=== PATIENT | male | born 1955 | race Caucasian/White ===

== ENCOUNTER 2019-12-28 22:11 | Emergency (ER) | payer MEDICARE, MEDICAID, SELFPAY ==
[2019-12-28 22:25] VITALS: BP 153/76; PULSE 72; RESP 13; TEMP 36.7; O2SAT 95; BMI 35.7
--- NOTE | 2019-12-28 22:38 | ECG_ITS ---
Test Reason : CHEST PAIN Blood Pressure : / mmHG Vent. Rate : 068 BPM Atrial Rate : 068 BPM P-R Int : 180 ms QRS Dur : 080 ms QT Int : 424 ms P-R-T Axes : 067 032 071 degrees QTc Int : 450 ms Normal sinus rhythm Low voltage QRS Otherwise normal ECG No significant changes seen Referred By: Phillip Geiger Electronically Signed By:SHALOM GARCIA MD
--- NOTE | 2019-12-28 22:41 | ED.CHESTPAIN ---
HPI - Chest Pain General Chief Complaint: Chest Pain Stated Complaint: CP Time Seen by Provider: 12/28/19 22:29 Source: patient and EMS Mode of arrival: EMS History of Present Illness HPI narrative: Chest pain. Central for about 1 hour. Patient states was sleeping and woke up with central pain. Nonradiating. Mild shortness breath. Mild nausea however no vomiting. Denies diaphoresis however states he had the chills. No dizziness states pain improved upon arrival to emergency department MD complaint: chest discomfort Onset (ago): hour(s) Timing of current episode: constant Pain location: epigastric Pain radiation: none Severity: moderate Quality: sharp Associated symptoms: nausea Risk Factors Pulmonary embolism risk factors: malignancy Related Data Home Medications Medication Instructions Recorded Confirmed aspirin 81 mg PO DAILY 11/18/19 12/28/19 atorvastatin 80 mg PO BEDTIME 11/18/19 12/28/19 carvedilol 3.125 mg PO BID 11/18/19 12/28/19 doxycycline hyclate 100 mg PO DAILY 11/18/19 11/18/19 fluoxetine 20 mg PO DAILY 11/18/19 12/28/19 fluticasone propionate [Flovent 2 puff INHALATION BID 11/18/19 11/18/19 HFA] hydroxyzine HCl 25 mg PO TID PRN 11/18/19 11/18/19 magnesium oxide 400 mg PO BID 11/18/19 12/28/19 methylprednisolone 4 mg PO DAILY 11/18/19 11/18/19 metronidazole 1 applic TOPICAL DAILY 11/18/19 11/18/19 omeprazole 20 mg PO DAILY 11/18/19 12/28/19 ondansetron HCl 8 mg PO Q8H PRN 11/18/19 11/18/19 trazodone 50 mg PO DAILY 11/18/19 12/28/19 triamcinolone acetonide 1 applic TOPICAL BID 11/18/19 11/18/19 vitamin B comp and C no.3 [B 1 cap PO DAILY 11/18/19 12/28/19 Complex Plus Vitamin C] doxycycline hyclate 100 mg PO BID 12/01/19 12/01/19 triamcinolone acetonide 1 applic TOPICAL DAILY 12/01/19 12/01/19 Allergies Allergy/AdvReac Type Severity Reaction Status Date / Time nitroglycerin Allergy Severe AGITATION Verified 11/10/19 13:48 [From NITROSTAT] oxaliplatin [OXALIPLATIN] Allergy Severe anaphylaxis Verified 11/10/19 13:48 diphenhydramine Allergy Intermediate RASH Verified 11/10/19 13:48 [From MOTRIN PM] ibuprofen [From ADVIL] Allergy Unknown RASH Verified 11/10/19 13:48 morphine Allergy Unknown painful Verified 09/11/19 00:00 rash oxcarbazepine Allergy Unknown rash, Verified 11/10/19 13:48 [From TRILEPTAL] coughing penicillin V Allergy Unknown rash Verified 11/10/19 13:48 Penicillins [PENICILLINS] Allergy Unknown ITCHING, Verified 11/10/19 13:48 RASH Benadryl Allergy Unknown rash Uncoded 09/11/19 00:00 Review of Systems Review of Systems: Constitutional : No Weight loss, No Fever, No Chills, No Night Sweats, No Fatigue, No Malaise ENT/Mouth : No Hearing loss, No Ear Pain, No Nasal Congestion, No Sinus Pain, No Hoarseness, No sore throat, No Rhinorrhea, No Swallowing Difficulty Eyes: No Eye Pain, No Swelling, No Redness, No Foreign Body, No Discharge, No Vision Changes Cardiovascular : Positive Chest Pain, positive SOB, No Dyspnea on Exertion, No Orthopnea, No Edema, No Palpitations Respiratory : No Cough, No Sputum, No Wheezing, No Smoke Exposure, No Dyspnea Gastrointestinal : No Nausea, No Vomiting, No Diarrhea, No Constipation, No abdominal Pain, No Hematochezia, No Melena Genitourinary : no irregular bleeding, No Dysuria, No Urinary Frequency, No Hematuria, No Urinary Incontinence, No Urgency, No Flank Pain, No Urinary Flow Changes, No Hesitancy Musculoskeletal : No joint pain, No Myalgias, No Joint Swelling Skin : No Skin Lesions, No rash Neuro : No Weakness, No Numbness, No Paresthesias, No Loss of Consciousness, No Dizziness, No Headache Psych : No Anxiety/Panic, No Depression, No SI/HI/AH/VH, No Social Issues, Heme/Lymph: No Bruising, No Bleeding,No Lymphadenopathy Endocrine : No Polyuria, No Polydipsia, No Temperature Intolerance PMFSH Past Medical History Medical History Asthma Colon cancer Diabetes mellitus, type 2 Hypercholesteremia Hypertension Palpitations Family History Family History (Updated 12/28/19 @ 22:45 by Phillip Geiger DO) Other Family history non-contributory Social History Social History Alcohol intake: never Smoked in Last 30 Days: No Use of substances other than those prescribed or required for medical reasons: No Advance Directives: No Advance Directives Information Provided: No Physical Exam Vital Signs: Vital Signs: Last Vital Signs Temp 98.0 F 12/28/19 22:25 Pulse 77 12/29/19 01:24 Resp 16 12/29/19 01:24 BP 153/76 H 12/28/19 22:25 Pulse Ox 97 12/29/19 01:24 Body Mass Index 35.7 Vital signs reviewed Appearance: Alert. Oriented X3. No acute distress. No distress Eyes: Pupils equal, round and reactive to light. ENT: Pharynx normal. Neck: Normal inspection. Neck supple. No lymph nodes noted. No crepitus CVS: Normal heart rate and rhythm. Pulses normal. Normal S1 and S2 no pain with palpation Respiratory: No respiratory distress. Breath sounds normal. No Wheezing. No rales no respiratory distress Abdomen: Soft and nontender. No rigidity. No distention. good BS x4 Skin: Skin warm and dry. Normal skin color. Normal skin turgor. Extremities: No lower extremity edema. Neurovascular intact to all extremities. No Lacerations. No Rash Neuro: Oriented X 3. No motor deficit. No sensory deficit. Moving all extermities. No slurred speech. Course Course Course Narrative: Patient with history of colon cancer will pursue to CTA for rule out PE MDM - Chest Pain MDM Narrative Medical decision making narrative: 64-year-old male with central chest pain prior to arrival. Patient has history of cancer CTA negative for PE. No signs of infection. EKG normal and troponin x2 negative. Throughout stay patient felt much improved. At this point I doubt the patient has acute coronary syndrome Lab Data Result diagrams: 12/28/19 23:01 12/28/19 23:01 Labs: Lab Results 12/28/19 12/28/19 12/28/19 Range/Units 23:01 23:01 23:01 WBC 7.9 (4.8-10.8) X10*3/uL RBC 4.47 L (4.60-5.80) X10*6/uL Hgb 11.7 L (14.0-18.0) g/dl Hct 36.8 L (42-52) % MCV 82.3 (80-98) fL MCH 26.2 L (27.0-33.0) pg MCHC 31.8 (31.0-36.0) g/dl RDW 15.6 (11.0-16.0) % Plt Count 237 (160-400) X10*3/uL MPV 10.4 (9.4-12.4) fL Immature Gran % (Auto) 0.5 H (0.0-0.4) % Neut % (Auto) 53.0 (45-73) % Lymph % (Auto) 32.9 (20-40) % [place] % (Auto) 10.4 (2-11) % Eos % (Auto) 2.4 (0-4) % Baso % (Auto) 0.8 (0-2) % Lymph # (Auto) 2.6 (1.2-4.9) X10*3/uL [place] # (Auto) 0.8 (0.1-1.2) X10*3/uL Eos # (Auto) 0.2 (0.0-0.4) X10*3/uL Baso # (Auto) 0.1 (0.0-0.2) X10*3/uL Abs Immat Gran (auto) 0.04 H (0.00-0.03) X10*3/uL Absolute Neuts (auto) 4.2 (2.0-8.3) X10*3/uL Absolute Nucleated RBC 0.000 (0.0-0.012) X10*3/uL Nucleated RBC % (auto) 0.0 (0.0-0.2) /100WBC Hold Blue Top SEE NOTE Sodium 137 (135-145) mmol/L Potassium 3.7 (3.3-5.1) mmol/l Chloride 105 (96-108) mmol/L Carbon Dioxide 24 (22-29) mmol/L Anion Gap 12 (12-20) BUN 8 L (9-16) mg/dL Creatinine 0.68 (0.5-1.4) mg/dL Estim Creat Clear Calc 108.4 Estimated GFR > 60 Random Glucose 101 (60-115) mg/dL Calcium 8.4 (8.4-10.2) mg/dL Total Bilirubin (0.0-1.0) mg/dL Direct Bilirubin (0.0-0.5) mg/dL AST (5-37) U/L ALT (0-40) U/L Alkaline Phosphatase (39-117) U/L Troponin I High Sens (<3.5-35.0) ng/L Total Protein (6.5-8.0) g/dL Albumin (3.5-5.0) g/dL Lipase (8-78) U/L 12/28/19 12/28/19 12/29/19 Range/Units 23:01 23:01 01:34 WBC (4.8-10.8) X10*3/uL RBC (4.60-5.80) X10*6/uL Hgb (14.0-18.0) g/dl Hct (42-52) % MCV (80-98) fL MCH (27.0-33.0) pg MCHC (31.0-36.0) g/dl RDW (11.0-16.0) % Plt Count (160-400) X10*3/uL MPV (9.4-12.4) fL Immature Gran % (Auto) (0.0-0.4) % Neut % (Auto) (45-73) % Lymph % (Auto) (20-40) % [place] % (Auto) (2-11) % Eos % (Auto) (0-4) % Baso % (Auto) (0-2) % Lymph # (Auto) (1.2-4.9) X10*3/uL [place] # (Auto) (0.1-1.2) X10*3/uL Eos # (Auto) (0.0-0.4) X10*3/uL Baso # (Auto) (0.0-0.2) X10*3/uL Abs Immat Gran (auto) (0.00-0.03) X10*3/uL Absolute Neuts (auto) (2.0-8.3) X10*3/uL Absolute Nucleated RBC (0.0-0.012) X10*3/uL Nucleated RBC % (auto) (0.0-0.2) /100WBC Hold Blue Top Sodium (135-145) mmol/L Potassium (3.3-5.1) mmol/l Chloride (96-108) mmol/L Carbon Dioxide (22-29) mmol/L Anion Gap (12-20) BUN (9-16) mg/dL Creatinine (0.5-1.4) mg/dL Estim Creat Clear Calc Estimated GFR Random Glucose (60-115) mg/dL Calcium (8.4-10.2) mg/dL Total Bilirubin 0.2 (0.0-1.0) mg/dL Direct Bilirubin 0.2 (0.0-0.5) mg/dL AST 25 (5-37) U/L ALT 25 (0-40) U/L Alkaline Phosphatase 119 H (39-117) U/L Troponin I High Sens 48.9 H 44.3 H (<3.5-35.0) ng/L Total Protein 6.9 (6.5-8.0) g/dL Albumin 3.5 (3.5-5.0) g/dL Lipase 62 (8-78) U/L ECG Data ECG #1: Attestation: I personally reviewed and interpreted this ECG as follows: Pacemaker model: 68 beats per minute. Normal sinus rhythm. Normal axis. No ST-T changes. Discharge Plan Discharge Clinical Impression: Chest pain Patient Disposition: Home, Self-Care Instructions: Chest Pain (ED) Additional Instructions: Thank you for visiting the emergency department today. If your symptoms worsen or do not resolve completely please return to the emergency department immediately or call 911. if he have any questions please call your primary care physician Prescriptions: No Action doxycycline hyclate 100 mg Capsule 100 mg PO DAILY RF: 0 ondansetron HCl 8 mg Tablet 8 mg PO Q8H PRN (Reason: Nausea) RF: 0 methylprednisolone 4 mg Tablet 4 mg PO DAILY RF: 0 metronidazole 0.75 % Cream 1 applic TOPICAL DAILY RF: 0 hydroxyzine HCl 25 mg Tablet 25 mg PO TID PRN (Reason: Itching) RF: 0 atorvastatin 80 mg Tablet 80 mg PO BEDTIME RF: 0 triamcinolone acetonide 0.1 % Cream 1 applic TOPICAL BID RF: 0 carvedilol 3.125 mg Tablet 3.125 mg PO BID RF: 0 omeprazole 20 mg Capsule,Delayed Release(Dr/Ec) 20 mg PO DAILY RF: 0 aspirin 81 mg Tablet 81 mg PO DAILY RF: 0 fluoxetine 20 mg Capsule 20 mg PO DAILY RF: 0 Flovent HFA 110 mcg/actuation Hfa Aerosol Inhaler 2 puff INHALATION BID RF: 0 B Complex Plus Vitamin C 72-78-11-5-300 mg Capsule 1 cap PO DAILY RF: 0 magnesium oxide 400 mg magnesium Tablet 400 mg PO BID RF: 0 trazodone 50 mg Tablet 50 mg PO DAILY RF: 0 triamcinolone acetonide 0.1 % Ointment 1 applic TOPICAL DAILY RF: 0 doxycycline hyclate 100 mg Tablet 100 mg PO BID RF: 0 Referrals: [facility] [Provider Group] - 2 days Interventions: ED Discharge Assessment Last Done: 12/29/19 03:44 Discharge Date/Time: 12/29/19 03:47 Print Language: Turkmen
[2019-12-28] MEDS: 0.9 % Sodium Chloride 1,000 ML 999 ML IVCONT (23:02)
[2019-12-28] MEDS: Famotidine/PF 20 MG/2 ML VIAL IVPUSH (23:02)
[2019-12-28 23:10] LABS: MANUAL DIFF FLAG NO
[2019-12-28 23:12] LABS: Basophils Absolute Auto 0.1 X10*3/uL (0.0-0.2); Basophils Percent Auto 0.8 % (0-2); Eosinophils Absolute Auto 0.2 X10*3/uL (0.0-0.4); Eosinophils Percent Auto 2.4 % (0-4); Hematocrit 36.8 % (42-52); Hemoglobin 11.7 g/dl (14.0-18.0); Imm Gran Abs Auto 0.04 X10*3/uL (0.00-0.03); Imm Gran Pct Auto 0.5 % (0.0-0.4); Lymphocytes Absolute Auto 2.6 X10*3/uL (1.2-4.9); Lymphocytes Percent Auto 32.9 % (20-40); Mean Corpuscular HGB Conc 31.8 g/dl (31.0-36.0); Mean Corpuscular Hemoglobin 26.2 pg (27.0-33.0); Mean Corpuscular Volume 82.3 fL (80-98); Mean Platelet Volume 10.4 fL (9.4-12.4); Monocytes Absolute Auto 0.8 X10*3/uL (0.1-1.2); Monocytes Percent Auto 10.4 % (2-11); Neutrophils Absolute Auto 4.2 X10*3/uL (2.0-8.3); Platelet Count 237 X10*3/uL (160-400); Red Blood Count 4.47 X10*6/uL (4.60-5.80); Red Cell Distribution Width 15.6 % (11.0-16.0); White Blood Count 7.9 X10*3/uL (4.8-10.8)
[2019-12-28 23:44] LABS: Anion Gap 12 (12-20); Blood Urea Nitrogen 8 mg/dL (9-16); Calcium 8.4 mg/dL (8.4-10.2); Carbon Dioxide 24 mmol/L (22-29); Chloride 105 mmol/L (96-108); Creatinine Clr Calc Pharmacy 108.4; Estimated Glomerular Filt Rate > 60; Glucose Random 101 mg/dL (60-115); Potassium 3.7 mmol/l (3.3-5.1); Sodium 137 mmol/L (135-145)
[2019-12-28 23:46] LABS: Alanine Aminotransferase 25 U/L (0-40); Albumin Level 3.5 g/dL (3.5-5.0); Alkaline Phosphatase 119 U/L (39-117); Aspartate Amino Transferase 25 U/L (5-37); Bilirubin Direct 0.2 mg/dL (0.0-0.5); Bilirubin Total 0.2 mg/dL (0.0-1.0); Lipase 62 U/L (8-78); Total Protein 6.9 g/dL (6.5-8.0)
[2019-12-29] LABS: Troponin-I High Sensitivity 48.9 ng/L (<3.5-35.0)
--- NOTE | 2019-12-29 00:15 | CT_ITS ---
EXAMINATION: CT ANGIOGRAM OF THE CHEST WITH AND WITHOUT CONTRAST (CT PULMONARY ANGIOGRAM FOR PE) CLINICAL INFORMATION: Reason for Exam cp, sob, hx ca COMPARISON: 07/07/2019 TECHNIQUE: Prior to contrast administration, noncontrast localization images were obtained. Subsequently, multidetector volumetric imaging was performed from the thoracic inlet to below the diaphragms following the administration of 85 mL Omnipaque 350 intravenous contrast. No contrast reaction reported Sagittal, coronal, and MIP oblique sagittal reformatted images were obtained on the CT workstation, uploaded to PACS, and reviewed. This CT examination was performed using dose optimization techniques as appropriate, variously including the following: *Automated exposure control *Adjustment of mA and/or kV according to patient size (this includes techniques or standardized protocols for targeted exams where dose is matched to indication/reason for exam; i.e. extremities or head) *Use of iterative reconstruction technique Total exam dose-length product 408 mGy-cm FINDINGS: QUALITY OF STUDY/CONTRAST BOLUS: Satisfactory. PULMONARY ARTERIES: No central or segmental pulmonary emboli. THORACIC AORTA: No aneurysm or dissection. Mild scattered atherosclerotic disease. LUNG: No regions of consolidation bilaterally. Bilateral bronchial wall thickening is noted. Redemonstration of numerous scattered tiny nodules bilaterally, some of which are calcified and overall favoring granulomas. PLEURA: No pleural effusion or pneumothorax. MEDIASTINUM: The visualized thyroid gland is unremarkable. There are subcentimeter mediastinal lymph nodes within the range of normal variation. There is prominence of mediastinal fat suggesting mediastinal lipomatosis. Cardiac size is within normal limits; no pericardial effusion. Right IJ port catheter extends to the region of the mid SVC. CHEST WALL/AXILLA: No axillary or internal mammary lymphadenopathy. OSSEOUS STRUCTURES: There are changes of diffuse idiopathic skeletal hyperostosis in the spine. UPPER ABDOMEN: Partially visualized hypodensity in the upper left kidney is suggestive of a cyst. No reflux of contrast into the hepatic veins to suggest elevated right heart pressures. CT/CT angio chest PE protocol IMPRESSION: 1. No pulmonary embolus identified. 2. Bronchial wall thickening which may be secondary to acute or chronic bronchitis. No regions of consolidation. VTE: negative
[2019-12-29] MEDS: iohexoL 350 MG/ML 100 ML INFUS..BTL 85 ML IV (01:13)
[2019-12-29 01:24] VITALS: PULSE 77; RESP 16; O2SAT 97
[2019-12-29 02:22] LABS: Troponin-I High Sensitivity 44.3 ng/L (<3.5-35.0)
== END 2019-12-29 03:47 | disposition home or self-care (01) ==
PROVIDERS: Emergency Provider Emergency Medicine
DX: R07.9 Chest pain, unspecified (principal); E11.9 Type 2 diabetes mellitus without complications; I10 Essential (primary) hypertension; Z79.899 Other long term (current) drug therapy
CPT/HCPCS: 36415; 71275; 80048; 80076; 83690; 84484; 85025; 93005; 96361; 96374; 99284; Q9967

== ENCOUNTER 2020-01-05 02:38 | Emergency (ER) | payer MEDICARE, MEDICAID, SELFPAY ==
[2020-01-05 02:47] VITALS: BP 144/58; BP 176/90; PULSE 70; PULSE 83; RESP 14; TEMP 36.5; O2SAT 100; O2SAT 97; BMI 36.3
--- NOTE | 2020-01-05 02:52 | XR_ITS ---
EXAMINATION: XR CHEST CLINICAL INFORMATION: Chest pain COMPARISON: 07/20/2019 TECHNIQUE: Frontal view of the chest was obtained. FINDINGS: Right chest wall CT compatible port terminating over the mid SVC. Cardiac leads overlie the chest. Low lung volumes. Patchy opacity of the left upper lung. Bronchial wall thickening noted. No pleural effusion. No pneumothorax. The cardiomediastinal silhouette is within normal limits. XR/XR chest 1V IMPRESSION: Bronchial wall thickening noted which could be associated with a small airways process. Minimal patchy left upper lung opacity may represent superimposed atelectasis or developing pneumonia.
--- NOTE | 2020-01-05 02:52 | ECG_ITS ---
Test Reason : CHEST PAIN Blood Pressure : / mmHG Vent. Rate : 072 BPM Atrial Rate : 072 BPM P-R Int : 172 ms QRS Dur : 078 ms QT Int : 428 ms P-R-T Axes : 068 023 040 degrees QTc Int : 468 ms Sinus rhythm with Premature atrial complexes Low voltage QRS Abnormal ECG When compared with ECG of 28-DEC-2019 22:27, Premature atrial complexes are now Present Referred By: Sarahi Jin Electronically Signed By:SHALOM GARCIA MD
[2020-01-05 03:25] LABS: Basophils Percent Auto 0.6 % (0-2); Eosinophils Absolute Auto 0.1 X10*3/uL (0.0-0.4); Eosinophils Percent Auto 1.7 % (0-4); Hematocrit 36.8 % (42-52); Hemoglobin 11.5 g/dl (14.0-18.0); Imm Gran Abs Auto 0.03 X10*3/uL (0.00-0.03); Imm Gran Pct Auto 0.5 % (0.0-0.4); Lymphocytes Absolute Auto 2.8 X10*3/uL (1.2-4.9); Lymphocytes Percent Auto 41.8 % (20-40); Mean Corpuscular HGB Conc 31.3 g/dl (31.0-36.0); Mean Corpuscular Hemoglobin 25.9 pg (27.0-33.0); Mean Corpuscular Volume 82.9 fL (80-98); Mean Platelet Volume 10.9 fL (9.4-12.4); Monocytes Absolute Auto 0.6 X10*3/uL (0.1-1.2); Monocytes Percent Auto 8.7 % (2-11); Neutrophils Absolute Auto 3.1 X10*3/uL (2.0-8.3); Neutrophils Percent Auto 46.7 % (45-73); Platelet Count 224 X10*3/uL (160-400); Red Blood Count 4.44 X10*6/uL (4.60-5.80); Red Cell Distribution Width 15.6 % (11.0-16.0); White Blood Count 6.6 X10*3/uL (4.8-10.8)
--- NOTE | 2020-01-05 03:25 | ED.CHESTPAIN ---
HPI - Chest Pain General Chief Complaint: Chest Pain Stated Complaint: SOB/CP Time Seen by Provider: 01/05/20 02:51 Source: patient and charge preparation technician Mode of arrival: EMS Limitations: no limitations History of Present Illness HPI narrative: This is a 64-year-old male who is brought in by EMS after calling for being awoken from sleep with substernal chest discomfort that he states is similar as to last week whenever he presented and is not associated with any fevers, chills, nausea, diaphoresis, radiation to arm / jaw, dizziness, or headache. As per EMS they administered 324 mg of aspirin and patient states that his chest pain has mildly improved. He states he did drink some alcohol yesterday MD complaint: chest discomfort Related Data Home Medications Medication Instructions Recorded Confirmed aspirin 81 mg PO DAILY 11/18/19 12/28/19 atorvastatin 80 mg PO BEDTIME 11/18/19 12/28/19 carvedilol 3.125 mg PO BID 11/18/19 12/28/19 doxycycline hyclate 100 mg PO DAILY 11/18/19 11/18/19 fluoxetine 20 mg PO DAILY 11/18/19 12/28/19 fluticasone propionate [Flovent 2 puff INHALATION BID 11/18/19 11/18/19 HFA] hydroxyzine HCl 25 mg PO TID PRN 11/18/19 11/18/19 magnesium oxide 400 mg PO BID 11/18/19 12/28/19 methylprednisolone 4 mg PO DAILY 11/18/19 11/18/19 metronidazole 1 applic TOPICAL DAILY 11/18/19 11/18/19 omeprazole 20 mg PO DAILY 11/18/19 12/28/19 ondansetron HCl 8 mg PO Q8H PRN 11/18/19 11/18/19 trazodone 50 mg PO DAILY 11/18/19 12/28/19 triamcinolone acetonide 1 applic TOPICAL BID 11/18/19 11/18/19 vitamin B comp and C no.3 [B 1 cap PO DAILY 11/18/19 12/28/19 Complex Plus Vitamin C] doxycycline hyclate 100 mg PO BID 12/01/19 12/01/19 triamcinolone acetonide 1 applic TOPICAL DAILY 12/01/19 12/01/19 Allergies Allergy/AdvReac Type Severity Reaction Status Date / Time nitroglycerin Allergy Severe AGITATION Verified 01/05/20 02:47 [From NITROSTAT] oxaliplatin [OXALIPLATIN] Allergy Severe anaphylaxis Verified 01/05/20 02:47 diphenhydramine Allergy Intermediate RASH Verified 01/05/20 02:47 [From MOTRIN PM] ibuprofen [From ADVIL] Allergy Unknown RASH Verified 01/05/20 02:47 morphine Allergy Unknown painful Verified 01/05/20 02:47 rash oxcarbazepine Allergy Unknown rash, Verified 01/05/20 02:47 [From TRILEPTAL] coughing penicillin V Allergy Unknown rash Verified 01/05/20 02:47 Penicillins [PENICILLINS] Allergy Unknown ITCHING, Verified 01/05/20 02:47 RASH Benadryl Allergy Unknown rash Uncoded 09/11/19 00:00 Review of Systems Review of Systems: pertinent positives and negatives as stated in HPI 10 point review of systems is otherwise negative. [facility] Past Medical History Attestation statement: The following information was validated with the patient. Source: nursing notes reviewed Medical History Asthma Colon cancer Diabetes mellitus, type 2 Hypercholesteremia Hypertension Palpitations Family History Family History (Updated 12/28/19 @ 22:45 by Phillip Geiger DO) Other Family history non-contributory Social History Social History Alcohol intake: never Advance Directives: No Physical Exam Vital Signs: Vital Signs: Last Vital Signs Temp 97.7 F 01/05/20 02:47 Pulse 70 01/05/20 02:47 Resp 14 01/05/20 02:47 BP 144/58 H 01/05/20 02:47 Pulse Ox 97 01/05/20 02:47 Body Mass Index 36.3 VITAL SIGNS: Reviewed. GENERAL: Well developed, well nourished, in no acute distress. HEAD: Normocephalic/atraumatic, EYES: PERRLA, EOMI intact without pain, no nystagmus/pallor/icterus noted EARS: Ext canals without abnormality, TMs non-bulging and non-erythematous NOSE: Nares patent bilateral OROPHARYNX: no oral lesions noted, posterior pharynx clear and non-erythematous without noted tonsillar enlargement/erythema/exudates NECK: Supple, no adenopathy LUNGS: Normal breath sounds. No adventitious sounds or accessory muscle use. SpO2<97> CARDIOVASCULAR: Regular rate and rhythm without noted murmurs, no JVD or lower extremity edema. ABDOMEN: Soft, non-tender, non-distended with bowel sounds. No rigidity. No guarding. No palpable masses or hernias noted MUSCULOSKELETAL: No tenderness, deformities, or effusions noted on gross inspection. EXTREMITIES: No cyanosis, clubbing or edema. SKIN: Inspection of the skin reveals chemotherapy rash to anterior abdominal wall, ulcerations, jaundice, pallor, or petechiae. NEUROLOGIC: Alert and oriented x 4. Strength and sensation to light touch were grossly intact x 4. Course Course Course Narrative: This is a 64-year-old male with history and clinical presentation consistent with possible alcohol gastritis, cardiac ischemia, pneumonia. On review of all investigation there is no leukocytosis, patient has chronic stable anemia, and high sensitivity troponin is consistent with prior from 12/29/2019 and no evidence of acute ischemia on EKG. There is a noted hypomagnesemia without potassium derangements and patient will be supplemented with 2 g of magnesium here in the emergency department. on review of chest x-ray suggestion of possible developing pneumonia in the left upper lung and will also swab for COVID-19 at this time. Patient received supplemental magnesium, the COVID-19 testing is negative, and patient is feeling much better. He will be discharged to home in stable condition and instructed follow up with his primary care provider by calling the office in the morning. On further discussion patient stated he was provided with doxycycline for pneumonia at his last visit however he did not receive a call from the pharmacy and so he has not picked up any antibiotic. He was instructed that the antibiotic was available for him at [facility] and that he should proceed there today after his scheduled appointment and machine pecan picker the antibiotic and complete the entire course. MDM - Chest Pain Lab Data Result diagrams: 01/05/20 03:13 01/05/20 03:13 Labs: Lab Results 01/05/20 01/05/20 01/05/20 Range/Units 03:13 03:13 03:13 WBC 6.6 (4.8-10.8) X10*3/uL RBC 4.44 L (4.60-5.80) X10*6/uL Hgb 11.5 L (14.0-18.0) g/dl Hct 36.8 L (42-52) % MCV 82.9 (80-98) fL MCH 25.9 L (27.0-33.0) pg MCHC 31.3 (31.0-36.0) g/dl RDW 15.6 (11.0-16.0) % Plt Count 224 (160-400) X10*3/uL MPV 10.9 (9.4-12.4) fL Immature Gran % (Auto) 0.5 H (0.0-0.4) % Neut % (Auto) 46.7 (45-73) % Lymph % (Auto) 41.8 H (20-40) % [place] % (Auto) 8.7 (2-11) % Eos % (Auto) 1.7 (0-4) % Baso % (Auto) 0.6 (0-2) % Lymph # (Auto) 2.8 (1.2-4.9) X10*3/uL [place] # (Auto) 0.6 (0.1-1.2) X10*3/uL Eos # (Auto) 0.1 (0.0-0.4) X10*3/uL Baso # (Auto) 0.0 (0.0-0.2) X10*3/uL Abs Immat Gran (auto) 0.03 (0.00-0.03) X10*3/uL Absolute Neuts (auto) 3.1 (2.0-8.3) X10*3/uL Absolute Nucleated RBC 0.000 (0.0-0.012) X10*3/uL Nucleated RBC % (auto) 0.0 (0.0-0.2) /100WBC Sodium 138 (135-145) mmol/L Potassium 3.6 (3.3-5.1) mmol/l Chloride 105 (96-108) mmol/L Carbon Dioxide 23 (22-29) mmol/L Anion Gap 14 (12-20) BUN 9 (9-16) mg/dL Creatinine 0.69 (0.5-1.4) mg/dL Estim Creat Clear Calc 107.8 Estimated GFR > 60 Random Glucose 118 H (60-115) mg/dL Calcium 8.3 L (8.4-10.2) mg/dL Magnesium 1.4 L* (1.6-2.6) mg/dL Total Bilirubin 0.5 (0.0-1.0) mg/dL AST 34 D (5-37) U/L ALT 33 (0-40) U/L Alkaline Phosphatase 124 H (39-117) U/L Troponin I High Sens 38.2 H (<3.5-35.0) ng/L Total Protein 7.0 (6.5-8.0) g/dL Albumin 3.5 (3.5-5.0) g/dL Lipase 65 (8-78) U/L Ethyl Alcohol mg/dL Coronavirus (PCR) (Negative) Influenza Type A (PCR) (Negative) Influenza Type B (PCR) (Negative) RSV RNA Qual (PCR) (Negative) 01/05/20 01/05/20 Range/Units 03:13 04:09 WBC (4.8-10.8) X10*3/uL RBC (4.60-5.80) X10*6/uL Hgb (14.0-18.0) g/dl Hct (42-52) % MCV (80-98) fL MCH (27.0-33.0) pg MCHC (31.0-36.0) g/dl RDW (11.0-16.0) % Plt Count (160-400) X10*3/uL MPV (9.4-12.4) fL Immature Gran % (Auto) (0.0-0.4) % Neut % (Auto) (45-73) % Lymph % (Auto) (20-40) % [place] % (Auto) (2-11) % Eos % (Auto) (0-4) % Baso % (Auto) (0-2) % Lymph # (Auto) (1.2-4.9) X10*3/uL [place] # (Auto) (0.1-1.2) X10*3/uL Eos # (Auto) (0.0-0.4) X10*3/uL Baso # (Auto) (0.0-0.2) X10*3/uL Abs Immat Gran (auto) (0.00-0.03) X10*3/uL Absolute Neuts (auto) (2.0-8.3) X10*3/uL Absolute Nucleated RBC (0.0-0.012) X10*3/uL Nucleated RBC % (auto) (0.0-0.2) /100WBC Sodium (135-145) mmol/L Potassium (3.3-5.1) mmol/l Chloride (96-108) mmol/L Carbon Dioxide (22-29) mmol/L Anion Gap (12-20) BUN (9-16) mg/dL Creatinine (0.5-1.4) mg/dL Estim Creat Clear Calc Estimated GFR Random Glucose (60-115) mg/dL Calcium (8.4-10.2) mg/dL Magnesium (1.6-2.6) mg/dL Total Bilirubin (0.0-1.0) mg/dL AST (5-37) U/L ALT (0-40) U/L Alkaline Phosphatase (39-117) U/L Troponin I High Sens (<3.5-35.0) ng/L Total Protein (6.5-8.0) g/dL Albumin (3.5-5.0) g/dL Lipase (8-78) U/L Ethyl Alcohol 20 mg/dL Coronavirus (PCR) NEGATIVE (Negative) Influenza Type A (PCR) NEGATIVE (Negative) Influenza Type B (PCR) NEGATIVE (Negative) RSV RNA Qual (PCR) NEGATIVE (Negative) Discharge Plan Discharge Clinical Impression: Atypical chest pain, Hypomagnesemia Gastritis Qualifiers: Gastritis type: alcoholic Chronicity: unspecified Gastritis bleeding: without bleeding Qualified Code(s): K29.20 - Alcoholic gastritis without bleeding Patient Disposition: Home, Self-Care Instructions: Gastritis (ED), Diet for Stomach Ulcers and Gastritis (ED), Hypomagnesemia (ED) Additional Instructions: 1. Reanude todos los medicamentos caseros seg?n lo prescrito. 2. Recomiende que intente evitar m?s alcohol, ya que esto puede contribuir a algunos de los s?ntomas que est? experimentando. 3. Shikha un seguimiento con miller proveedor de atenci?n primaria llamando al consultorio por la ma?anupam y estableciendo aurora reji para aurora reevaluaci?n. El paciente y / o la balbir reconocen que comprenden los resultados (seg?n corresponda), el diagn?stico, el plan de tratamiento, la necesidad de seguimiento y los s?ntomas que deber?an impulsar el regreso a la yen de emergencias. Prescriptions: No Action doxycycline hyclate 100 mg Capsule 100 mg PO DAILY RF: 0 ondansetron HCl 8 mg Tablet 8 mg PO Q8H PRN (Reason: Nausea) RF: 0 methylprednisolone 4 mg Tablet 4 mg PO DAILY RF: 0 metronidazole 0.75 % Cream 1 applic TOPICAL DAILY RF: 0 hydroxyzine HCl 25 mg Tablet 25 mg PO TID PRN (Reason: Itching) RF: 0 atorvastatin 80 mg Tablet 80 mg PO BEDTIME RF: 0 triamcinolone acetonide 0.1 % Cream 1 applic TOPICAL BID RF: 0 carvedilol 3.125 mg Tablet 3.125 mg PO BID RF: 0 omeprazole 20 mg Capsule,Delayed Release(Dr/Ec) 20 mg PO DAILY RF: 0 aspirin 81 mg Tablet 81 mg PO DAILY RF: 0 fluoxetine 20 mg Capsule 20 mg PO DAILY RF: 0 Flovent HFA 110 mcg/actuation Hfa Aerosol Inhaler 2 puff INHALATION BID RF: 0 B Complex Plus Vitamin C 23-43-37-5-300 mg Capsule 1 cap PO DAILY RF: 0 magnesium oxide 400 mg magnesium Tablet 400 mg PO BID RF: 0 trazodone 50 mg Tablet 50 mg PO DAILY RF: 0 triamcinolone acetonide 0.1 % Ointment 1 applic TOPICAL DAILY RF: 0 doxycycline hyclate 100 mg Tablet 100 mg PO BID RF: 0 Referrals: Physician,Unknown [Primary Care Provider] - 2 days (Re-evaluation) Interventions: ED Discharge Assessment Last Done: 01/05/20 05:56 Print Language: Libyan
[2020-01-05 03:26] LABS: MANUAL DIFF FLAG NO
[2020-01-05] MEDS: Magnesium Hydrox/Alum Hydrox 30 ML ORAL.SUSP PO (03:35)
[2020-01-05] MEDS: Lidocaine HCl Viscous 2 % 15 ML SOLUTION 10 ML MUCOUS MEM (03:35)
[2020-01-05 03:44] LABS: Ethanol 20 mg/dL
[2020-01-05 03:49] LABS: Alanine Aminotransferase 33 U/L (0-40); Albumin Level 3.5 g/dL (3.5-5.0); Alkaline Phosphatase 124 U/L (39-117); Anion Gap 14 (12-20); Aspartate Amino Transferase 34 U/L (5-37); Bilirubin Total 0.5 mg/dL (0.0-1.0); Blood Urea Nitrogen 9 mg/dL (9-16); Calcium 8.3 mg/dL (8.4-10.2); Carbon Dioxide 23 mmol/L (22-29); Chloride 105 mmol/L (96-108); Creatinine Clr Calc Pharmacy 107.8; Estimated Glomerular Filt Rate > 60; Glucose Random 118 mg/dL (60-115); Lipase 65 U/L (8-78); Magnesium 1.4 mg/dL (1.6-2.6); Potassium 3.6 mmol/l (3.3-5.1); Sodium 138 mmol/L (135-145)
[2020-01-05 03:56] LABS: Troponin-I High Sensitivity 38.2 ng/L (<3.5-35.0)
[2020-01-05] MEDS: Magnesium Sulfate/H2O 2 GM/50 ML PIGGYBACK IV (04:05)
[2020-01-05 05:00] LABS: Influenza A PCR NEGATIVE (Negative); Influenza B PCR NEGATIVE (Negative); Resp Syncy Virus RNA Qual PCR NEGATIVE (Negative); SARS COV2 PCR INHOUSE NEGATIVE (Negative)
== END 2020-01-05 06:08 | disposition home or self-care (01) ==
PROVIDERS: Emergency Provider Student in an Organized Health Care Education/Training Program
DX: R07.89 Other chest pain (principal); E83.42 Hypomagnesemia; K29.20 Alcoholic gastritis without bleeding; Z79.899 Other long term (current) drug therapy; Z20.828 Contact with and (suspected) exposure to other viral communicable diseases
CPT/HCPCS: 0241U; 36415; 71045; 80053; 80320; 83690; 83735; 84484; 85025; 93005; 96365; 96366; 99283; 99284; J3475

== ENCOUNTER 2020-02-01 23:26 | Emergency (ER) | payer MEDICARE, MEDICAID, SELFPAY ==
--- NOTE | 2020-02-01 23:29 | ECG_ITS ---
Test Reason : CP Blood Pressure : / mmHG Vent. Rate : 072 BPM Atrial Rate : 072 BPM P-R Int : 176 ms QRS Dur : 078 ms QT Int : 394 ms P-R-T Axes : 064 028 030 degrees QTc Int : 431 ms Normal sinus rhythm with sinus arrhythmia Normal ECG When compared with ECG of 05-JAN-2020 02:42, Premature atrial complexes are no longer Present Referred By: Generic ED Physician Electronically Signed By:KAREN MICHELLE
[2020-02-01 23:35] VITALS: BP 149/57; PULSE 70; RESP 16; TEMP 36.3; O2SAT 97; BMI 37.8
--- NOTE | 2020-02-01 23:47 | XR_ITS ---
EXAMINATION: CHEST 1 VIEW CLINICAL INFORMATION: Chest pain. COMPARISON: 01/05/2020. TECHNIQUE: An AP view of the chest is provided. FINDINGS: The cardiac silhouette is not enlarged. A right-sided port is in unchanged position. The mediastinal and hilar contours are unremarkable. There are neither pleural effusions nor pneumothoraces. There are no consolidations. The osseous structures are unremarkable. XR/XR chest 1V IMPRESSION: No evidence for acute disease.
[2020-02-02] MEDS: Magnesium Hydrox/Alum Hydrox 30 ML ORAL.SUSP PO
[2020-02-02] MEDS: Lidocaine HCl Viscous 2 % 15 ML SOLUTION MUCOUS MEM
[2020-02-02 00:27] LABS: Basophils Absolute Auto 0.1 X10*3/uL (0.0-0.2); Basophils Percent Auto 0.6 % (0-2); Eosinophils Absolute Auto 0.2 X10*3/uL (0.0-0.4); Eosinophils Percent Auto 2.5 % (0-4); Hematocrit 37.6 % (42-52); Hemoglobin 11.7 g/dl (14.0-18.0); Imm Gran Abs Auto 0.05 X10*3/uL (0.00-0.03); Imm Gran Pct Auto 0.6 % (0.0-0.4); Lymphocytes Absolute Auto 2.5 X10*3/uL (1.2-4.9); Lymphocytes Percent Auto 31.3 % (20-40); MANUAL DIFF FLAG NO; Mean Corpuscular HGB Conc 31.1 g/dl (31.0-36.0); Mean Corpuscular Hemoglobin 25.5 pg (27.0-33.0); Mean Corpuscular Volume 81.9 fL (80-98); Mean Platelet Volume 11.4 fL (9.4-12.4); Monocytes Absolute Auto 0.7 X10*3/uL (0.1-1.2); Monocytes Percent Auto 8.6 % (2-11); Neutrophils Absolute Auto 4.4 X10*3/uL (2.0-8.3); Neutrophils Percent Auto 56.4 % (45-73); Platelet Count 249 X10*3/uL (160-400); Red Blood Count 4.59 X10*6/uL (4.60-5.80); Red Cell Distribution Width 16.1 % (11.0-16.0); White Blood Count 7.9 X10*3/uL (4.8-10.8)
--- NOTE | 2020-02-02 00:28 | ED_ITS ---
HPI - Chest Pain General Chief Complaint: Chest Pain <EUSEBIO Stokes Last Filed: 02/02/20 02:36> Stated Complaint: s0b chest pain <EUSEBIO Stokes Last Filed: 02/02/20 02:36> Time Seen by Provider: 02/01/20 23:39 <EUSEBIO Stokes Last Filed: 02/02/20 02:36> Source: patient <EUSEBIO Stokes Last Filed: 02/02/20 02:36> Mode of arrival: EMS <EUSEBIO Stokes Last Filed: 02/02/20 02:36> Limitations: no limitations <EUSEBIO Stokes Last Filed: 02/02/20 02:36> History of Present Illness HPI narrative: Patient presents to ED for midsternal chest pain that woke him up from sleep an hour ago. Patient has history of frequent midsternal chest pain. Patient last had chest pain 2 weeks ago. Patient came to ED to be evaluated due to history of RI in the past. Patient received aspirin in the EMS. Patient has severe allergy to nitroglycerin, NSAIDs, and morphine. Patient denies any swelling of lower extremities, calf pain, or coughing up blood. <EUSEBIO Stokes Last Filed: 02/02/20 02:36> MD complaint: chest pain <EUSEBIO Stokes Last Filed: 02/02/20 02:36> Related Data Home Medications: Home Medications Medication Instructions Recorded Confirmed aspirin 81 mg PO DAILY 11/18/19 02/01/20 atorvastatin 80 mg PO BEDTIME 11/18/19 02/01/20 carvedilol 3.125 mg PO BID 11/18/19 02/01/20 doxycycline hyclate 100 mg PO DAILY 11/18/19 02/01/20 fluoxetine 20 mg PO DAILY 11/18/19 02/01/20 fluticasone propionate [Flovent 2 puff INHALATION BID 11/18/19 02/01/20 HFA] hydroxyzine HCl 25 mg PO TID PRN 11/18/19 02/01/20 magnesium oxide 400 mg PO BID 11/18/19 02/01/20 methylprednisolone 4 mg PO DAILY 11/18/19 02/01/20 metronidazole 1 applic TOPICAL DAILY 11/18/19 02/01/20 omeprazole 20 mg PO DAILY 11/18/19 02/01/20 ondansetron HCl 8 mg PO Q8H PRN 11/18/19 02/01/20 trazodone 50 mg PO DAILY 11/18/19 02/01/20 triamcinolone acetonide 1 applic TOPICAL BID 11/18/19 02/01/20 vitamin B comp and C no.3 [B 1 cap PO DAILY 11/18/19 02/01/20 Complex Plus Vitamin C] doxycycline hyclate 100 mg PO BID 12/01/19 02/01/20 triamcinolone acetonide 1 applic TOPICAL DAILY 12/01/19 02/01/20 <EUSEBIO Stokes Last Filed: 02/02/20 02:36> Allergies/Adverse Reactions: Allergies Allergy/AdvReac Type Severity Reaction Status Date / Time nitroglycerin Allergy Severe AGITATION Verified 01/05/20 02:47 [From NITROSTAT] oxaliplatin [OXALIPLATIN] Allergy Severe anaphylaxis Verified 01/05/20 02:47 diphenhydramine Allergy Intermediate RASH Verified 01/05/20 02:47 [From MOTRIN PM] ibuprofen [From ADVIL] Allergy Unknown RASH Verified 01/05/20 02:47 morphine Allergy Unknown painful Verified 01/05/20 02:47 rash oxcarbazepine Allergy Unknown rash, Verified 01/05/20 02:47 [From TRILEPTAL] coughing penicillin V Allergy Unknown rash Verified 01/05/20 02:47 Penicillins [PENICILLINS] Allergy Unknown ITCHING, Verified 01/05/20 02:47 RASH Benadryl Allergy Unknown rash Uncoded 09/11/19 00:00 <EUSEBIO Stokes - Last Filed: 02/02/20 02:36> Review of Systems Review of Systems: Yes all other systems are reviewed and are negative <EUSEBIO Stokes Last Filed: 02/02/20 02:36> Constitutional: Constitutional: Reports as per HPI and Reports no additional constitutional complaints <EUSEBIO Stokes Last Filed: 02/02/20 02:36> Eyes: Eyes: Reports as per HPI and Reports no additional eye complaints <EUSEBIO Stokes Last Filed: 02/02/20 02:36> ENT: Reports system reviewed and no additional complaints, except as documented and Reports as per HPI <EUSEBIO Stokes Last Filed: 02/02/20 02:36> Cardiovascular: Cardiovascular: Reports as per HPI, Reports no additional cardiovascular complaints and Reports chest pain <EUSEBIO Stokes Last Filed: 02/02/20 02:36> Respiratory: Respiratory: Reports as per HPI and Reports no additional respiratory complaints <EUSEBIO Stokes Last Filed: 02/02/20 02:36> Gastrointestinal: Gastrointestinal: Reports as per HPI and Reports no additional gastrointestinal complaints <EUSEBIO Stokes Last Filed: 02/02/20 02:36> Genitourinary: Genitourinary: Reports no additional male genitourinary complaints and Reports as per HPI <EUSEBIO Stokes Filed: 02/02/20 02:36> Musculoskeletal: Musculoskeletal: Reports no additional musculoskeletal complaints and Reports as per HPI <EUSEBIO Stokes Last Filed: 02/02/20 02:36> Neurologic: Reports system reviewed and no additional complaints, except as documented and Reports as per HPI <EUSEBOI Stokes Last Filed: 02/02/20 02:36> Psychiatric: Psychiatric: Reports no additional psychiatric complaints and Reports as per HPI <EUSEBIO Stokes Last Filed: 02/02/20 02:36> PENDING SALE TO [facility] Past Medical History Medical History: Medical History Asthma Colon cancer Diabetes mellitus, type 2 Hypercholesteremia Hypertension Palpitations <EUSEBIO Stokes Last Filed: 02/02/20 02:36> Family History Family History: Family History (Updated 12/28/19 @ 22:45 by Phillip Geiger DO) Other Family history non-contributory <EUSEBIO Stokes Last Filed: 02/02/20 02:36> Social History Social History: Social History Alcohol intake: current Alcohol intake frequency: a few times a month Smoking Status: Light tobacco smoker Smoked in Last 30 Days: Yes Use of substances other than those prescribed or required for medical reasons: No Advance Directives: No <EUSEBIO Stokes Last Filed: 02/02/20 02:36> Physical Exam Vital Signs: Vital Signs: Last Vital Signs Temp 97.3 F 02/01/20 23:35 Pulse 64 02/02/20 06:00 Resp 18 02/02/20 06:00 BP 143/64 H 02/02/20 06:00 Pulse Ox 100 02/02/20 06:00 Body Mass Index 37.8 <EUSEBIO Stokes Last Filed: 02/02/20 02:36> Vital Signs: Last Vital Signs Temp 97.3 F 02/01/20 23:35 Pulse 64 02/02/20 06:00 Resp 18 02/02/20 06:00 BP 143/64 H 02/02/20 06:00 Pulse Ox 100 02/02/20 06:00 Body Mass Index 37.8 <Jah Huizar MD - Last Filed: 02/02/20 06:41> Const: General: cooperative, healthy appearing, comfortable, no acute distress, well developed and alert <EUSEBIO Stokes Last Filed: 02/02/20 02:36> Orientation/consciousness: patient oriented x3 <EUSEBIO Stokes Last Filed: 02/02/20 02:36> HENMT: Head: Yes normal to inspection and Yes No palpable skull fracture present <EUSEBIO Stokes Last Filed: 02/02/20 02:36> Eyes: General: appearance normal, both eyes and all related structures <EUSEBIO Stokes Last Filed: 02/02/20 02:36> Neck: Neck: Yes normal visual inspection, Yes full ROM, Yes no lymp hadenopathy, Yes no meningeal signs, Yes trachea midline, Yes supple and No tender <EUSEBIO Stokes Last Filed: 02/02/20 02:36> Chest: Chest palpation & inspection: normal inspection of the chest and normal palpation of entire chest wall <EUSEBIO Stokes Last Filed: 02/02/20 02:36> Resp: Effort & Inspection: normal respiratory effort and able to speak in complete sentences <EUSEBIO Stokes Last Filed: 02/02/20 02:36> Auscultation: clear to auscultation bilaterally <EUSEBIO Stokes Last Filed: 02/02/20 02:36> Cardio: Jugular venous distension: no JVD <Lio Sae, PA Jose Eduardo Last Filed: 02/02/20 02:36> Heart sounds: S1 normal heart sound present and S2 normal heart sound present <EUSEBIO Stokes Jose Eduardo Last Filed: 02/02/20 02:36> GI: Inspection: Yes normal to inspection <EUSEBIO Stokes Last Filed: 02/02/20 02:36> : General: No CVA tenderness <EUSEBIO Stokes Last Filed: 02/02/20 02:36> Back/Spine/Pelvis: Back: no CVA tenderness, No CVA tenderness and No back tenderness <EUSEBIO Stokes Last Filed: 02/02/20 02:36> Skin: General skin exam: no rashes or lesions noted and elasticity normal <EUSEBIO Stokes Last Filed: 02/02/20 02:36> Neuro: General: patient oriented x3, gait normal, no meningeal signs and CN's II-XI intact bilaterally <EUSEBIO Stokes Last Filed: 02/02/20 02:36> Cranial nerves: Yes CN's II-XII intact bilaterally <Lio Sae, PA Last Filed: 02/02/20 02:36> Extrem: Other: Negative for any swelling, redness, calf pain, or ecchymosis. <Lio Sae, PA Last Filed: 02/02/20 02:36> General: Yes normal to inspection and Yes full ROM <EUSEBIO Stokes Last Filed: 02/02/20 02:36> Psych: Appearance: grossly normal, well kempt and not disheveled <EUSEBIO Stokes Last Filed: 02/02/20 02:36> Course Course Course Narrative: Due to patient's history he will have a cardiac evaluation which included EKG, troponin. Patient also be given GI cocktail. Morphine order cancelled due to patient states severe allergy to morphine. <EUSEBIO Stokes Jose Eduardo Last Filed: 02/02/20 02:36> Reevaluation(s) Reevaluation #1: First troponin came back 16. Presently patient is asymptomatic sitting co mfortably in bed. Chest x-ray negative for any pneumonia. COVID swab pending. Patient is sent for chest CT due to slight elevation in D-dimer and history of colon cancer. Plans the 2nd troponin. Case signed out to Dr. Jin for second Troponin and follow up PE <EUSEBIO Stokes - Last Filed: 02/02/20 02:36> Time: 22:32 <EUSEBIO Stokes - Last Filed: 02/02/20 02:36> MDM - Chest Pain MDM Narrative Medical decision making narrative: Chest pain <EUSEBIO Stokes - Last Filed: 02/02/20 02:36> Lab Data Result diagrams: : 02/02/20 00:18 02/02/20 00:21 <EUSEBIO Stokes - Last Filed: 02/02/20 02:36> Labs: Lab Results 02/02/20 02/02/20 02/02/20 Range/Units 00:18 00:18 00:18 WBC 7.9 (4.8-10.8) X10*3/uL RBC 4.59 L (4.60-5.80) X10*6/uL Hgb 11.7 L (14.0-18.0) g/dl Hct 37.6 L (42-52) % MCV 81.9 (80-98) fL MCH 25.5 L (27.0-33.0) pg MCHC 31.1 (31.0-36.0) g/dl RDW 16.1 H (11.0-16.0) % Plt Count 249 (160-400) X10*3/uL MPV 11.4 (9.4-12.4) fL Immature Gran % (Auto) 0.6 H (0.0-0.4) % Neut % (Auto) 56.4 (45-73) % Lymph % (Auto) 31.3 (20-40) % [place] % (Auto) 8.6 (2-11) % Eos % (Auto) 2.5 (0-4) % Baso % (Auto) 0.6 (0-2) % Lymph # (Auto) 2.5 (1.2-4.9) X10*3/uL [place] # (Auto) 0.7 (0.1-1.2) X10*3/uL Eos # (Auto) 0.2 (0.0-0.4) X10*3/uL Baso # (Auto) 0.1 (0.0-0.2) X10*3/uL Abs Immat Gran (auto) 0.05 H (0.00-0.03) X10*3/uL Absolute Neuts (auto) 4.4 (2.0-8.3) X10*3/uL Absolute Nucleated RBC 0.000 (0.0-0.012) X10*3/uL Nucleated RBC % (auto) 0.0 (0.0-0.2) /100WBC PT 13.3 H (10.8-13.0) SEC INR 1.1 (0.9-1.1) APTT 43.6 H (24.1-38.0) SEC D-Dimer 237 NG/ML Sodium (135-145) mmol/L Potassium (3.3-5.1) mmol/l Chloride (96-108) mmol/L Carbon Dioxide (22-29) mmol/L Anion Gap (12-20) BUN (9-16) mg/dL Creatinine (0.5-1.4) mg/dL Estim Creat Clear Calc Estimated GFR Random Glucose (60-115) mg/dL Calcium (8.4-10.2) mg/dL Total Bilirubin (0.0-1.0) mg/dL Direct Bilirubin (0.0-0.5) mg/dL AST (5-37) U/L ALT (0-40) U/L Alkaline Phosphatase (39-117) U/L Troponin I High Sens 16.4 D (<3.5-35.0) ng/L B-Natriuretic Peptide 23 (<100) pg/mL Total Protein (6.5-8.0) g/dL Albumin (3.5-5.0) g/dL Coronavirus (PCR) (Negative) Influenza Type A (PCR) (Negative) Influenza Type B (PCR) (Negative) RSV RNA Qual (PCR) (Negative) 02/02/20 02/02/20 02/02/20 Range/Units 00:21 01:06 03:11 WBC (4.8-10.8) X10*3/uL RBC (4.60-5.80) X10*6/uL Hgb (14.0-18.0) g/dl Hct (42-52) % MCV (80-98) fL MCH (27.0-33.0) pg MCHC (31.0-36.0) g/dl RDW (11.0-16.0) % Plt Count (160-400) X10*3/uL MPV (9.4-12.4) fL Immature Gran % (Auto) (0.0-0.4) % Neut % (Auto) (45-73) % Lymph % (Auto) (20-40) % [place] % (Auto) (2-11) % Eos % (Auto) (0-4) % Baso % (Auto) (0-2) % Lymph # (Auto) (1.2-4.9) X10*3/uL [place] # (Auto) (0.1-1.2) X10*3/uL Eos # (Auto) (0.0-0.4) X10*3/uL Baso # (Auto) (0.0-0.2) X10*3/uL Abs Immat Gran (auto) (0.00-0.03) X10*3/uL Absolute Neuts (auto) (2.0-8.3) X10*3/uL Absolute Nucleated RBC (0.0-0.012) X10*3/uL Nucleated RBC % (auto) (0.0-0.2) /100WBC PT (10.8-13.0) SEC INR (0.9-1.1) APTT (24.1-38.0) SEC D-Dimer NG/ML Sodium 139 (135-145) mmol/L Potassium 3.8 (3.3-5.1) mmol/l Chloride 107 (96-108) mmol/L Carbon Dioxide 23 (22-29) mmol/L Anion Gap 13 (12-20) BUN 14 (9-16) mg/dL Creatinine 0.72 (0.5-1.4) mg/dL Estim Creat Clear Calc 101.7 Estimated GFR > 60 Random Glucose 112 (60-115) mg/dL Calcium 8.6 (8.4-10.2) mg/dL Total Bilirubin 0.4 (0.0-1.0) mg/dL Direct Bilirubin 0.2 (0.0-0.5) mg/dL AST 27 (5-37) U/L ALT 31 (0-40) U/L Alkaline Phosphatase 125 H (39-117) U/L Troponin I High Sens 29.4 D (<3.5-35.0) ng/L B-Natriuretic Peptide (<100) pg/mL Total Protein 6.9 (6.5-8.0) g/dL Albumin 3.6 (3.5-5.0) g/dL Coronavirus (PCR) NEGATIVE (Negative) Influenza Type A (PCR) NEGATIVE (Negative) Influenza Type B (PCR) NEGATIVE (Negative) RSV RNA Qual (PCR) NEGATIVE (Negative) 02/02/20 Range/Units 06:05 WBC (4.8-10.8) X10*3/uL RBC (4.60-5.80) X10*6/uL Hgb (14.0-18.0) g/dl Hct (42-52) % MCV (80-98) fL MCH (27.0-33.0) pg MCHC (31.0-36.0) g/dl RDW (11.0-16.0) % Plt Count (160-400) X10*3/uL MPV (9.4-12.4) fL Immature Gran % (Auto) (0.0-0.4) % Neut % (Auto) (45-73) % Lymph % (Auto) (20-40) % [place] % (Auto) (2-11) % Eos % (Auto) (0-4) % Baso % (Auto) (0-2) % Lymph # (Auto) (1.2-4.9) X10*3/uL [place] # (Auto) (0.1-1.2) X10*3/uL Eos # (Auto) (0.0-0.4) X10*3/uL Baso # (Auto) (0.0-0.2) X10*3/uL Abs Immat Gran (auto) (0.00-0.03) X10*3/uL Absolute Neuts (auto) (2.0-8.3) X10*3/uL Absolute Nucleated RBC (0.0-0.012) X10*3/uL Nucleated RBC % (auto) (0.0-0.2) /100WBC PT (10.8-13.0) SEC INR (0.9-1.1) APTT (24.1-38.0) SEC D-Dimer NG/ML Sodium (135-145) mmol/L Potassium (3.3-5.1) mmol/l Chloride (96-108) mmol/L Carbon Dioxide (22-29) mmol/L Anion Gap (12-20) BUN (9-16) mg/dL Creatinine (0.5-1.4) mg/dL Estim Creat Clear Calc Estimated GFR Random Glucose (60-115) mg/dL Calcium (8.4-10.2) mg/dL Total Bilirubin (0.0-1.0) mg/dL Direct Bilirubin (0.0-0.5) mg/dL AST (5-37) U/L ALT (0-40) U/L Alkaline Phosphatase (39-117) U/L Troponin I High Sens 31.9 (<3.5-35.0) ng/L B-Natriuretic Peptide (<100) pg/mL Total Protein (6.5-8.0) g/dL Albumin (3.5-5.0) g/dL Coronavirus (PCR) (Negative) Influenza Type A (PCR) (Negative) Influenza Type B (PCR) (Negative) RSV RNA Qual (PCR) (Negative) <EUSEBIO Stokes - Last Filed: 02/02/20 02:36> Lab Results 02/02/20 02/02/20 02/02/20 Range/Units 00:18 00:18 00:18 WBC 7.9 (4.8-10.8) X10*3/uL RBC 4.59 L (4.60-5.80) X10*6/uL Hgb 11.7 L (14.0-18.0) g/dl Hct 37.6 L (42-52) % MCV 81.9 (80-98) fL MCH 25.5 L (27.0-33.0) pg MCHC 31.1 (31.0-36.0) g/dl RDW 16.1 H (11.0-16.0) % Plt Count 249 (160-400) X10*3/uL MPV 11.4 (9.4-12.4) fL Immature Gran % (Auto) 0.6 H (0.0-0.4) % Neut % (Auto) 56.4 (45-73) % Lymph % (Auto) 31.3 (20-40) % [place] % (Auto) 8.6 (2-11) % Eos % (Auto) 2.5 (0-4) % Baso % (Auto) 0.6 (0-2) % Lymph # (Auto) 2.5 (1.2-4.9) X10*3/uL [place] # (Auto) 0.7 (0.1-1.2) X10*3/uL Eos # (Auto) 0.2 (0.0-0.4) X10*3/uL Baso # (Auto) 0.1 (0.0-0.2) X10*3/uL Abs Immat Gran (auto) 0.05 H (0.00-0.03) X10*3/uL Absolute Neuts (auto) 4.4 (2.0-8.3) X10*3/uL Absolute Nucleated RBC 0.000 (0.0-0.012) X10*3/uL Nucleated RBC % (auto) 0.0 (0.0-0.2) /100WBC PT 13.3 H (10.8-13.0) SEC INR 1.1 (0.9-1.1) APTT 43.6 H (24.1-38.0) SEC D-Dimer 237 NG/ML Sodium (135-145) mmol/L Potassium (3.3-5.1) mmol/l Chloride (96-108) mmol/L Carbon Dioxide (22-29) mmol/L Anion Gap (12-20) BUN (9-16) mg/dL Creatinine (0.5-1.4) mg/dL Estim Creat Clear Calc Estimated GFR Random Glucose (60-115) mg/dL Calcium (8.4-10.2) mg/dL Total Bilirubin (0.0-1.0) mg/dL Direct Bilirubin (0.0-0.5) mg/dL AST (5-37) U/L ALT (0-40) U/L Alkaline Phosphatase (39-117) U/L Troponin I High Sens 16.4 D (<3.5-35.0) ng/L B-Natriuretic Peptide 23 (<100) pg/mL Total Protein (6.5-8.0) g/dL Albumin (3.5-5.0) g/dL Coronavirus (PCR) (Negative) Influenza Type A (PCR) (Negative) Influenza Type B (PCR) (Negative) RSV RNA Qual (PCR) (Negative) 02/02/20 02/02/20 02/02/20 Range/Units 00:21 01:06 03:11 WBC (4.8-10.8) X10*3/uL RBC (4.60-5.80) X10*6/uL Hgb (14.0-18.0) g/dl Hct (42-52) % MCV (80-98) fL MCH (27.0-33.0) pg MCHC (31.0-36.0) g/dl RDW (11.0-16.0) % Plt Count (160-400) X10*3/uL MPV (9.4-12.4) fL Immature Gran % (Auto) (0.0-0.4) % Neut % (Auto) (45-73) % Lymph % (Auto) (20-40) % [place] % (Auto) (2-11) % Eos % (Auto) (0-4) % Baso % (Auto) (0-2) % Lymph # (Auto) (1.2-4.9) X10*3/uL [place] # (Auto) (0.1-1.2) X10*3/uL Eos # (Auto) (0.0-0.4) X10*3/uL Baso # (Auto) (0.0-0.2) X10*3/uL Abs Immat Gran (auto) (0.00-0.03) X10*3/uL Absolute Neuts (auto) (2.0-8.3) X10*3/uL Absolute Nucleated RBC (0.0-0.012) X10*3/uL Nucleated RBC % (auto) (0.0-0.2) /100WBC PT (10.8-13.0) SEC INR (0.9-1.1) APTT (24.1-38.0) SEC D-Dimer NG/ML Sodium 139 (135-145) mmol/L Potassium 3.8 (3.3-5.1) mmol/l Chloride 107 (96-108) mmol/L Carbon Dioxide 23 (22-29) mmol/L Anion Gap 13 (12-20) BUN 14 (9-16) mg/dL Creatinine 0.72 (0.5-1.4) mg/dL Estim Creat Clear Calc 101.7 Estimated GFR > 60 Random Glucose 112 (60-115) mg/dL Calcium 8.6 (8.4-10.2) mg/dL Total Bilirubin 0.4 (0.0-1.0) mg/dL Direct Bilirubin 0.2 (0.0-0.5) mg/dL AST 27 (5-37) U/L ALT 31 (0-40) U/L Alkaline Phosphatase 125 H (39-117) U/L Troponin I High Sens 29.4 D (<3.5-35.0) ng/L B-Natriuretic Peptide (<100) pg/mL Total Protein 6.9 (6.5-8.0) g/dL Albumin 3.6 (3.5-5.0) g/dL Coronavirus (PCR) NEGATIVE (Negative) Influenza Type A (PCR) NEGATIVE (Negative) Influenza Type B (PCR) NEGATIVE (Negative) RSV RNA Qual (PCR) NEGATIVE (Negative) 02/02/20 Range/Units 06:05 WBC (4.8-10.8) X10*3/uL RBC (4.60-5.80) X10*6/uL Hgb (14.0-18.0) g/dl Hct (42-52) % MCV (80-98) fL MCH (27.0-33.0) pg MCHC (31.0-36.0) g/dl RDW (11.0-16.0) % Plt Count (160-400) X10*3/uL MPV (9.4-12.4) fL Immature Gran % (Auto) (0.0-0.4) % Neut % (Auto) (45-73) % Lymph % (Auto) (20-40) % [place] % (Auto) (2-11) % Eos % (Auto) (0-4) % Baso % (Auto) (0-2) % Lymph # (Auto) (1.2-4.9) X10*3/uL [place] # (Auto) (0.1-1.2) X10*3/uL Eos # (Auto) (0.0-0.4) X10*3/uL Baso # (Auto) (0.0-0.2) X10*3/uL Abs Immat Gran (auto) (0.00-0.03) X10*3/uL Absolute Neuts (auto) (2.0-8.3) X10*3/uL Absolute Nucleated RBC (0.0-0.012) X10*3/uL Nucleated RBC % (auto) (0.0-0.2) /100WBC PT (10.8-13.0) SEC INR (0.9-1.1) APTT (24.1-38.0) SEC D-Dimer NG/ML Sodium (135-145) mmol/L Potassium (3.3-5.1) mmol/l Chloride (96-108) mmol/L Carbon Dioxide (22-29) mmol/L Anion Gap (12-20) BUN (9-16) mg/dL Creatinine (0.5-1.4) mg/dL Estim Creat Clear Calc Estimated GFR Random Glucose (60-115) mg/dL Calcium (8.4-10.2) mg/dL Total Bilirubin (0.0-1.0) mg/dL Direct Bilirubin (0.0-0.5) mg/dL AST (5-37) U/L ALT (0-40) U/L Alkaline Phosphatase (39-117) U/L Troponin I High Sens 31.9 (<3.5-35.0) ng/L B-Natriuretic Peptide (<100) pg/mL Total Protein (6.5-8.0) g/dL Albumin (3.5-5.0) g/dL Coronavirus (PCR) (Negative) Influenza Type A (PCR) (Negative) Influenza Type B (PCR) (Negative) RSV RNA Qual (PCR) (Negative) <Jah Huizar MD - Last Filed: 02/02/20 06:41> ECG Data ECG #1: Interpretation: Normal sinus rhythm. Ventricular rate 72. SD interval 176. QRS 78. QTC 431. Normal EKG. Negative STEMI <EUSEBIO Stokes Last Filed: 02/02/20 02:36> Discharge Plan Discharge Clinical Impression: Atypical chest pain <EUSEBIO Stokes Last Filed: 02/02/20 02:36> Patient Disposition: Home, Self-Care <EUSEBIO Stokes Last Filed: 02/02/20 02:36> Instructions: Chest Pain (ED) <EUSEBIO Stokes Last Filed: 02/02/20 02:36> Additional Instructions: Return to the ED for any shortness of breath, swelling of lower extremities, coughing up blood, fever, chills, chest pain on inspiration, calf pain, dizziness, passing out, headache, or any other concerning symptoms. <EUSEBIO Stokes Last Filed: 02/02/20 02:36> Prescriptions: No Action doxycycline hyclate 100 mg Capsule 100 mg PO DAILY RF: 0 ondansetron HCl 8 mg Tablet 8 mg PO Q8H PRN (Reason: Nausea) RF: 0 methylprednisolone 4 mg Tablet 4 mg PO DAILY RF: 0 metronidazole 0.75 % Cream 1 applic TOPICAL DAILY RF: 0 hydroxyzine HCl 25 mg Tablet 25 mg PO TID PRN (Reason: Itching) RF: 0 atorvastatin 80 mg Tablet 80 mg PO BEDTIME RF: 0 triamcinolone acetonide 0.1 % Cream 1 applic TOPICAL BID RF: 0 carvedilol 3.125 mg Tablet 3.125 mg PO BID RF: 0 omeprazole 20 mg Capsule,Delayed Release(Dr/Ec) 20 mg PO DAILY RF: 0 aspirin 81 mg Tablet 81 mg PO DAILY RF: 0 fluoxetine 20 mg Capsule 20 mg PO DAILY RF: 0 Flovent HFA 110 mcg/actuation Hfa Aerosol Inhaler 2 puff INHALATION BID RF: 0 B Complex Plus Vitamin C 28-94-84-5-300 mg Capsule 1 cap PO DAILY RF: 0 magnesium oxide 400 mg magnesium Tablet 400 mg PO BID RF: 0 trazodone 50 mg Tablet 50 mg PO DAILY RF: 0 triamcinolone acetonide 0.1 % Ointment 1 applic TOPICAL DAILY RF: 0 doxycycline hyclate 100 mg Tablet 100 mg PO BID RF: 0 <EUSEBIO Stokes Last Filed: 02/02/20 02:36> Referrals: Mansoor Millan MD [Primary Care Provider] - 2 days (Chest pain) <EUSEBIO Stokes - Last Filed: 02/02/20 02:36> Print Language: Faroese <EUSEBIO Stokes - Last Filed: 02/02/20 02:36>
[2020-02-02 00:32] LABS: INTERNATIONAL NORM RATIO 1.1 (0.9-1.1); Prothrombin Time 13.3 SEC (10.8-13.0)
[2020-02-02 00:35] LABS: D Dimer 237 NG/ML; Partial Thromboplastin Time 43.6 SEC (24.1-38.0)
[2020-02-02 00:59] LABS: Alanine Aminotransferase 31 U/L (0-40); Albumin Level 3.6 g/dL (3.5-5.0); Alkaline Phosphatase 125 U/L (39-117); Anion Gap 13 (12-20); Aspartate Amino Transferase 27 U/L (5-37); Bilirubin Direct 0.2 mg/dL (0.0-0.5); Bilirubin Total 0.4 mg/dL (0.0-1.0); Blood Urea Nitrogen 14 mg/dL (9-16); Calcium 8.6 mg/dL (8.4-10.2); Carbon Dioxide 23 mmol/L (22-29); Chloride 107 mmol/L (96-108); Creatinine Clr Calc Pharmacy 101.7; Estimated Glomerular Filt Rate > 60; Glucose Random 112 mg/dL (60-115); Potassium 3.8 mmol/l (3.3-5.1); Sodium 139 mmol/L (135-145); Total Protein 6.9 g/dL (6.5-8.0)
[2020-02-02 01:07] LABS: B Type Natriuretic Peptide 23 pg/mL (<100); Troponin-I High Sensitivity 16.4 ng/L (<3.5-35.0)
[2020-02-02 01:50] LABS: Influenza A PCR NEGATIVE (Negative); Influenza B PCR NEGATIVE (Negative); Resp Syncy Virus RNA Qual PCR NEGATIVE (Negative); SARS COV2 PCR INHOUSE NEGATIVE (Negative)
--- NOTE | 2020-02-02 01:57 | CT_ITS ---
EXAMINATION: CT PULMONARY EMBOLISM STUDY CLINICAL INFORMATION: Chest pain. COMPARISON: December 29, 2019. TECHNIQUE: Contiguous helical images of the chest were obtained following the administration of IV contrast. Multiplanar reconstructions were performed. MIPS were obtained and reviewed. DLP: 394 mGy-cm. CONTRAST: 71 mL of Omnipaque 350 were administered without incident. FINDINGS: The heart is of normal size. A right central venous line is in place. The tip terminates within the mid SVC. There is no pericardial effusion. The great vessels are unremarkable. Specifically, there is no pulmonary arterial filling defect. There is no CT evidence for pulmonary embolism. There are no chest wall masses. Review of lung windows demonstrates that there are neither pleural effusions nor pneumothoraces. There are no consolidations. There are mild manifestations of emphysema within the lung apices. There are benign subcentimeter calcified 3 mm bilaterally. Within the left lower lobe adjacent to the major fissure, there is a stable 7 mm nodule. Within the right middle lobe adjacent to the pleura on image [id number], there is a stable 3 mm nodule. Limited evaluation of the upper abdomen demonstrates that the liver is of normal size and attenuation without focal lesions. Normal adrenal glands are identified. CT/CT angio chest PE protocol IMPRESSION: No CT evidence for pulmonary embolism. Emphysema. Stable bilateral subcentimeter pulmonary nodules. Automated exposure control (Care Dose) Adjustment of the mA and/or kv according to patient size (this includes techniques or standardized protocols for targeted exams where dose is matched to indication / reason for exam; i.e. extremities or head).
[2020-02-02] MEDS: iohexoL 350 MG/ML 100 ML INFUS..BTL 71 ML IV (02:30)
[2020-02-02 03:42] LABS: Troponin-I High Sensitivity 29.4 ng/L (<3.5-35.0)
[2020-02-02 04:00] VITALS: PULSE 74; RESP 14; O2SAT 100
[2020-02-02 06:00] VITALS: BP 143/64; PULSE 64; RESP 18; O2SAT 100
[2020-02-02 06:35] LABS: Troponin-I High Sensitivity 31.9 ng/L (<3.5-35.0)
== END 2020-02-02 06:50 | disposition home or self-care (01) ==
PROVIDERS: Physician Assistant; Student in an Organized Health Care Education/Training Program; Emergency Provider Emergency Medicine Emergency Medical Services; PCP Internal Medicine
DX: R07.9 Chest pain, unspecified (principal); R06.02 Shortness of breath; E11.9 Type 2 diabetes mellitus without complications; Z20.828 Contact with and (suspected) exposure to other viral communicable diseases; Z79.899 Other long term (current) drug therapy
CPT/HCPCS: 0241U; 36415; 71045; 71275; 80053; 80076; 82248; 83880; 84484; 85025; 85379; 85610; 85730; 93005; 99284; Q9967

== ENCOUNTER 2020-03-31 07:44 | Outpatient (REF) | payer MEDICARE, MEDICAID, SELFPAY ==
--- NOTE | ~2020-03-31 | CT_ITS ---
EXAMINATION: CT ABDOMEN AND PELVIS WITH CONTRAST CLINICAL INFORMATION: Metastatic colon cancer COMPARISON: CTA chest 02/02/2020. CT abdomen pelvis 09/09/2019 TECHNIQUE: Multidetector volumetric images were obtained from the superior aspect of the liver through the pubic symphysis following administration 85 mL of Omnipaque 350 intravenous contrast. Sagittal and coronal reformatted images were obtained on the technologist's workstation. Oral contrast: No This CT examination was performed using dose optimization techniques as appropriate, variously including the following: *Automated exposure control *Adjustment of mA and/or kV according to patient size (this includes techniques or standardized protocols for targeted exams where dose is matched to indication/reason for exam; i.e. extremities or head) *Use of iterative reconstruction technique DLP: 550 mGy-cm FINDINGS: LUNG BASES: Calcified granuloma at the left lung base. No new pulmonary nodules or masses. Normal heart size. LIVER, GALLBLADDER, AND BILIARY TREE: The liver is normal in size, shape, and attenuation. No focal hepatic lesion or biliary ductal dilatation is present. Calcified dependent gallstone. No gallbladder wall thickening or pericholecystic fluid. PANCREAS: Unremarkable. SPLEEN: Normal size. Small splenule inferiorly. ADRENAL GLANDS: Unremarkable. KIDNEYS AND URETERS: No hydronephrosis or solid mass. Bilobed left upper pole renal cyst. BLADDER: Unremarkable. GASTROINTESTINAL TRACT: Postsurgical changes of the left colon consistent with prior partial left hemicolectomy. The anastomosis appears patent with contrast and stool traversing the anastomosis as well as seen proximally and distally. No evidence of colitis or diverticulitis. Small bowel nondilated. Stomach collapsed with wall thickening likely due to underdistention. ABDOMINAL WALL: Broad diastases of the rectus abdominis with a small fat-containing umbilical hernia. LYMPH NODES: No pathologically enlarged lymphadenopathy. Normal-sized subcentimeter retroperitoneal lymph nodes are present, similar to prior. There are small external iliac and inguinal lymph nodes as well. VASCULAR: Normal caliber abdominal aorta. Moderate calcified atherosclerotic changes. PELVIC VISCERA: The prostate and seminal vesicles are unremarkable. OSSEOUS STRUCTURES: Multilevel degenerative changes of the thoracolumbar spine. Vacuum disc phenomenon at L4-L5 and L5-S1. Multilevel bridging anterior osteophytosis. CT/CT abdomen pelvis w con IMPRESSION: No new findings to suggest recurrent or metastatic disease. Status post left partial colectomy.
[2020-03-31] MEDS: iohexoL 350 MG/ML 100 ML INFUS..BTL 85 ML IV (11:27)
[2020-03-31] MEDS: Barium Sulfate Oral (Berry) 450 ML ORAL.SUSP 900 ML PO (11:28)
== END 2020-03-31 07:45 | disposition home or self-care (01) ==
LOC: HO.CT 07:44
PROVIDERS: PCP Internal Medicine; Visit Provider Internal Medicine Medical Oncology
DX: C18.7 Malignant neoplasm of sigmoid colon (principal); C18.9 Malignant neoplasm of colon, unspecified
CPT/HCPCS: 74177; Q9967

== ENCOUNTER 2020-04-12 04:32 | Emergency (ER) | payer MEDICARE, MEDICAID, SELFPAY ==
--- NOTE | ~2020-04-12 | XR_ITS ---
EXAMINATION: XR CHEST CLINICAL INFORMATION: Chest pain COMPARISON: 03/31/2020 TECHNIQUE: Frontal view of the chest was obtained. FINDINGS: Right IJ port catheter tip lies in the region of the upper SVC. Lung volumes are symmetric. No focal consolidation is seen. No evidence of pneumothorax, pleural effusion, or pulmonary edema. The cardiomediastinal contour is unremarkable. No acute osseous findings are seen. XR/XR chest 1V IMPRESSION: No acute cardiopulmonary findings.
[2020-04-12 04:38] VITALS: BP 147/52; PULSE 73; RESP 18; BMI 35.4
--- NOTE | 2020-04-12 04:40 | ED_ITS ---
HPI - Chest Pain General Chief Complaint: Anxiety Stated Complaint: CHEST PAIN Time Seen by Provider: 04/12/20 04:33 History of Present Illness HPI narrative: drank last night started to have chest pain has occurred in the past typical episodes MD complaint: chest pain Pertinent past history: asthma and other (repeat bouts of chest pain) Onset (ago): hour(s) (4.5 hours ago) Timing of current episode: constant Prior episodes: Yes Onset: during rest Pain location: substernal Pain radiation: none Severity: moderate Quality: tightness Relieving factors: nothing Exacerbating factors: nothing Context: other (hx of similar episodes in the past) Associated symptoms: dyspnea Treatment prior to arrival: none Related Data Home Medications Medication Instructions Recorded Confirmed aspirin 81 mg PO DAILY 11/18/19 04/12/20 atorvastatin 80 mg PO BEDTIME 11/18/19 04/12/20 carvedilol 3.125 mg PO BID 11/18/19 04/12/20 fluoxetine 20 mg PO DAILY 11/18/19 04/12/20 fluticasone propionate [Flovent 2 puff INHALATION BID 11/18/19 04/12/20 HFA] magnesium oxide 400 mg PO BID 11/18/19 04/12/20 metronidazole 1 applic TOPICAL DAILY 11/18/19 04/12/20 omeprazole 20 mg PO DAILY 11/18/19 04/12/20 trazodone 50 mg PO DAILY 11/18/19 04/12/20 triamcinolone acetonide 1 applic TOPICAL BID 11/18/19 04/12/20 vitamin B comp and C no.3 [B 1 cap PO DAILY 11/18/19 04/12/20 Complex Plus Vitamin C] triamcinolone acetonide 1 applic TOPICAL DAILY 12/01/19 04/12/20 Allergies Allergy/AdvReac Type Severity Reaction Status Date / Time nitroglycerin Allergy Severe AGITATION Verified 04/12/20 04:48 [From NITROSTAT] oxaliplatin [OXALIPLATIN] Allergy Severe anaphylaxis Verified 04/12/20 04:48 diphenhydramine Allergy Intermediate RASH Verified 04/12/20 04:48 [From MOTRIN PM] ibuprofen [From ADVIL] Allergy Unknown RASH Verified 04/12/20 04:48 morphine Allergy Unknown painful Verified 04/12/20 04:48 rash oxcarbazepine Allergy Unknown rash, Verified 04/12/20 04:48 [From TRILEPTAL] coughing penicillin V Allergy Unknown rash Verified 04/12/20 04:48 Penicillins [PENICILLINS] Allergy Unknown ITCHING, Verified 04/12/20 04:48 RASH Benadryl Allergy Unknown rash Uncoded 04/12/20 04:48 Review of Systems Review of Systems: Constitutional : No Weight loss, No Fever, No Chills ENT/Mouth : No sore throat, No Rhinorrhea Eyes: No Eye Pain, No Swelling Cardiovascular : pos Chest Pain, pos SOB, no Dyspnea on Exertion, No Orthopnea, No Edema, No Palpitations Respiratory : No Cough, No Sputum Gastrointestinal : no Nausea, No Vomiting, No Diarrhea, No abdominal Pain, No Hematochezia, No Melena Genitourinary : No Dysuria, No Urinary Frequency Musculoskeletal : No joint pain, No Myalgias, No Joint Swelling Skin : No Skin Lesions, No rash Neuro : No Weakness, No Numbness, No Dizziness, No Headache Psych : pos Anxiety/Panic, No Depression Heme/Lymph: No Bruising, No Lymphadenopathy Endocrine : No Polyuria, No Polydipsia All other systems reviewed and are negative [facility]LY [facility] Past Medical History Attestation statement: The following information was validated with the patient. Medical History Asthma Colon cancer Diabetes mellitus, type 2 Hypercholesteremia Hypertension Palpitations Family History Family History (Updated 12/28/19 @ 22:45 by Phillip Geiger DO) Other Family history non-contributory Social History Social History Alcohol intake: current Alcohol intake frequency: 3 or more drinks per day Alcohol type: beer Smoking Status: Former smoker Use of substances other than those prescribed or required for medical reasons: No Advance Directives: No Physical Exam Vital Signs: Vital Signs: Last Vital Signs Pulse 75 04/12/20 05:49 Resp 16 04/12/20 05:49 BP 132/55 L 04/12/20 05:49 Pulse Ox 97 04/12/20 05:49 Body Mass Index 35.4 Appearance: Alert. Oriented X3. No acute distress. Anxious Eyes: Pupils equal, round and reactive to light. ENT: Pharynx normal. Neck: Normal inspection. Neck supple. CVS: Normal heart rate and rhythm. Pulses normal. Respiratory: No respiratory distress. Breath sounds normal. Abdomen: Soft and non-tender. Skin: Skin warm and dry. Normal skin color. Normal skin turgor. Extremities: No lower extremity edema. No calf ttp Neuro: Oriented X 3. No motor deficit. No sensory deficit. Course Course Course Narrative: will repeat troponin at 730AM and if flat anticipate DC home patient feels much better MDM - Chest Pain MDM Narrative Medical decision making narrative: 65 yo male with colon cancer underoing chemo, recurrent bouts of chest pain after consuming ETOH - drank last night, asthma, HTN, HPL c/o his typical chest pain that started at midnight has had cardiac and PE workup in past that are negative, no tachycardia no hypoxia no signs of DVT aware of cancer but has had negative PE workup in the past doubt PE, pain atypical for ACS - will obtain troponin x 2, PO ativan for anxiety Lab Data Result diagrams: 04/12/20 04:49 04/12/20 04:49 Labs: Lab Results 04/12/20 04/12/20 04/12/20 Range/Units 04:49 04:49 04:49 WBC 7.1 (4.8-10.8) X10*3/uL RBC 4.88 (4.60-5.80) X10*6/uL Hgb 11.4 L (14.0-18.0) g/dl Hct 37.9 L (42-52) % MCV 77.7 L (80-98) fL MCH 23.4 L (27.0-33.0) pg MCHC 30.1 L (31.0-36.0) g/dl RDW 17.1 H (11.0-16.0) % Plt Count 282 (160-400) X10*3/uL MPV 10.9 (9.4-12.4) fL Immature Gran % (Auto) 0.6 H (0.0-0.4) % Neut % (Auto) 51.5 (45-73) % Lymph % (Auto) 36.0 (20-40) % Schleicher % (Auto) 9.3 (2-11) % Eos % (Auto) 2.0 (0-4) % Baso % (Auto) 0.6 (0-2) % Lymph # (Auto) 2.6 (1.2-4.9) X10*3/uL Schleicher # (Auto) 0.7 (0.1-1.2) X10*3/uL Eos # (Auto) 0.1 (0.0-0.4) X10*3/uL Baso # (Auto) 0.0 (0.0-0.2) X10*3/uL Abs Immat Gran (auto) 0.04 H (0.00-0.03) X10*3/uL Absolute Neuts (auto) 3.7 (2.0-8.3) X10*3/uL Absolute Nucleated RBC 0.000 (0.0-0.012) X10*3/uL Nucleated RBC % (auto) 0.0 (0.0-0.2) /100WBC Hold Blue Top SEE NOTE Sodium 138 (135-145) mmol/L Potassium 4.1 (3.3-5.1) mmol/L Chloride 107 (96-108) mmol/L Carbon Dioxide 22 (22-29) mmol/L Anion Gap 13 (12-20) BUN 11 (9-16) mg/dL Creatinine 0.74 (0.5-1.4) mg/dL Estim Creat Clear Calc 97.8 Estimated GFR > 60 Random Glucose 134 H (60-115) mg/dL Calcium 8.5 (8.4-10.2) mg/dL Magnesium 1.3 L* (1.6-2.6) mg/dL Total Bilirubin 0.3 (0.0-1.0) mg/dL Direct Bilirubin 0.2 (0.0-0.5) mg/dL AST 29 (5-37) U/L ALT 33 (0-40) U/L Alkaline Phosphatase 141 H (39-117) U/L Troponin I High Sens (<3.5-35.0) ng/L Total Protein 7.0 (6.5-8.0) g/dL Albumin 3.8 (3.5-5.0) g/dL Lipase 100 H (8-78) U/L 04/12/20 Range/Units 04:49 WBC (4.8-10.8) X10*3/uL RBC (4.60-5.80) X10*6/uL Hgb (14.0-18.0) g/dl Hct (42-52) % MCV (80-98) fL MCH (27.0-33.0) pg MCHC (31.0-36.0) g/dl RDW (11.0-16.0) % Plt Count (160-400) X10*3/uL MPV (9.4-12.4) fL Immature Gran % (Auto) (0.0-0.4) % Neut % (Auto) (45-73) % Lymph % (Auto) (20-40) % Schleicher % (Auto) (2-11) % Eos % (Auto) (0-4) % Baso % (Auto) (0-2) % Lymph # (Auto) (1.2-4.9) X10*3/uL Schleicher # (Auto) (0.1-1.2) X10*3/uL Eos # (Auto) (0.0-0.4) X10*3/uL Baso # (Auto) (0.0-0.2) X10*3/uL Abs Immat Gran (auto) (0.00-0.03) X10*3/uL Absolute Neuts (auto) (2.0-8.3) X10*3/uL Absolute Nucleated RBC (0.0-0.012) X10*3/uL Nucleated RBC % (auto) (0.0-0.2) /100WBC Hold Blue Top Sodium (135-145) mmol/L Potassium (3.3-5.1) mmol/L Chloride (96-108) mmol/L Carbon Dioxide (22-29) mmol/L Anion Gap (12-20) BUN (9-16) mg/dL Creatinine (0.5-1.4) mg/dL Estim Creat Clear Calc Estimated GFR Random Glucose (60-115) mg/dL Calcium (8.4-10.2) mg/dL Magnesium (1.6-2.6) mg/dL Total Bilirubin (0.0-1.0) mg/dL Direct Bilirubin (0.0-0.5) mg/dL AST (5-37) U/L ALT (0-40) U/L Alkaline Phosphatase (39-117) U/L Troponin I High Sens 21.6 (<3.5-35.0) ng/L Total Protein (6.5-8.0) g/dL Albumin (3.5-5.0) g/dL Lipase (8-78) U/L ECG Data ECG #1: Attestation: I personally reviewed and interpreted this ECG as follows: ECG interpretation date: 04/12/20 ECG interpretation time: 04:41 Interpretation: Rate: 76 Rhythm: NSR Tyrone: normal Normal P waves. Normal TREY. Normal QRS complex. ST T wave : normal no HELGA qTC: normal prior studies: no acute ischemia The study has been interpreted contemporaneously by me. . Discharge Plan Discharge Clinical Impression: Acute anxiety, Atypical chest pain, Hypomagnesemia Patient Disposition: Home, Self-Care Instructions: Chest Pain (ED), Anxiety (ED) Additional Instructions: return to ED for any worsening symptoms or concerns Prescriptions: No Action metronidazole 0.75 % Cream 1 applic TOPICAL DAILY RF: 0 atorvastatin 80 mg Tablet 80 mg PO BEDTIME RF: 0 triamcinolone acetonide 0.1 % Cream 1 applic TOPICAL BID RF: 0 carvedilol 3.125 mg Tablet 3.125 mg PO BID RF: 0 omeprazole 20 mg Capsule,Delayed Release(Dr/Ec) 20 mg PO DAILY RF: 0 aspirin 81 mg Tablet 81 mg PO DAILY RF: 0 fluoxetine 20 mg Capsule 20 mg PO DAILY RF: 0 Flovent HFA 110 mcg/actuation Hfa Aerosol Inhaler 2 puff INHALATION BID RF: 0 B Complex Plus Vitamin C 25-94-16-5-300 mg Capsule 1 cap PO DAILY RF: 0 magnesium oxide 400 mg magnesium Tablet 400 mg PO BID RF: 0 trazodone 50 mg Tablet 50 mg PO DAILY RF: 0 triamcinolone acetonide 0.1 % Ointment 1 applic TOPICAL DAILY RF: 0 Referrals: Mansoor Millan MD [Primary Care Provider] - 2 days
[2020-04-12] MEDS: LORazepam 1 MG TABLET PO (04:54)
[2020-04-12 04:55] LABS: Basophils Percent Auto 0.6 % (0-2); Eosinophils Absolute Auto 0.1 X10*3/uL (0.0-0.4); Hematocrit 37.9 % (42-52); Hemoglobin 11.4 g/dl (14.0-18.0); Imm Gran Abs Auto 0.04 X10*3/uL (0.00-0.03); Imm Gran Pct Auto 0.6 % (0.0-0.4); Lymphocytes Absolute Auto 2.6 X10*3/uL (1.2-4.9); MANUAL DIFF FLAG NO; Mean Corpuscular HGB Conc 30.1 g/dl (31.0-36.0); Mean Corpuscular Hemoglobin 23.4 pg (27.0-33.0); Mean Corpuscular Volume 77.7 fL (80-98); Mean Platelet Volume 10.9 fL (9.4-12.4); Monocytes Absolute Auto 0.7 X10*3/uL (0.1-1.2); Monocytes Percent Auto 9.3 % (2-11); Neutrophils Absolute Auto 3.7 X10*3/uL (2.0-8.3); Neutrophils Percent Auto 51.5 % (45-73); Platelet Count 282 X10*3/uL (160-400); Red Blood Count 4.88 X10*6/uL (4.60-5.80); Red Cell Distribution Width 17.1 % (11.0-16.0); White Blood Count 7.1 X10*3/uL (4.8-10.8)
--- NOTE | 2020-04-12 04:55 | PC.NURSE ---
MD at bedside for primary eval. EKG and labs obtained at bedside. Pt medicated per MAR, aware of plan for XRay. VSS. Call recinos within reach, continue to monitor.
--- NOTE | 2020-04-12 04:58 | PC.NURSE ---
CXR at bedside.
[2020-04-12 05:17] LABS: Anion Gap 13 (12-20); Carbon Dioxide 22 mmol/L (22-29); Chloride 107 mmol/L (96-108); Potassium 4.1 mmol/L (3.3-5.1); Sodium 138 mmol/L (135-145)
[2020-04-12 05:21] LABS: Troponin-I High Sensitivity 21.6 ng/L (<3.5-35.0)
[2020-04-12 05:24] LABS: Magnesium 1.3 mg/dL (1.6-2.6)
[2020-04-12 05:26] LABS: Alanine Aminotransferase 33 U/L (0-40); Albumin Level 3.8 g/dL (3.5-5.0); Alkaline Phosphatase 141 U/L (39-117); Aspartate Amino Transferase 29 U/L (5-37); Bilirubin Direct 0.2 mg/dL (0.0-0.5); Bilirubin Total 0.3 mg/dL (0.0-1.0); Blood Urea Nitrogen 11 mg/dL (9-16); Creatinine Clr Calc Pharmacy 97.8; Estimated Glomerular Filt Rate > 60; Glucose Random 134 mg/dL (60-115)
[2020-04-12 05:38] LABS: Calcium 8.5 mg/dL (8.4-10.2)
[2020-04-12 05:43] LABS: Lipase 100 U/L (8-78)
[2020-04-12] MEDS: Magnesium Sulfate/H2O 2 GM/50 ML PIGGYBACK IV (05:46)
[2020-04-12 05:49] VITALS: BP 132/55; PULSE 75; RESP 16; O2SAT 97
--- NOTE | 2020-04-12 05:50 | PC.NURSE ---
Port accessed by tthis RN using sterile technique. Mag infusing per MAR. VSS. Continue to monitor.
[2020-04-12 06:59] VITALS: BP 138/59; PULSE 62; RESP 16; O2SAT 97
--- NOTE | 2020-04-12 07:01 | PC.NURSE ---
Pt sleeping at this time. Respirations even/unlabored bilaterally. No sign of distress noted. VSS. Plan to redraw troponin at 0730. Will continue to monitor.
--- NOTE | 2020-04-12 07:36 | ECG_ITS ---
Test Reason : CHEST PAIN Blood Pressure : / mmHG Vent. Rate : 076 BPM Atrial Rate : 076 BPM P-R Int : 164 ms QRS Dur : 074 ms QT Int : 404 ms P-R-T Axes : 075 071 054 degrees QTc Int : 454 ms Normal sinus rhythm Normal ECG When compared with ECG of 01-FEB-2020 23:31, No significant change was found Referred By: Batool Johnson Electronically Signed By:Art Alvarado
== END 2020-04-12 09:38 | disposition home or self-care (01) ==
PROVIDERS: Emergency Provider Emergency Medicine; PCP Internal Medicine
DX: F41.9 Anxiety disorder, unspecified (principal); R07.89 Other chest pain; E83.42 Hypomagnesemia; E11.9 Type 2 diabetes mellitus without complications; I10 Essential (primary) hypertension; J45.909 Unspecified asthma, uncomplicated; Z85.038 Personal history of other malignant neoplasm of large intestine
CPT/HCPCS: 36415; 71045; 80048; 80076; 83690; 83735; 84484; 85025; 93005; 99284; J3475

== ENCOUNTER 2020-04-15 07:31 | Outpatient (REF) | payer MEDICARE, MEDICAID, SELFPAY ==
--- NOTE | ~2020-04-15 | XR_ITS ---
EXAMINATION: XR SHOULDER, LEFT CLINICAL INFORMATION: Pain COMPARISON: None TECHNIQUE: Three views of the left shoulder. FINDINGS: The bones and soft tissues are normal. No fracture. Glenohumeral and acromioclavicular alignment is anatomic with normal joint space. No abnormal soft tissue calcifications. XR/XR shoulder LT min 2V IMPRESSION: No significant abnormality of the left shoulder appreciated.
== END 2020-04-15 07:32 | disposition home or self-care (01) ==
LOC: HO.HOSX 07:31
PROVIDERS: Visit Provider Orthopaedic Surgery
DX: M75.52 Bursitis of left shoulder (principal); E11.9 Type 2 diabetes mellitus without complications; Z87.891 Personal history of nicotine dependence
CPT/HCPCS: 20610; 73030; 99202

== ENCOUNTER 2020-05-11 08:00 | Outpatient (RCR) | payer MEDICARE, MEDICAID, SELFPAY ==
[2019-11-10 07:52] VITALS: BMI 34.7
[2019-11-10 07:54] VITALS: BP 133/60; PULSE 83; RESP 20; TEMP 36.3; O2SAT 97
[2019-11-10 09:29] LABS: MANUAL DIFF FLAG NO
[2019-11-10 09:32] LABS: Basophils Absolute Auto 0.1 X10*3/uL (0.0-0.2); Basophils Percent Auto 0.6 % (0-2); Eosinophils Absolute Auto 0.2 X10*3/uL (0.0-0.4); Eosinophils Percent Auto 1.4 % (0-4); Hemoglobin 12.9 g/dl (14.0-18.0); Imm Gran Abs Auto 0.08 X10*3/uL (0.00-0.03); Imm Gran Pct Auto 0.8 % (0.0-0.4); Lymphocytes Percent Auto 18.8 % (20-40); Mean Corpuscular HGB Conc 32.3 g/dl (31.0-36.0); Mean Corpuscular Volume 83.9 fL (80-98); Monocytes Absolute Auto 0.8 X10*3/uL (0.1-1.2); Monocytes Percent Auto 7.7 % (2-11); Neutrophils Absolute Auto 7.5 X10*3/uL (2.0-8.3); Neutrophils Percent Auto 70.7 % (45-73); Platelet Count 209 X10*3/uL (160-400); Red Blood Count 4.77 X10*6/uL (4.60-5.80); Red Cell Distribution Width 18.4 % (11.0-16.0); White Blood Count 10.6 X10*3/uL (4.8-10.8)
[2019-11-10] MEDS: 0.9 % Sodium Chloride 1,000 ML 500 ML IVCONT (10:03)
[2019-11-10 10:16] LABS: Alanine Aminotransferase 32 U/L (0-40); Albumin Level 3.4 g/dL (3.5-5.0); Alkaline Phosphatase 106 U/L (39-117); Anion Gap 11 (12-20); Aspartate Amino Transferase 24 U/L (5-37); Blood Urea Nitrogen 12 mg/dL (9-16); Calcium 8.4 mg/dL (8.4-10.2); Carbon Dioxide 26 mmol/L (22-29); Chloride 103 mmol/L (96-108); Creatinine Clr Calc Pharmacy 100.8; Estimated Glomerular Filt Rate > 60; Glucose Random 110 mg/dL (60-115); Potassium 3.8 mmol/l (3.3-5.1); Sodium 136 mmol/L (135-145)
[2019-11-10 11:49] LABS: Magnesium 1.2 mg/dL (1.6-2.6)
[2019-11-10] MEDS: Magnesium Sulfate/H2O 2 GM/50 ML PIGGYBACK IV (11:56)
--- NOTE | 2019-11-11 09:11 | MHC.HEMONCSW ---
EXPERIENCING SKIN RASHES PROBALY RELATED TO CHEMOTHERAPY. ONCOLOGY NURSES REFERRED PT TO DR. LEWIS AT [address] [place] [address] DR KUO FOR 11/12/19 10;15AM YELLOW [employer] V[employer]CHER PROVIDED. REPORTS COPING WELL OTHERWISE. EDUCATION CONTINUES TO BE PROVIDED.
[2019-11-18 08:02] VITALS: BP 123/66; PULSE 68; RESP 20; TEMP 36.7; O2SAT 96; BMI 34.4
[2019-11-18 08:39] LABS: MANUAL DIFF FLAG NO
[2019-11-18 08:49] LABS: Basophils Absolute Auto 0.1 X10*3/uL (0.0-0.2); Basophils Percent Auto 0.5 % (0-2); Eosinophils Percent Auto 0.3 % (0-4); Hematocrit 40.6 % (42-52); Hemoglobin 12.2 g/dl (14.0-18.0); Lymphocytes Absolute Auto 2.1 X10*3/uL (1.2-4.9); Lymphocytes Percent Auto 20.2 % (20-40); Mean Corpuscular Volume 86.4 fL (80-98); Monocytes Absolute Auto 0.6 X10*3/uL (0.1-1.2); Monocytes Percent Auto 6.2 % (2-11); Neutrophils Absolute Auto 7.4 X10*3/uL (2.0-8.3); Neutrophils Percent Auto 71.8 % (45-73); Platelet Count 227 X10*3/uL (160-400); Red Cell Distribution Width 17.9 % (11.0-16.0); White Blood Count 10.2 X10*3/uL (4.8-10.8)
[2019-11-18 09:24] LABS: Alanine Aminotransferase 31 U/L (0-40); Albumin Level 3.5 g/dL (3.5-5.0); Alkaline Phosphatase 96 U/L (39-117); Anion Gap 11 (12-20); Aspartate Amino Transferase 21 U/L (5-37); Bilirubin Total 0.7 mg/dL (0.0-1.0); Blood Urea Nitrogen 15 mg/dL (9-16); Calcium 8.7 mg/dL (8.4-10.2); Carbon Dioxide 24 mmol/L (22-29); Chloride 106 mmol/L (96-108); Creatinine Clr Calc Pharmacy 97.6; Estimated Glomerular Filt Rate > 60; Glucose Random 133 mg/dL (60-115); Sodium 137 mmol/L (135-145); Total Protein 7.2 g/dL (6.5-8.0)
[2019-11-18] MEDS: Acetaminophen 325 MG TABLET 650 MG PO (09:49)
[2019-11-18] MEDS: dexAMETHasone 4 MG TABLET 8 MG PO (09:49)
[2019-11-18] MEDS: Famotidine/PF 20 MG/2 ML VIAL IVPUSH (09:49)
[2019-11-18] MEDS: Heparin Sodium,Porcine Flush 500 UNIT/5 ML SYRINGE IVFLUSH (09:50)
[2019-11-18] MEDS: 0.9 % Sodium Chloride 1,000 ML 500 ML IVCONT (09:50)
[2019-11-18 12:17] LABS: Magnesium 1.6 mg/dL (1.6-2.6)
[2019-11-18] MEDS: Magnesium Sulfate/H2O 2 GM/50 ML PIGGYBACK IV (12:35)
[2019-11-24 08:12] VITALS: BP 136/78; PULSE 72; RESP 18; TEMP 37.1; O2SAT 98
[2019-11-24 08:39] VITALS: BMI 34.7
[2019-11-24] MEDS: 0.9 % Sodium Chloride 1,000 ML 500 ML IVCONT (08:59)
[2019-11-24 09:03] LABS: MANUAL DIFF FLAG NO
[2019-11-24 09:04] LABS: Basophils Absolute Auto 0.1 X10*3/uL (0.0-0.2); Basophils Percent Auto 0.6 % (0-2); Eosinophils Absolute Auto 0.1 X10*3/uL (0.0-0.4); Eosinophils Percent Auto 1.2 % (0-4); Hematocrit 41.2 % (42-52); Hemoglobin 12.8 g/dl (14.0-18.0); Lymphocytes Absolute Auto 1.9 X10*3/uL (1.2-4.9); Lymphocytes Percent Auto 19.5 % (20-40); Mean Corpuscular HGB Conc 31.1 g/dl (31.0-36.0); Mean Corpuscular Hemoglobin 26.4 pg (27.0-33.0); Mean Corpuscular Volume 84.9 fL (80-98); Mean Platelet Volume 10.8 fL (9.4-12.4); Monocytes Absolute Auto 0.6 X10*3/uL (0.1-1.2); Monocytes Percent Auto 6.2 % (2-11); Neutrophils Absolute Auto 7.1 X10*3/uL (2.0-8.3); Neutrophils Percent Auto 71.5 % (45-73); Platelet Count 198 X10*3/uL (160-400); Red Blood Count 4.85 X10*6/uL (4.60-5.80); Red Cell Distribution Width 17.1 % (11.0-16.0); White Blood Count 9.9 X10*3/uL (4.8-10.8)
[2019-11-24 09:41] LABS: Alanine Aminotransferase 42 U/L (0-40); Albumin Level 3.4 g/dL (3.5-5.0); Alkaline Phosphatase 115 U/L (39-117); Anion Gap 10 (12-20); Aspartate Amino Transferase 31 U/L (5-37); Bilirubin Total 0.4 mg/dL (0.0-1.0); Blood Urea Nitrogen 15 mg/dL (9-16); Calcium 8.4 mg/dL (8.4-10.2); Carbon Dioxide 27 mmol/L (22-29); Chloride 104 mmol/L (96-108); Creatinine Clr Calc Pharmacy 99.5; Estimated Glomerular Filt Rate > 60; Glucose Random 114 mg/dL (60-115); Magnesium 1.5 mg/dL (1.6-2.6); Potassium 3.8 mmol/l (3.3-5.1); Sodium 137 mmol/L (135-145); Total Protein 6.9 g/dL (6.5-8.0)
[2019-11-24] MEDS: Magnesium Sulfate/H2O 2 GM/50 ML PIGGYBACK IV (10:49)
[2019-12-01 08:04] VITALS: BP 137/64; PULSE 86; RESP 20; TEMP 36.5; O2SAT 98
[2019-12-01 08:08] VITALS: BMI 35.2
[2019-12-01 09:28] LABS: MANUAL DIFF FLAG NO
[2019-12-01 09:31] LABS: Basophils Absolute Auto 0.1 X10*3/uL (0.0-0.2); Basophils Percent Auto 0.8 % (0-2); Eosinophils Absolute Auto 0.2 X10*3/uL (0.0-0.4); Eosinophils Percent Auto 2.2 % (0-4); Hematocrit 38.8 % (42-52); Hemoglobin 12.1 g/dl (14.0-18.0); Imm Gran Abs Auto 0.06 X10*3/uL (0.00-0.03); Imm Gran Pct Auto 0.7 % (0.0-0.4); Lymphocytes Absolute Auto 1.8 X10*3/uL (1.2-4.9); Lymphocytes Percent Auto 19.9 % (20-40); Mean Corpuscular HGB Conc 31.2 g/dl (31.0-36.0); Mean Corpuscular Hemoglobin 26.7 pg (27.0-33.0); Mean Corpuscular Volume 85.5 fL (80-98); Mean Platelet Volume 11.6 fL (9.4-12.4); Monocytes Absolute Auto 0.7 X10*3/uL (0.1-1.2); Monocytes Percent Auto 7.7 % (2-11); Neutrophils Percent Auto 68.7 % (45-73); Platelet Count 219 X10*3/uL (160-400); Red Blood Count 4.54 X10*6/uL (4.60-5.80); Red Cell Distribution Width 16.8 % (11.0-16.0); White Blood Count 8.8 X10*3/uL (4.8-10.8)
[2019-12-01 10:08] LABS: Alanine Aminotransferase 40 U/L (0-40); Albumin Level 3.4 g/dL (3.5-5.0); Alkaline Phosphatase 120 U/L (39-117); Anion Gap 13 (12-20); Aspartate Amino Transferase 29 U/L (5-37); Bilirubin Total 0.5 mg/dL (0.0-1.0); Blood Urea Nitrogen 11 mg/dL (9-16); Calcium 8.3 mg/dL (8.4-10.2); Carbon Dioxide 25 mmol/L (22-29); Chloride 105 mmol/L (96-108); Creatinine Clr Calc Pharmacy 98.8; Estimated Glomerular Filt Rate > 60; Glucose Random 110 mg/dL (60-115); Potassium 3.8 mmol/l (3.3-5.1); Sodium 139 mmol/L (135-145); Total Protein 6.9 g/dL (6.5-8.0)
[2019-12-01 10:44] LABS: Magnesium 1.4 mg/dL (1.6-2.6)
[2019-12-01] MEDS: dexAMETHasone 4 MG TABLET 8 MG PO (10:57)
[2019-12-01] MEDS: Acetaminophen 325 MG TABLET 650 MG PO (10:57)
[2019-12-01] MEDS: Famotidine/PF 20 MG/2 ML VIAL IVPUSH (10:58)
[2019-12-01] MEDS: Magnesium Sulfate/H2O 2 GM/50 ML PIGGYBACK IV (10:58)
[2019-12-01] MEDS: 0.9 % Sodium Chloride 1,000 ML 500 ML IVCONT (10:59)
[2019-12-01] MEDS: Heparin Sodium,Porcine Flush 500 UNIT/5 ML SYRINGE IVFLUSH (14:46)
[2019-12-08 08:25] VITALS: BMI 34.9
[2019-12-08 08:26] VITALS: BP 142/70; PULSE 80; RESP 18; TEMP 36.2; O2SAT 96
[2019-12-08 08:59] LABS: MANUAL DIFF FLAG NO
[2019-12-08 09:04] LABS: Basophils Percent Auto 0.5 % (0-2); Eosinophils Absolute Auto 0.2 X10*3/uL (0.0-0.4); Hemoglobin 12.5 g/dl (14.0-18.0); Imm Gran Abs Auto 0.05 X10*3/uL (0.00-0.03); Imm Gran Pct Auto 0.6 % (0.0-0.4); Lymphocytes Absolute Auto 2.5 X10*3/uL (1.2-4.9); Lymphocytes Percent Auto 29.6 % (20-40); Mean Corpuscular HGB Conc 31.3 g/dl (31.0-36.0); Mean Corpuscular Hemoglobin 26.2 pg (27.0-33.0); Mean Corpuscular Volume 83.7 fL (80-98); Mean Platelet Volume 10.4 fL (9.4-12.4); Monocytes Absolute Auto 0.6 X10*3/uL (0.1-1.2); Monocytes Percent Auto 7.7 % (2-11); Neutrophils Percent Auto 59.6 % (45-73); Platelet Count 247 X10*3/uL (160-400); Red Blood Count 4.78 X10*6/uL (4.60-5.80); Red Cell Distribution Width 15.9 % (11.0-16.0); White Blood Count 8.4 X10*3/uL (4.8-10.8)
[2019-12-08 09:30] LABS: Alanine Aminotransferase 31 U/L (0-40); Albumin Level 3.7 g/dL (3.5-5.0); Alkaline Phosphatase 118 U/L (39-117); Anion Gap 12 (12-20); Aspartate Amino Transferase 27 U/L (5-37); Bilirubin Total 0.4 mg/dL (0.0-1.0); Blood Urea Nitrogen 11 mg/dL (9-16); Calcium 8.2 mg/dL (8.4-10.2); Carbon Dioxide 27 mmol/L (22-29); Chloride 104 mmol/L (96-108); Creatinine Clr Calc Pharmacy 94.5; Estimated Glomerular Filt Rate > 60; Glucose Random 107 mg/dL (60-115); Magnesium 1.5 mg/dL (1.6-2.6); Potassium 4.1 mmol/l (3.3-5.1); Sodium 139 mmol/L (135-145); Total Protein 7.3 g/dL (6.5-8.0)
[2019-12-08] MEDS: 0.9 % Sodium Chloride 1,000 ML 500 ML IV (10:02)
[2019-12-08] MEDS: Magnesium Sulfate/H2O 2 GM/50 ML PIGGYBACK IV (11:44)
[2019-12-15 08:06] VITALS: BP 170/80; PULSE 76; RESP 20; TEMP 36.7; O2SAT 97; BMI 34.8
[2019-12-15] MEDS: 0.9 % Sodium Chloride 1,000 ML 500 ML IVCONT (08:30)
[2019-12-15 09:03] LABS: MANUAL DIFF FLAG NO
[2019-12-15 09:07] LABS: Basophils Absolute Auto 0.1 X10*3/uL (0.0-0.2); Basophils Percent Auto 0.7 % (0-2); Eosinophils Absolute Auto 0.1 X10*3/uL (0.0-0.4); Eosinophils Percent Auto 0.6 % (0-4); Hematocrit 41.1 % (42-52); Hemoglobin 12.6 g/dl (14.0-18.0); Imm Gran Abs Auto 0.07 X10*3/uL (0.00-0.03); Imm Gran Pct Auto 0.7 % (0.0-0.4); Lymphocytes Absolute Auto 2.1 X10*3/uL (1.2-4.9); Mean Corpuscular HGB Conc 30.7 g/dl (31.0-36.0); Mean Corpuscular Hemoglobin 25.8 pg (27.0-33.0); Mean Corpuscular Volume 84.2 fL (80-98); Mean Platelet Volume 10.9 fL (9.4-12.4); Monocytes Absolute Auto 0.8 X10*3/uL (0.1-1.2); Monocytes Percent Auto 7.8 % (2-11); Neutrophils Absolute Auto 6.8 X10*3/uL (2.0-8.3); Neutrophils Percent Auto 69.2 % (45-73); Platelet Count 296 X10*3/uL (160-400); Red Blood Count 4.88 X10*6/uL (4.60-5.80); Red Cell Distribution Width 15.9 % (11.0-16.0); White Blood Count 9.8 X10*3/uL (4.8-10.8)
[2019-12-15 09:13] VITALS: BP 136/68
--- NOTE | 2019-12-15 09:26 | PM.HEMONCPN ---
Medical Summary - Medical Summary Chief complaint: FOLLOW-UP FOR: ADVANCED COLON CANCER. 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 Now with concern for recurrence. CURRENT THERAPY: Started Xeloda, since first week of Jun, 2016. Completed, end of December 2016. On modified FOLFOX 6 regimen for recurrent disease. Received cycle 7 April. Concern is for disease recurrence. Started on FOLFIRI plus Erbitux, July 29. Completed 3rd treatment October 09. Completed on December 04. Started 8th cycle, on February 10. Completed 10 cycles, cycle 11, day 1 on 05/11. On maintenance Cetuximab since June 01. Here for a dose today. Interval History Interval history: This is a pleasant 64-year-old gentleman, here for a follow-up visit and for his treatment today. He is doing very well. He tells me that the rash especially over his scalp has actually resolved. He has been using the allergy pills and Caladryl during the day. He uses the Metrogel at night. Even the rash on his chest and abdomen has faded. Denies fever nor chills. Denies fatigability. No chest pain or trouble breathing. Denies abdominal pain nausea vomiting heartburn indigestion. Bowels are working without any gross blood in it. He enjoys a good appetite. He has gained weight. He is in good spirits. Rest of the review of systems is unremarkable. Review of Systems - Constitutional Denies anorexia, Denies body ache(s), Denies daytime sleepiness, Denies lack of energy - Eyes Reports blurry vision - ENT Reports system reviewed and no additional complaints, except as documented - Cardiovascular Reports chest pain at rest, Denies generalized swelling - Respiratory Denies cough - Gastrointestinal Denies abdominal pain, Denies change in bowel habits - Musculoskeletal Reports muscle weakness - Neurologic Reports system reviewed and no additional complaints, except as documented - Psychiatric Denies anxiety - Endocrine Denies excessive sweating - Hematologic/Lymphatic Denies easy bruising - Allergic/Immunologic Denies GI upset with certain foods PMFSH Medical History: Medical History (Last Updated 11/18/19 @ 10:08 by Farideh Perales RN) Asthma Colon cancer Diabetes mellitus, type 2 Hypercholesteremia Hypertension Palpitations Patient : No Home Medications and Allergies Home Medications Medication Instructions Recorded Confirmed Type aspirin 81 mg PO DAILY 11/18/19 11/18/19 History atorvastatin 80 mg PO BEDTIME 11/18/19 11/18/19 History carvedilol 3.125 mg PO BID 11/18/19 11/18/19 History doxycycline hyclate 100 mg PO DAILY 11/18/19 11/18/19 History fluoxetine 20 mg PO DAILY 11/18/19 11/18/19 History fluticasone propionate [Flovent 2 puff INHALATION BID 11/18/19 11/18/19 History HFA] hydroxyzine HCl 25 mg PO TID PRN 11/18/19 11/18/19 History magnesium oxide 400 mg PO BID 11/18/19 11/18/19 History methylprednisolone 4 mg PO DAILY 11/18/19 11/18/19 History metronidazole 1 applic TOPICAL DAILY 11/18/19 11/18/19 History omeprazole 20 mg PO DAILY 11/18/19 11/18/19 History ondansetron HCl 8 mg PO Q8H PRN 11/18/19 11/18/19 History trazodone 50 mg PO DAILY 11/18/19 11/18/19 History triamcinolone acetonide 1 applic TOPICAL BID 11/18/19 11/18/19 History vitamin B comp and C no.3 [B 1 cap PO DAILY 11/18/19 11/18/19 History Complex Plus Vitamin C] doxycycline hyclate 100 mg PO BID 12/01/19 12/01/19 History triamcinolone acetonide 1 applic TOPICAL DAILY 12/01/19 12/01/19 History Allergies Allergy/AdvReac Type Severity Reaction Status Date / Time nitroglycerin Allergy Severe AGITATION Verified 11/10/19 13:48 [From NITROSTAT] oxaliplatin [OXALIPLATIN] Allergy Severe anaphylaxis Verified 11/10/19 13:48 diphenhydramine Allergy Intermediate RASH Verified 11/10/19 13:48 [From MOTRIN PM] ibuprofen [From ADVIL] Allergy Unknown RASH Verified 11/10/19 13:48 morphine Allergy Unknown painful Verified 09/11/19 00:00 rash oxcarbazepine Allergy Unknown rash, Verified 11/10/19 13:48 [From TRILEPTAL] coughing penicillin V Allergy Unknown rash Verified 11/10/19 13:48 Penicillins [PENICILLINS] Allergy Unknown ITCHING, Verified 11/10/19 13:48 RASH Benadryl Allergy Unknown rash Uncoded 09/11/19 00:00 Exam Vital signs: Vital Signs Temp 98.1 F 12/15/19 08:06 Pulse 76 12/15/19 08:06 Resp 20 12/15/19 08:06 BP 136/68 12/15/19 09:13 Pulse Ox 97 12/15/19 08:06 Intake & Output 12/14/19 12/15/19 12/15/19 18:59 06:59 18:59 Other: Weight 89.2 kg Weight 89.2 kg Body Mass Index 34.8 - Constitutional Present: no acute distress - Routine HEENT Exam Head: Present: normal inspection ENT: Present: mucous membranes moist - Routine Neck Exam Present: full ROM - Routine Respiratory Exam Present: CTAB - Routine Cardiovascular Exam Cardiovascular: Present: RRR, S1, S2 - Routine Abdominal Exam Present: soft, nontender. Absent: Rasheed's sign - Routine Extremities Exam Present: nontender - Routine Skin Exam Present: intact - Routine Neurological Exam Present: alert, oriented X3 - Detailed Neurological Exam: Coma Scale Eye Opening: Spontaneous (4) Verbal Response: Oriented (5) Motor Response: Obeys commands (6) Glascow Coma Scale Total: 15 Data - Labs CBC & Chem 7: 12/15/19 08:45 12/15/19 08:45 Labs: Laboratory Results - last 24 hr 12/15/19 08:45 WBC 9.8 RBC 4.88 Hgb 12.6 L Hct 41.1 L MCV 84.2 MCH 25.8 L MCHC 30.7 L RDW 15.9 Plt Count 296 MPV 10.9 Immature Gran % (Auto) 0.7 H Neut % (Auto) 69.2 Lymph % (Auto) 21.0 [place] % (Auto) 7.8 Eos % (Auto) 0.6 Baso % (Auto) 0.7 Lymph # (Auto) 2.1 [place] # (Auto) 0.8 Eos # (Auto) 0.1 Baso # (Auto) 0.1 Abs Immat Gran (auto) 0.07 H Absolute Neuts (auto) 6.8 Absolute Nucleated RBC 0.000 Nucleated RBC % (auto) 0.0 Progress Note: A/P (1) Carcinoma of sigmoid colon Status: Acute Assessment and plan: 64 year-old gentleman, who initially presented with stage IIA Colon Carcinoma. Moderately Differentiated Adenocarcinoma, without any poor prognostic features. Zero out of 22 lymph nodes. He received Xeloda beginning of June 2016 to December 2016. Patient is on modified FOLFOX regimen for recurrent disease. He completed [address] chest/abdomen pelvis performed in February 2018 shows stable disease. He developed a reaction to his last dose of Oxaliplatin. 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 Vitamin B12 level was checked and was normal. He was started on vitamin B complex vitamin. CT scan of the abdomen on April 04, revealed disease progression. Recently performed K-jarred mutation was negative. I offered him systemic chemotherapy with FOLFIRI plus Erbitux, for palliation. He was willing to try it. So far he has had 9 cycles. He initially developed redness and maculopapular eruption, on his scalp face and chest. It was pruritic and painful. He had required Medrol Dosepak, it worked well for him. He had a CT scan of the abdomen after completion of 6 cycles, This was done on January 28 and revealed: Old granulomatous disease. Smaller left lower lobe nodule adjacent to the major fissure as Described. Stable or improved in size left lower lobe nodule and left perinephric soft tissue density. No evidence of progression of disease. He has completed 10-1/2 cycles of FOLFIRI and Erbitux. He tolerated it very well. CT scan of the abdomen pelvis from September 08 revealed: Status post partial left hemicolectomy. No evidence of locoregional recurrence or metastatic disease. He had previous imaging CT scan on May 18 which revealed: Stable postsurgical changes to the colon following partial left hemicolectomy. Stool throughout the colon suggestive of constipation. Stable focal thickening and calcification of the left posterior pararenal fascia. Stable partially calcified nodule inferior to the spleen, probably representing a splenule. Left renal cyst. Numerous bilateral calcified granulomata. Bilateral nonmineralized nodules stable from 12/06/2017. No new nodularity, adenopathy, or effusion. His CEA level is down to 2.1. Starting June 01, I have switched him over to maintenance Erbitux. He has been tolerating the treatment quite well. His skin rash has improved. He has been using Caladryl Atarax and Metrogel, twice a day. His CT scan results are encouraging. He complains of pain in his right upper extremity. Since he has a Port-A-Cath there my concern would be for a DVT. However, Ultrasound of the right upper extremity from 10/26 revealed: No evidence of deep venous thrombosis involving the right upper extremity. PLAN: The plan is to continue him on the maintenance Erbitux for now. will repeat CT scan of the abdomen in a couple of weeks time, to confirm his continued response. He has an appointment with dermatology coming up in a couple of weeks, for further evaluation of the rash. He is enjoying a break from the chemotherapy. He will return in a couple of weeks for next treatment and a followup. He will keep me posted about his progress. Thank you, CC: Dr. Hannah. Dr. Kristy Madrid. - Time Spent With Patient Total time spent is greater than 50% in coordination of care (as documented) at patient's floor/unit and/or counseling patient: 25 - 35 minutes
[2019-12-15 09:31] LABS: Alanine Aminotransferase 34 U/L (0-40); Albumin Level 3.7 g/dL (3.5-5.0); Alkaline Phosphatase 126 U/L (39-117); Anion Gap 13 (12-20); Aspartate Amino Transferase 37 U/L (5-37); Bilirubin Total 0.7 mg/dL (0.0-1.0); Carbon Dioxide 26 mmol/L (22-29); Chloride 105 mmol/L (96-108); Creatinine Clr Calc Pharmacy 93.2; Estimated Glomerular Filt Rate > 60; Glucose Random 116 mg/dL (60-115); Potassium 4.1 mmol/l (3.3-5.1); Sodium 140 mmol/L (135-145)
[2019-12-15 09:32] LABS: Blood Urea Nitrogen 9 mg/dL (9-16); Total Protein 7.6 g/dL (6.5-8.0)
[2019-12-15 09:48] LABS: Magnesium 1.3 mg/dL (1.6-2.6)
[2019-12-15] MEDS: Magnesium Sulfate/H2O 2 GM/50 ML PIGGYBACK IV (10:00)
[2019-12-15] MEDS: Acetaminophen 325 MG TABLET 650 MG PO (11:33)
[2019-12-15] MEDS: ondansetron HCL/NS 16 MG/50 ML PIGGYBACK 200 MG IV (12:00)
[2019-12-15] MEDS: dexAMETHasone sod phosphate/NS 12 MG/50 ML PIGGYBACK 200 MG IV (12:26)
[2019-12-15] MEDS: Heparin Sodium,Porcine Flush 500 UNIT/5 ML SYRINGE IVFLUSH (14:52)
--- NOTE | 2019-12-15 16:38 | MHC.HEMONC ---
Pt here for chemo infusion. Port accessed, good blood return. Labs reviewed, magnesium level 1.3. Received magnesium 2gm IV. Seen by Dr Burleson. Tolerated chemo well. Plan to return in 2 weeks for chemo infusion.
[2019-12-22 07:58] VITALS: BMI 35.4
[2019-12-22 07:59] VITALS: BP 126/73; PULSE 64; RESP 20; TEMP 36.6; O2SAT 98
[2019-12-22 08:39] LABS: MANUAL DIFF FLAG NO
[2019-12-22 08:42] LABS: Basophils Percent Auto 0.6 % (0-2); Eosinophils Absolute Auto 0.1 X10*3/uL (0.0-0.4); Eosinophils Percent Auto 1.8 % (0-4); Hematocrit 37.4 % (42-52); Hemoglobin 11.6 g/dl (14.0-18.0); Imm Gran Abs Auto 0.04 X10*3/uL (0.00-0.03); Imm Gran Pct Auto 0.6 % (0.0-0.4); Lymphocytes Percent Auto 30.2 % (20-40); Mean Corpuscular Hemoglobin 26.2 pg (27.0-33.0); Mean Corpuscular Volume 84.6 fL (80-98); Mean Platelet Volume 10.5 fL (9.4-12.4); Monocytes Absolute Auto 0.7 X10*3/uL (0.1-1.2); Neutrophils Absolute Auto 3.8 X10*3/uL (2.0-8.3); Neutrophils Percent Auto 56.8 % (45-73); Platelet Count 213 X10*3/uL (160-400); Red Blood Count 4.42 X10*6/uL (4.60-5.80); Red Cell Distribution Width 15.8 % (11.0-16.0); White Blood Count 6.6 X10*3/uL (4.8-10.8)
[2019-12-22 09:15] LABS: Alanine Aminotransferase 30 U/L (0-40); Albumin Level 3.5 g/dL (3.5-5.0); Alkaline Phosphatase 112 U/L (39-117); Anion Gap 13 (12-20); Aspartate Amino Transferase 26 U/L (5-37); Bilirubin Total 0.8 mg/dL (0.0-1.0); Blood Urea Nitrogen 10 mg/dL (9-16); Calcium 8.1 mg/dL (8.4-10.2); Carbon Dioxide 24 mmol/L (22-29); Chloride 104 mmol/L (96-108); Creatinine Clr Calc Pharmacy 97.9; Estimated Glomerular Filt Rate > 60; Glucose Random 113 mg/dL (60-115); Magnesium 1.3 mg/dL (1.6-2.6); Potassium 3.5 mmol/l (3.3-5.1); Sodium 137 mmol/L (135-145); Total Protein 6.8 g/dL (6.5-8.0)
[2019-12-22] MEDS: 0.9 % Sodium Chloride 1,000 ML 500 ML IVCONT (09:52)
[2019-12-22] MEDS: Magnesium Sulfate/H2O 2 GM/50 ML PIGGYBACK IV (09:54)
--- NOTE | 2019-12-22 13:54 | MHC.HEMONCSW ---
PT REMAINS INDEPENDENT, REPORTS COPING WELL. DENIES ANY C/O OR STRESS AT THIS TIME. PT IS AWARE OF MY AVAILABILITY.
--- NOTE | 2019-12-22 13:57 | MHC.HEMONCSW ---
PT WAS A NO SHOW FOR APPOINTMENT.
--- NOTE | 2019-12-22 16:27 | MHC.HEMONC ---
Pt here for IV hydration. Port accessed, good blood return. Labs drawn and reviewed. Pt received IV fluid and Magnesium IV. To return next week for Chemo
[2019-12-29 08:02] VITALS: BP 145/67; PULSE 68; RESP 18; TEMP 36.6; O2SAT 97; BMI 35.8
[2019-12-29 08:34] LABS: MANUAL DIFF FLAG NO
[2019-12-29 08:36] LABS: Basophils Absolute Auto 0.1 X10*3/uL (0.0-0.2); Basophils Percent Auto 0.9 % (0-2); Eosinophils Absolute Auto 0.1 X10*3/uL (0.0-0.4); Eosinophils Percent Auto 1.6 % (0-4); Hematocrit 38.8 % (42-52); Hemoglobin 11.9 g/dl (14.0-18.0); Imm Gran Abs Auto 0.05 X10*3/uL (0.00-0.03); Imm Gran Pct Auto 0.6 % (0.0-0.4); Lymphocytes Absolute Auto 2.1 X10*3/uL (1.2-4.9); Lymphocytes Percent Auto 25.8 % (20-40); Mean Corpuscular HGB Conc 30.7 g/dl (31.0-36.0); Mean Corpuscular Hemoglobin 25.6 pg (27.0-33.0); Mean Corpuscular Volume 83.6 fL (80-98); Monocytes Absolute Auto 0.7 X10*3/uL (0.1-1.2); Neutrophils Absolute Auto 5.1 X10*3/uL (2.0-8.3); Neutrophils Percent Auto 62.1 % (45-73); Platelet Count 244 X10*3/uL (160-400); Red Blood Count 4.64 X10*6/uL (4.60-5.80); Red Cell Distribution Width 15.8 % (11.0-16.0); White Blood Count 8.1 X10*3/uL (4.8-10.8)
[2019-12-29 09:06] LABS: Alanine Aminotransferase 24 U/L (0-40); Albumin Level 3.6 g/dL (3.5-5.0); Alkaline Phosphatase 124 U/L (39-117); Anion Gap 13 (12-20); Aspartate Amino Transferase 24 U/L (5-37); Bilirubin Total 0.7 mg/dL (0.0-1.0); Blood Urea Nitrogen 7 mg/dL (9-16); Calcium 8.3 mg/dL (8.4-10.2); Carbon Dioxide 24 mmol/L (22-29); Chloride 104 mmol/L (96-108); Creatinine Clr Calc Pharmacy 108.4; Estimated Glomerular Filt Rate > 60; Glucose Random 109 mg/dL (60-115); Magnesium 1.3 mg/dL (1.6-2.6); Potassium 3.8 mmol/l (3.3-5.1); Sodium 137 mmol/L (135-145)
[2019-12-29] MEDS: Magnesium Sulfate/H2O 2 GM/50 ML PIGGYBACK IV (09:40)
[2019-12-29] MEDS: dexAMETHasone sod phosphate/NS 12 MG/50 ML PIGGYBACK 100 MG IV (11:40)
[2019-12-29] MEDS: Acetaminophen 325 MG TABLET 650 MG PO (11:41)
[2019-12-29] MEDS: Heparin Sodium,Porcine Flush 500 UNIT/5 ML SYRINGE IVFLUSH (14:21)
--- NOTE | 2019-12-29 16:39 | MHC.HEMONC ---
Pt here for chemo infusion. Labs drawn and reviewed. Demian states he was in ED last night for chest pain and pressure. Chest pain better upon arrival to ED, with no chest pain or pressure at this time. Dr Burleson aware. Tolerated chemo well, scheduled for IV hydration next week, 01/04
[2020-01-05 08:02] VITALS: BMI 35.6
[2020-01-05 08:03] VITALS: BP 168/77; PULSE 76; RESP 18; TEMP 36.8; O2SAT 96
[2020-01-05] MEDS: 0.9 % Sodium Chloride 1,000 ML 500 ML IVCONT (10:15)
--- NOTE | 2020-01-05 11:38 | MHC.HEMONCSW ---
PT SEEN, REPORTS COPING WELL. CONTINUES WITH TREATMENT. NOURISHMENT, EDUCATION AND SUPPORT PROVIDED. DENIES ANY C/O AT THIS TIME. HE IS AWARE OF MY AVAILABILITY.
[2020-01-06 14:52] LABS: Kappa Light Chain, Free Serum 27.5 mg/L (3.3-19.4); Kappa/Lambda Lt Ch Free Ratio 1.17 (0.26-1.65); Lambda Light Chain, Free Serum 23.5 mg/L (5.7-26.3)
[2020-01-09 05:27] LABS: IgA 215 mg/dL (70-320); IgG 1750 mg/dL (600-1540); IgM 135 mg/dL (50-300)
[2020-01-12 08:06] VITALS: BMI 35.4
[2020-01-12 08:07] VITALS: BP 146/70; PULSE 70; RESP 18; TEMP 36.8; O2SAT 96
[2020-01-12 08:45] LABS: MANUAL DIFF FLAG NO
[2020-01-12 08:54] LABS: Basophils Absolute Auto 0.1 X10*3/uL (0.0-0.2); Basophils Percent Auto 1.3 % (0-2); Eosinophils Absolute Auto 0.2 X10*3/uL (0.0-0.4); Eosinophils Percent Auto 3.4 % (0-4); Hematocrit 37.3 % (42-52); Hemoglobin 11.6 g/dl (14.0-18.0); Imm Gran Abs Auto 0.03 X10*3/uL (0.00-0.03); Imm Gran Pct Auto 0.6 % (0.0-0.4); Lymphocytes Absolute Auto 1.5 X10*3/uL (1.2-4.9); Lymphocytes Percent Auto 29.1 % (20-40); Mean Corpuscular HGB Conc 31.1 g/dl (31.0-36.0); Mean Corpuscular Hemoglobin 25.8 pg (27.0-33.0); Mean Corpuscular Volume 82.9 fL (80-98); Monocytes Absolute Auto 0.6 X10*3/uL (0.1-1.2); Monocytes Percent Auto 10.8 % (2-11); Neutrophils Absolute Auto 2.9 X10*3/uL (2.0-8.3); Neutrophils Percent Auto 54.8 % (45-73); Platelet Count 259 X10*3/uL (160-400); Red Cell Distribution Width 16.1 % (11.0-16.0); White Blood Count 5.3 X10*3/uL (4.8-10.8)
[2020-01-12 09:31] LABS: Alanine Aminotransferase 28 U/L (0-40); Albumin Level 3.6 g/dL (3.5-5.0); Alkaline Phosphatase 120 U/L (39-117); Anion Gap 12 (12-20); Aspartate Amino Transferase 30 U/L (5-37); Bilirubin Total 0.4 mg/dL (0.0-1.0); Blood Urea Nitrogen 8 mg/dL (9-16); Calcium 8.2 mg/dL (8.4-10.2); Carbon Dioxide 24 mmol/L (22-29); Chloride 108 mmol/L (96-108); Creatinine Clr Calc Pharmacy 103.3; Estimated Glomerular Filt Rate > 60; Glucose Random 102 mg/dL (60-115); Potassium 3.8 mmol/l (3.3-5.1); Sodium 140 mmol/L (135-145)
[2020-01-12 09:38] LABS: Magnesium 1.1 mg/dL (1.6-2.6)
[2020-01-12] MEDS: Magnesium Sulfate/H2O 2 GM/50 ML PIGGYBACK IV (09:45)
[2020-01-12] MEDS: dexAMETHasone sod phosphate/NS 12 MG/50 ML PIGGYBACK 200 MG IV (11:46)
[2020-01-12] MEDS: Heparin Sodium,Porcine Flush 500 UNIT/5 ML SYRINGE IVFLUSH (14:34)
--- NOTE | 2020-01-12 15:29 | MHC.HEMONC ---
Pt here for chemo infusion. Pt states feels good today. Port accessed, labs obtained. Labs reviewed. Magnesium level 1.1, reported to Dr Burleson. Magnesium infusion ordered and pt received. Pt tolerated chemo infusion well, scheduled for IV hydration in 1 week.
[2020-01-19 08:09] VITALS: BP 128/63; PULSE 74; RESP 18; TEMP 36.7; O2SAT 96; BMI 35.4
[2020-01-19 08:59] LABS: MANUAL DIFF FLAG NO
[2020-01-19 09:01] LABS: Basophils Percent Auto 0.6 % (0-2); Eosinophils Absolute Auto 0.1 X10*3/uL (0.0-0.4); Eosinophils Percent Auto 1.8 % (0-4); Hematocrit 37.4 % (42-52); Hemoglobin 11.8 g/dl (14.0-18.0); Imm Gran Abs Auto 0.02 X10*3/uL (0.00-0.03); Imm Gran Pct Auto 0.3 % (0.0-0.4); Lymphocytes Absolute Auto 2.1 X10*3/uL (1.2-4.9); Lymphocytes Percent Auto 31.6 % (20-40); Mean Corpuscular HGB Conc 31.6 g/dl (31.0-36.0); Mean Corpuscular Hemoglobin 25.9 pg (27.0-33.0); Mean Platelet Volume 11.8 fL (9.4-12.4); Monocytes Absolute Auto 0.6 X10*3/uL (0.1-1.2); Monocytes Percent Auto 9.3 % (2-11); Neutrophils Absolute Auto 3.8 X10*3/uL (2.0-8.3); Neutrophils Percent Auto 56.4 % (45-73); Platelet Count 246 X10*3/uL (160-400); Red Blood Count 4.56 X10*6/uL (4.60-5.80); Red Cell Distribution Width 15.9 % (11.0-16.0); White Blood Count 6.7 X10*3/uL (4.8-10.8)
[2020-01-19] MEDS: 0.9 % Sodium Chloride 1,000 ML 999 ML IVCONT (09:12)
[2020-01-19 09:35] LABS: Alanine Aminotransferase 29 U/L (0-40); Albumin Level 3.6 g/dL (3.5-5.0); Alkaline Phosphatase 119 U/L (39-117); Anion Gap 14 (12-20); Aspartate Amino Transferase 30 U/L (5-37); Blood Urea Nitrogen 11 mg/dL (9-16); Calcium 8.1 mg/dL (8.4-10.2); Carbon Dioxide 24 mmol/L (22-29); Chloride 102 mmol/L (96-108); Creatinine Clr Calc Pharmacy 99.1; Estimated Glomerular Filt Rate > 60; Glucose Random 100 mg/dL (60-115); Magnesium 1.3 mg/dL (1.6-2.6); Potassium 3.8 mmol/l (3.3-5.1); Sodium 136 mmol/L (135-145)
[2020-01-19] MEDS: Magnesium Sulfate/H2O 2 GM/50 ML PIGGYBACK IV (10:35)
--- NOTE | 2020-01-19 13:22 | MHC.HEMONC ---
Pt here for IV fluids. Port accessed, labs drawn. Mag level 1.3, reported to Dr Burleson. Magnesium 2 gm given as ordered. To return in 1 week for chemo.
[2020-01-26 08:06] VITALS: BMI 35.7
[2020-01-26 08:07] VITALS: BP 133/64; PULSE 68; RESP 18; TEMP 36.6; O2SAT 97
[2020-01-26 08:31] LABS: MANUAL DIFF FLAG NO
[2020-01-26 08:36] LABS: Basophils Absolute Auto 0.1 X10*3/uL (0.0-0.2); Eosinophils Absolute Auto 0.1 X10*3/uL (0.0-0.4); Eosinophils Percent Auto 1.5 % (0-4); Hematocrit 37.9 % (42-52); Hemoglobin 11.7 g/dl (14.0-18.0); Imm Gran Abs Auto 0.05 X10*3/uL (0.00-0.03); Imm Gran Pct Auto 0.7 % (0.0-0.4); Lymphocytes Absolute Auto 2.1 X10*3/uL (1.2-4.9); Lymphocytes Percent Auto 28.7 % (20-40); Mean Corpuscular HGB Conc 30.9 g/dl (31.0-36.0); Mean Corpuscular Hemoglobin 25.5 pg (27.0-33.0); Mean Corpuscular Volume 82.6 fL (80-98); Mean Platelet Volume 11.7 fL (9.4-12.4); Monocytes Absolute Auto 0.6 X10*3/uL (0.1-1.2); Monocytes Percent Auto 8.9 % (2-11); Neutrophils Absolute Auto 4.3 X10*3/uL (2.0-8.3); Neutrophils Percent Auto 59.2 % (45-73); Platelet Count 243 X10*3/uL (160-400); Red Blood Count 4.59 X10*6/uL (4.60-5.80); Red Cell Distribution Width 16.2 % (11.0-16.0); White Blood Count 7.2 X10*3/uL (4.8-10.8)
[2020-01-26 09:07] LABS: Alanine Aminotransferase 26 U/L (0-40); Albumin Level 3.7 g/dL (3.5-5.0); Alkaline Phosphatase 125 U/L (39-117); Anion Gap 12 (12-20); Aspartate Amino Transferase 27 U/L (5-37); Bilirubin Total 0.5 mg/dL (0.0-1.0); Blood Urea Nitrogen 12 mg/dL (9-16); Calcium 8.5 mg/dL (8.4-10.2); Carbon Dioxide 25 mmol/L (22-29); Chloride 105 mmol/L (96-108); Creatinine Clr Calc Pharmacy 90.9; Estimated Glomerular Filt Rate > 60; Glucose Random 116 mg/dL (60-115); Potassium 3.9 mmol/l (3.3-5.1); Sodium 138 mmol/L (135-145); Total Protein 7.1 g/dL (6.5-8.0)
[2020-01-26 09:28] LABS: Magnesium 1.2 mg/dL (1.6-2.6)
[2020-01-26] MEDS: Magnesium Sulfate/H2O 2 GM/50 ML PIGGYBACK IV (09:50)
[2020-01-26] MEDS: Acetaminophen 325 MG TABLET 650 MG PO (12:07)
[2020-01-26] MEDS: dexAMETHasone sod phosphate/NS 12 MG/50 ML PIGGYBACK 200 MG IV (12:07)
[2020-01-26] MEDS: Heparin Sodium,Porcine Flush 500 UNIT/5 ML SYRINGE IVFLUSH (15:05)
--- NOTE | 2020-01-26 16:00 | MHC.HEMONC ---
Pt here for chemo infusion. Port accessed, labs drawn and reviewed. Mag level 1.2, reported to Dr Lemons. Received magnesium 2gm IV. Dr Lemons in to see pt for follow up. Chemo infusion and tolerated well. Will return in 1 week for IV hydration.
[2020-02-02 07:40] VITALS: BP 159/71; PULSE 78; RESP 20; TEMP 36.5; O2SAT 97; BMI 36.1
[2020-02-02] MEDS: 0.9 % Sodium Chloride 1,000 ML 500 ML IVCONT (09:23)
[2020-02-02 10:58] LABS: Magnesium 1.1 mg/dL (1.6-2.6)
[2020-02-02] MEDS: Magnesium Sulfate/H2O 2 GM/50 ML PIGGYBACK IV (11:23)
--- NOTE | 2020-02-02 14:44 | MHC.HEMONC ---
Pt here for IV fluid hydration. Was in ED overnight, labs done there. Magnesium added to labs, 1.1, reported to Dr Burleson. Order received for Magnesium IV. Mag infused over 2 hours as ordered. IV fluid given as ordered. Scheduled to return in 1 week for chemo infusion.
[2020-02-09 07:57] VITALS: BP 148/65; PULSE 62; RESP 18; TEMP 36.4; O2SAT 98; BMI 36.1
[2020-02-09 08:38] LABS: Basophils Absolute Auto 0.1 X10*3/uL (0.0-0.2); Basophils Percent Auto 0.8 % (0-2); Eosinophils Absolute Auto 0.1 X10*3/uL (0.0-0.4); Eosinophils Percent Auto 1.3 % (0-4); Hematocrit 37.4 % (42-52); Hemoglobin 11.3 g/dl (14.0-18.0); Imm Gran Abs Auto 0.03 X10*3/uL (0.00-0.03); Imm Gran Pct Auto 0.5 % (0.0-0.4); Lymphocytes Percent Auto 31.8 % (20-40); Mean Corpuscular HGB Conc 30.2 g/dl (31.0-36.0); Mean Corpuscular Hemoglobin 25.1 pg (27.0-33.0); Mean Corpuscular Volume 83.1 fL (80-98); Mean Platelet Volume 11.2 fL (9.4-12.4); Monocytes Absolute Auto 0.6 X10*3/uL (0.1-1.2); Monocytes Percent Auto 9.6 % (2-11); Neutrophils Absolute Auto 3.6 X10*3/uL (2.0-8.3); Platelet Count 251 X10*3/uL (160-400); Red Cell Distribution Width 16.5 % (11.0-16.0); White Blood Count 6.4 X10*3/uL (4.8-10.8)
[2020-02-09 08:41] LABS: MANUAL DIFF FLAG NO
[2020-02-09 09:11] LABS: Alanine Aminotransferase 27 U/L (0-40); Albumin Level 3.6 g/dL (3.5-5.0); Alkaline Phosphatase 118 U/L (39-117); Anion Gap 10 (12-20); Aspartate Amino Transferase 27 U/L (5-37); Bilirubin Total 0.6 mg/dL (0.0-1.0); Blood Urea Nitrogen 8 mg/dL (9-16); Calcium 8.2 mg/dL (8.4-10.2); Carbon Dioxide 28 mmol/L (22-29); Chloride 106 mmol/L (96-108); Creatinine Clr Calc Pharmacy 102.8; Estimated Glomerular Filt Rate > 60; Glucose Random 113 mg/dL (60-115); Potassium 3.8 mmol/l (3.3-5.1); Sodium 140 mmol/L (135-145); Total Protein 6.7 g/dL (6.5-8.0)
[2020-02-09] MEDS: Magnesium Sulfate/H2O 2 GM/50 ML PIGGYBACK IV (09:43)
[2020-02-09] MEDS: ondansetron HCL/NS 16 MG/50 ML PIGGYBACK 200 MG IV (12:00)
[2020-02-09] MEDS: Acetaminophen 325 MG TABLET 650 MG PO (12:00)
[2020-02-09] MEDS: dexAMETHasone sod phosphate/NS 12 MG/50 ML PIGGYBACK 200 MG IV (12:35)
[2020-02-09 13:52] LABS: Magnesium 1.2 mg/dL (1.6-2.6)
--- NOTE | 2020-02-09 13:55 | P.PNHO_ITS ---
Medical Summary - Medical Summary Date of Service: 02/09/20 Chief complaint: Follow-up for: Colon carcinoma. 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 Now with concern for recurrence. CURRENT THERAPY: Started Xeloda, since first week of Jun, 2016. Completed, end of December 2016. On modified FOLFOX 6 regimen for recurrent disease. Received cycle 7 April. Concern is for disease recurrence. Started on FOLFIRI plus Erbitux, July 29. Completed 3rd treatment October 09. Completed on December 04. Started 8th cycle, on February 10. Completed 10 cycles, cycle 11, day 1 on 05/11. On maintenance Cetuximab since June 01. Here for a dose today. Interval History Interval history: This is a pleasant 64-year-old gentleman, here for a follow-up visit and for his treatment today. He is doing very well. He has noticed some cuts on his fingertips recently. Does not know where that came from. Otherwise, he tells me that the rash over his body and especially over his scalp, has actually resolved. He has been using the allergy pills and Caladryl during the day. He uses the Metrogel at night. Even the rash on his chest and abdomen has faded. Denies fever nor chills. Denies fatigability. No chest pain or trouble breathing. Denies abdominal pain nausea vomiting heartburn indigestion. Bowels are working without any gross blood in it. He enjoys a good appetite. He has gained weight. He is in good spirits. Rest of the review of systems is unremarkable. Review of Systems - Constitutional Reports system reviewed and no additional complaints, except as documented, Reports lack of energy - Eyes Reports system reviewed and no additional complaints, except as documented, Denies blurry vision - ENT Reports system reviewed and no additional complaints, except as documented - Cardiovascular Reports system reviewed and no additional complaints, except as documented, Denies chest pain - Respiratory Reports no additional respiratory complaints, Denies chest congestion - Gastrointestinal Reports system reviewed and no additional complaints, except as documented, Denies abdominal pain, Denies bloating - Genitourinary Genitourinary: Reports no additional male genitourinary complaints, Denies blood in urine - Musculoskeletal Reports system reviewed and no additional complaints, except as documented, Denies back pain - Integumentary/Breasts Skin/Breast: Reports no additional skin complaints - Neurologic Reports system reviewed and no additional complaints, except as documented - Psychiatric Reports system reviewed and no additional complaints, except as documented - Endocrine Reports no additional endocrine complaints - Hematologic/Lymphatic Reports system reviewed and no additional complaints, except as documented - Allergic/Immunologic Reports system reviewed and no additional complaints, except as documented [facility] Medical History: Medical History (Last Reviewed 01/05/20 @ 02:50 by Sagrario Cisse) Asthma Colon cancer Diabetes mellitus, type 2 Hypercholesteremia Hypertension Palpitations Functional capacity: independent ambulation Patient : No Family History: Family History (Last Updated 12/28/19 @ 22:45 by Phillip Geiger DO) Other Family history non-contributory Home Medications and Allergies Current Medications: Current Medications Generic Name Dose Route Start Last Admin Trade Name Freq PRN Reason Stop Dose Admin Acetaminophen 650 mg 02/09/20 00:00 02/09/20 12:00 Acetaminophen 325 Mg Tablet PO 02/09/20 23:59 650 mg ONCE PAMELA Administration Heparin Sodium (Porcine) 500 unit 02/09/20 00:00 Heparin Sodium,Porcine Flush 500 Unit/5 Ml Syringe IVFLUSH 02/09/20 23:59 ONCE PAMELA Ondansetron HCl 16 mg in 50 mls @ 200 mls/hr 02/09/20 00:00 02/09/20 12:15 Zofran IV 02/09/20 23:59 Infused ONCE PAMELA Infusion Dexamethasone Sodium Phosphate 12 mg in 50 mls @ 100 mls/hr 02/09/20 00:00 02/09/20 12:50 Decadron IV 02/09/20 23:59 Infused ONCE PAMELA Infusion Cetuximab 1,000 mg/ IV 500 mls @ 250 mls/hr 02/09/20 00:00 02/09/20 13:01 Miscellaneous Supplies IV 02/09/20 23:59 250 mls/hr ONCE PAMELA Administration Home Medications Medication Instructions Recorded Confirmed Type aspirin 81 mg PO DAILY 11/18/19 02/01/20 History atorvastatin 80 mg PO BEDTIME 11/18/19 02/01/20 History carvedilol 3.125 mg PO BID 11/18/19 02/01/20 History doxycycline hyclate 100 mg PO DAILY 11/18/19 02/01/20 History fluoxetine 20 mg PO DAILY 11/18/19 02/01/20 History fluticasone propionate [Flovent 2 puff INHALATION BID 11/18/19 02/01/20 History HFA] hydroxyzine HCl 25 mg PO TID PRN 11/18/19 02/01/20 History magnesium oxide 400 mg PO BID 11/18/19 02/01/20 History methylprednisolone 4 mg PO DAILY 11/18/19 02/01/20 History metronidazole 1 applic TOPICAL DAILY 11/18/19 02/01/20 History omeprazole 20 mg PO DAILY 11/18/19 02/01/20 History ondansetron HCl 8 mg PO Q8H PRN 11/18/19 02/01/20 History trazodone 50 mg PO DAILY 11/18/19 02/01/20 History triamcinolone acetonide 1 applic TOPICAL BID 11/18/19 02/01/20 History vitamin B comp and C no.3 [B 1 cap PO DAILY 11/18/19 02/01/20 History Complex Plus Vitamin C] doxycycline hyclate 100 mg PO BID 12/01/19 02/01/20 History triamcinolone acetonide 1 applic TOPICAL DAILY 12/01/19 02/01/20 History Allergies Allergy/AdvReac Type Severity Reaction Status Date / Time nitroglycerin Allergy Severe AGITATION Verified 01/05/20 02:47 [From NITROSTAT] oxaliplatin [OXALIPLATIN] Allergy Severe anaphylaxis Verified 01/05/20 02:47 diphenhydramine Allergy Intermediate RASH Verified 01/05/20 02:47 [From MOTRIN PM] ibuprofen [From ADVIL] Allergy Unknown RASH Verified 01/05/20 02:47 morphine Allergy Unknown painful Verified 01/05/20 02:47 rash oxcarbazepine Allergy Unknown rash, Verified 01/05/20 02:47 [From TRILEPTAL] coughing penicillin V Allergy Unknown rash Verified 01/05/20 02:47 Penicillins [PENICILLINS] Allergy Unknown ITCHING, Verified 01/05/20 02:47 RASH Benadryl Allergy Unknown rash Uncoded 09/11/19 00:00 Exam Vital signs: Vital Signs Temp 97.5 F 02/09/20 07:57 Pulse 62 02/09/20 07:57 Resp 18 02/09/20 07:57 BP 148/65 H 02/09/20 07:57 Pulse Ox 98 02/09/20 07:57 Intake & Output 02/08/20 02/09/20 02/09/20 18:59 06:59 18:59 Intake Total 150 / 150 Balance 150 / 150 Intake: Intake, IV Amount 150 / 150 Magnesium Sulfate/H2O 2 gm In 50 / 50 50 ml @ 25 mls/hr IV ONCE ONE Rx#:[id number] dexAMETHasone sod phosphate/NS 50 / 50 12 mg In 50 ml @ 100 mls/hr IV ONCE PAMELA Rx#:[id number] ondansetron HCL/NS 16 mg In 50 50 / 50 ml @ 200 mls/hr IV ONCE PAMELA Rx# :[id number] Other: Weight 92.4 kg Weight 92.4 kg Body Mass Index 36.1 - Constitutional Present: no acute distress - Routine HEENT Exam Head: Present: normal inspection Eye: Present: normal appearance ENT: Present: mucous membranes moist - Routine Neck Exam Present: full ROM - Routine Respiratory Exam Present: CTAB - Routine Cardiovascular Exam Cardiovascular: Present: RRR, S1, S2 - Routine Abdominal Exam Present: soft, nontender. Absent: [place]'s sign - Routine Extremities Exam Present: nontender - Routine Back/Spine/Pelvis Exam Back/Spine: Present: full ROM - Routine Skin Exam Present: intact - Routine Neurological Exam Present: alert, oriented X3 - Detailed Neurological Exam: Coma Scale Eye Opening: Spontaneous (4) - Routine Psychiatric Exam Present: normal affect Data - Labs CBC & Chem 7: 02/09/20 08:20 02/09/20 08:20 Labs: 11/10/19 08:28 Magnesium Sulfate/H2O 2 gm in 50 ml IV ONCE 11/10/19 08:30 0.9 % Sodium Chloride [Ns] 1,000 ml IVCONT 500 mls/hr 11/10/19 09:27 CEA [Carcinoembryonic Antigen] Routine Complete Blood Count Auto Diff Routine Comprehensive Met. Panel Routine Magnesium Routine 11/10/19 11:16 Add Laboratory Test Stat 11/10/19 13:37 Heparin Sodium,Porcine Flush 500 unit 0.9 % Sodium Chloride Flush [NS Flush] 5 ml IVFLUSH ONCE 11/10/19 13:42 Heparin Sodium,Porcine Flush 500 unit IVFLUSH .STK-MED ONE 11/18/19 00:00 0.9 % Sodium Chloride [Ns] 1,000 ml IVCONT 500 mls/hr Acetaminophen [Tylenol] 650 mg PO ONCE Cetuximab [Erbitux] 1,000 mg Container,Empty 0 ml IV ONCE Famotidine/PF [Pepcid/PF] 20 mg IVPUSH ONCE Heparin Sodium,Porcine Flush 500 unit IVFLUSH ONCE dexAMETHasone [Decadron] 8 mg PO ONCE ondansetron ODT [Zofran ODT] 8 mg TRANSLINGU ONCE 11/18/19 08:35 CMP [Comprehensive Met. Panel] Routine Complete Blood Count Auto Diff Routine Magnesium Routine 11/18/19 10:30 Magnesium Sulfate/H2O 2 gm in 50 ml IV ONCE 11/18/19 12:03 Add Laboratory Test Routine 11/24/19 08:00 CEA [Carcinoembryonic Antigen] Routine Complete Blood Count Auto Diff Routine Comprehensive Met. Panel Routine Magnesium Routine 11/24/19 08:45 0.9 % Sodium Chloride [Ns] 1,000 ml IVCONT 500 mls/hr 11/24/19 10:34 Magnesium Sulfate/H2O 2 gm in 50 ml IV ONCE 11/24/19 13:00 Heparin Sodium,Porcine Flush 500 unit 0.9 % Sodium Chloride Flush [NS Flush] 5 ml IVFLUSH ONCE 11/24/19 13:12 Heparin Sodium,Porcine Flush 500 unit IVFLUSH .STK-MED ONE 12/01/19 00:00 0.9 % Sodium Chloride [Ns] 1,000 ml IVCONT 500 mls/hr Acetaminophen [Tylenol] 650 mg PO ONCE Cetuximab [Erbitux] 1,000 mg Container,Empty 0 ml IV ONCE Famotidine/PF [Pepcid/PF] 20 mg IVPUSH ONCE Heparin Sodium,Porcine Flush 500 unit IVFLUSH ONCE dexAMETHasone [Decadron] 8 mg PO ONCE ondansetron ODT [Zofran ODT] 8 mg TRANSLINGU ONCE 12/01/19 08:34 Acetaminophen [Tylenol] 650 mg PO ONCE ONE Famotidine/PF [Pepcid/PF] 20 mg IVPUSH ONCE ONE 12/01/19 08:35 Magnesium Sulfate/H2O 2 gm in 50 ml IV ONCE 12/01/19 08:55 CMP [Comprehensive Met. Panel] Routine Complete Blood Count Auto Diff Routine 12/01/19 09:55 Magnesium Routine 12/01/19 10:00 0.9 % Sodium Chloride [Ns] 1,000 ml IVCONT 500 mls/hr 12/08/19 08:50 Complete Blood Count Auto Diff Routine Comprehensive Met. Panel Routine Magnesium Routine 12/08/19 09:15 0.9 % Sodium Chloride [Ns] 1,000 ml IV 500 mls/hr 12/08/19 10:00 0.9 % Sodium Chloride [Ns] 1,000 ml IV 500 mls/hr 12/08/19 11:24 Magnesium Sulfate/H2O 2 gm in 50 ml IV ONCE 12/08/19 13:28 Heparin Sodium,Porcine Flush 500 unit 0.9 % Sodium Chloride Flush [NS Flush] 5 ml IVFLUSH ONCE 12/08/19 13:32 Heparin Sodium,Porcine Flush 500 unit IVFLUSH .STK-MED ONE 12/15/19 00:00 Acetaminophen [Tylenol] 650 mg PO ONCE Cetuximab [Erbitux] 1,000 mg Container,Empty 0 ml IV ONCE Heparin Sodium,Porcine Flush 500 unit IVFLUSH ONCE dexAMETHasone sod phosphate/NS [Decadron] 12 mg in 50 ml IV ONCE ondansetron HCL/NS [Zofran] 16 mg in 50 ml IV ONCE 12/15/19 08:45 CMP [Comprehensive Met. Panel] Routine Complete Blood Count Auto Diff Routine Magnesium Routine 12/15/19 09:49 Magnesium Sulfate/H2O 2 gm in 50 ml IV ONCE 12/15/19 14:30 0.9 % Sodium Chloride [Ns] 1,000 ml IVCONT 500 mls/hr 12/22/19 08:25 CMP [Comprehensive Met. Panel] Routine Complete Blood Count Auto Diff Routine Magnesium Routine 12/22/19 09:16 Magnesium Sulfate/H2O 2 gm in 50 ml IV ONCE 12/22/19 09:30 0.9 % Sodium Chloride [Ns] 1,000 ml IVCONT 500 mls/hr 12/22/19 12:13 Heparin Sodium,Porcine Flush 500 unit 0.9 % Sodium Chloride Flush [NS Flush] 5 ml IVFLUSH ONCE 12/22/19 12:39 Heparin Sodium,Porcine Flush 500 unit IVFLUSH .STK-MED ONE 12/29/19 00:00 Acetaminophen [Tylenol] 650 mg PO ONCE Cetuximab [Erbitux] 1,000 mg Container,Empty 0 ml IV ONCE Heparin Sodium,Porcine Flush 500 unit IVFLUSH ONCE dexAMETHasone sod phosphate/NS [Decadron] 12 mg in 50 ml IV ONCE ondansetron ODT [Zofran ODT] 8 mg TRANSLINGU ONCE 12/29/19 08:30 Carcinoembryonic Antigen Routine Complete Blood Count Auto Diff Routine Comprehensive Met. Panel Routine Magnesium Routine 12/29/19 09:15 Magnesium Sulfate/H2O 2 gm in 50 ml IV ONCE 01/05/20 03:13 Immunofixation Pnl, Serum Routine [place]/Lambda Lt Ch,Free w rat Routine 01/05/20 08:55 Magnesium Sulfate/H2O 2 gm in 50 ml IV ONCE 01/05/20 09:45 0.9 % Sodium Chloride [Ns] 500 ml IV 500 mls/hr 01/05/20 10:15 0.9 % Sodium Chloride [Ns] 1,000 ml IVCONT 500 mls/hr 01/05/20 11:07 Heparin Sodium,Porcine Flush 500 unit 0.9 % Sodium Chloride Flush [NS Flush] 5 ml IVFLUSH ONCE 01/12/20 00:00 Cetuximab [Erbitux] 1,000 mg Container,Empty 0 ml IV ONCE Heparin Sodium,Porcine Flush 500 unit IVFLUSH ONCE dexAMETHasone sod phosphate/NS [Decadron] 12 mg in 50 ml IV ONCE ondansetron ODT [Zofran ODT] 8 mg TRANSLINGU ONCE 01/12/20 08:30 CMP [Comprehensive Met. Panel] Routine Complete Blood Count Auto Diff Routine Magnesium Routine 01/12/20 08:42 Magnesium Sulfate/H2O 2 gm in 50 ml IV ONCE 01/12/20 08:58 Add Laboratory Test Routine 01/19/20 08:15 0.9 % Sodium Chloride [Ns] 1,000 ml IVCONT 999 mls/hr 01/19/20 08:30 Complete Blood Count Auto Diff Routine Comprehensive Met. Panel Routine Magnesium Routine 01/19/20 09:37 Magnesium Sulfate/H2O 2 gm in 50 ml IV ONCE 01/19/20 12:30 Heparin Sodium,Porcine Flush 500 unit 0.9 % Sodium Chloride Flush [NS Flush] 5 ml IVFLUSH ONCE 01/19/20 12:33 Heparin Sodium,Porcine Flush 500 unit IVFLUSH .STK-MED ONE 01/26/20 00:00 Acetaminophen [Tylenol] 650 mg PO ONCE Cetuximab [Erbitux] 1,000 mg Container,Empty 0 ml IV ONCE Heparin Sodium,Porcine Flush 500 unit IVFLUSH ONCE dexAMETHasone sod phosphate/NS [Decadron] 12 mg in 50 ml IV ONCE ondansetron ODT [Zofran ODT] 8 mg TRANSLINGU ONCE 01/26/20 08:15 Complete Blood Count Auto Diff Routine Comprehensive Met. Panel Routine Magnesium Routine 01/26/20 09:26 Magnesium Sulfate/H2O 2 gm in 50 ml IV ONCE 02/02/20 00:21 Magnesium Stat 02/02/20 09:15 0.9 % Sodium Chloride [Ns] 1,000 ml IVCONT 500 mls/hr 02/02/20 10:16 Add Laboratory Test Urgent 02/02/20 10:59 Magnesium Sulfate/H2O 2 gm in 50 ml IV ONCE 02/02/20 13:14 Heparin Sodium,Porcine Flush 500 unit 0.9 % Sodium Chloride Flush [NS Flush] 5 ml IVFLUSH ONCE 02/02/20 13:20 Heparin Sodium,Porcine Flush 500 unit IVFLUSH .STK-MED ONE 02/09/20 08:20 CEA [Carcinoembryonic Antigen] Routine Complete Blood Count Auto Diff Routine Comprehensive Met. Panel Routine Magnesium Routine 02/09/20 09:12 Magnesium Sulfate/H2O 2 gm in 50 ml IV ONCE Laboratory Last Values WBC 6.4 X10*3/uL (4.8-10.8) 02/09/20 08:20 RBC 4.50 X10*6/uL (4.60-5.80) L 02/09/20 08:20 Hgb 11.3 g/dl (14.0-18.0) L 02/09/20 08:20 Hct 37.4 % (42-52) L 02/09/20 08:20 MCV 83.1 fL (80-98) 02/09/20 08:20 MCH 25.1 pg (27.0-33.0) L 02/09/20 08:20 MCHC 30.2 g/dl (31.0-36.0) L 02/09/20 08:20 RDW 16.5 % (11.0-16.0) H 02/09/20 08:20 Plt Count 251 X10*3/uL (160-400) 02/09/20 08:20 MPV 11.2 fL (9.4-12.4) 02/09/20 08:20 Immature Gran % (Auto) 0.5 % (0.0-0.4) H 02/09/20 08:20 Neut % (Auto) 56.0 % (45-73) 02/09/20 08:20 Lymph % (Auto) 31.8 % (20-40) 02/09/20 08:20 [place] % (Auto) 9.6 % (2-11) 02/09/20 08:20 Eos % (Auto) 1.3 % (0-4) 02/09/20 08:20 Baso % (Auto) 0.8 % (0-2) 02/09/20 08:20 Neut # (Auto) 7.5 X10*3/uL (2.0-8.3) 11/10/19 09:27 Lymph # (Auto) 2.0 X10*3/uL (1.2-4.9) 02/09/20 08:20 [place] # (Auto) 0.6 X10*3/uL (0.1-1.2) 02/09/20 08:20 Eos # (Auto) 0.1 X10*3/uL (0.0-0.4) 02/09/20 08:20 Baso # (Auto) 0.1 X10*3/uL (0.0-0.2) 02/09/20 08:20 Abs Immat Gran (auto) 0.03 X10*3/uL (0.00-0.03) 02/09/20 08:20 Absolute Neuts (auto) 3.6 X10*3/uL (2.0-8.3) 02/09/20 08:20 Absolute Nucleated RBC 0.000 X10*3/uL (0.0-0.012) 02/09/20 08:20 Nucleated RBC % (auto) 0.0 /100WBC (0.0-0.2) 02/09/20 08:20 Sodium 140 mmol/L (135-145) 02/09/20 08:20 Potassium 3.8 mmol/l (3.3-5.1) 02/09/20 08:20 Chloride 106 mmol/L (96-108) 02/09/20 08:20 Carbon Dioxide 28 mmol/L (22-29) 02/09/20 08:20 Anion Gap 10 (12-20) L 02/09/20 08:20 BUN 8 mg/dL (9-16) L 02/09/20 08:20 Creatinine 0.72 mg/dL (0.5-1.4) 02/09/20 08:20 Estim Creat Clear Calc 102.8 02/09/20 08:20 Estimated GFR > 60 02/09/20 08:20 Random Glucose 113 mg/dL (60-115) 02/09/20 08:20 Calcium 8.2 mg/dL (8.4-10.2) L 02/09/20 08:20 Magnesium 1.2 mg/dL (1.6-2.6) L* 02/09/20 08:20 Total Bilirubin 0.6 mg/dL (0.0-1.0) 02/09/20 08:20 AST 27 U/L (5-37) 02/09/20 08:20 ALT 27 U/L (0-40) 02/09/20 08:20 Alkaline Phosphatase 118 U/L (39-117) H 02/09/20 08:20 Total Protein 6.7 g/dL (6.5-8.0) 02/09/20 08:20 Albumin 3.6 g/dL (3.5-5.0) 02/09/20 08:20 Carcinoembryonic Ag 2.20 mg/mL 02/09/20 08:20 IgG Total 1750 mg/dL (600-1540) H 01/05/20 03:13 IgA Total 215 mg/dL (70-320) 01/05/20 03:13 IgM 135 mg/dL (50-300) 01/05/20 03:13 JAYSHREE Interpretation SEE NOTE 01/05/20 03:13 Free [place] LC, Quant 27.5 mg/L (3.3-19.4) H 01/05/20 03:13 Free [place] LC, Quant 23.5 mg/L (5.7-26.3) 01/05/20 03:13 Free [place]/Lambda Ratio 1.17 (0.26-1.65) 01/05/20 03:13 Progress Note: A/P (1) Carcinoma of sigmoid colon Status: Acute Assessment and plan: 64 year-old gentleman, who initially presented with stage IIA Colon Carcinoma. Moderately Differentiated Adenocarcinoma, without any poor prognostic features. Zero out of 22 lymph nodes. He received Xeloda beginning of June 2016 to December 2016. Patient is on modified FOLFOX regimen for recurrent disease. He completed [address] chest/abdomen pelvis performed in February 2018 shows stable disease. He developed a reaction to his last dose of Oxaliplatin. 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 Vitamin B12 level was checked and was normal. He was started on vitamin B complex vitamin. CT scan of the abdomen on April 04, revealed disease progression. Recently performed K-jarred mutation was negative. I offered him systemic chemotherapy with FOLFIRI plus Erbitux, for palliation. He was willing to try it. So far he has had 9 cycles. He initially developed redness and maculopapular eruption, on his scalp face and chest. It was pruritic and painful. He had required Medrol Dosepak, it worked well for him. He had a CT scan of the abdomen after completion of 6 cycles, This was done on January 28 and revealed: Old granulomatous disease. Smaller left lower lobe nodule adjacent to the major fissure as Described. Stable or improved in size left lower lobe nodule and left perinephric soft tissue density. No evidence of progression of disease. He has completed 10-1/2 cycles of FOLFIRI and Erbitux. He tolerated it very well. CT scan of the abdomen pelvis from September 08 revealed: Status post partial left hemicolectomy. No evidence of locoregional recurrence or metastatic disease. He had previous imaging CT scan on May 18 which revealed: Stable postsurgical changes to the colon following partial left hemicolectomy. Stool throughout the colon suggestive of constipation. Stable focal thickening and calcification of the left posterior pararenal fascia. Stable partially calcified nodule inferior to the spleen, probably representing a splenule. Left renal cyst. Numerous bilateral calcified granulomata. Bilateral nonmineralized nodules stable from 12/06/2017. No new nodularity, adenopathy, or effusion. His CEA level is down to 2.1. Starting June 01, I have switched him over to maintenance Erbitux. He has been tolerating the treatment quite well. His skin rash has improved. He has been using Caladryl Atarax and Metrogel, twice a day. His CT scan results are encouraging. He complains of pain in his right upper extremity. Since he has a Port-A-Cath there my concern would be for a DVT. However, Ultrasound of the right upper extremity from 10/26 revealed: No evidence of deep venous thrombosis involving the right upper extremity. PLAN: The plan is to proceed with restaging CT scan of the abdomen. He had CT chest done recently on February 01 in the ER. That revealed no PE. Stable pulmonary nodules. He will continue on the maintenance Erbitux. He is tolerating it very well. He will return in 1 week for hydration and labs in a couple weeks for his next treatment. Thank you, CC: - Time Spent With Patient Total time spent is greater than 50% in coordination of care (as documented) at patient's floor/unit and/or counseling patient: 25 - 35 minutes
[2020-02-09] MEDS: Heparin Sodium,Porcine Flush 500 UNIT/5 ML SYRINGE IVFLUSH (15:11)
--- NOTE | 2020-02-09 16:35 | MHC.HEMONC ---
Addendum entered by Bozena Kim RN 02/09/20 16:39: Dr Burleson in to see pt for follow up Original Note: Pt here for chemo infusion. Port accessed and labs drawn. States he feels well since last treatment. Labs reviewed, magnesium level 1.2. Reported to Dr Burleson, magnesium ordered. Chemo infusion done and pt tolerated well. Scheduled to return in one week for iv hydration.
[2020-02-17] MEDS: 0.9 % Sodium Chloride 1,000 ML 500 ML IVCONT (08:37)
[2020-02-17 08:47] LABS: MANUAL DIFF FLAG NO
[2020-02-17 08:52] LABS: Basophils Percent Auto 0.6 % (0-2); Eosinophils Absolute Auto 0.1 X10*3/uL (0.0-0.4); Eosinophils Percent Auto 1.8 % (0-4); Hematocrit 38.6 % (42-52); Hemoglobin 11.7 g/dl (14.0-18.0); Imm Gran Abs Auto 0.04 X10*3/uL (0.00-0.03); Imm Gran Pct Auto 0.6 % (0.0-0.4); Lymphocytes Percent Auto 27.9 % (20-40); Mean Corpuscular HGB Conc 30.3 g/dl (31.0-36.0); Mean Corpuscular Volume 82.5 fL (80-98); Mean Platelet Volume 11.3 fL (9.4-12.4); Monocytes Absolute Auto 0.6 X10*3/uL (0.1-1.2); Monocytes Percent Auto 8.7 % (2-11); Neutrophils Absolute Auto 4.3 X10*3/uL (2.0-8.3); Neutrophils Percent Auto 60.4 % (45-73); Platelet Count 272 X10*3/uL (160-400); Red Blood Count 4.68 X10*6/uL (4.60-5.80); Red Cell Distribution Width 16.9 % (11.0-16.0); White Blood Count 7.1 X10*3/uL (4.8-10.8)
[2020-02-17 09:28] LABS: Alanine Aminotransferase 30 U/L (0-40); Albumin Level 3.7 g/dL (3.5-5.0); Alkaline Phosphatase 126 U/L (39-117); Anion Gap 10 (12-20); Aspartate Amino Transferase 24 U/L (5-37); Bilirubin Total 0.7 mg/dL (0.0-1.0); Blood Urea Nitrogen 11 mg/dL (9-16); Calcium 8.4 mg/dL (8.4-10.2); Carbon Dioxide 27 mmol/L (22-29); Chloride 105 mmol/L (96-108); Creatinine Clr Calc Pharmacy 101.4; Estimated Glomerular Filt Rate > 60; Glucose Random 128 mg/dL (60-115); Magnesium 1.2 mg/dL (1.6-2.6); Potassium 3.9 mmol/l (3.3-5.1); Sodium 138 mmol/L (135-145); Total Protein 6.8 g/dL (6.5-8.0)
[2020-02-17] MEDS: Magnesium Sulfate/H2O 2 GM/50 ML PIGGYBACK IV (09:34)
--- NOTE | 2020-02-17 12:17 | MHC.HEMONC ---
Patient here for labs and hydration via IV. IV hydration and Mag given per ordered / lab results. Patient will return next week for chemotherapy. No complaints at departure.
[2020-02-24 07:52] VITALS: BP 139/68; PULSE 70; RESP 18; TEMP 36.2; O2SAT 96; BMI 36.3
[2020-02-24 08:43] LABS: MANUAL DIFF FLAG NO
[2020-02-24 08:46] LABS: Basophils Absolute Auto 0.1 X10*3/uL (0.0-0.2); Basophils Percent Auto 0.7 % (0-2); Eosinophils Absolute Auto 0.1 X10*3/uL (0.0-0.4); Eosinophils Percent Auto 1.6 % (0-4); Hematocrit 38.6 % (42-52); Hemoglobin 11.7 g/dl (14.0-18.0); Imm Gran Abs Auto 0.03 X10*3/uL (0.00-0.03); Imm Gran Pct Auto 0.4 % (0.0-0.4); Lymphocytes Absolute Auto 1.9 X10*3/uL (1.2-4.9); Lymphocytes Percent Auto 27.8 % (20-40); Mean Corpuscular HGB Conc 30.3 g/dl (31.0-36.0); Mean Corpuscular Hemoglobin 24.9 pg (27.0-33.0); Mean Corpuscular Volume 82.3 fL (80-98); Monocytes Absolute Auto 0.5 X10*3/uL (0.1-1.2); Monocytes Percent Auto 6.7 % (2-11); Neutrophils Absolute Auto 4.3 X10*3/uL (2.0-8.3); Neutrophils Percent Auto 62.8 % (45-73); Platelet Count 269 X10*3/uL (160-400); Red Blood Count 4.69 X10*6/uL (4.60-5.80); Red Cell Distribution Width 17.1 % (11.0-16.0); White Blood Count 6.9 X10*3/uL (4.8-10.8)
[2020-02-24 09:07] LABS: Alanine Aminotransferase 24 U/L (0-40); Albumin Level 3.7 g/dL (3.5-5.0); Alkaline Phosphatase 129 U/L (39-117); Anion Gap 12 (12-20); Aspartate Amino Transferase 21 U/L (5-37); Bilirubin Total 0.5 mg/dL (0.0-1.0); Blood Urea Nitrogen 11 mg/dL (9-16); Calcium 8.3 mg/dL (8.4-10.2); Carbon Dioxide 25 mmol/L (22-29); Chloride 105 mmol/L (96-108); Creatinine Clr Calc Pharmacy 92.8; Estimated Glomerular Filt Rate > 60; Glucose Random 161 mg/dL (60-115); Potassium 3.6 mmol/l (3.3-5.1); Sodium 138 mmol/L (135-145); Total Protein 6.9 g/dL (6.5-8.0)
[2020-02-24 09:31] LABS: Magnesium 1.3 mg/dL (1.6-2.6)
[2020-02-24] MEDS: Magnesium Sulfate/H2O 2 GM/50 ML PIGGYBACK IV (09:53)
[2020-02-24] MEDS: dexAMETHasone sod phosphate/NS 12 MG/50 ML PIGGYBACK 200 MG IV (11:48)
[2020-02-24] MEDS: Acetaminophen 325 MG TABLET 650 MG PO (11:48)
[2020-02-24] MEDS: Heparin Sodium,Porcine Flush 500 UNIT/5 ML SYRINGE IVFLUSH (14:15)
--- NOTE | 2020-02-24 14:23 | MHC.HEMONC ---
Pt here for his chemo infusion. States feels well after last treatment. Port accessed, labs drawn and reviewed. Mag level 1.3, reported to Dr Burleson. Magnesium 2gm IV ordered and infused. Chemo infusion done and pt tolerated well. Scheduled to return in 1 week for IV hydration.
[2020-03-02 08:13] VITALS: BP 134/61; PULSE 78; RESP 18; TEMP 36.8; O2SAT 96; BMI 36.4
[2020-03-02] MEDS: 0.9 % Sodium Chloride 1,000 ML 500 ML IVCONT (08:32)
[2020-03-02 08:46] LABS: MANUAL DIFF FLAG NO
[2020-03-02 08:50] LABS: Basophils Percent Auto 0.6 % (0-2); Eosinophils Absolute Auto 0.1 X10*3/uL (0.0-0.4); Eosinophils Percent Auto 1.8 % (0-4); Hemoglobin 11.6 g/dl (14.0-18.0); Imm Gran Abs Auto 0.04 X10*3/uL (0.00-0.03); Imm Gran Pct Auto 0.6 % (0.0-0.4); Lymphocytes Absolute Auto 1.9 X10*3/uL (1.2-4.9); Lymphocytes Percent Auto 28.5 % (20-40); Mean Corpuscular HGB Conc 29.7 g/dl (31.0-36.0); Mean Corpuscular Hemoglobin 24.4 pg (27.0-33.0); Mean Corpuscular Volume 82.1 fL (80-98); Mean Platelet Volume 11.3 fL (9.4-12.4); Monocytes Absolute Auto 0.6 X10*3/uL (0.1-1.2); Monocytes Percent Auto 9.2 % (2-11); Neutrophils Absolute Auto 3.9 X10*3/uL (2.0-8.3); Neutrophils Percent Auto 59.3 % (45-73); Platelet Count 250 X10*3/uL (160-400); Red Blood Count 4.75 X10*6/uL (4.60-5.80); Red Cell Distribution Width 16.9 % (11.0-16.0); White Blood Count 6.6 X10*3/uL (4.8-10.8)
[2020-03-02 09:15] LABS: Alanine Aminotransferase 29 U/L (0-40); Albumin Level 3.7 g/dL (3.5-5.0); Alkaline Phosphatase 129 U/L (39-117); Anion Gap 11 (12-20); Aspartate Amino Transferase 25 U/L (5-37); Bilirubin Total 0.8 mg/dL (0.0-1.0); Blood Urea Nitrogen 12 mg/dL (9-16); Calcium 8.7 mg/dL (8.4-10.2); Carbon Dioxide 26 mmol/L (22-29); Chloride 107 mmol/L (96-108); Creatinine Clr Calc Pharmacy 95.3; Estimated Glomerular Filt Rate > 60; Glucose Random 123 mg/dL (60-115); Magnesium 1.5 mg/dL (1.6-2.6); Potassium 3.8 mmol/l (3.3-5.1); Sodium 140 mmol/L (135-145); Total Protein 6.8 g/dL (6.5-8.0)
[2020-03-02] MEDS: Magnesium Sulfate/H2O 2 GM/50 ML PIGGYBACK IV (10:15)
[2020-03-09 08:07] VITALS: BP 123/64; PULSE 74; RESP 18; TEMP 36.2; O2SAT 97; BMI 36.8
[2020-03-09 08:35] LABS: MANUAL DIFF FLAG NO
[2020-03-09 08:42] LABS: Basophils Absolute Auto 0.1 X10*3/uL (0.0-0.2); Basophils Percent Auto 0.6 % (0-2); Eosinophils Absolute Auto 0.1 X10*3/uL (0.0-0.4); Eosinophils Percent Auto 1.3 % (0-4); Hematocrit 39.1 % (42-52); Hemoglobin 11.7 g/dl (14.0-18.0); Imm Gran Abs Auto 0.04 X10*3/uL (0.00-0.03); Imm Gran Pct Auto 0.5 % (0.0-0.4); Lymphocytes Percent Auto 25.2 % (20-40); Mean Corpuscular HGB Conc 29.9 g/dl (31.0-36.0); Mean Corpuscular Hemoglobin 24.3 pg (27.0-33.0); Mean Corpuscular Volume 81.1 fL (80-98); Monocytes Absolute Auto 0.5 X10*3/uL (0.1-1.2); Monocytes Percent Auto 6.6 % (2-11); Neutrophils Absolute Auto 5.2 X10*3/uL (2.0-8.3); Neutrophils Percent Auto 65.8 % (45-73); Platelet Count 264 X10*3/uL (160-400); Red Blood Count 4.82 X10*6/uL (4.60-5.80); Red Cell Distribution Width 17.2 % (11.0-16.0); White Blood Count 7.9 X10*3/uL (4.8-10.8)
[2020-03-09 09:13] LABS: Alanine Aminotransferase 25 U/L (0-40); Albumin Level 3.7 g/dL (3.5-5.0); Alkaline Phosphatase 127 U/L (39-117); Anion Gap 13 (12-20); Aspartate Amino Transferase 27 U/L (5-37); Bilirubin Total 0.6 mg/dL (0.0-1.0); Blood Urea Nitrogen 13 mg/dL (9-16); Calcium 8.5 mg/dL (8.4-10.2); Carbon Dioxide 23 mmol/L (22-29); Chloride 106 mmol/L (96-108); Creatinine Clr Calc Pharmacy 84.8; Estimated Glomerular Filt Rate > 60; Glucose Random 153 mg/dL (60-115); Magnesium 1.4 mg/dL (1.6-2.6); Potassium 3.9 mmol/L (3.3-5.1); Sodium 138 mmol/L (135-145); Total Protein 7.1 g/dL (6.5-8.0)
[2020-03-09] MEDS: ondansetron HCL/NS 16 MG/50 ML PIGGYBACK 200 MG IV (09:32)
[2020-03-09] MEDS: Heparin Sodium,Porcine Flush 500 UNIT/5 ML SYRINGE IVFLUSH (09:32)
[2020-03-09] MEDS: dexAMETHasone sod phosphate/NS 12 MG/50 ML PIGGYBACK 200 MG IV (09:32)
--- NOTE | 2020-03-09 09:34 | MHC.HEMONCSW ---
XT ABD/PELVIS WITH C IS PLACED IN O.F. FOR ONE WEEK. MEDICARE INSURANCE.
[2020-03-09] MEDS: Magnesium Sulfate/H2O 2 GM/50 ML PIGGYBACK IV (10:07)
--- NOTE | 2020-03-09 13:58 | MHC.HEMONC ---
pt attend for chemo. mag 1.4, 2mg iv given. [facility] pharm called to confirm po mag suppulement is bid. pt c/o pain when swallowing CT ordered pascual tamayo.
[2020-03-16 08:03] VITALS: BP 128/69; PULSE 76; RESP 18; TEMP 36.2; O2SAT 97; BMI 36.1
[2020-03-16 08:17] LABS: MANUAL DIFF FLAG NO
[2020-03-16 08:29] LABS: Basophils Absolute Auto 0.1 X10*3/uL (0.0-0.2); Eosinophils Absolute Auto 0.1 X10*3/uL (0.0-0.4); Eosinophils Percent Auto 1.7 % (0-4); Hematocrit 40.4 % (42-52); Hemoglobin 12.1 g/dl (14.0-18.0); Imm Gran Abs Auto 0.03 X10*3/uL (0.00-0.03); Imm Gran Pct Auto 0.4 % (0.0-0.4); Lymphocytes Percent Auto 28.8 % (20-40); Mean Corpuscular Hemoglobin 24.2 pg (27.0-33.0); Mean Corpuscular Volume 80.6 fL (80-98); Mean Platelet Volume 11.9 fL (9.4-12.4); Monocytes Absolute Auto 0.6 X10*3/uL (0.1-1.2); Monocytes Percent Auto 7.9 % (2-11); Neutrophils Absolute Auto 4.2 X10*3/uL (2.0-8.3); Neutrophils Percent Auto 60.2 % (45-73); Platelet Count 282 X10*3/uL (160-400); Red Blood Count 5.01 X10*6/uL (4.60-5.80); Red Cell Distribution Width 17.1 % (11.0-16.0); White Blood Count 7.1 X10*3/uL (4.8-10.8)
[2020-03-16] MEDS: 0.9 % Sodium Chloride 1,000 ML 500 ML IVCONT (08:46)
[2020-03-16 09:13] LABS: Alanine Aminotransferase 29 U/L (0-40); Albumin Level 3.8 g/dL (3.5-5.0); Alkaline Phosphatase 139 U/L (39-117); Anion Gap 13 (12-20); Aspartate Amino Transferase 26 U/L (5-37); Bilirubin Total 0.9 mg/dL (0.0-1.0); Blood Urea Nitrogen 12 mg/dL (9-16); Calcium 8.6 mg/dL (8.4-10.2); Carbon Dioxide 26 mmol/L (22-29); Chloride 103 mmol/L (96-108); Creatinine Clr Calc Pharmacy 84.1; Estimated Glomerular Filt Rate > 60; Glucose Random 173 mg/dL (60-115); Potassium 3.8 mmol/L (3.3-5.1); Sodium 138 mmol/L (135-145); Total Protein 7.2 g/dL (6.5-8.0)
[2020-03-16 09:50] LABS: Magnesium 1.6 mg/dL (1.6-2.6)
[2020-03-16] MEDS: Magnesium Sulfate/H2O 2 GM/50 ML PIGGYBACK IV (10:15)
--- NOTE | 2020-03-16 12:03 | MHC.HEMONC ---
Pt here for IV hydration and magnesium level. Port accessed, labs drawn. Magnesium level 1.[address] Burleson. Plan to infuse 2gms of magnesium IV. 1L normal saline IV infused followed by 2gms of magnesium sulfate IV. Heparin flush performed. Port de-accessed. Discharged home.
[2020-03-25 08:12] VITALS: BP 130/60; PULSE 69; RESP 18; TEMP 36.6; O2SAT 97; BMI 37.0
[2020-03-25 08:47] LABS: MANUAL DIFF FLAG NO
[2020-03-25 08:50] LABS: Basophils Absolute Auto 0.1 X10*3/uL (0.0-0.2); Basophils Percent Auto 0.8 % (0-2); Eosinophils Absolute Auto 0.2 X10*3/uL (0.0-0.4); Eosinophils Percent Auto 2.6 % (0-4); Hematocrit 36.5 % (42-52); Imm Gran Abs Auto 0.04 X10*3/uL (0.00-0.03); Imm Gran Pct Auto 0.6 % (0.0-0.4); Lymphocytes Absolute Auto 1.8 X10*3/uL (1.2-4.9); Mean Corpuscular HGB Conc 30.1 g/dl (31.0-36.0); Mean Corpuscular Volume 79.7 fL (80-98); Mean Platelet Volume 10.9 fL (9.4-12.4); Monocytes Absolute Auto 0.6 X10*3/uL (0.1-1.2); Monocytes Percent Auto 7.7 % (2-11); Neutrophils Absolute Auto 4.6 X10*3/uL (2.0-8.3); Neutrophils Percent Auto 63.3 % (45-73); Platelet Count 242 X10*3/uL (160-400); Red Blood Count 4.58 X10*6/uL (4.60-5.80); Red Cell Distribution Width 17.3 % (11.0-16.0); White Blood Count 7.2 X10*3/uL (4.8-10.8)
[2020-03-25 09:44] LABS: Alanine Aminotransferase 26 U/L (0-40); Albumin Level 3.6 g/dL (3.5-5.0); Alkaline Phosphatase 121 U/L (39-117); Anion Gap 11 (12-20); Aspartate Amino Transferase 26 U/L (5-37); Bilirubin Total 0.5 mg/dL (0.0-1.0); Blood Urea Nitrogen 9 mg/dL (9-16); Calcium 8.2 mg/dL (8.4-10.2); Carbon Dioxide 27 mmol/L (22-29); Chloride 106 mmol/L (96-108); Creatinine Clr Calc Pharmacy 98.6; Estimated Glomerular Filt Rate > 60; Glucose Random 109 mg/dL (60-115); Magnesium 1.2 mg/dL (1.6-2.6); Potassium 3.7 mmol/L (3.3-5.1); Sodium 140 mmol/L (135-145); Total Protein 6.5 g/dL (6.5-8.0)
--- NOTE | 2020-03-25 09:45 | MHC.HEMONC ---
Critical lab value received. Reported to Provider-Dr Burleson. Primary nurse notified about results and order for IV Mag.
[2020-03-25] MEDS: Magnesium Sulfate/H2O 2 GM/50 ML PIGGYBACK IV (10:05)
[2020-03-25] MEDS: Acetaminophen 325 MG TABLET 650 MG PO (10:24)
[2020-03-25] MEDS: dexAMETHasone sod phosphate/NS 12 MG/50 ML PIGGYBACK 200 MG IV (11:35)
[2020-03-25] MEDS: Heparin Sodium,Porcine Flush 500 UNIT/5 ML SYRINGE IVFLUSH (14:11)
--- NOTE | 2020-03-25 14:21 | MHC.HEMONC ---
Pt here for chemotherapy. Labs drawn from port and sent to lab. Mag level 1.2, 2 gms magnesium sulfate IV given. Attempted to review medications with pt. Pt unaware of current medications-instructed to bring list of medications with him next visit. Pre medicated with zofran,decadron and tylenol. Cycle 22 of cetuximab IV given-tolerated well. Port flushed with heparin and de-accessed. Follow up appointment made.
[2020-03-30 08:06] VITALS: BP 133/71; PULSE 76; RESP 18; TEMP 36.4; O2SAT 97; BMI 37.0
--- NOTE | 2020-03-30 08:23 | PM.HEMONCPN ---
Medical Summary - Medical Summary Date of Service: 03/30/20 Service Date: 03/30/20 Chief complaint: Follow Up for colon cancer. 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 Now with concern for recurrence. CURRENT THERAPY: Started Xeloda, since first week of Jun, 2016. Completed, end of December 2016. On modified FOLFOX 6 regimen for recurrent disease. Received cycle 7 April. Concern is for disease recurrence. Started on FOLFIRI plus Erbitux, July 29. Completed 3rd treatment October 09. Completed on December 04. Started 8th cycle, on February 10. Completed 10 cycles, cycle 11, day 1 on 05/11. On maintenance Cetuximab since June 01. Has had 22 treatment. Here for hydration. Interval History Interval history: This is a pleasant 65 year-old gentleman, here for a follow-up visit and for hydration today. He is doing very well. He has good energy level. He tells me over the past month or so he has noted that sometimes the food appears to be getting stuck towards the lower end of the esophagus. It is random and happens with both solids and liquids. He denies any nausea vomiting heartburn or indigestion. Bowels are working without any gross blood in it. He enjoys a good appetite. He has gained weight. Otherwise, he tells me that the rash over his body and especially over his scalp, has actually resolved. He has been using the allergy pills and Caladryl during the day. He uses the Metrogel at night. Even the rash on his chest and abdomen has subsided. Denies fever nor chills. No headache no dizziness. No chest pain or trouble breathing. He is in good spirits. Rest of the review of systems is unremarkable. Review of Systems - Constitutional Reports system reviewed and no additional complaints, except as documented - Eyes Reports system reviewed and no additional complaints, except as documented - ENT Reports system reviewed and no additional complaints, except as documented - Cardiovascular Reports system reviewed and no additional complaints, except as documented - Respiratory Reports no additional respiratory complaints - Gastrointestinal Reports system reviewed and no additional complaints, except as documented - Genitourinary Genitourinary: Reports no additional male genitourinary complaints - Musculoskeletal Reports system reviewed and no additional complaints, except as documented - Integumentary/Breasts Skin/Breast: Reports no additional skin complaints - Neurologic Reports system reviewed and no additional complaints, except as documented - Psychiatric Reports system reviewed and no additional complaints, except as documented - Endocrine Reports no additional endocrine complaints - Hematologic/Lymphatic Reports system reviewed and no additional complaints, except as documented - Allergic/Immunologic Reports system reviewed and no additional complaints, except as documented [facility] Medical History: Medical History (Last Reviewed 01/05/20 @ 02:50 by Sagrario Cisse) Asthma Colon cancer Diabetes mellitus, type 2 Hypercholesteremia Hypertension Palpitations Functional capacity: independent ambulation Patient : No Family History: Family History (Last Updated 12/28/19 @ 22:45 by Phillip Geiger DO) Other Family history non-contributory Social History: Social History (Last Reviewed 12/28/19 @ 22:44 by Phillip Geiger DO) Alcohol History: Alcohol intake: current Alcohol History Details: Alcohol intake frequency: a few times a month Oncology Screenings - ECOG Performance Status ECOG Performance Status: 0 Home Medications and Allergies Current Medications: Current Medications Generic Name Dose Route Start Last Admin Trade Name Freq PRN Reason Stop Dose Admin Magnesium Sulfate 2 gm in 50 mls @ 25 mls/hr 03/30/20 08:20 IV 03/30/20 10:19 ONCE ONE Home Medications Medication Instructions Recorded Confirmed Type aspirin 81 mg PO DAILY 11/18/19 03/30/20 History atorvastatin 80 mg PO BEDTIME 11/18/19 03/30/20 History carvedilol 3.125 mg PO BID 11/18/19 03/30/20 History doxycycline hyclate 100 mg PO DAILY 11/18/19 03/30/20 History fluoxetine 20 mg PO DAILY 11/18/19 03/30/20 History fluticasone propionate [Flovent 2 puff INHALATION BID 11/18/19 03/30/20 History HFA] hydroxyzine HCl 25 mg PO TID PRN 11/18/19 03/30/20 History magnesium oxide 400 mg PO BID 11/18/19 03/30/20 History methylprednisolone 4 mg PO DAILY 11/18/19 03/30/20 History metronidazole 1 applic TOPICAL DAILY 11/18/19 03/30/20 History omeprazole 20 mg PO DAILY 11/18/19 03/30/20 History ondansetron HCl 8 mg PO Q8H PRN 11/18/19 03/30/20 History trazodone 50 mg PO DAILY 11/18/19 03/30/20 History triamcinolone acetonide 1 applic TOPICAL BID 11/18/19 03/30/20 History vitamin B comp and C no.3 [B 1 cap PO DAILY 11/18/19 03/30/20 History Complex Plus Vitamin C] doxycycline hyclate 100 mg PO BID 12/01/19 03/30/20 History triamcinolone acetonide 1 applic TOPICAL DAILY 12/01/19 03/30/20 History Allergies Allergy/AdvReac Type Severity Reaction Status Date / Time nitroglycerin Allergy Severe AGITATION Verified 03/25/20 08:54 [From NITROSTAT] oxaliplatin [OXALIPLATIN] Allergy Severe anaphylaxis Verified 03/25/20 08:54 diphenhydramine Allergy Intermediate RASH Verified 03/25/20 08:54 [From MOTRIN PM] ibuprofen [From ADVIL] Allergy Unknown RASH Verified 03/25/20 08:54 morphine Allergy Unknown painful Verified 03/25/20 08:54 rash oxcarbazepine Allergy Unknown rash, Verified 03/25/20 08:54 [From TRILEPTAL] coughing penicillin V Allergy Unknown rash Verified 03/25/20 08:54 Penicillins [PENICILLINS] Allergy Unknown ITCHING, Verified 03/25/20 08:54 RASH Benadryl Allergy Unknown rash Uncoded 03/25/20 08:54 Exam Vital signs: Vital Signs Temp 97.6 F 03/30/20 08:06 Pulse 76 03/30/20 08:06 Resp 18 03/30/20 08:06 BP 133/71 03/30/20 08:06 Pulse Ox 97 03/30/20 08:06 Intake & Output 03/29/20 03/30/20 03/30/20 18:59 06:59 18:59 Other: Weight 94.7 kg [place] Weight in Grams [id number] Weight 94.7 kg Body Mass Index 37.0 - Constitutional Present: no acute distress - Routine HEENT Exam Head: Present: normal inspection Eye: Present: normal appearance ENT: Present: mucous membranes moist - Routine Neck Exam Present: full ROM - Routine Respiratory Exam Present: CTAB - Routine Cardiovascular Exam Cardiovascular: Present: RRR, S1, S2 - Routine Abdominal Exam Present: soft, nontender. Absent: Leadwood's sign - Routine Extremities Exam Present: nontender - Routine Back/Spine/Pelvis Exam Back/Spine: Present: full ROM - Routine Skin Exam Present: intact - Routine Neurological Exam Present: alert, oriented X3 - Detailed Neurological Exam: Coma Scale Eye Opening: Spontaneous (4) - Routine Psychiatric Exam Present: normal affect Data - Labs CBC & Chem 7: 03/30/20 08:10 03/30/20 08:10 Labs: 11/10/19 08:28 Magnesium Sulfate/H2O 2 gm in 50 ml IV ONCE 11/10/19 08:30 0.9 % Sodium Chloride [Ns] 1,000 ml IVCONT 500 mls/hr 11/10/19 09:27 CEA [Carcinoembryonic Antigen] Routine Complete Blood Count Auto Diff Routine Comprehensive Met. Panel Routine Magnesium Routine 11/10/19 11:16 Add Laboratory Test Stat 11/10/19 13:37 Heparin Sodium,Porcine Flush 500 unit 0.9 % Sodium Chloride Flush [NS Flush] 5 ml IVFLUSH ONCE 11/10/19 13:42 Heparin Sodium,Porcine Flush 500 unit IVFLUSH .STK-MED ONE 11/18/19 00:00 0.9 % Sodium Chloride [Ns] 1,000 ml IVCONT 500 mls/hr Acetaminophen [Tylenol] 650 mg PO ONCE Cetuximab [Erbitux] 1,000 mg Container,Empty 0 ml IV ONCE Famotidine/PF [Pepcid/PF] 20 mg IVPUSH ONCE Heparin Sodium,Porcine Flush 500 unit IVFLUSH ONCE dexAMETHasone [Decadron] 8 mg PO ONCE ondansetron ODT [Zofran ODT] 8 mg TRANSLINGU ONCE 11/18/19 08:35 CMP [Comprehensive Met. Panel] Routine Complete Blood Count Auto Diff Routine Magnesium Routine 11/18/19 10:30 Magnesium Sulfate/H2O 2 gm in 50 ml IV ONCE 11/18/19 12:03 Add Laboratory Test Routine 11/24/19 08:00 CEA [Carcinoembryonic Antigen] Routine Complete Blood Count Auto Diff Routine Comprehensive Met. Panel Routine Magnesium Routine 11/24/19 08:45 0.9 % Sodium Chloride [Ns] 1,000 ml IVCONT 500 mls/hr 11/24/19 10:34 Magnesium Sulfate/H2O 2 gm in 50 ml IV ONCE 11/24/19 13:00 Heparin Sodium,Porcine Flush 500 unit 0.9 % Sodium Chloride Flush [NS Flush] 5 ml IVFLUSH ONCE 11/24/19 13:12 Heparin Sodium,Porcine Flush 500 unit IVFLUSH .STK-MED ONE 12/01/19 00:00 0.9 % Sodium Chloride [Ns] 1,000 ml IVCONT 500 mls/hr Acetaminophen [Tylenol] 650 mg PO ONCE Cetuximab [Erbitux] 1,000 mg Container,Empty 0 ml IV ONCE Famotidine/PF [Pepcid/PF] 20 mg IVPUSH ONCE Heparin Sodium,Porcine Flush 500 unit IVFLUSH ONCE dexAMETHasone [Decadron] 8 mg PO ONCE ondansetron ODT [Zofran ODT] 8 mg TRANSLINGU ONCE 12/01/19 08:34 Acetaminophen [Tylenol] 650 mg PO ONCE ONE Famotidine/PF [Pepcid/PF] 20 mg IVPUSH ONCE ONE 12/01/19 08:35 Magnesium Sulfate/H2O 2 gm in 50 ml IV ONCE 12/01/19 08:55 CMP [Comprehensive Met. Panel] Routine Complete Blood Count Auto Diff Routine 12/01/19 09:55 Magnesium Routine 12/01/19 10:00 0.9 % Sodium Chloride [Ns] 1,000 ml IVCONT 500 mls/hr 12/08/19 08:50 Complete Blood Count Auto Diff Routine Comprehensive Met. Panel Routine Magnesium Routine 12/08/19 09:15 0.9 % Sodium Chloride [Ns] 1,000 ml IV 500 mls/hr 12/08/19 10:00 0.9 % Sodium Chloride [Ns] 1,000 ml IV 500 mls/hr 12/08/19 11:24 Magnesium Sulfate/H2O 2 gm in 50 ml IV ONCE 12/08/19 13:28 Heparin Sodium,Porcine Flush 500 unit 0.9 % Sodium Chloride Flush [NS Flush] 5 ml IVFLUSH ONCE 12/08/19 13:32 Heparin Sodium,Porcine Flush 500 unit IVFLUSH .[facility]-MED ONE 12/15/19 00:00 Acetaminophen [Tylenol] 650 mg PO ONCE Cetuximab [Erbitux] 1,000 mg Container,Empty 0 ml IV ONCE Heparin Sodium,Porcine Flush 500 unit IVFLUSH ONCE dexAMETHasone sod phosphate/NS [Decadron] 12 mg in 50 ml IV ONCE ondansetron HCL/NS [Zofran] 16 mg in 50 ml IV ONCE 12/15/19 08:45 CMP [Comprehensive Met. Panel] Routine Complete Blood Count Auto Diff Routine Magnesium Routine 12/15/19 09:49 Magnesium Sulfate/H2O 2 gm in 50 ml IV ONCE 12/15/19 14:30 0.9 % Sodium Chloride [Ns] 1,000 ml IVCONT 500 mls/hr 12/22/19 08:25 CMP [Comprehensive Met. Panel] Routine Complete Blood Count Auto Diff Routine Magnesium Routine 12/22/19 09:16 Magnesium Sulfate/H2O 2 gm in 50 ml IV ONCE 12/22/19 09:30 0.9 % Sodium Chloride [Ns] 1,000 ml IVCONT 500 mls/hr 12/22/19 12:13 Heparin Sodium,Porcine Flush 500 unit 0.9 % Sodium Chloride Flush [NS Flush] 5 ml IVFLUSH ONCE 12/22/19 12:39 Heparin Sodium,Porcine Flush 500 unit IVFLUSH .STK-MED ONE 12/29/19 00:00 Acetaminophen [Tylenol] 650 mg PO ONCE Cetuximab [Erbitux] 1,000 mg Container,Empty 0 ml IV ONCE Heparin Sodium,Porcine Flush 500 unit IVFLUSH ONCE dexAMETHasone sod phosphate/NS [Decadron] 12 mg in 50 ml IV ONCE ondansetron ODT [Zofran ODT] 8 mg TRANSLINGU ONCE 12/29/19 08:30 Carcinoembryonic Antigen Routine Complete Blood Count Auto Diff Routine Comprehensive Met. Panel Routine Magnesium Routine 12/29/19 09:15 Magnesium Sulfate/H2O 2 gm in 50 ml IV ONCE 01/05/20 03:13 Immunofixation Pnl, Serum Routine Mariano Colon/Lambda Lt Ch,Free w rat Routine 01/05/20 08:55 Magnesium Sulfate/H2O 2 gm in 50 ml IV ONCE 01/05/20 09:45 0.9 % Sodium Chloride [Ns] 500 ml IV 500 mls/hr 01/05/20 10:15 0.9 % Sodium Chloride [Ns] 1,000 ml IVCONT 500 mls/hr 01/05/20 11:07 Heparin Sodium,Porcine Flush 500 unit 0.9 % Sodium Chloride Flush [NS Flush] 5 ml IVFLUSH ONCE 01/12/20 00:00 Cetuximab [Erbitux] 1,000 mg Container,Empty 0 ml IV ONCE Heparin Sodium,Porcine Flush 500 unit IVFLUSH ONCE dexAMETHasone sod phosphate/NS [Decadron] 12 mg in 50 ml IV ONCE ondansetron ODT [Zofran ODT] 8 mg TRANSLINGU ONCE 01/12/20 08:30 CMP [Comprehensive Met. Panel] Routine Complete Blood Count Auto Diff Routine Magnesium Routine 01/12/20 08:42 Magnesium Sulfate/H2O 2 gm in 50 ml IV ONCE 01/12/20 08:58 Add Laboratory Test Routine 01/19/20 08:15 0.9 % Sodium Chloride [Ns] 1,000 ml IVCONT 999 mls/hr 01/19/20 08:30 Complete Blood Count Auto Diff Routine Comprehensive Met. Panel Routine Magnesium Routine 01/19/20 09:37 Magnesium Sulfate/H2O 2 gm in 50 ml IV ONCE 01/19/20 12:30 Heparin Sodium,Porcine Flush 500 unit 0.9 % Sodium Chloride Flush [NS Flush] 5 ml IVFLUSH ONCE 01/19/20 12:33 Heparin Sodium,Porcine Flush 500 unit IVFLUSH .STK-MED ONE 01/26/20 00:00 Acetaminophen [Tylenol] 650 mg PO ONCE Cetuximab [Erbitux] 1,000 mg Container,Empty 0 ml IV ONCE Heparin Sodium,Porcine Flush 500 unit IVFLUSH ONCE dexAMETHasone sod phosphate/NS [Decadron] 12 mg in 50 ml IV ONCE ondansetron ODT [Zofran ODT] 8 mg TRANSLINGU ONCE 01/26/20 08:15 Complete Blood Count Auto Diff Routine Comprehensive Met. Panel Routine Magnesium Routine 01/26/20 09:26 Magnesium Sulfate/H2O 2 gm in 50 ml IV ONCE 02/02/20 00:21 Magnesium Stat 02/02/20 09:15 0.9 % Sodium Chloride [Ns] 1,000 ml IVCONT 500 mls/hr 02/02/20 10:16 Add Laboratory Test Urgent 02/02/20 10:59 Magnesium Sulfate/H2O 2 gm in 50 ml IV ONCE 02/02/20 13:14 Heparin Sodium,Porcine Flush 500 unit 0.9 % Sodium Chloride Flush [NS Flush] 5 ml IVFLUSH ONCE 02/02/20 13:20 Heparin Sodium,Porcine Flush 500 unit IVFLUSH .STK-MED ONE 02/09/20 00:00 Acetaminophen [Tylenol] 650 mg PO ONCE Cetuximab [Erbitux] 1,000 mg Container,Empty 0 ml IV ONCE Heparin Sodium,Porcine Flush 500 unit IVFLUSH ONCE dexAMETHasone sod phosphate/NS [Decadron] 12 mg in 50 ml IV ONCE ondansetron HCL/NS [Zofran] 16 mg in 50 ml IV ONCE 02/09/20 08:20 CEA [Carcinoembryonic Antigen] Routine Complete Blood Count Auto Diff Routine Comprehensive Met. Panel Routine Magnesium Routine 02/09/20 09:12 Magnesium Sulfate/H2O 2 gm in 50 ml IV ONCE 02/17/20 08:01 Magnesium Sulfate/H2O 2 gm in 50 ml IV ONCE 02/17/20 08:15 0.9 % Sodium Chloride [Ns] 1,000 ml IVCONT 500 mls/hr 02/17/20 08:35 Complete Blood Count Auto Diff Routine Comprehensive Met. Panel Routine Magnesium Routine 02/17/20 11:22 Heparin Sodium,Porcine Flush 500 unit 0.9 % Sodium Chloride Flush [NS Flush] 5 ml IVFLUSH ONCE 02/17/20 11:33 Heparin Sodium,Porcine Flush 500 unit IVFLUSH .STK-MED ONE 02/24/20 00:00 Acetaminophen [Tylenol] 650 mg PO ONCE Cetuximab [Erbitux] 1,000 mg Container,Empty 0 ml IV ONCE Heparin Sodium,Porcine Flush 500 unit IVFLUSH ONCE dexAMETHasone sod phosphate/NS [Decadron] 12 mg in 50 ml IV ONCE ondansetron HCL/NS [Zofran] 16 mg in 50 ml IV ONCE 02/24/20 08:03 ondansetron ODT [Zofran ODT] 8 mg TRANSLINGU ONCE ONE 02/24/20 08:25 Complete Blood Count Auto Diff Routine Comprehensive Met. Panel Routine Magnesium Routine 02/24/20 09:31 Magnesium Sulfate/H2O 2 gm in 50 ml IV ONCE 03/02/20 08:11 Magnesium Sulfate/H2O 2 gm in 50 ml IV ONCE 03/02/20 08:15 0.9 % Sodium Chloride [Ns] 1,000 ml IVCONT 500 mls/hr 03/02/20 08:39 Carcinoembryonic Antigen Routine Complete Blood Count Auto Diff Routine Comprehensive Met. Panel Routine Magnesium Routine 03/02/20 11:59 Heparin Sodium,Porcine Flush 500 unit 0.9 % Sodium Chloride Flush [NS Flush] 5 ml IVFLUSH ONCE 03/02/20 12:04 Heparin Sodium,Porcine Flush 500 unit IVFLUSH .STK-MED ONE 03/09/20 00:00 Cetuximab [Erbitux] 1,000 mg Container,Empty 0 ml IV ONCE Heparin Sodium,Porcine Flush 500 unit IVFLUSH ONCE dexAMETHasone sod phosphate/NS [Decadron] 12 mg in 50 ml IV ONCE ondansetron HCL/NS [Zofran] 16 mg in 50 ml IV ONCE 03/09/20 08:20 Complete Blood Count Auto Diff Routine Comprehensive Met. Panel Routine Magnesium Routine 03/09/20 09:26 Magnesium Sulfate/H2O 2 gm in 50 ml IV ONCE 03/09/20 10:34 Magnesium Sulfate/H2O 2 gm in 50 ml IV ONCE 03/16/20 08:10 Carcinoembryonic Antigen Routine Complete Blood Count Auto Diff Routine Comprehensive Met. Panel Routine Magnesium Routine 03/16/20 08:31 Magnesium Sulfate/H2O 2 gm in 50 ml IV ONCE 03/16/20 08:45 0.9 % Sodium Chloride [Ns] 1,000 ml IVCONT 500 mls/hr 03/16/20 12:02 Heparin Sodium,Porcine Flush 500 unit 0.9 % Sodium Chloride Flush [NS Flush] 5 ml IVFLUSH ONCE 03/16/20 12:08 Heparin Sodium,Porcine Flush 500 unit IVFLUSH .[facility]-MED ONE 03/23/20 00:00 Acetaminophen [Tylenol] 650 mg PO ONCE Heparin Sodium,Porcine Flush 500 unit IVFLUSH ONCE dexAMETHasone sod phosphate/NS [Decadron] 12 mg in 50 ml IV ONCE ondansetron ODT [Zofran ODT] 8 mg TRANSLINGU ONCE 03/25/20 00:00 Acetaminophen [Tylenol] 650 mg PO ONCE Cetuximab [Erbitux] 1,000 mg Container,Empty 0 ml IV ONCE Heparin Sodium,Porcine Flush 500 unit IVFLUSH ONCE dexAMETHasone sod phosphate/NS [Decadron] 12 mg in 50 ml IV ONCE ondansetron ODT [Zofran ODT] 8 mg TRANSLINGU ONCE 03/25/20 08:40 Carcinoembryonic Antigen Routine Complete Blood Count Auto Diff Routine Comprehensive Met. Panel Routine Magnesium Routine 03/25/20 09:44 Magnesium Sulfate/H2O 2 gm in 50 ml IV ONCE Laboratory Last Values WBC 7.2 X10*3/uL (4.8-10.8) 03/25/20 08:40 RBC 4.58 X10*6/uL (4.60-5.80) L 03/25/20 08:40 Hgb 11.0 g/dl (14.0-18.0) L 03/25/20 08:40 Hct 36.5 % (42-52) L 03/25/20 08:40 MCV 79.7 fL (80-98) L 03/25/20 08:40 MCH 24.0 pg (27.0-33.0) L 03/25/20 08:40 MCHC 30.1 g/dl (31.0-36.0) L 03/25/20 08:40 RDW 17.3 % (11.0-16.0) H 03/25/20 08:40 Plt Count 242 X10*3/uL (160-400) 03/25/20 08:40 MPV 10.9 fL (9.4-12.4) 03/25/20 08:40 Immature Gran % (Auto) 0.6 % (0.0-0.4) H 03/25/20 08:40 Neut % (Auto) 63.3 % (45-73) 03/25/20 08:40 Lymph % (Auto) 25.0 % (20-40) 03/25/20 08:40 Boyle % (Auto) 7.7 % (2-11) 03/25/20 08:40 Eos % (Auto) 2.6 % (0-4) 03/25/20 08:40 Baso % (Auto) 0.8 % (0-2) 03/25/20 08:40 Neut # (Auto) 7.5 X10*3/uL (2.0-8.3) 11/10/19 09:27 Lymph # (Auto) 1.8 X10*3/uL (1.2-4.9) 03/25/20 08:40 Boyle # (Auto) 0.6 X10*3/uL (0.1-1.2) 03/25/20 08:40 Eos # (Auto) 0.2 X10*3/uL (0.0-0.4) 03/25/20 08:40 Baso # (Auto) 0.1 X10*3/uL (0.0-0.2) 03/25/20 08:40 Abs Immat Gran (auto) 0.04 X10*3/uL (0.00-0.03) H 03/25/20 08:40 Absolute Neuts (auto) 4.6 X10*3/uL (2.0-8.3) 03/25/20 08:40 Absolute Nucleated RBC 0.000 X10*3/uL (0.0-0.012) 03/25/20 08:40 Nucleated RBC % (auto) 0.0 /100WBC (0.0-0.2) 03/25/20 08:40 Sodium 140 mmol/L (135-145) 03/25/20 08:40 Potassium 3.7 mmol/L (3.3-5.1) 03/25/20 08:40 Chloride 106 mmol/L (96-108) 03/25/20 08:40 Carbon Dioxide 27 mmol/L (22-29) 03/25/20 08:40 Anion Gap 11 (12-20) L 03/25/20 08:40 BUN 9 mg/dL (9-16) 03/25/20 08:40 Creatinine 0.75 mg/dL (0.5-1.4) 03/25/20 08:40 Estim Creat Clear Calc 98.6 03/25/20 08:40 Estimated GFR > 60 03/25/20 08:40 Random Glucose 109 mg/dL (60-115) D 03/25/20 08:40 Calcium 8.2 mg/dL (8.4-10.2) L 03/25/20 08:40 Magnesium 1.2 mg/dL (1.6-2.6) L* 03/25/20 08:40 Total Bilirubin 0.5 mg/dL (0.0-1.0) 03/25/20 08:40 AST 26 U/L (5-37) 03/25/20 08:40 ALT 26 U/L (0-40) 03/25/20 08:40 Alkaline Phosphatase 121 U/L (39-117) H 03/25/20 08:40 Total Protein 6.5 g/dL (6.5-8.0) 03/25/20 08:40 Albumin 3.6 g/dL (3.5-5.0) 03/25/20 08:40 Carcinoembryonic Ag 2.70 mg/mL 03/25/20 08:40 IgG Total 1750 mg/dL (600-1540) H 01/05/20 03:13 IgA Total 215 mg/dL (70-320) 01/05/20 03:13 IgM 135 mg/dL (50-300) 01/05/20 03:13 JAYSHREE Interpretation SEE NOTE 01/05/20 03:13 Free Mariano Colon LC, Quant 27.5 mg/L (3.3-19.4) H 01/05/20 03:13 Free Lambda LC, Quant 23.5 mg/L (5.7-26.3) 01/05/20 03:13 Free Mariano Colon/Lambda Ratio 1.17 (0.26-1.65) 01/05/20 03:13 Progress Note: A/P (1) Carcinoma of sigmoid colon Status: Acute Assessment and plan: 64 year-old gentleman, who initially presented with stage IIA Colon Carcinoma. Moderately Differentiated Adenocarcinoma, without any poor prognostic features. Zero out of 22 lymph nodes. He received Xeloda beginning of June 2016 to December 2016. Patient is on modified FOLFOX regimen for recurrent disease. He completed [address] chest/abdomen pelvis performed in February 2018 shows stable disease. He developed a reaction to his last dose of Oxaliplatin. 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 Vitamin B12 level was checked and was normal. He was started on vitamin B complex vitamin. CT scan of the abdomen on April 04, revealed disease progression. Recently performed K-jarred mutation was negative. I offered him systemic chemotherapy with FOLFIRI plus Erbitux, for palliation. He was willing to try it. So far he has had 9 cycles. He initially developed redness and maculopapular eruption, on his scalp face and chest. It was pruritic and painful. He had required Medrol Dosepak, it worked well for him. He had a CT scan of the abdomen after completion of 6 cycles, This was done on January 28 and revealed: Old granulomatous disease. Smaller left lower lobe nodule adjacent to the major fissure as Described. Stable or improved in size left lower lobe nodule and left perinephric soft tissue density. No evidence of progression of disease. He completed 10-1/2 cycles of FOLFIRI and Erbitux. He tolerated it very well. CT scan of the abdomen pelvis from September 08 revealed: Status post partial left hemicolectomy. No evidence of locoregional recurrence or metastatic disease. He had previous imaging CT scan on May 18 which revealed: Stable postsurgical changes to the colon following partial left hemicolectomy. Stool throughout the colon suggestive of constipation. Stable focal thickening and calcification of the left posterior pararenal fascia. Stable partially calcified nodule inferior to the spleen, probably representing a splenule. Left renal cyst. Numerous bilateral calcified granulomata. Bilateral nonmineralized nodules stable from 12/06/2017. No new nodularity, adenopathy, or effusion. His CEA level is down to 2.1. Starting June 01, I have switched him over to maintenance Erbitux. He has been tolerating the treatment quite well. His skin rash has improved. He had been using Caladryl Atarax and Metrogel, twice a day. His last CT scan results are encouraging. He has had some symptoms of dysphagia recently. PLAN: I will check an barium swallow for further evaluation. If it shows something concerning, will refer him for upper endoscopy. The plan is to proceed with restaging CT scan of the abdomen. This has been scheduled for tomorrow03/31: No new finding to suggest recurrent or metastatic disease. He had CT chest done recently on February 01 in the ER. That revealed no PE. Stable pulmonary nodules. He will continue on the maintenance Erbitux. He is tolerating it very well. He will return in 1 week for his next treatment. His magnesium will be replaced today. Thank you, CC: - Time Spent With Patient Total time spent is greater than 50% in coordination of care (as documented) at patient's floor/unit and/or counseling patient: 25 - 35 minutes
[2020-03-30 08:25] LABS: MANUAL DIFF FLAG NO
[2020-03-30] MEDS: 0.9 % Sodium Chloride 1,000 ML 500 ML IVCONT (08:30)
[2020-03-30 08:35] LABS: Basophils Absolute Auto 0.1 X10*3/uL (0.0-0.2); Basophils Percent Auto 0.7 % (0-2); Eosinophils Absolute Auto 0.1 X10*3/uL (0.0-0.4); Eosinophils Percent Auto 1.4 % (0-4); Hematocrit 38.3 % (42-52); Hemoglobin 11.6 g/dl (14.0-18.0); Imm Gran Abs Auto 0.04 X10*3/uL (0.00-0.03); Imm Gran Pct Auto 0.5 % (0.0-0.4); Lymphocytes Absolute Auto 2.2 X10*3/uL (1.2-4.9); Lymphocytes Percent Auto 28.6 % (20-40); Mean Corpuscular HGB Conc 30.3 g/dl (31.0-36.0); Mean Corpuscular Hemoglobin 23.8 pg (27.0-33.0); Mean Corpuscular Volume 78.6 fL (80-98); Mean Platelet Volume 11.4 fL (9.4-12.4); Monocytes Absolute Auto 0.7 X10*3/uL (0.1-1.2); Monocytes Percent Auto 8.5 % (2-11); Neutrophils Absolute Auto 4.6 X10*3/uL (2.0-8.3); Neutrophils Percent Auto 60.3 % (45-73); Platelet Count 289 X10*3/uL (160-400); Red Blood Count 4.87 X10*6/uL (4.60-5.80); Red Cell Distribution Width 17.2 % (11.0-16.0); White Blood Count 7.7 X10*3/uL (4.8-10.8)
[2020-03-30 09:02] LABS: Alanine Aminotransferase 27 U/L (0-40); Albumin Level 3.7 g/dL (3.5-5.0); Alkaline Phosphatase 121 U/L (39-117); Anion Gap 12 (12-20); Aspartate Amino Transferase 25 U/L (5-37); Bilirubin Total 0.6 mg/dL (0.0-1.0); Blood Urea Nitrogen 12 mg/dL (9-16); Calcium 8.8 mg/dL (8.4-10.2); Carbon Dioxide 26 mmol/L (22-29); Chloride 106 mmol/L (96-108); Creatinine Clr Calc Pharmacy 98.6; Estimated Glomerular Filt Rate > 60; Glucose Random 77 mg/dL (60-115); Potassium 3.7 mmol/L (3.3-5.1); Sodium 140 mmol/L (135-145)
[2020-03-30 09:03] LABS: Magnesium 1.4 mg/dL (1.6-2.6)
[2020-03-30] MEDS: Magnesium Sulfate/H2O 2 GM/50 ML PIGGYBACK IV (09:14)
--- NOTE | 2020-03-30 11:37 | MHC.HEMONC ---
Pt here for IV hydration and ONC follow up with Dr Burleson. Port accessed and labs drawn. Dr Burleson into see pt. Lab results reviewed, magnesium level 1.[address] Burleson. 2gms magnesium sulfate IV given and 1000ml .9% normal saline given as ordered. [facility] called to schedule appointment with Dr Linda. [facility] office staff state they will call pt to make appointment-pt informed. Heparin flush to port. Port de accessed. Follow up appointment made. Pt has CT appointment scheduled for tomorrow 03/31/20
[2020-04-06 07:57] VITALS: BP 135/61; PULSE 68; RESP 18; TEMP 37; O2SAT 98; BMI 37.0
[2020-04-06 08:37] LABS: MANUAL DIFF FLAG NO
[2020-04-06 08:39] LABS: Basophils Absolute Auto 0.1 X10*3/uL (0.0-0.2); Basophils Percent Auto 0.8 % (0-2); Eosinophils Absolute Auto 0.1 X10*3/uL (0.0-0.4); Hematocrit 37.1 % (42-52); Hemoglobin 11.3 g/dl (14.0-18.0); Imm Gran Abs Auto 0.04 X10*3/uL (0.00-0.03); Imm Gran Pct Auto 0.6 % (0.0-0.4); Lymphocytes Absolute Auto 1.9 X10*3/uL (1.2-4.9); Lymphocytes Percent Auto 29.4 % (20-40); Mean Corpuscular HGB Conc 30.5 g/dl (31.0-36.0); Mean Corpuscular Volume 78.8 fL (80-98); Mean Platelet Volume 11.2 fL (9.4-12.4); Monocytes Absolute Auto 0.6 X10*3/uL (0.1-1.2); Monocytes Percent Auto 9.7 % (2-11); Neutrophils Absolute Auto 3.7 X10*3/uL (2.0-8.3); Neutrophils Percent Auto 57.5 % (45-73); Platelet Count 271 X10*3/uL (160-400); Red Blood Count 4.71 X10*6/uL (4.60-5.80); Red Cell Distribution Width 17.3 % (11.0-16.0); White Blood Count 6.4 X10*3/uL (4.8-10.8)
[2020-04-06 09:21] LABS: Alanine Aminotransferase 24 U/L (0-40); Albumin Level 3.8 g/dL (3.5-5.0); Alkaline Phosphatase 125 U/L (39-117); Anion Gap 10 (12-20); Aspartate Amino Transferase 24 U/L (5-37); Bilirubin Total 0.8 mg/dL (0.0-1.0); Blood Urea Nitrogen 10 mg/dL (9-16); Calcium 8.7 mg/dL (8.4-10.2); Carbon Dioxide 27 mmol/L (22-29); Chloride 106 mmol/L (96-108); Creatinine Clr Calc Pharmacy 94.8; Estimated Glomerular Filt Rate > 60; Glucose Random 106 mg/dL (60-115); Magnesium 1.3 mg/dL (1.6-2.6); Potassium 3.7 mmol/L (3.3-5.1); Sodium 139 mmol/L (135-145)
[2020-04-06] MEDS: Magnesium Sulfate/H2O 2 GM/50 ML PIGGYBACK IV (09:28)
[2020-04-06] MEDS: dexAMETHasone sod phosphate/NS 12 MG/50 ML PIGGYBACK 200 MG IV (11:30)
[2020-04-06] MEDS: Acetaminophen 325 MG TABLET 650 MG PO (11:31)
[2020-04-06] MEDS: Heparin Sodium,Porcine Flush 500 UNIT/5 ML SYRINGE IVFLUSH (14:05)
--- NOTE | 2020-04-06 14:26 | MHC.HEMONC ---
Pt here for C23 D1 treatment. States feels good today, no c/o since last treatment. Port accessed, labs drawn. Magnesium level 1.3, reported to Dr Burleson. Magnesium 2gm IV infused as ordered. Treatment done and pt tolerated well. Scheduled to return in 1 week for IV hydration.
[2020-04-13 08:19] VITALS: BP 142/69; PULSE 80; RESP 18; TEMP 36.6; O2SAT 95; BMI 37.0
[2020-04-13] MEDS: 0.9 % Sodium Chloride 1,000 ML 500 ML IV (08:39)
[2020-04-13 08:42] LABS: Basophils Percent Auto 0.6 % (0-2); Eosinophils Absolute Auto 0.1 X10*3/uL (0.0-0.4); Eosinophils Percent Auto 1.7 % (0-4); Hematocrit 38.6 % (42-52); Hemoglobin 11.5 g/dl (14.0-18.0); Imm Gran Abs Auto 0.04 X10*3/uL (0.00-0.03); Imm Gran Pct Auto 0.6 % (0.0-0.4); Lymphocytes Absolute Auto 1.8 X10*3/uL (1.2-4.9); Lymphocytes Percent Auto 25.1 % (20-40); MANUAL DIFF FLAG NO; Mean Corpuscular HGB Conc 29.8 g/dl (31.0-36.0); Mean Corpuscular Hemoglobin 23.3 pg (27.0-33.0); Mean Corpuscular Volume 78.3 fL (80-98); Monocytes Absolute Auto 0.6 X10*3/uL (0.1-1.2); Neutrophils Absolute Auto 4.6 X10*3/uL (2.0-8.3); Platelet Count 285 X10*3/uL (160-400); Red Blood Count 4.93 X10*6/uL (4.60-5.80); Red Cell Distribution Width 17.3 % (11.0-16.0); White Blood Count 7.2 X10*3/uL (4.8-10.8)
[2020-04-13 09:23] LABS: Alanine Aminotransferase 32 U/L (0-40); Albumin Level 3.8 g/dL (3.5-5.0); Alkaline Phosphatase 149 U/L (39-117); Anion Gap 12 (12-20); Aspartate Amino Transferase 28 U/L (5-37); Bilirubin Total 0.6 mg/dL (0.0-1.0); Blood Urea Nitrogen 9 mg/dL (9-16); Calcium 8.8 mg/dL (8.4-10.2); Carbon Dioxide 25 mmol/L (22-29); Chloride 105 mmol/L (96-108); Creatinine Clr Calc Pharmacy 92.5; Estimated Glomerular Filt Rate > 60; Glucose Random 151 mg/dL (60-115); Potassium 4.3 mmol/L (3.3-5.1); Sodium 138 mmol/L (135-145); Total Protein 7.1 g/dL (6.5-8.0)
[2020-04-13] MEDS: Magnesium Sulfate/H2O 2 GM/50 ML PIGGYBACK IV (09:45)
[2020-04-13 10:10] LABS: Magnesium 1.5 mg/dL (1.6-2.6)
--- NOTE | 2020-04-13 11:50 | MHC.HEMONC ---
Pt here for hydration and IV mag. Labs drawn via port. Medications given as ordered/documented. Port deaccessed, follow-up given .
[2020-04-20 08:01] VITALS: BP 152/67; PULSE 78; RESP 18; TEMP 36.3; O2SAT 97; BMI 37.5
[2020-04-20 08:30] LABS: MANUAL DIFF FLAG NO
[2020-04-20 08:37] LABS: Basophils Absolute Auto 0.1 X10*3/uL (0.0-0.2); Basophils Percent Auto 0.7 % (0-2); Eosinophils Absolute Auto 0.1 X10*3/uL (0.0-0.4); Eosinophils Percent Auto 1.8 % (0-4); Hemoglobin 10.8 g/dl (14.0-18.0); Imm Gran Abs Auto 0.05 X10*3/uL (0.00-0.03); Imm Gran Pct Auto 0.7 % (0.0-0.4); Lymphocytes Absolute Auto 1.6 X10*3/uL (1.2-4.9); Lymphocytes Percent Auto 23.8 % (20-40); Mean Corpuscular Hemoglobin 23.6 pg (27.0-33.0); Mean Corpuscular Volume 78.6 fL (80-98); Mean Platelet Volume 10.6 fL (9.4-12.4); Monocytes Absolute Auto 0.5 X10*3/uL (0.1-1.2); Monocytes Percent Auto 7.7 % (2-11); Neutrophils Absolute Auto 4.5 X10*3/uL (2.0-8.3); Neutrophils Percent Auto 65.3 % (45-73); Platelet Count 228 X10*3/uL (160-400); Red Blood Count 4.58 X10*6/uL (4.60-5.80); Red Cell Distribution Width 17.8 % (11.0-16.0); White Blood Count 6.9 X10*3/uL (4.8-10.8)
[2020-04-20 09:10] LABS: Alanine Aminotransferase 24 U/L (0-40); Albumin Level 3.5 g/dL (3.5-5.0); Alkaline Phosphatase 118 U/L (39-117); Anion Gap 11 (12-20); Aspartate Amino Transferase 24 U/L (5-37); Bilirubin Total 0.8 mg/dL (0.0-1.0); Blood Urea Nitrogen 12 mg/dL (9-16); Calcium 8.2 mg/dL (8.4-10.2); Carbon Dioxide 24 mmol/L (22-29); Chloride 105 mmol/L (96-108); Creatinine Clr Calc Pharmacy 94.5; Estimated Glomerular Filt Rate > 60; Glucose Random 192 mg/dL (60-115); Magnesium 1.2 mg/dL (1.6-2.6); Potassium 3.4 mmol/L (3.3-5.1); Sodium 137 mmol/L (135-145); Total Protein 6.5 g/dL (6.5-8.0)
[2020-04-20] MEDS: Magnesium Sulfate/H2O 2 GM/50 ML PIGGYBACK IV (09:34)
[2020-04-20] MEDS: dexAMETHasone sod phosphate/NS 12 MG/50 ML PIGGYBACK 200 MG IV (11:43)
[2020-04-20] MEDS: Acetaminophen 325 MG TABLET 650 MG PO (11:43)
[2020-04-20] MEDS: Heparin Sodium,Porcine Flush 500 UNIT/5 ML SYRINGE IVFLUSH (14:12)
--- NOTE | 2020-04-20 15:45 | MHC.HEMONC ---
Pt here for C24 D1 of treatment. States feeling good since last treatment. Port accessed, good blood return. Labs obtained and reviewed. Magnesium 1.2, reported to Dr Burleson. IV magnesium infused. Treatment done and pt tolerated well. Scheduled to return in 1 week for IV hydration, and 2 weeks for chemo.
[2020-04-27 08:26] VITALS: BMI 38.1
[2020-04-27 08:29] VITALS: BP 145/65; RESP 18; TEMP 36.5; O2SAT 98; BMI 37.4
[2020-04-27 08:48] LABS: MANUAL DIFF FLAG NO
[2020-04-27 08:49] LABS: Basophils Absolute Auto 0.1 X10*3/uL (0.0-0.2); Basophils Percent Auto 0.6 % (0-2); Eosinophils Absolute Auto 0.1 X10*3/uL (0.0-0.4); Eosinophils Percent Auto 1.6 % (0-4); Hematocrit 36.2 % (42-52); Hemoglobin 10.8 g/dl (14.0-18.0); Imm Gran Abs Auto 0.06 X10*3/uL (0.00-0.03); Imm Gran Pct Auto 0.7 % (0.0-0.4); Lymphocytes Absolute Auto 1.6 X10*3/uL (1.2-4.9); Lymphocytes Percent Auto 18.2 % (20-40); Mean Corpuscular HGB Conc 29.8 g/dl (31.0-36.0); Mean Corpuscular Hemoglobin 23.2 pg (27.0-33.0); Mean Corpuscular Volume 77.8 fL (80-98); Mean Platelet Volume 11.1 fL (9.4-12.4); Monocytes Absolute Auto 0.8 X10*3/uL (0.1-1.2); Monocytes Percent Auto 9.1 % (2-11); Neutrophils Absolute Auto 5.9 X10*3/uL (2.0-8.3); Neutrophils Percent Auto 69.8 % (45-73); Platelet Count 241 X10*3/uL (160-400); Red Blood Count 4.65 X10*6/uL (4.60-5.80); Red Cell Distribution Width 17.9 % (11.0-16.0); White Blood Count 8.5 X10*3/uL (4.8-10.8)
[2020-04-27] MEDS: 0.9 % Sodium Chloride 1,000 ML 500 ML IVCONT (08:50)
[2020-04-27 09:16] LABS: Alanine Aminotransferase 28 U/L (0-40); Albumin Level 3.7 g/dL (3.5-5.0); Alkaline Phosphatase 120 U/L (39-117); Anion Gap 12 (12-20); Aspartate Amino Transferase 27 U/L (5-37); Bilirubin Total 1.1 mg/dL (0.0-1.0); Blood Urea Nitrogen 12 mg/dL (9-16); Calcium 8.2 mg/dL (8.4-10.2); Carbon Dioxide 25 mmol/L (22-29); Chloride 108 mmol/L (96-108); Creatinine Clr Calc Pharmacy 100.6; Estimated Glomerular Filt Rate > 60; Glucose Random 114 mg/dL (60-115); Magnesium 1.4 mg/dL (1.6-2.6); Potassium 3.7 mmol/L (3.3-5.1); Sodium 141 mmol/L (135-145); Total Protein 6.9 g/dL (6.5-8.0)
[2020-04-27] MEDS: Magnesium Sulfate/H2O 2 GM/50 ML PIGGYBACK IV (09:50)
--- NOTE | 2020-04-27 15:09 | MHC.HEMONC ---
Pt here for IV hydration. Port accessed, good blood return. Labs drawn and reviewed. Magnesium 1.4, reported to Dr Burleson. IV magnesium ordered. Pt states he is feeling well. IV fluid and magnesium infused. Scheduled to return in 1 week for chemo treatment.
[2020-05-04 08:24] VITALS: BMI 38.2
[2020-05-04 08:25] VITALS: BP 137/63; PULSE 97; RESP 18; TEMP 36.1; O2SAT 97
[2020-05-04 08:27] VITALS: BMI 38.2
[2020-05-04 09:08] LABS: MANUAL DIFF FLAG NO
[2020-05-04 09:12] LABS: Basophils Absolute Auto 0.1 X10*3/uL (0.0-0.2); Basophils Percent Auto 0.8 % (0-2); Eosinophils Absolute Auto 0.2 X10*3/uL (0.0-0.4); Eosinophils Percent Auto 1.9 % (0-4); Hematocrit 35.1 % (42-52); Hemoglobin 10.2 g/dl (14.0-18.0); Imm Gran Abs Auto 0.05 X10*3/uL (0.00-0.03); Imm Gran Pct Auto 0.6 % (0.0-0.4); Lymphocytes Absolute Auto 1.6 X10*3/uL (1.2-4.9); Lymphocytes Percent Auto 20.5 % (20-40); Mean Corpuscular HGB Conc 29.1 g/dl (31.0-36.0); Mean Corpuscular Hemoglobin 22.7 pg (27.0-33.0); Mean Platelet Volume 10.7 fL (9.4-12.4); Monocytes Absolute Auto 0.7 X10*3/uL (0.1-1.2); Monocytes Percent Auto 8.4 % (2-11); Neutrophils Absolute Auto 5.2 X10*3/uL (2.0-8.3); Neutrophils Percent Auto 67.8 % (45-73); Platelet Count 256 X10*3/uL (160-400); Red Cell Distribution Width 18.1 % (11.0-16.0); White Blood Count 7.7 X10*3/uL (4.8-10.8)
[2020-05-04 09:45] LABS: Alanine Aminotransferase 23 U/L (0-40); Albumin Level 3.7 g/dL (3.5-5.0); Alkaline Phosphatase 107 U/L (39-117); Anion Gap 13 (12-20); Aspartate Amino Transferase 24 U/L (5-37); Bilirubin Total 0.8 mg/dL (0.0-1.0); Blood Urea Nitrogen 13 mg/dL (9-16); Calcium 8.3 mg/dL (8.4-10.2); Carbon Dioxide 23 mmol/L (22-29); Chloride 107 mmol/L (96-108); Creatinine Clr Calc Pharmacy 109.2; Estimated Glomerular Filt Rate > 60; Glucose Random 111 mg/dL (60-115); Magnesium 1.2 mg/dL (1.6-2.6); Potassium 3.7 mmol/L (3.3-5.1); Sodium 139 mmol/L (135-145); Total Protein 6.7 g/dL (6.5-8.0)
[2020-05-04] MEDS: Acetaminophen 325 MG TABLET 650 MG PO (09:56)
[2020-05-04] MEDS: Heparin Sodium,Porcine Flush 500 UNIT/5 ML SYRINGE IVFLUSH (09:56)
[2020-05-04] MEDS: dexAMETHasone sod phosphate/NS 12 MG/50 ML PIGGYBACK 200 MG IV (09:56)
[2020-05-04] MEDS: Magnesium Sulfate/H2O 2 GM/50 ML PIGGYBACK IV (10:17)
[2020-05-11 07:57] VITALS: BP 150/72; PULSE 85; RESP 20; TEMP 36.9; O2SAT 97; BMI 38.1
[2020-05-11 08:14] LABS: MANUAL DIFF FLAG NO
[2020-05-11 08:21] LABS: Basophils Absolute Auto 0.1 X10*3/uL (0.0-0.2); Basophils Percent Auto 0.6 % (0-2); Eosinophils Absolute Auto 0.1 X10*3/uL (0.0-0.4); Eosinophils Percent Auto 1.4 % (0-4); Hematocrit 36.4 % (42-52); Hemoglobin 10.9 g/dl (14.0-18.0); Imm Gran Abs Auto 0.05 X10*3/uL (0.00-0.03); Imm Gran Pct Auto 0.6 % (0.0-0.4); Lymphocytes Absolute Auto 1.7 X10*3/uL (1.2-4.9); Lymphocytes Percent Auto 19.3 % (20-40); Mean Corpuscular HGB Conc 29.9 g/dl (31.0-36.0); Mean Corpuscular Hemoglobin 23.1 pg (27.0-33.0); Mean Corpuscular Volume 77.1 fL (80-98); Mean Platelet Volume 10.7 fL (9.4-12.4); Monocytes Absolute Auto 0.7 X10*3/uL (0.1-1.2); Monocytes Percent Auto 8.3 % (2-11); Neutrophils Absolute Auto 6.1 X10*3/uL (2.0-8.3); Neutrophils Percent Auto 69.8 % (45-73); Platelet Count 311 X10*3/uL (160-400); Red Blood Count 4.72 X10*6/uL (4.60-5.80); Red Cell Distribution Width 17.9 % (11.0-16.0); White Blood Count 8.7 X10*3/uL (4.8-10.8)
[2020-05-11 08:58] LABS: Alanine Aminotransferase 31 U/L (0-40); Albumin Level 3.8 g/dL (3.5-5.0); Alkaline Phosphatase 128 U/L (39-117); Anion Gap 13 (12-20); Aspartate Amino Transferase 32 U/L (5-37); Bilirubin Total 0.7 mg/dL (0.0-1.0); Blood Urea Nitrogen 13 mg/dL (9-16); Calcium 8.6 mg/dL (8.4-10.2); Carbon Dioxide 23 mmol/L (22-29); Chloride 108 mmol/L (96-108); Creatinine Clr Calc Pharmacy 97.7; Estimated Glomerular Filt Rate > 60; Glucose Random 124 mg/dL (60-115); Magnesium 1.3 mg/dL (1.6-2.6); Potassium 4.2 mmol/L (3.3-5.1); Sodium 140 mmol/L (135-145); Total Protein 7.3 g/dL (6.5-8.0)
[2020-05-11] MEDS: 0.9 % Sodium Chloride 1,000 ML 500 ML IVCONT (09:27)
[2020-05-11] MEDS: Magnesium Sulfate/H2O 2 GM/50 ML PIGGYBACK IV (09:28)
--- NOTE | 2020-05-11 09:57 | MHC.HEMONC ---
pt atteneded for 2h IVF also recieved 2g iv mag for mag of 1.3.
== END 2020-06-02 | disposition home or self-care (01) ==
LOC: HO.ONC 08:00
PROVIDERS: Internal Medicine; PCP Internal Medicine; Visit Provider Internal Medicine Medical Oncology
DX: C18.7 Malignant neoplasm of sigmoid colon (principal); G62.0 Drug-induced polyneuropathy; T45.1X5D Adverse effect of antineoplastic and immunosuppressive drugs, subsequent encounter; R91.8 Other nonspecific abnormal finding of lung field; Z79.899 Other long term (current) drug therapy
CPT/HCPCS: 36415; 36591; 80053; 82378; 82784; 83520; 83735; 85025; 86334; 96360; 96361; 96365; 96366; 96367; 96368; 96374; 96375; 96413; 96415; 99214; J1100; J1642; J2405; J3475; J8540; J9055

== ENCOUNTER 2020-05-15 18:13 | Emergency (ER) | payer MEDICARE, MEDICAID, SELFPAY ==
--- NOTE | ~2020-05-15 | XR_ITS ---
EXAMINATION: XR CHEST CLINICAL INFORMATION: Shortness of breath COMPARISON: 04/13/2019 TECHNIQUE: Frontal view of the chest was obtained. FINDINGS: Since the prior study of 04/12/2020, the lungs are better expanded. Heart size normal. No evidence of CHF. No infiltrates, effusions or lung masses are seen. A right chest port is once again seen with its tip in the SVC. XR/XR chest 1V IMPRESSION: No acute intrathoracic
[2020-05-15 18:50] VITALS: BP 115/62; BP 139/61; PULSE 104; PULSE 98; RESP 19; TEMP 37.4; O2SAT 94; O2SAT 95; BMI 39.1
--- NOTE | 2020-05-15 19:18 | ED_ITS ---
HPI - General Adult General Chief complaint: General Medical Stated complaint: NOT FEELING WELL, BODUACHES,?FEVER Time Seen by Provider: 05/15/20 19:18 Source: patient Mode of arrival: ambulatory Limitations: language barrier History of Present Illness HPI narrative: Patient diabetic with COPD complaining of body aches dry cough low-grade fever headache since morning today has not taken COVID vaccine yet no other family member is sick with slight short of breath on ambulation saturating 94% at room air Onset (ago): day(s) (1) Related Data Home Medications Medication Instructions Recorded Confirmed aspirin 81 mg PO DAILY 11/18/19 04/12/20 atorvastatin 80 mg PO BEDTIME 11/18/19 04/12/20 carvedilol 3.125 mg PO BID 11/18/19 04/12/20 fluoxetine 20 mg PO DAILY 11/18/19 04/12/20 fluticasone propionate [Flovent 2 puff INHALATION BID 11/18/19 04/12/20 HFA] magnesium oxide 400 mg PO BID 11/18/19 04/12/20 metronidazole 1 applic TOPICAL DAILY 11/18/19 04/12/20 omeprazole 20 mg PO DAILY 11/18/19 04/12/20 trazodone 50 mg PO DAILY 11/18/19 04/12/20 triamcinolone acetonide 1 applic TOPICAL BID 11/18/19 04/12/20 triamcinolone acetonide 1 applic TOPICAL DAILY 12/01/19 04/12/20 doxycycline hyclate 100 mg PO BID 05/04/20 05/04/20 Previous Rx's Medication Instructions Recorded vitamin B comp and C no.3 [B 1 cap PO DAILY #90 cap 05/06/20 Complex Plus Vitamin C] codeine-guaifenesin 10 ml PO Q6H PRN #237 ml 05/15/20 dexamethasone [Decadron] 6 mg PO DAILY #7 tab 05/15/20 doxycycline hyclate 100 mg PO BID #20 cap 05/15/20 Allergies Allergy/AdvReac Type Severity Reaction Status Date / Time nitroglycerin Allergy Severe AGITATION Verified 04/15/20 08:17 [From NITROSTAT] oxaliplatin [OXALIPLATIN] Allergy Severe anaphylaxis Verified 04/15/20 08:17 diphenhydramine Allergy Intermediate RASH Verified 04/15/20 08:17 [From MOTRIN PM] ibuprofen [From ADVIL] Allergy Unknown RASH Verified 04/15/20 08:17 morphine Allergy Unknown painful Verified 04/15/20 08:17 rash oxcarbazepine Allergy Unknown rash, Verified 04/15/20 08:17 [From TRILEPTAL] coughing penicillin V Allergy Unknown rash Verified 04/15/20 08:17 Penicillins [PENICILLINS] Allergy Unknown ITCHING, Verified 04/15/20 08:17 RASH Benadryl Allergy Unknown rash Uncoded 04/12/20 04:48 Review of Systems Review of Systems: Constitutional : No Weight loss, No Fever, No Chills ENT/Mouth : No sore throat, No Rhinorrhea Eyes: No Eye Pain, No Swelling Cardiovascular : No Chest Pain, no palpitations Respiratory : +Cough, No Sputum, + shortness of breath Gastrointestinal : no Nausea, No Vomiting, No Diarrhea, No abdominal Pain, no black stools Genitourinary : No Dysuria, No Urinary Frequency Musculoskeletal : No joint pain, No Myalgias, No Joint Swelling Skin : No Skin Lesions, No rash Neuro : No Weakness, No Numbness, No Dizziness, No Headache Psych : No Anxiety/Panic, No Depression Heme/Lymph: No Bruising, No Lymphadenopathy Endocrine : No Polyuria, No Polydipsia All other systems reviewed and are negative [facility] Past Medical History Medical History Asthma Colon cancer Diabetes mellitus, type 2 Hypercholesteremia Hypertension Palpitations Family History Family History Other Family history non-contributory Social History Social History Alcohol intake: current Alcohol intake frequency: 3 or more drinks per day Alcohol type: beer Smoking Status: Never smoker Use of substances other than those prescribed or required for medical reasons: No Advance Directives: Yes Advance Directives on File: Yes Advance Directives Date on File: 04/12/20 Physical Exam Vital Signs: Vital Signs: Last Vital Signs Temp 99.4 F 05/15/20 18:50 Pulse 104 H 05/15/20 18:50 Resp 19 05/15/20 18:50 BP 139/61 05/15/20 18:50 Pulse Ox 94 05/15/20 18:50 Body Mass Index 39.1 Appearance: Alert. Oriented X3. No acute distress. Eyes: Pupils equal, round and reactive to light. ENT: Pharynx normal. Neck: Normal inspection. Neck supple. CVS: Normal heart rate and rhythm. Pulses normal. Respiratory: No respiratory distress. Breath sounds normal. Abdomen: Soft and nontender. Bowel sounds are present, no mass palpable, no CVA tenderness Skin: Skin warm and dry. Normal skin color. Normal skin turgor. Extremities: No lower extremity edema. No calf tenderness Neuro: Oriented X 3. No motor deficit. No sensory deficit. Medical Decision Making MDM Narrative Medical decision making narrative: Patient COVID positive chest x-ray negative for infiltrate saturating 94% because of high risk will give him course of doxycycline and Decadron. Advised him to come back to the ER if increased shortness of breath or not feeling better Lab Data Lab results reviewed: Yes I reviewed the patient's lab results. Labs: Lab Results 05/15/20 Range/Units 19:33 COVID-19 (HARRY) Positive A (Negative) COVID-19 Clin Com See Note Imaging Data Chest x-ray: Attestation: I personally reviewed and interpreted this imaging study as follows: Radiologist's impression: Patient: Demian Doran DMR#: [id number]: 5Acct:[id number]/Sex: 65 / MADM Date: 05/15/20Loc: [email or web address] Dr: Ordering Physician: Nick Singh MD Date of Service: 05/15/20 Procedure(s): XR chest 1V Accession Number(s): [id number] cc: Nick Singh MD~ EXAMINATION: XR CHEST CLINICAL INFORMATION: Shortness of breath COMPARISON: 04/13/2019 TECHNIQUE: Frontal view of the chest was obtained. FINDINGS: Since the prior study of 04/12/2020, the lungs are better expanded. Heart size normal. No evidence of CHF. No infiltrates, effusions or lung masses are seen. A right chest port is once again seen with its tip in the SVC. XR/XR chest 1V IMPRESSION: No acute intrathoracic Dictated By:MIRANDA CASON MDSigned By:<Electronically signed by MIRANDA CASON MD in OV> Discharge Plan Discharge Clinical Impression: COVID-19 Patient Disposition: Home, Self-Care Instructions: COVID-19 (Coronavirus Disease 2019) (ED) Additional Instructions: Drink plenty of fluid Take medication as prescribed Report to the ER if increased shortness of breath Check blood sugar daily as it may go high with medications Meera mucho l?quido [place] la medicaci?n seg?n lo prescrito Informe a la yen de emergencias si aumenta la dificultad para respirar Controle el nivel de az?car en giana a diario, ya que puede aumentar con los medicamentos. Prescriptions: New dexamethasone [Decadron] 6 mg tablet 6 mg PO DAILY Qty: 7 RF: 0 doxycycline hyclate 100 mg capsule 100 mg PO BID Qty: 20 RF: 0 codeine-guaifenesin 10-100 mg/5 mL liquid 10 ml PO Q6H PRN (Reason: cough) Qty: 237 RF: 0 No Action metronidazole 0.75 % Cream 1 applic TOPICAL DAILY RF: 0 atorvastatin 80 mg Tablet 80 mg PO BEDTIME RF: 0 triamcinolone acetonide 0.1 % Cream 1 applic TOPICAL BID RF: 0 carvedilol 3.125 mg Tablet 3.125 mg PO BID RF: 0 omeprazole 20 mg Capsule,Delayed Release(Dr/Ec) 20 mg PO DAILY RF: 0 aspirin 81 mg Tablet 81 mg PO DAILY RF: 0 fluoxetine 20 mg Capsule 20 mg PO DAILY RF: 0 Flovent HFA 110 mcg/actuation Hfa Aerosol Inhaler 2 puff INHALATION BID RF: 0 magnesium oxide 400 mg magnesium Tablet 400 mg PO BID RF: 0 trazodone 50 mg Tablet 50 mg PO DAILY RF: 0 triamcinolone acetonide 0.1 % Ointment 1 applic TOPICAL DAILY RF: 0 doxycycline hyclate 100 mg Capsule 100 mg PO BID RF: 0 B Complex Plus Vitamin C 58-86-09-5-300 mg Capsule 1 cap PO DAILY Qty: 90 RF: 4 Print Language: Indian
[2020-05-15 19:44] LABS: COVID-19 Test Positive (Negative)
[2020-05-15] MEDS: dexAMETHasone 6 MG TABLET PO (20:15)
[2020-05-15] MEDS: Magnesium Oxide 400 MG TABLET 800 MG PO (20:15)
[2020-05-15] MEDS: guaiFEN/Codeine SF 200/20/10ML 10 ML LIQUID PO (20:15)
== END 2020-05-15 21:06 | disposition home or self-care (01) ==
PROVIDERS: Emergency Provider Internal Medicine
DX: U07.1 COVID-19 (principal); R50.9 Fever, unspecified; I10 Essential (primary) hypertension; E11.9 Type 2 diabetes mellitus without complications; Z85.038 Personal history of other malignant neoplasm of large intestine
CPT/HCPCS: 36415; 71045; 87635; 99283; J8540

== ENCOUNTER 2020-05-21 12:28 | Inpatient (IN) | payer MEDICARE, MEDICAID, SELFPAY ==
[2020-05-21] VITALS (8 sets, daily range): BP systolic 121–146; BP diastolic 56–71; PULSE 66–96; RESP 17–24; TEMP 36–37.9; O2SAT 90–95; BMI 35.4; BMI 38.2
--- NOTE | ~2020-05-21 | CT_ITS ---
EXAMINATION: CT ANGIOGRAM OF THE CHEST WITH AND WITHOUT CONTRAST (CT PULMONARY ANGIOGRAM FOR PE) CLINICAL INFORMATION: Reason for Exam shortness of breath positive COVID/history of cancer COMPARISON: CT pulmonary angiogram 02/02/2020 TECHNIQUE: Prior to contrast administration, noncontrast localization images were obtained. Subsequently, multidetector volumetric imaging was performed from the thoracic inlet to below the diaphragms following the administration of 71 mL Omnipaque 350 intravenous contrast. No contrast reaction reported Sagittal, coronal, and MIP oblique sagittal reformatted images were obtained on the CT workstation, uploaded to PACS, and reviewed. This CT examination was performed using dose optimization techniques as appropriate, variously including the following: *Automated exposure control *Adjustment of mA and/or kV according to patient size (this includes techniques or standardized protocols for targeted exams where dose is matched to indication/reason for exam; i.e. extremities or head) *Use of iterative reconstruction technique Total exam dose-length product 330 mGy-cm FINDINGS: QUALITY OF STUDY/CONTRAST BOLUS: Satisfactory. PULMONARY ARTERIES: No central or segmental pulmonary emboli. THORACIC AORTA: No aneurysm or dissection. LUNG: New diffuse groundglass scattered patchy peripheral infiltrates are present throughout the lungs. PLEURA: No significant pleural effusion or pneumothorax. MEDIASTINUM: Normal heart size. No pericardial effusion. No hilar or mediastinal lymphadenopathy. No evidence of septal bowing or right heart strain. CHEST WALL/AXILLA: No axillary or internal mammary lymphadenopathy. OSSEOUS STRUCTURES: No acute or suspicious osseous abnormality. UPPER ABDOMEN: Unremarkable. No reflux of contrast into the hepatic veins to suggest elevated right heart pressures. CT/CT angio chest PE protocol IMPRESSION: 1. No pulmonary emboli 2. Commonly reported imaging features of Covid 19 or viral pneumonia are present with diffuse patchy peripheral groundglass infiltrates. Other processes such as influenza pneumonia or organizing pneumonia, as can be seen with drug toxicity and connective tissue disease, can cause a similar imaging pattern. VTE: negative
--- NOTE | ~2020-05-21 | US_ITS ---
EXAMINATION: US VENOUS ULTRASOUND WITH DOPPLER LOWER EXTREMITY, BILATERAL CLINICAL INFORMATION: Covid. High d-dimer. COMPARISON: None TECHNIQUE: Ultrasound of the deep veins is performed from the hip to the calf with compression sonography and color and pulse Doppler assessment. Spectral analysis with color-flow imaging is performed. FINDINGS: RIGHT: There is normal venous compression and respiratory variation and augmented flow. The visualized common femoral vein, superficial femoral vein, profunda femoral vein, popliteal vein, and the trifurcation region shows no evidence of deep venous thrombosis. There is no significant popliteal fossa cyst. LEFT: A portion of the mid femoral vein is not visualized due to bandage. There is normal venous compression and respiratory variation and augmented flow. The visualized common femoral vein, superficial femoral vein, profunda femoral vein, popliteal vein, and the trifurcation region shows no evidence of deep venous thrombosis. There is no significant popliteal fossa cyst. If the patient's symptoms persist, followup ultrasound in 5 days 7 days might be of value to exclude proximal propagation from a non-visualized calf vein. US/US venous duplex LE BI IMPRESSION: No DVT demonstrated in the bilateral lower extremity.
--- NOTE | ~2020-05-21 | XR_ITS ---
EXAMINATION: XR CHEST CLINICAL INFORMATION: Worsening hypoxia. COMPARISON: 05/15/[address] dated 05/21/2020 TECHNIQUE: Frontal view of the chest was obtained. FINDINGS: Right IJ Port-A-Cath tip terminates in the region of the SVC. Cardiac leads overlie the chest. Since the prior radiographs, there has been development of increased patchy, ill-defined hazy opacities throughout both lungs. These correlate with a groundglass opacities seen on the recent CT. No new dense airspace consolidation. No pneumothorax or pleural effusion. Cardiac and mediastinal contours are normal. Pulmonary vasculature is unremarkable. Degenerative spondylosis is present in the thoracic spine. No acute osseous findings. XR/XR chest 1V IMPRESSION: Patchy ill-defined airspace opacity throughout both lungs as can be seen with viral pneumonia, new as compared to 05/15/2020 and likely similar to the CT from 05/21/2020.
--- NOTE | ~2020-05-21 | XR_ITS ---
EXAMINATION: XR CHEST CLINICAL INFORMATION: Severe hypoxia. Covid infection. COMPARISON: Previous chest x-ray most recent 05/31/2020 TECHNIQUE: Frontal view of the chest was obtained. FINDINGS: The cardiac and mediastinal contours are stable. There is an endotracheal tube with tip 5 cm above the lul. There is a nasogastric tube that projects over the stomach. The tip is not seen. There is a left central line with tip projecting over the SVC. There is a right jugular port with tip projecting over the SVC. There is diffuse airspace disease increased from previous exam. There is no pleural effusion or pneumothorax. There are are degenerative changes of the spine. XR/XR chest 1V IMPRESSION: Nasogastric tube projects over stomach, tip not seen. Otherwise satisfactory position of support lines and tubes. Increasing bilateral airspace disease compared to most recent chest x-ray 05/31/2020.
--- NOTE | ~2020-05-21 | XR_ITS ---
EXAMINATION: XR CHEST CLINICAL INFORMATION: Endotracheal tube COMPARISON: 05/28/2020 TECHNIQUE: Frontal view of the chest was obtained. FINDINGS: The endotracheal tube terminates 2.5 cm above the lul. Enteric tube extends into the stomach. CT compatible right chest wall port terminates over the mid SVC. Cardiac leads overlie the chest. The lungs are well expanded. Bronchial wall thickening with hazy opacities throughout the lungs. No pleural effusion or pneumothorax. The cardiomediastinal silhouette is within normal limits. XR/XR chest 1V IMPRESSION: Endotracheal tube terminating 2.5 cm above the lul. Similar appearance of the lungs with diffuse bilateral opacities.
--- NOTE | ~2020-05-21 | XR_ITS ---
EXAMINATION: XR CHEST CLINICAL INFORMATION: Line placement. COMPARISON: 05/30/2020 chest x-ray. TECHNIQUE: Rotated positioning. view of the chest was obtained. FINDINGS: Rotated positioning limiting evaluation. Endotracheal tube tip is difficult to visualize, terminating approximately 6.7 cm from the lul. Left sided central line, which appears to be placed via a subclavian approach, tip projected over the junction of the left brachiocephalic and SVC. Right-sided port, tip projected over the mid SVC. Enteric tube extends below the diaphragm beyond the [id number]. Cardiomediastinal silhouette is stable allowing for difference in technique. Bilateral diffuse airspace disease, similar to previous. No definite pneumothorax is seen. No pleural effusion. XR/XR chest 1V IMPRESSION: Left-sided central line, perhaps subclavian approach, tip projected over the junction of the left brachiocephalic and SVC. Endotracheal tube tip is difficult to visualize due to the rotated positioning and overlapping densities, estimated approximately 6.7 cm from the lul. Recommend clinical correlation, repeat radiographs evaluation. Bilateral diffuse airspace disease, similar to previous. No definite pneumothorax.
--- NOTE | ~2020-05-21 | XR_ITS ---
EXAMINATION: XR CHEST CLINICAL INFORMATION: Hypoxemia COMPARISON: Chest x-ray 05/29/2020 TECHNIQUE: Frontal view of the chest was obtained. FINDINGS: Stable cardiac silhouette. Endotracheal tube terminates approximately 6 cm above the level of the lul. Enteric tube terminates below the level of the diaphragm. Right chest port again noted with tip terminating within the mid SVC. Lungs are adequately aerated. Diffuse bilateral airspace disease is stable. No gross lobar consolidation. No pleural effusion or pneumothorax. XR/XR chest 1V IMPRESSION: -Support apparatus in expected orientation. -Stable patchy bilateral airspace disease.
--- NOTE | 2020-05-21 12:52 | ECG_ITS ---
Test Reason : SOB Blood Pressure : / mmHG Vent. Rate : 083 BPM Atrial Rate : 083 BPM P-R Int : 158 ms QRS Dur : 074 ms QT Int : 374 ms P-R-T Axes : 060 005 048 degrees QTc Int : 439 ms Sinus rhythm with Premature atrial complexes Nonspecific T wave abnormality Abnormal ECG When compared with ECG of 12-APR-2020 04:37, Premature atrial complexes are now Present Questionable change in QRS axis Referred By: Perla Hunt Electronically Signed By:Art Alvarado
[2020-05-21] MEDS: 0.9 % Sodium Chloride 1,000 ML 999 ML IVCONT (13:39)
[2020-05-21] MEDS: Acetaminophen 325 MG TABLET 975 MG PO (13:53)
[2020-05-21] MEDS: levoFLOXacin/D5W 750 MG/150 ML PIGGYBACK 100 MG IV (14:42)
[2020-05-21 14:46] LABS: Basophils Percent Auto 0.2 % (0-2); Hematocrit 37.2 % (42-52); Hemoglobin 11.3 g/dl (14.0-18.0); Imm Gran Abs Auto 0.13 X10*3/uL (0.00-0.03); Lymphocytes Absolute Auto 0.6 X10*3/uL (1.2-4.9); Lymphocytes Percent Auto 4.7 % (20-40); MANUAL DIFF FLAG SCAN; Mean Corpuscular HGB Conc 30.4 g/dl (31.0-36.0); Mean Corpuscular Hemoglobin 22.7 pg (27.0-33.0); Mean Corpuscular Volume 74.7 fL (80-98); Mean Platelet Volume 11.7 fL (9.4-12.4); Monocytes Absolute Auto 0.6 X10*3/uL (0.1-1.2); Monocytes Percent Auto 4.8 % (2-11); NRBC Pct Auto 0.2 /100WBC (0.0-0.2); Neutrophils Absolute Auto 11.7 X10*3/uL (2.0-8.3); Neutrophils Percent Auto 89.3 % (45-73); Platelet Count 229 X10*3/uL (160-400); Red Blood Count 4.98 X10*6/uL (4.60-5.80); Red Cell Distribution Width 17.7 % (11.0-16.0); SCAN SMEAR FLAG 1; White Blood Count 13.1 X10*3/uL (4.8-10.8)
[2020-05-21 14:51] LABS: INTERNATIONAL NORM RATIO 1.3 (0.9-1.1); Prothrombin Time 15.2 SEC (10.8-13.0)
[2020-05-21 14:54] LABS: D Dimer 552 NG/ML; Partial Thromboplastin Time 27.7 SEC (24.1-38.0)
[2020-05-21 15:08] LABS: Lactic Acid 1.7 mmol/L (0.5-2.0)
[2020-05-21 15:12] LABS: Ethanol < 10 mg/dL
[2020-05-21 15:15] LABS: B Type Natriuretic Peptide 93 pg/mL (<100)
[2020-05-21 15:28] LABS: SLIDE REVIEW VERIFIED
[2020-05-21 15:29] LABS: Alanine Aminotransferase 27 U/L (0-40); Albumin Level 3.5 g/dL (3.5-5.0); Alkaline Phosphatase 104 U/L (39-117); Anion Gap 14 (12-20); Aspartate Amino Transferase 26 U/L (5-37); Bilirubin Total 0.7 mg/dL (0.0-1.0); Blood Urea Nitrogen 16 mg/dL (9-16); C Reactive Protein 5.29 mg/dL (< or = 0.50); Calcium 8.4 mg/dL (8.4-10.2); Carbon Dioxide 22 mmol/L (22-29); Chloride 102 mmol/L (96-108); Creatinine Clr Calc Pharmacy 97.8; Estimated Glomerular Filt Rate > 60; Glucose Random 185 mg/dL (60-115); Lactate Dehydrogenase 303 U/L (118-273); Potassium 4.1 mmol/L (3.3-5.1); Sodium 134 mmol/L (135-145); Total Protein 6.7 g/dL (6.5-8.0)
[2020-05-21 15:30] LABS: Procalcitonin 0.04 ng/mL
--- NOTE | 2020-05-21 15:33 | ED_ITS ---
HPI - SOB/Dyspnea General Chief Complaint: Dyspnea Stated Complaint: covid +, diff breathing Time Seen by Provider: 05/21/20 12:51 Source: patient Mode of arrival: ambulatory Limitations: no limitations History of Present Illness HPI Narrative: 65-year-old male With a past medical history of diabetes type 2, hypertension, hypercholesterolemia, asthma, palpitations, carcinoma of sigmoid colon and who recently tested positive for COVID a 2nd time on 05/15/2020 was recently positive last year on 03/31/2019 presenting to the ED with complaints of worsening shortness of breath, dyspnea on exertion, orthopnea and chest discomfort since Sunday worse today. Reports associated fevers although he has not taken his temperature at home. Patient was seen on 05/15/2020 and this is when he was diagnosed he was sent home with DecadronAnd Robitussin with codeine he reports he finished the doxycycline as prescribed and no symptomatic relief. Denies any dizziness, headaches, neck pain/stiffness, nausea/vomiting, sore throat, back pain, abdominal pain, dysuria, hematuria, black or bloody stools, diarrhea, lower extremity edema or any other symptoms complaints or concerns at this time. MD elicited complaint: shortness of breath, cough and pain with inspiration Pertinent past history: asthma, diabetes and other (COVID) Onset (ago): day(s) (Six days worse today) Context: recent illness Timing: constant and progressively worsening Severity: moderate Exacerbating factors: lying flat, exertion, movement, coughing, inspiration, talking and deep breaths Relieving factors: rest and upright position Known history of: asthma, diabetes and other (COVID) Associated symptoms: chest pain, pain with inspiration, fever, cough, sputum production and orthopnea Treatment prior to arrival: other (Patient reports he has been taking his prescribed Decadron and no symptomatic relief) Related Data Home Medications Medication Instructions Recorded Confirmed aspirin 81 mg PO DAILY 11/18/19 05/21/20 atorvastatin 80 mg PO BEDTIME 11/18/19 05/21/20 carvedilol 3.125 mg PO BID 11/18/19 05/21/20 fluoxetine 20 mg PO DAILY@1200 11/18/19 05/21/20 fluticasone propionate [Flovent 2 puff INHALATION BID 11/18/19 05/21/20 HFA] magnesium oxide 400 mg PO BID 11/18/19 05/21/20 metronidazole 1 applic TOPICAL DAILY 11/18/19 05/21/20 omeprazole 20 mg PO DAILY 11/18/19 05/21/20 trazodone 50 mg PO BEDTIME 11/18/19 05/21/20 doxycycline hyclate 100 mg PO BID 05/04/20 05/21/20 dexamethasone 6 mg PO DAILY 05/21/20 05/21/20 insulin glargine [Lantus Solostar 10 unit SUBCUT DAILY 05/21/20 05/21/20 U-100 Insulin] Allergies Allergy/AdvReac Type Severity Reaction Status Date / Time nitroglycerin Allergy Severe AGITATION Verified 04/15/20 08:17 [From NITROSTAT] oxaliplatin [OXALIPLATIN] Allergy Severe anaphylaxis Verified 04/15/20 08:17 diphenhydramine Allergy Intermediate RASH Verified 04/15/20 08:17 [From MOTRIN PM] ibuprofen [From ADVIL] Allergy Unknown RASH Verified 04/15/20 08:17 morphine Allergy Unknown painful Verified 04/15/20 08:17 rash oxcarbazepine Allergy Unknown rash, Verified 04/15/20 08:17 [From TRILEPTAL] coughing penicillin V Allergy Unknown rash Verified 04/15/20 08:17 Penicillins [PENICILLINS] Allergy Unknown ITCHING, Verified 04/15/20 08:17 RASH Benadryl Allergy Unknown rash Uncoded 04/12/20 04:48 Review of Systems Review of Systems: Constitutional : + Fevers, + Chills, + Malaise, + Fatigue, No Weight loss, No Night Sweats ENT/Mouth : No Hearing loss, No Ear Pain, No Nasal Congestion, No Sinus Pain, No Hoarseness, No sore throat, No Rhinorrhea, No Swallowing Difficulty Eyes: No Eye Pain, No Swelling, No Redness, No Foreign Body, No Discharge, No Vision Changes Cardiovascular : + Chest pain, + SOB, + Dyspnea on Exertion, + Orthopnea, No Edema, No extremity swelling, No Palpitations Respiratory : + Cough, + Sputum, + Dyspnea, No Wheezing Gastrointestinal : No Nausea, No Vomiting, No Diarrhea, No abdominal Pain, No Hematochezia, No Melena Genitourinary : No irregular bleeding, No Dysuria, No Urinary Frequency, No Hematuria, No Urinary Incontinence, No Urgency, No Flank Pain, No Urinary Flow Changes, No Hesitancy Musculoskeletal : No joint pain, No Myalgias, No Joint Swelling Skin : No Skin Lesions, No rash Neuro : No Weakness, No Numbness, No Paresthesias, No Loss of Consciousness, No Dizziness, No Headache Psych : No Anxiety/Panic, No Depression, No SI/HI/AH/VH Heme/Lymph: No Bruising, No Bleeding,No Lymphadenopathy Endocrine : No Polyuria, No Polydipsia, No Temperature Intolerance Yes all other systems are reviewed and are negative [facility] Past Medical History Attestation statement: The following information was validated with the patient. Medical History Asthma Colon cancer Diabetes mellitus, type 2 Hypercholesteremia Hypertension Palpitations Family History Family History Other Family history non-contributory Social History Social History Alcohol intake: current Alcohol intake frequency: does not drink Alcohol type: beer Smoking Status: Never smoker Smoked in Last 30 Days: No Use of substances other than those prescribed or required for medical reasons: No Advance Directives: Yes Advance Directives on File: Yes Advance Directives Date on File: 04/12/20 Physical Exam Vital Signs: Vital Signs: Last Vital Signs Temp 98.8 F 05/21/20 16:05 Pulse 83 05/21/20 16:43 Resp 22 H 05/21/20 16:43 BP 131/56 L 05/21/20 16:43 Pulse Ox 95 05/21/20 16:43 Body Mass Index 35.4 Vital signs have been reviewed as normal and appeared to be correct. Blood pressure hypertensive 142/58. Heart rate tachycardic at 96. Respiration rate tachypneic at 24. Temperature normal. Oxygen saturation normal. Appearance: Alert. Oriented X3. No acute distress. Head: Normal external exam. Normocephalic. Atraumatic. Able to rotate head bilaterally. Eyes: PERRLA. EOMI. No nystagmus noted. Conjunctiva and sclera normal. Eyelids normal. Corneal reflex normal. ENT: EAC normal. TM's Normal. Hearing normal. Pharynx normal. Uvula midline. tongue midline. Moist mucous membranes. No trismus noted. No drooling noted. No muffled voice noted. No nystagmus noted. Neck: Normal inspection. Neck supple. FROM. No adenopathy. Trachea midline. Thyroid Normal. No meningeal signs. No neck mass noted. CVS: Normal heart rate and rhythm. Heart sound normal. No murmurs noted. Pulses normal throughout. Respiratory: No respiratory distress. Painless inspiration. Breath sounds normal. No wheezes/rales/rhonchi noted. Chest nontender. No accessory muscle usage noted or decreased air movement noted. Abdomen: Soft and nontender. Bowel sounds normal in all 4 quadrants. No distention noted. No organomegaly noted. No visible injury noted. Back: No CVA tenderness. Full range of motion noted. Skin: Skin warm and dry. Normal skin color. Normal skin turgor. No rashes/lesions/lacerations noted. Extremities: No lower extremity edema. Extremities exhibit normal range of motion. Extremities nontender. Able to shrug shoulders bilaterally and keep up against resistance. Neuro: Oriented X 3. No motor deficit. No sensory deficit. Reflexes normal. Moving all extremities. No focal motor deficits. Cranial nerves II-XI intact bilaterally. Facial strength normal. Normal cognition. Speech normal. Gait normal. Strength 5/5 throughout. No pronator drift. No tremor noted. No fasciculations noted. No rigidity noted. Muscle tone normal throughout. No asterixis noted. Course Course Course Narrative: 17pm [place] [address] - mild baseline anemia. - D-dimer 552 - sodium 134 - magnesium 1.4 - troponin 33.0 - other COVID labs elevated - otherwise all other labs are normal - CTA of chest for PE negative for PE although revealed COVID appearing lungs. - the patient's magnesium with IV 2 g of magnesium although patient refused therefore given p.o. 100 mg of magnesium. - EKG was normal sinus rhythm with nonspecific ST wave abnormalities no acute ischemic changes and similar when compared to prior EKG on 04/12/2020 - sign out to VITO Baer pending repeat troponin and walking pulse oximetry test for possible discharge versus admit patient understands agrees with this plan. MDM - SOB/Dyspnea MDM Narrative Medical decision making narrative: 12:51pm - 65-year-old male who was recently seen here on 05/15/2020 and diagnosed with COVID sent home with Decadron, doxycycline and Robitussin with codeine presenting to the ED with complaints of worsening fevers, shortness of breath, dyspnea on exertion, orthopnea, productive cough and chest discomfort over the past 6 days worse today. - on exam patient is alert and oriented x3. Not in any acute distress. Mildly hypertensive, tachycardic, tachypneic although oxygen saturations 93% on room air. - Concern for PE vs CHF vs ACS vs PNA - Plan: Labs, EKG, CT scan of chest for PE, blood cultures, lactic acid. Start the patient on 750 mg of Levaquin and give the patient a L of IV fluids and re- evaluate. Medical Records Attestation: I reviewed the patient's medical records. Lab Data Attestation: I reviewed the patient's lab results. Result diagrams: 05/21/20 14:33 05/21/20 14:33 Labs: Lab Results 05/21/20 05/21/20 05/21/20 Range/Units 14:33 14:33 14:33 WBC 13.1 H (4.8-10.8) X10*3/uL RBC 4.98 (4.60-5.80) X10*6/uL Hgb 11.3 L (14.0-18.0) g/dl Hct 37.2 L (42-52) % MCV 74.7 L (80-98) fL MCH 22.7 L (27.0-33.0) pg MCHC 30.4 L (31.0-36.0) g/dl RDW 17.7 H (11.0-16.0) % Plt Count 229 D (160-400) X10*3/uL MPV 11.7 (9.4-12.4) fL Immature Gran % (Auto) 1.0 H (0.0-0.4) % Neut % (Auto) 89.3 H (45-73) % Lymph % (Auto) 4.7 L (20-40) % [place] % (Auto) 4.8 (2-11) % Eos % (Auto) 0.0 (0-4) % Baso % (Auto) 0.2 (0-2) % Lymph # (Auto) 0.6 L (1.2-4.9) X10*3/uL [place] # (Auto) 0.6 (0.1-1.2) X10*3/uL Eos # (Auto) 0.0 (0.0-0.4) X10*3/uL Baso # (Auto) 0.0 (0.0-0.2) X10*3/uL Abs Immat Gran (auto) 0.13 H (0.00-0.03) X10*3/uL Absolute Neuts (auto) 11.7 H (2.0-8.3) X10*3/uL Absolute Nucleated RBC 0.020 H (0.0-0.012) X10*3/uL Nucleated RBC % (auto) 0.2 (0.0-0.2) /100WBC Smear Tech's Comments VERIFIED PT 15.2 H (10.8-13.0) SEC INR 1.3 H (0.9-1.1) APTT 27.7 (24.1-38.0) SEC D-Dimer 552 NG/ML Sodium 134 L (135-145) mmol/L Potassium 4.1 (3.3-5.1) mmol/L Chloride 102 (96-108) mmol/L Carbon Dioxide 22 (22-29) mmol/L Anion Gap 14 (12-20) BUN 16 (9-16) mg/dL Creatinine 0.74 (0.5-1.4) mg/dL Estim Creat Clear Calc 97.8 Estimated GFR > 60 Random Glucose 185 H D (60-115) mg/dL Lactic Acid (0.5-2.0) mmol/L Calcium 8.4 (8.4-10.2) mg/dL Magnesium 1.4 L* (1.6-2.6) mg/dL Ferritin 41 (20-250) ng/mL Total Bilirubin 0.7 (0.0-1.0) mg/dL AST 26 (5-37) U/L ALT 27 (0-40) U/L Alkaline Phosphatase 104 (39-117) U/L Lactate Dehydrogenase 303 H (118-273) U/L Troponin I High Sens (<3.5-35.0) ng/L C-Reactive Protein 5.29 H (< or = 0.50) mg/dL B-Natriuretic Peptide (<100) pg/mL Total Protein 6.7 (6.5-8.0) g/dL Albumin 3.5 (3.5-5.0) g/dL Procalcitonin ng/mL Ethyl Alcohol mg/dL 05/21/20 05/21/20 05/21/20 Range/Units 14:33 14:34 14:34 WBC (4.8-10.8) X10*3/uL RBC (4.60-5.80) X10*6/uL Hgb (14.0-18.0) g/dl Hct (42-52) % MCV (80-98) fL MCH (27.0-33.0) pg MCHC (31.0-36.0) g/dl RDW (11.0-16.0) % Plt Count (160-400) X10*3/uL MPV (9.4-12.4) fL Immature Gran % (Auto) (0.0-0.4) % Neut % (Auto) (45-73) % Lymph % (Auto) (20-40) % [place] % (Auto) (2-11) % Eos % (Auto) (0-4) % Baso % (Auto) (0-2) % Lymph # (Auto) (1.2-4.9) X10*3/uL [place] # (Auto) (0.1-1.2) X10*3/uL Eos # (Auto) (0.0-0.4) X10*3/uL Baso # (Auto) (0.0-0.2) X10*3/uL Abs Immat Gran (auto) (0.00-0.03) X10*3/uL Absolute Neuts (auto) (2.0-8.3) X10*3/uL Absolute Nucleated RBC (0.0-0.012) X10*3/uL Nucleated RBC % (auto) (0.0-0.2) /100WBC Smear Tech's Comments PT (10.8-13.0) SEC INR (0.9-1.1) APTT (24.1-38.0) SEC D-Dimer NG/ML Sodium (135-145) mmol/L Potassium (3.3-5.1) mmol/L Chloride (96-108) mmol/L Carbon Dioxide (22-29) mmol/L Anion Gap (12-20) BUN (9-16) mg/dL Creatinine (0.5-1.4) mg/dL Estim Creat Clear Calc Estimated GFR Random Glucose (60-115) mg/dL Lactic Acid (0.5-2.0) mmol/L Calcium (8.4-10.2) mg/dL Magnesium (1.6-2.6) mg/dL Ferritin (20-250) ng/mL Total Bilirubin (0.0-1.0) mg/dL AST (5-37) U/L ALT (0-40) U/L Alkaline Phosphatase (39-117) U/L Lactate Dehydrogenase (118-273) U/L Troponin I High Sens 33.0 (<3.5-35.0) ng/L C-Reactive Protein (< or = 0.50) mg/dL B-Natriuretic Peptide 93 (<100) pg/mL Total Protein (6.5-8.0) g/dL Albumin (3.5-5.0) g/dL Procalcitonin 0.04 ng/mL Ethyl Alcohol < 10 mg/dL 05/21/20 Range/Units 14:37 WBC (4.8-10.8) X10*3/uL RBC (4.60-5.80) X10*6/uL Hgb (14.0-18.0) g/dl Hct (42-52) % MCV (80-98) fL MCH (27.0-33.0) pg MCHC (31.0-36.0) g/dl RDW (11.0-16.0) % Plt Count (160-400) X10*3/uL MPV (9.4-12.4) fL Immature Gran % (Auto) (0.0-0.4) % Neut % (Auto) (45-73) % Lymph % (Auto) (20-40) % [place] % (Auto) (2-11) % Eos % (Auto) (0-4) % Baso % (Auto) (0-2) % Lymph # (Auto) (1.2-4.9) X10*3/uL [place] # (Auto) (0.1-1.2) X10*3/uL Eos # (Auto) (0.0-0.4) X10*3/uL Baso # (Auto) (0.0-0.2) X10*3/uL Abs Immat Gran (auto) (0.00-0.03) X10*3/uL Absolute Neuts (auto) (2.0-8.3) X10*3/uL Absolute Nucleated RBC (0.0-0.012) X10*3/uL Nucleated RBC % (auto) (0.0-0.2) /100WBC Smear Tech's Comments PT (10.8-13.0) SEC INR (0.9-1.1) APTT (24.1-38.0) SEC D-Dimer NG/ML Sodium (135-145) mmol/L Potassium (3.3-5.1) mmol/L Chloride (96-108) mmol/L Carbon Dioxide (22-29) mmol/L Anion Gap (12-20) BUN (9-16) mg/dL Creatinine (0.5-1.4) mg/dL Estim Creat Clear Calc Estimated GFR Random Glucose (60-115) mg/dL Lactic Acid 1.7 (0.5-2.0) mmol/L Calcium (8.4-10.2) mg/dL Magnesium (1.6-2.6) mg/dL Ferritin (20-250) ng/mL Total Bilirubin (0.0-1.0) mg/dL AST (5-37) U/L ALT (0-40) U/L Alkaline Phosphatase (39-117) U/L Lactate Dehydrogenase (118-273) U/L Troponin I High Sens (<3.5-35.0) ng/L C-Reactive Protein (< or = 0.50) mg/dL B-Natriuretic Peptide (<100) pg/mL Total Protein (6.5-8.0) g/dL Albumin (3.5-5.0) g/dL Procalcitonin ng/mL Ethyl Alcohol mg/dL Imaging Data CTA of chest for PE: Attestation: I personally reviewed and interpreted this imaging study as follows: Radiologist's impression: FINDINGS: QUALITY OF STUDY/CONTRAST BOLUS: Satisfactory. PULMONARY ARTERIES: No central or segmental pulmonary emboli. THORACIC AORTA: No aneurysm or dissection. LUNG: New diffuse groundglass scattered patchy peripheral infiltrates are present throughout the lungs. PLEURA: No significant pleural effusion or pneumothorax. MEDIASTINUM: Normal heart size. No pericardial effusion. No hilar or mediastinal lymphadenopathy. No evidence of septal bowing or right heart strain. CHEST WALL/AXILLA: No axillary or internal mammary lymphadenopathy. OSSEOUS STRUCTURES: No acute or suspicious osseous abnormality. UPPER ABDOMEN: Unremarkable. No reflux of contrast into the hepatic veins to suggest elevated right heart pressures. CT/CT angio chest PE protocol IMPRESSION: 1. No pulmonary emboli 2. Commonly reported imaging features of Covid 19 or viral pneumonia are present with diffuse patchy peripheral groundglass infiltrates. Other processes such as influenza pneumonia or organizing pneumonia, as can be seen with drug toxicity and connective tissue disease, can cause a similar imaging pattern. VTE: negative ECG Data Attestation: I personally reviewed and interpreted this ECG as follows: ECG interpretation date: 05/21/20 ECG interpretation time: 14:55 Interpretation: Normal sinus rhythm with a ventricular rate of 83 with premature atrial complexes with nonspecific T-wave abnormalities no acute ischemic changes noted. Similar when compared to prior EKG 04/12/2020. Critical Care Time Critical Care Time Critical Care Time: Yes Total Critical Care Time: 60 Attestation: I personally attest to this time spent taking care of the patient Discharge Plan Discharge Clinical Impression: COVID-19, Viral sepsis Prescriptions: No Action Lantus Solostar U-100 Insulin 100 unit/mL (3 mL) insulin pen 10 unit subcut DAILY RF: 0 dexamethasone 6 mg Tablet 6 mg PO DAILY RF: 0 metronidazole 0.75 % Cream 1 applic TOPICAL DAILY RF: 0 atorvastatin 80 mg Tablet 80 mg PO BEDTIME RF: 0 carvedilol 3.125 mg Tablet 3.125 mg PO BID RF: 0 omeprazole 20 mg Capsule,Delayed Release(Dr/Ec) 20 mg PO DAILY RF: 0 aspirin 81 mg Tablet 81 mg PO DAILY RF: 0 fluoxetine 20 mg Capsule 20 mg PO DAILY@1200 RF: 0 Flovent HFA 110 mcg/actuation Hfa Aerosol Inhaler 2 puff INHALATION BID RF: 0 magnesium oxide 400 mg magnesium Tablet 400 mg PO BID RF: 0 trazodone 50 mg Tablet 50 mg PO BEDTIME RF: 0 doxycycline hyclate 100 mg Capsule 100 mg PO BID RF: 0
[2020-05-21 15:35] LABS: Ferritin 41 ng/mL (20-250)
[2020-05-21 15:38] LABS: Magnesium 1.4 mg/dL (1.6-2.6)
[2020-05-21] MEDS: iohexoL 300 MG/ML 100 ML INFUS..BTL IV (16:41)
[2020-05-21] MEDS: Magnesium Oxide 400 MG TABLET 800 MG PO (17:07)
[2020-05-21 17:50] LABS: Troponin-I High Sensitivity 36.9 ng/L (<3.5-35.0)
[2020-05-21] MEDS: Albuterol Sulfate (0.083%) 2.5 MG/3 ML VIAL.NEB 5 MG INHALE (17:57)
--- NOTE | 2020-05-21 18:53 | PM.IMHP ---
History of Present Illness Date of Service: 05/21/20 Chief Complaint: sob 65-year-old male presented with shortness of breath. Patient was diagnosed with COVID pneumonia on 05/15/2020. At that time he was not hypoxic and was discharged home with oral dexamethasone and doxycycline. Patient is unclear of the timeline and does not know the source of his infection. Has been approximately 2 weeks of illness. Patient is complaining of fevers, chills, shortness of breath. He is not improved since his last ED visit and has actually been feeling worse on day of admission therefore he came to the ED. in ED was noted to be hypoxic to 88% on room air. CTA did not show PE but did show worsening opacities. He was given IV dexamethasone and admission requested. Review of Systems Review of Systems: Constitutional:fever, Chills Eyes: denies blurry vision ENT: denies sore throat CVS: right sided basilar chest pain Respiratory: dyspnea GI: no abdominal pain : denies dysuria MSK: denies neck pain Skin: denies rash Neuro: denies specific motor weakness Psych: denies suicidal ideation Endocrine: denies heat/cold intoleratnce Hematologic: denies easy bleeding Allergy: denies hives [facility] Medical History Asthma Colon cancer Diabetes mellitus, type 2 Hypercholesteremia Hypertension Palpitations Family History Other Family history non-contributory Social History Alcohol intake: current Alcohol intake frequency: does not drink Alcohol type: beer Smoking Status: Former smoker Smoked in Last 30 Days: No Use of substances other than those prescribed or required for medical reasons: No Advance Directives: Yes Advance Directives on File: Yes Advance Directives Date on File: 04/12/20 Meds Allergies Allergy/AdvReac Type Severity Reaction Status Date / Time nitroglycerin Allergy Severe AGITATION Verified 04/15/20 08:17 [From NITROSTAT] oxaliplatin [OXALIPLATIN] Allergy Severe anaphylaxis Verified 04/15/20 08:17 diphenhydramine Allergy Intermediate RASH Verified 04/15/20 08:17 [From MOTRIN PM] ibuprofen [From ADVIL] Allergy Unknown RASH Verified 04/15/20 08:17 morphine Allergy Unknown painful Verified 04/15/20 08:17 rash oxcarbazepine Allergy Unknown rash, Verified 04/15/20 08:17 [From TRILEPTAL] coughing penicillin V Allergy Unknown rash Verified 04/15/20 08:17 Penicillins [PENICILLINS] Allergy Unknown ITCHING, Verified 04/15/20 08:17 RASH Benadryl Allergy Unknown rash Uncoded 04/12/20 04:48 Active Medications: Current Medications Generic Name Dose Route Start Last Admin Trade Name Freq PRN Reason Stop Dose Admin Pharmacy Consult 1 each 05/21/20 12:51 Consult Rx Perform Med Rec MISCELLANE ONCE PRN Consult order Home Medications Medication Instructions Recorded Confirmed Last Taken Type aspirin 81 mg PO DAILY 11/18/19 05/21/20 05/21/20 History atorvastatin 80 mg PO BEDTIME 11/18/19 05/21/20 05/20/20 History carvedilol 3.125 mg PO BID 11/18/19 05/21/20 05/21/20 History fluoxetine 20 mg PO DAILY@1200 11/18/19 05/21/20 05/20/20 History fluticasone propionate [Flovent 2 puff INHALATION BID 11/18/19 05/21/20 05/21/20 History HFA] magnesium oxide 400 mg PO BID 11/18/19 05/21/20 05/21/20 History metronidazole 1 applic TOPICAL DAILY 11/18/19 05/21/20 05/21/20 History omeprazole 20 mg PO DAILY 11/18/19 05/21/20 05/21/20 History trazodone 50 mg PO BEDTIME 11/18/19 05/21/20 05/20/20 History doxycycline hyclate 100 mg PO BID 05/04/20 05/21/20 05/21/20 History dexamethasone 6 mg PO DAILY 05/21/20 05/21/20 Unknown History insulin glargine [Lantus Solostar 10 unit SUBCUT DAILY 05/21/20 05/21/20 05/21/20 History U-100 Insulin] Physical Exam Vital Signs and Narrative: Vital Signs: Last Vital Signs Temp 98.8 F 05/21/20 16:05 Pulse 87 05/21/20 18:04 Resp 22 H 05/21/20 16:43 BP 131/56 L 05/21/20 16:43 Pulse Ox 94 05/21/20 17:51 Body Mass Index 35.4 General: ill appearing, obese male, short of breath, diaphoretic, using accessory muscles HEENT: atraumatic Neck: normal to visual inspection CVS: S1, S2, RRR Resp: Crackles Chest: non tender GI: soft, non tender, non distended : no CVA tenderness Skin: no rashes Extremities: no edema Neuro: Oriented X3, grossly intact Psych: cooperative Results Labs CBC and Chem 7: 05/21/20 14:33 05/21/20 14:33 Labs: Laboratory Results - last 24 hr 05/21/20 05/21/20 05/21/20 14:33 14:33 14:33 MCV 74.7 L MCH 22.7 L MCHC 30.4 L RDW 17.7 H Plt Count 229 D MPV 11.7 Immature Gran % (Auto) 1.0 H Neut % (Auto) 89.3 H Lymph % (Auto) 4.7 L [place] % (Auto) 4.8 Eos % (Auto) 0.0 Baso % (Auto) 0.2 Lymph # (Auto) 0.6 L [place] # (Auto) 0.6 Eos # (Auto) 0.0 Baso # (Auto) 0.0 Abs Immat Gran (auto) 0.13 H Absolute Neuts (auto) 11.7 H Absolute Nucleated RBC 0.020 H Nucleated RBC % (auto) 0.2 Smear Tech's Comments VERIFIED PT 15.2 H INR 1.3 H APTT 27.7 D-Dimer 552 Anion Gap 14 Estim Creat Clear Calc 97.8 Estimated GFR > 60 Random Glucose 185 H D Lactic Acid Calcium 8.4 Magnesium 1.4 L* Ferritin 41 Total Bilirubin 0.7 AST 26 ALT 27 Alkaline Phosphatase 104 Lactate Dehydrogenase 303 H Troponin I High Sens C-Reactive Protein 5.29 H B-Natriuretic Peptide Total Protein 6.7 Albumin 3.5 Procalcitonin Ethyl Alcohol 05/21/20 05/21/20 05/21/20 14:33 14:34 14:34 MCV MCH MCHC RDW Plt Count MPV Immature Gran % (Auto) Neut % (Auto) Lymph % (Auto) [place] % (Auto) Eos % (Auto) Baso % (Auto) Lymph # (Auto) [place] # (Auto) Eos # (Auto) Baso # (Auto) Abs Immat Gran (auto) Absolute Neuts (auto) Absolute Nucleated RBC Nucleated RBC % (auto) Smear Tech's Comments PT INR APTT D-Dimer Anion Gap Estim Creat Clear Calc Estimated GFR Random Glucose Lactic Acid Calcium Magnesium Ferritin Total Bilirubin AST ALT Alkaline Phosphatase Lactate Dehydrogenase Troponin I High Sens 33.0 C-Reactive Protein B-Natriuretic Peptide 93 Total Protein Albumin Procalcitonin 0.04 Ethyl Alcohol < 10 05/21/20 05/21/20 14:37 17:11 MCV MCH MCHC RDW Plt Count MPV Immature Gran % (Auto) Neut % (Auto) Lymph % (Auto) [place] % (Auto) Eos % (Auto) Baso % (Auto) Lymph # (Auto) [place] # (Auto) Eos # (Auto) Baso # (Auto) Abs Immat Gran (auto) Absolute Neuts (auto) Absolute Nucleated RBC Nucleated RBC % (auto) Smear Tech's Comments PT INR APTT D-Dimer Anion Gap Estim Creat Clear Calc Estimated GFR Random Glucose Lactic Acid 1.7 Calcium Magnesium Ferritin Total Bilirubin AST ALT Alkaline Phosphatase Lactate Dehydrogenase Troponin I High Sens 36.9 H C-Reactive Protein B-Natriuretic Peptide Total Protein Albumin Procalcitonin Ethyl Alcohol Imaging Radiologist's Impressions: Impressions Chest CTA 05/21/20 12:51 IMPRESSION: 1. No pulmonary emboli 2. Commonly reported imaging features of Covid 19 or viral pneumonia are present with diffuse patchy peripheral groundglass infiltrates. Other processes such as influenza pneumonia or organizing pneumonia, as can be seen with drug toxicity and connective tissue disease, can cause a similar imaging pattern. VTE: negative Assessment and Plan (1) Acute respiratory failure with hypoxia: Status: Acute 65M with known covid for about 2 weeks, presented with sob acute hypoxic respiratory failure due to covid pneumonia high risk of adverse outcome due to obesity, DM, colon cancer on chemo decadron, o2 for saturation 91-94% DM insulin colon ca outpatient follow up HTN coreg hld statin
--- NOTE | 2020-05-21 19:13 | PC.NURSE ---
Patient out of bed to bathroom at this time. Ambulates with slow steady gait. Updraft briefly stopped while in bathroom and resumed upon return to ED Bed 3. Will continue to monitor.
--- NOTE | 2020-05-21 19:57 | PC.NURSE ---
Report given to DHEERAJ Segura on [facility]. Preparing for transport to room 475 via stretcher. Pt refusing oxygen use, but oxygen tank & tubing on stretcher for transport/transfer. Placed on cardiac monitoring without issue.
[2020-05-21 20:52] LABS: Glucose, Whole Blood 192 mg/dL (60-115)
[2020-05-21] MEDS: Enoxaparin Sodium 40 MG/0.4 ML SYRINGE SUBCUT (20:55)
[2020-05-21] MEDS: Atorvastatin Calcium 80 MG TABLET PO (20:55)
[2020-05-21] MEDS: traZODone HCL 50 MG TABLET PO (20:55)
[2020-05-21] MEDS: carvediloL 3.125 MG TABLET PO (20:55)
[2020-05-21] MEDS: Magnesium Oxide 400 MG TABLET PO (20:56)
[2020-05-21] MEDS: Insulin Lispro 100 UNIT/ML 3 ML VIAL SUBCUT (20:56)
[2020-05-21] MEDS: 0.9 % Sodium Chloride Flush 3 ML SYRINGE IVFLUSH (20:56)
[2020-05-22] VITALS (9 sets, daily range): BP systolic 106–148; BP diastolic 59–68; PULSE 79–126; RESP 17–25; TEMP 36.2–38.6; O2SAT 92–98
[2020-05-22] MEDS: Acetaminophen 325 MG TABLET 650 MG PO ×3 (04:53→21:33)
[2020-05-22 07:15] LABS: Basophils Percent Auto 0.2 % (0-2); Hematocrit 37.2 % (42-52); Hemoglobin 11.4 g/dl (14.0-18.0); Imm Gran Abs Auto 0.09 X10*3/uL (0.00-0.03); Imm Gran Pct Auto 0.8 % (0.0-0.4); Lymphocytes Absolute Auto 0.7 X10*3/uL (1.2-4.9); Lymphocytes Percent Auto 6.2 % (20-40); MANUAL DIFF FLAG SCAN; Mean Corpuscular HGB Conc 30.6 g/dl (31.0-36.0); Mean Corpuscular Hemoglobin 22.8 pg (27.0-33.0); Mean Corpuscular Volume 74.4 fL (80-98); Mean Platelet Volume 11.8 fL (9.4-12.4); Monocytes Absolute Auto 0.4 X10*3/uL (0.1-1.2); Monocytes Percent Auto 3.9 % (2-11); Neutrophils Absolute Auto 9.7 X10*3/uL (2.0-8.3); Neutrophils Percent Auto 88.9 % (45-73); Platelet Count 246 X10*3/uL (160-400); Red Cell Distribution Width 17.8 % (11.0-16.0); SCAN SMEAR FLAG 1; White Blood Count 10.9 X10*3/uL (4.8-10.8)
[2020-05-22 07:36] LABS: Anion Gap 15 (12-20); Blood Urea Nitrogen 16 mg/dL (9-16); Calcium 8.5 mg/dL (8.4-10.2); Carbon Dioxide 24 mmol/L (22-29); Chloride 101 mmol/L (96-108); Creatinine Clr Calc Pharmacy 100.4; Estimated Glomerular Filt Rate > 60; Glucose Random 140 mg/dL (60-115); Magnesium 1.7 mg/dL (1.6-2.6); Potassium 4.5 mmol/L (3.3-5.1); Sodium 135 mmol/L (135-145)
[2020-05-22 07:57] LABS: Glucose, Whole Blood 135 mg/dL (60-115)
[2020-05-22 07:58] LABS: SLIDE REVIEW VERIFIED
[2020-05-22] MEDS: carvediloL 3.125 MG TABLET PO ×2 (08:14→21:20)
[2020-05-22] MEDS: Magnesium Oxide 400 MG TABLET PO ×2 (08:15→21:20)
[2020-05-22] MEDS: Omeprazole 20 MG CAPSULE.DR PO (08:15)
[2020-05-22] MEDS: Aspirin Enteric Coated 81 MG TABLET.DR PO (08:15)
[2020-05-22] MEDS: Insulin Glargine,Hum.rec.anlog 100 UNIT/ML 10 ML VIAL 10 UNIT SUBCUT (08:16)
[2020-05-22] MEDS: 0.9 % Sodium Chloride Flush 3 ML SYRINGE IVFLUSH ×3 (08:32→21:21)
--- NOTE | 2020-05-22 10:32 | P.PNIM_ITS ---
Subjective Subjective Date of Service: 05/22/20 Interval History: a bit better today, still sob Cardiovascular Cardiovascular: Reports no additional cardiovascular complaints Gastrointestinal Gastrointestinal: Reports no additional gastrointestinal complaints Physical Exam Vital Signs: Vital Signs: Last Vital Signs Temp 98.2 F 05/22/20 07:45 Pulse 82 05/22/20 08:14 Resp 20 05/22/20 07:45 BP 125/66 05/22/20 08:14 Pulse Ox 94 05/22/20 07:45 Body Mass Index 38.2 General: AO X 3, looks better than yesterday but still diaphoretic, sob Resp: diminished CVS: S1,S2,RRR GI: soft, non tender, non distended Neuro: motor grossly intact Psych: appropriate affect Objective Data Current Medications Generic Name Dose Route Start Last Admin Trade Name Freq PRN Reason Stop Dose Admin Acetaminophen 650 mg 05/21/20 20:40 05/22/20 04:53 Acetaminophen 325 Mg Tablet PO 650 mg Q6H PRN Administration Pain, Mild (Pain Scale 1-3) Aspirin 81 mg 05/22/20 09:00 05/22/20 08:15 Aspirin Enteric Coated 81 Mg Tablet.Dr PO 81 mg DAILY PAMELA Administration Atorvastatin Calcium 80 mg 05/21/20 21:00 05/21/20 20:55 Atorvastatin Calcium 80 Mg Tablet PO 80 mg BEDTIME PAMELA Administration Carvedilol 3.125 mg 05/21/20 21:00 05/22/20 08:14 Carvedilol 3.125 Mg Tablet PO 3.125 mg BID PAMELA Administration Protocol Dexamethasone Sodium Phosphate 6 mg 05/22/20 09:00 Dexamethasone Sod Phosphate 4 Mg/Ml Vial IVPUSH DAILY [facility] Enoxaparin Sodium 40 mg 05/21/20 20:40 05/21/20 20:55 Enoxaparin Sodium 40 Mg/0.4 Ml Syringe SUBCUT 40 mg Q24H PAMELA Administration Fluoxetine HCl 20 mg 05/22/20 12:00 Fluoxetine Hcl 20 Mg Capsule PO DAILY@1200 [facility] Fluticasone Propionate 2 puff 05/21/20 20:51 05/22/20 03:59 Fluticasone Propionate 100 Mcg Blst.W.Dev INHALE Not Given RBID [facility] Insulin Glargine 10 unit 05/22/20 09:00 05/22/20 08:16 Insulin Glargine,Hum.Rec.Anlog 100 Unit/Ml 10 Ml Vial SUBCUT 10 unit DAILY PAMELA Administration Insulin Human Lispro 0 unit 05/21/20 21:00 05/22/20 07:59 Insulin Lispro 100 Unit/Ml 3 Ml Vial SUBCUT Not Given QIDACHS [facility] Protocol Magnesium Oxide 400 mg 05/21/20 21:00 05/22/20 08:15 Magnesium Oxide 400 Mg Tablet PO 400 mg BID PAMELA Administration Omeprazole 20 mg 05/22/20 09:00 05/22/20 08:15 Omeprazole 20 Mg Capsule. PO 20 mg DAILY PAMELA Administration Pharmacy Consult 1 each 05/21/20 12:51 Consult Rx Perform Med Rec MISCELLANE ONCE PRN Consult order Sodium Chloride 3 ml 05/22/20 00:00 05/22/20 08:32 0.9 % Sodium Chloride Flush 3 Ml Syringe IVFLUSH 3 ml QSHIFT [facility] Administration Trazodone HCl 50 mg 05/21/20 21:00 05/21/20 20:55 Trazodone Hcl 50 Mg Tablet PO 50 mg BEDTIME [facility] Administration Labs CBC & Chem 7: 05/22/20 06:29 05/22/20 06:29 Assessment and Plan (1) Acute respiratory failure with hypoxia: Status: Acute Assessment and Plan: 65M with known covid for about 2 weeks, presented with sob acute hypoxic respiratory failure due to covid pneumonia high risk of adverse outcome due to obesity, DM, colon cancer on chemo decadron day 03/17, o2 for saturation 91-94% wean as tolerated DM insulin colon ca outpatient follow up HTN coreg hld statin
[2020-05-22] MEDS: dexAMETHasone sod phosphate 4 MG/ML VIAL 6 MG IVPUSH (11:17)
[2020-05-22] MEDS: Fluticasone Propionate 100 MCG BLST.W.DEV 2 PUFF INHALE ×2 (11:19→21:32)
[2020-05-22 11:53] LABS: Glucose, Whole Blood 108 mg/dL (60-115)
[2020-05-22] MEDS: FLUoxetine HCl 20 MG CAPSULE PO (13:35)
--- NOTE | 2020-05-22 14:35 | PC.NURSE ---
Addendum entered by Breanna Rogers, RN 05/22/20 17:16: Pt. c/o dizziness and SOB, sats at 89% on 15L via oximizer, temp of 101.4- given tylenol as ordered, Dr. Maldonado notified and patient was placed on high flow at 50L and 60% Fi02, states he's feeling better now Original Note: Now on oximizer at 6L with sats 94% Pt. on O2=2L NC throughout morning, got OOB to walk to bathroom at 1300 and desaturated into low 80s, pt. c/o dizziness, respiratory therapy noted and they recommended Venti mask at 55%, mask placed on patient with immediate improvement in sats to 90%, pt. later switched to oximizer at 6L with sats at 94%, pt. instructed to void in urinal and ring call recinos before getting up, resting in bed, call recinos in reach, will continue to monitor
[2020-05-22 14:51] LABS: Glucose Urine UA NEG (NEG); Leukocyte Esterase Urine NEG (NEG); Nitrite Urine NEG (NEG); Specific Gravity - Urine >= 1.030 (1.005-1.025); Urine Blood 1+ (NEG); Urine Ketones NEG (NEG); Urine Protein 2+ MG/DL (NEG-TRACE)
[2020-05-22 14:52] LABS: Appearance Urine CLEAR; Color Urine AMBER
[2020-05-22 15:15] LABS: RBC Urine 0-2 /HPF (0); Squamous Epithelial Cell Urine 1+ /LPF; WBC Urine 0-2 /HPF (0-4)
[2020-05-22 15:54] LABS: Glucose, Whole Blood 154 mg/dL (60-115)
[2020-05-22 20:49] LABS: Glucose, Whole Blood 138 mg/dL (60-115)
[2020-05-22] MEDS: traZODone HCL 50 MG TABLET PO (21:19)
[2020-05-22] MEDS: Atorvastatin Calcium 80 MG TABLET PO (21:20)
[2020-05-22] MEDS: Enoxaparin Sodium 40 MG/0.4 ML SYRINGE SUBCUT (21:21)
[2020-05-23] VITALS (14 sets, daily range): BP systolic 122–149; BP diastolic 57–73; PULSE 56–88; RESP 18–20; TEMP 36–37.2; O2SAT 90–98
[2020-05-23 07:15] LABS: Glucose, Whole Blood 107 mg/dL (60-115)
[2020-05-23] MEDS: Fluticasone Propionate 100 MCG BLST.W.DEV 2 PUFF INHALE ×2 (07:39→20:28)
[2020-05-23] MEDS: Omeprazole 20 MG CAPSULE.DR PO (08:04)
[2020-05-23] MEDS: carvediloL 3.125 MG TABLET PO (08:04)
[2020-05-23] MEDS: Acetaminophen 325 MG TABLET 650 MG PO ×2 (08:04→21:08)
[2020-05-23] MEDS: dexAMETHasone sod phosphate 4 MG/ML VIAL 6 MG IVPUSH (08:04)
[2020-05-23] MEDS: Magnesium Oxide 400 MG TABLET PO ×2 (08:04→21:08)
[2020-05-23] MEDS: Aspirin Enteric Coated 81 MG TABLET.DR PO (08:04)
[2020-05-23] MEDS: Insulin Glargine,Hum.rec.anlog 100 UNIT/ML 10 ML VIAL 10 UNIT SUBCUT (08:05)
[2020-05-23] MEDS: 0.9 % Sodium Chloride Flush 3 ML SYRINGE IVFLUSH ×2 (08:05→21:11)
--- NOTE | 2020-05-23 10:27 | P.PNIM_ITS ---
Subjective Subjective Date of Service: 05/23/20 Interval History: actually says he is feeling better despite fever and significant increase in o2 requirements Cardiovascular Cardiovascular: Reports no additional cardiovascular complaints Respiratory Respiratory: Reports no additional respiratory complaints Physical Exam Vital Signs: Vital Signs: Last Vital Signs Temp 99.0 F 05/23/20 07:40 Pulse 82 05/23/20 08:04 Resp 18 05/23/20 07:46 BP 122/60 05/23/20 08:04 Pulse Ox 94 05/23/20 07:40 Body Mass Index 38.2 General: AO X 3, does not appear to be in acute distress or tachypneic despite high o2 requirements Resp: diminished CVS: S1,S2,RRR GI: soft, non tender, non distended Neuro: motor grossly intact Psych: appropriate affect Objective Data Current Medications Generic Name Dose Route Start Last Admin Trade Name Freq PRN Reason Stop Dose Admin Acetaminophen 650 mg 05/21/20 20:40 05/23/20 08:04 Acetaminophen 325 Mg Tablet PO 650 mg Q6H PRN Administration Pain, Mild (Pain Scale 1-3) Aspirin 81 mg 05/22/20 09:00 05/23/20 08:04 Aspirin Enteric Coated 81 Mg Tablet.Dr PO 81 mg DAILY PAMELA Administration Atorvastatin Calcium 80 mg 05/21/20 21:00 05/22/20 21:20 Atorvastatin Calcium 80 Mg Tablet PO 80 mg BEDTIME PAMELA Administration Carvedilol 3.125 mg 05/21/20 21:00 05/23/20 08:04 Carvedilol 3.125 Mg Tablet PO 3.125 mg BID PAMELA Administration Protocol Dexamethasone Sodium Phosphate 6 mg 05/22/20 09:00 05/23/20 08:04 Dexamethasone Sod Phosphate 4 Mg/Ml Vial IVPUSH 6 mg DAILY PAMELA Administration Enoxaparin Sodium 40 mg 05/21/20 20:40 05/22/20 21:21 Enoxaparin Sodium 40 Mg/0.4 Ml Syringe SUBCUT 40 mg Q24H PAMELA Administration Fluoxetine HCl 20 mg 05/22/20 12:00 05/22/20 13:35 Fluoxetine Hcl 20 Mg Capsule PO 20 mg DAILY@1200 PAMELA Administration Fluticasone Propionate 2 puff 05/21/20 20:51 05/23/20 07:39 Fluticasone Propionate 100 Mcg Blst.W.Dev INHALE 2 puff RBID PAMELA Administration Insulin Glargine 10 unit 05/22/20 09:00 05/23/20 08:05 Insulin Glargine,Hum.Rec.Anlog 100 Unit/Ml 10 Ml Vial SUBCUT 10 unit DAILY PAMELA Administration Insulin Human Lispro 0 unit 05/21/20 21:00 05/23/20 08:05 Insulin Lispro 100 Unit/Ml 3 Ml Vial SUBCUT Not Given QIDACHS COUNTS INCLUDE 234 BEDS AT THE [facility] Protocol Magnesium Oxide 400 mg 05/21/20 21:00 05/23/20 08:04 Magnesium Oxide 400 Mg Tablet PO 400 mg BID PAMELA Administration Omeprazole 20 mg 05/22/20 09:00 05/23/20 08:04 Omeprazole 20 Mg Capsule. PO 20 mg DAILY PAMELA Administration Pharmacy Consult 1 each 05/21/20 12:51 Consult Rx Perform Med Rec MISCELLANE ONCE PRN Consult order Sodium Chloride 3 ml 05/22/20 00:00 05/23/20 08:05 0.9 % Sodium Chloride Flush 3 Ml Syringe IVFLUSH 3 ml QSHIFT COUNTS INCLUDE 234 BEDS AT THE [facility] Administration Trazodone HCl 50 mg 05/21/20 21:00 05/22/20 21:19 Trazodone Hcl 50 Mg Tablet PO 50 mg BEDTIME PAMELA Administration Labs CBC & Chem 7: 05/22/20 06:29 05/22/20 06:29 Microbiology Microbiology Results: Microbiology 05/21/20 14:41 Blood - Venous Blood Culture - Preliminary No growth after 24 hours. 05/21/20 14:34 Blood - Venous Blood Culture - Preliminary No growth after 24 hours. Assessment and Plan (1) Acute respiratory failure with hypoxia: Status: Acute Assessment and Plan: 65M with known covid for about 2 weeks, presented with sob acute hypoxic respiratory failure due to covid pneumonia high risk of adverse outcome due to obesity, DM, colon cancer on chemo o2 requirements significantly increased yesterday now on high flow, saturating low 90s decadron day 04/14 wean as tolerated DM insulin colon ca outpatient follow up HTN coreg hld statin
--- NOTE | 2020-05-23 10:44 | MHC.CM.PN ---
Lives at home w/ and 2 sons. Owns a walker, no previous services, does not drive. Son drives to appointments. Goal is home w/family. Son to transoprt when D/C ready. Call Evelyn () [phone] and she will call her son to come and brick picker Demian. CM to follow.
[2020-05-23 11:46] LABS: Glucose, Whole Blood 154 mg/dL (60-115)
[2020-05-23] MEDS: FLUoxetine HCl 20 MG CAPSULE PO (12:06)
[2020-05-23] MEDS: Insulin Lispro 100 UNIT/ML 3 ML VIAL SUBCUT ×2 (12:06→21:09)
--- NOTE | 2020-05-23 13:14 | PC.NURSE ---
Pt.'s sats dipping into mid-80s at 0700, RT notified and high flow settings changed to 50L and 65% Fi02, pt. with sats in 90s since, temp of 99.0- given tylenol, resting in recliner, denies dizziness, states breathing feels better
[2020-05-23 16:03] LABS: Glucose, Whole Blood 146 mg/dL (60-115)
[2020-05-23 20:30] LABS: Glucose, Whole Blood 172 mg/dL (60-115)
[2020-05-23] MEDS: Atorvastatin Calcium 80 MG TABLET PO (21:08)
[2020-05-23] MEDS: Enoxaparin Sodium 40 MG/0.4 ML SYRINGE SUBCUT (21:08)
[2020-05-23] MEDS: traZODone HCL 50 MG TABLET PO (21:09)
[2020-05-24] VITALS (15 sets, daily range): BP systolic 107–154; BP diastolic 58–75; PULSE 57–94; RESP 18–22; TEMP 36–36.4; O2SAT 87–95; BMI 37.5
[2020-05-24 06:44] LABS: Basophils Percent Auto 0.2 % (0-2); Eosinophils Percent Auto 0.1 % (0-4); Hematocrit 36.6 % (42-52); MANUAL DIFF FLAG SCAN; PLT CLUMP 1; Red Cell Distribution Width 17.9 % (11.0-16.0); SCAN SMEAR FLAG 1
[2020-05-24 06:47] LABS: Hemoglobin 10.9 g/dl (14.0-18.0); Imm Gran Abs Auto 0.08 X10*3/uL (0.00-0.03); Imm Gran Pct Auto 0.9 % (0.0-0.4); Lymphocytes Absolute Auto 0.9 X10*3/uL (1.2-4.9); Lymphocytes Percent Auto 10.6 % (20-40); Mean Corpuscular HGB Conc 29.8 g/dl (31.0-36.0); Mean Corpuscular Hemoglobin 22.2 pg (27.0-33.0); Mean Corpuscular Volume 74.7 fL (80-98); Monocytes Absolute Auto 0.6 X10*3/uL (0.1-1.2); Monocytes Percent Auto 7.2 % (2-11); White Blood Count 8.7 X10*3/uL (4.8-10.8)
[2020-05-24 06:58] LABS: D Dimer 576 NG/ML; PLT ABN DIST 1
[2020-05-24 07:15] LABS: Platelet Count 194 X10*3/uL (160-400); SLIDE REVIEW VERIFIED
[2020-05-24 07:18] LABS: Alanine Aminotransferase 54 U/L (0-40); Albumin Level 3.3 g/dL (3.5-5.0); Alkaline Phosphatase 107 U/L (39-117); Anion Gap 18 (12-20); Aspartate Amino Transferase 62 U/L (5-37); Bilirubin Direct 0.3 mg/dL (0.0-0.5); Bilirubin Total 0.5 mg/dL (0.0-1.0); Blood Urea Nitrogen 27 mg/dL (9-16); C Reactive Protein 6.55 mg/dL (< or = 0.50); Calcium 8.4 mg/dL (8.4-10.2); Carbon Dioxide 21 mmol/L (22-29); Chloride 101 mmol/L (96-108); Creatinine Clr Calc Pharmacy 95.3; Estimated Glomerular Filt Rate > 60; Glucose Fasting 160 mg/dL (60-99); Lactate Dehydrogenase 600 U/L (118-273); Sodium 135 mmol/L (135-145); Total Protein 6.6 g/dL (6.5-8.0)
[2020-05-24 07:18] LABS: Glucose, Whole Blood 145 mg/dL (60-115)
[2020-05-24] MEDS: Fluticasone Propionate 100 MCG BLST.W.DEV 2 PUFF INHALE ×2 (07:52→21:07)
[2020-05-24] MEDS: dexAMETHasone sod phosphate 4 MG/ML VIAL 6 MG IVPUSH ×2 (09:14→09:16)
[2020-05-24] MEDS: 0.9 % Sodium Chloride Flush 3 ML SYRINGE IVFLUSH ×3 (09:16→23:39)
[2020-05-24] MEDS: Omeprazole 20 MG CAPSULE.DR PO (09:16)
[2020-05-24] MEDS: Aspirin Enteric Coated 81 MG TABLET.DR PO (09:16)
[2020-05-24] MEDS: Magnesium Oxide 400 MG TABLET PO ×2 (09:16→20:58)
[2020-05-24] MEDS: carvediloL 3.125 MG TABLET PO ×2 (09:16→20:58)
[2020-05-24] MEDS: Insulin Glargine,Hum.rec.anlog 100 UNIT/ML 10 ML VIAL 10 UNIT SUBCUT (09:16)
[2020-05-24 11:08] LABS: Glucose, Whole Blood 126 mg/dL (60-115)
--- NOTE | 2020-05-24 11:57 | HO.PM.IMPN ---
Subjective Subjective Date of Service: 05/24/20 Interval History: about the same as yesterday. maybe a bit better, overall minimally symptomatic given degree of hypoxia Cardiovascular Cardiovascular: Reports no additional cardiovascular complaints Gastrointestinal Gastrointestinal: Reports no additional gastrointestinal complaints Physical Exam Vital Signs: Vital Signs: Last Vital Signs Temp 97.2 F 05/24/20 11:18 Pulse 81 05/24/20 11:18 Resp 22 H 05/24/20 11:55 BP 128/73 05/24/20 11:18 Pulse Ox 88 L 05/24/20 11:18 Body Mass Index 38.2 General: AO X 3, does not appear to be in acute distress or tachypneic despite high o2 requirements Resp: diminished CVS: S1,S2,RRR GI: soft, non tender, non distended Neuro: motor grossly intact Psych: appropriate affect Objective Data Current Medications Generic Name Dose Route Start Last Admin Trade Name Freq PRN Reason Stop Dose Admin Acetaminophen 650 mg 05/21/20 20:40 05/23/20 21:08 Acetaminophen 325 Mg Tablet PO 650 mg Q6H PRN Administration Pain, Mild (Pain Scale 1-3) Aspirin 81 mg 05/22/20 09:00 05/24/20 09:16 Aspirin Enteric Coated 81 Mg Tablet.Dr PO 81 mg DAILY PAMELA Administration Atorvastatin Calcium 80 mg 05/21/20 21:00 05/23/20 21:08 Atorvastatin Calcium 80 Mg Tablet PO 80 mg BEDTIME PAMELA Administration Carvedilol 3.125 mg 05/21/20 21:00 05/24/20 09:16 Carvedilol 3.125 Mg Tablet PO 3.125 mg BID PAMELA Administration Protocol Dexamethasone Sodium Phosphate 6 mg 05/22/20 09:00 05/24/20 09:16 Dexamethasone Sod Phosphate 4 Mg/Ml Vial IVPUSH 6 mg DAILY PAMELA Administration Enoxaparin Sodium 40 mg 05/21/20 20:40 05/23/20 21:08 Enoxaparin Sodium 40 Mg/0.4 Ml Syringe SUBCUT 40 mg Q24H PAMELA Administration Fluoxetine HCl 20 mg 05/22/20 12:00 05/23/20 12:06 Fluoxetine Hcl 20 Mg Capsule PO 20 mg DAILY@1200 PAMELA Administration Fluticasone Propionate 2 puff 05/21/20 20:51 05/24/20 07:52 Fluticasone Propionate 100 Mcg Blst.W.Dev INHALE 2 puff RBID PAMELA Administration Insulin Glargine 10 unit 05/22/20 09:00 05/24/20 09:16 Insulin Glargine,Hum.Rec.Anlog 100 Unit/Ml 10 Ml Vial SUBCUT 10 unit DAILY PAMELA Administration Insulin Human Lispro 0 unit 05/21/20 21:00 05/24/20 11:11 Insulin Lispro 100 Unit/Ml 3 Ml Vial SUBCUT Not Given QIDACHS [facility] Protocol Magnesium Oxide 400 mg 05/21/20 21:00 05/24/20 09:16 Magnesium Oxide 400 Mg Tablet PO 400 mg BID PAMELA Administration Omeprazole 20 mg 05/22/20 09:00 05/24/20 09:16 Omeprazole 20 Mg Capsule. PO 20 mg DAILY [facility] Administration Pharmacy Consult 1 each 05/21/20 12:51 Consult Rx Perform Med Rec MISCELLANE ONCE PRN Consult order Sodium Chloride 3 ml 05/22/20 00:00 05/24/20 09:16 0.9 % Sodium Chloride Flush 3 Ml Syringe IVFLUSH 3 ml QSHIFT [facility] Administration Trazodone HCl 50 mg 05/21/20 21:00 05/23/20 21:09 Trazodone Hcl 50 Mg Tablet PO 50 mg BEDTIME PAMELA Administration Labs CBC & Chem 7: 05/24/20 06:08 05/24/20 06:08 Microbiology Microbiology Results: Microbiology 05/21/20 14:41 Blood - Venous Blood Culture - Preliminary No growth after 48 hours. 05/21/20 14:34 Blood - Venous Blood Culture - Preliminary No growth after 48 hours. Assessment and Plan (1) Acute respiratory failure with hypoxia: Status: Acute Assessment and Plan: 65M with known covid for about 2 weeks, presented with sob acute hypoxic respiratory failure due to covid pneumonia high risk of adverse outcome due to obesity, DM, colon cancer on chemo o2 requirements significantly increased on 05/22/20 now on high flow, saturating low 90s, stable today decadron day 05/15 prognostic labs slightly increased wean as tolerated DM insulin colon ca outpatient follow up HTN coreg hld statin
[2020-05-24] MEDS: FLUoxetine HCl 20 MG CAPSULE PO (14:00)
[2020-05-24 16:17] LABS: Glucose, Whole Blood 235 mg/dL (60-115)
[2020-05-24] MEDS: Insulin Lispro 100 UNIT/ML 3 ML VIAL SUBCUT ×2 (17:27→20:59)
[2020-05-24] MEDS: HYDROmorphone HCl 0.5 MG/0.5 ML SYRINGE IVPUSH (18:05)
--- NOTE | 2020-05-24 18:13 | PC.NURSE ---
Patient agitated, yelling, stating i cant breath , do not let me here . Patient on 50L, 50% high flow, standing and pacing in room. Refusing to sit down. c/o severe head/neck pain. Patient requesting MD and residential fee appraiser. MD at bedside to evaluate. New order for stat ABGs, and IV dilaudid 0.5mg. Events Manager at bedside with this RN. IV dilaudid 0.5mg given at 1810. ABGS pending. At this time patient dangling at side of bed, 02 91% on 50L and 55%.
[2020-05-24 18:28] LABS: ABG HCO3 21 mmol/L (22-26); ABG pCO2 30 mmHg (32-45); ABG pCO2 TC 29 mmHg (32-45); ABG pH 7.45 (7.35-7.45); ABG pH TC 7.47 (7.35-7.45); ABG pO2 65 mmHg (83-108); ABG pO2 TC 61 (83-108)
[2020-05-24 18:29] LABS: ABG Refer to POC result
[2020-05-24 19:55] LABS: Glucose, Whole Blood 248 mg/dL (60-115)
[2020-05-24] MEDS: traZODone HCL 50 MG TABLET PO (20:57)
[2020-05-24] MEDS: Atorvastatin Calcium 80 MG TABLET PO (20:58)
[2020-05-24] MEDS: Enoxaparin Sodium 40 MG/0.4 ML SYRINGE SUBCUT (20:58)
[2020-05-25] VITALS (10 sets, daily range): BP systolic 133–175; BP diastolic 67–76; PULSE 55–85; RESP 18–24; TEMP 35.8–37.1; O2SAT 89–97
[2020-05-25 07:34] LABS: Glucose, Whole Blood 129 mg/dL (60-115)
[2020-05-25] MEDS: Fluticasone Propionate 100 MCG BLST.W.DEV 2 PUFF INHALE ×2 (08:21→20:05)
[2020-05-25] MEDS: carvediloL 3.125 MG TABLET PO ×2 (09:41→20:03)
[2020-05-25] MEDS: dexAMETHasone sod phosphate 4 MG/ML VIAL 6 MG IVPUSH (09:41)
[2020-05-25] MEDS: Aspirin Enteric Coated 81 MG TABLET.DR PO (09:41)
[2020-05-25] MEDS: Omeprazole 20 MG CAPSULE.DR PO (09:41)
[2020-05-25] MEDS: Insulin Glargine,Hum.rec.anlog 100 UNIT/ML 10 ML VIAL 10 UNIT SUBCUT (09:41)
[2020-05-25] MEDS: 0.9 % Sodium Chloride Flush 3 ML SYRINGE IVFLUSH ×2 (09:42→15:43)
[2020-05-25] MEDS: Magnesium Oxide 400 MG TABLET PO ×2 (09:48→20:03)
[2020-05-25 11:47] LABS: Glucose, Whole Blood 183 mg/dL (60-115)
[2020-05-25] MEDS: FLUoxetine HCl 20 MG CAPSULE PO (12:36)
[2020-05-25] MEDS: Insulin Lispro 100 UNIT/ML 3 ML VIAL SUBCUT ×3 (12:36→20:58)
--- NOTE | 2020-05-25 13:39 | P.PNIM_ITS ---
Subjective Subjective Date of Service: 05/25/20 Interval History: feeling better today, had episode of anxiety and shortness of breath yesterday that resolved after dilaudid Cardiovascular Cardiovascular: Reports no additional cardiovascular complaints Gastrointestinal Gastrointestinal: Reports no additional gastrointestinal complaints Physical Exam Vital Signs: Vital Signs: Last Vital Signs Temp 97.8 F 05/25/20 12:00 Pulse 65 05/25/20 12:00 Resp 24 H 05/25/20 12:00 BP 133/70 05/25/20 12:00 Pulse Ox 97 05/25/20 12:00 Body Mass Index 37.5 General: AO X 3, does not appear to be in acute distress or tachypneic despite high o2 requirements Resp: diminished CVS: S1,S2,RRR GI: soft, non tender, non distended Neuro: motor grossly intact Psych: appropriate affect Objective Data Current Medications Generic Name Dose Route Start Last Admin Trade Name Freq PRN Reason Stop Dose Admin Acetaminophen 650 mg 05/21/20 20:40 05/23/20 21:08 Acetaminophen 325 Mg Tablet PO 650 mg Q6H PRN Administration Pain, Mild (Pain Scale 1-3) Aspirin 81 mg 05/22/20 09:00 05/25/20 09:41 Aspirin Enteric Coated 81 Mg Tablet.Dr PO 81 mg DAILY P[facility]ELA Administration Atorvastatin Calcium 80 mg 05/21/20 21:00 05/24/20 20:58 Atorvastatin Calcium 80 Mg Tablet PO 80 mg BEDTIME P[facility]A Administration Carvedilol 3.125 mg 05/21/20 21:00 05/25/20 09:41 Carvedilol 3.125 Mg Tablet PO 3.125 mg BID PAMELA Administration Protocol Dexamethasone Sodium Phosphate 6 mg 05/22/20 09:00 05/25/20 09:41 Dexamethasone Sod Phosphate 4 Mg/Ml Vial IVPUSH 6 mg DAILY P[facility]ELA Administration Enoxaparin Sodium 40 mg 05/21/20 20:40 05/24/20 20:58 Enoxaparin Sodium 40 Mg/0.4 Ml Syringe SUBCUT 40 mg Q24H PAMELA Administration Fluoxetine HCl 20 mg 05/22/20 12:00 05/25/20 12:36 Fluoxetine Hcl 20 Mg Capsule PO 20 mg DAILY@1200 P[facility]A Administration Fluticasone Propionate 2 puff 05/21/20 20:51 05/25/20 08:21 Fluticasone Propionate 100 Mcg Blst.W.Dev INHALE 2 puff RBID PAMELA Administration Hydromorphone HCl 0.5 mg 05/24/20 17:58 05/24/20 18:05 Hydromorphone Hcl 0.5 Mg/0.5 Ml Syringe IVPUSH 0.5 mg Q4H PRN Administration pain, sob, anxiety Insulin Glargine 10 unit 05/22/20 09:00 05/25/20 09:41 Insulin Glargine,Hum.Rec.Anlog 100 Unit/Ml 10 Ml Vial SUBCUT 10 unit DAILY PAMELA Administration Insulin Human Lispro 0 unit 05/21/20 21:00 05/25/20 12:36 Insulin Lispro 100 Unit/Ml 3 Ml Vial SUBCUT 2 unit QIDACHS [facility] Administration Protocol Magnesium Oxide 400 mg 05/21/20 21:00 05/25/20 09:48 Magnesium Oxide 400 Mg Tablet PO 400 mg BID PAMELA Administration Omeprazole 20 mg 05/22/20 09:00 05/25/20 09:41 Omeprazole 20 Mg Capsule. PO 20 mg DAILY PAMELA Administration Pharmacy Consult 1 each 05/21/20 12:51 Consult Rx Perform Med Rec MISCELLANE ONCE PRN Consult order Sodium Chloride 3 ml 05/22/20 00:00 05/25/20 09:42 0.9 % Sodium Chloride Flush 3 Ml Syringe IVFLUSH 3 ml QSHIFT [facility] Administration Trazodone HCl 50 mg 05/21/20 21:00 05/24/20 20:57 Trazodone Hcl 50 Mg Tablet PO 50 mg BEDTIME PAMELA Administration Labs CBC & Chem 7: 05/24/20 06:08 05/24/20 06:08 Microbiology Microbiology Results: Microbiology 05/21/20 14:41 Blood - Venous Blood Culture - Preliminary No growth after 48 hours. 05/21/20 14:34 Blood - Venous Blood Culture - Preliminary No growth after 48 hours. Assessment and Plan (1) Acute respiratory failure with hypoxia: Status: Acute Assessment and Plan: 65M with known covid for about 2 weeks, presented with sob acute hypoxic respiratory failure due to covid pneumonia high risk of adverse outcome due to obesity, DM, colon cancer on chemo o2 requirements significantly increased on 05/22/20 now on high flow, saturating low 90s, stable today had episode of hypoxia and anxiety yesterday, but quickly resolved with dilaudid decadron day 06/14 prognostic labs slightly increased, monitor wean as tolerated DM insulin colon ca outpatient follow up HTN coreg hld statin
[2020-05-25 16:36] LABS: Glucose, Whole Blood 285 mg/dL (60-115)
[2020-05-25] MEDS: Atorvastatin Calcium 80 MG TABLET PO (20:03)
[2020-05-25] MEDS: traZODone HCL 50 MG TABLET PO (20:03)
[2020-05-25] MEDS: Enoxaparin Sodium 40 MG/0.4 ML SYRINGE SUBCUT (20:03)
[2020-05-25 20:10] LABS: Glucose, Whole Blood 252 mg/dL (60-115)
[2020-05-26] VITALS (15 sets, daily range): BP systolic 144–163; BP diastolic 62–73; PULSE 53–82; RESP 0–28; TEMP 36.1–36.9; O2SAT 81–94
[2020-05-26] MEDS: 0.9 % Sodium Chloride Flush 3 ML SYRINGE IVFLUSH ×3 (00:08→16:40)
[2020-05-26 06:41] LABS: D Dimer 535 NG/ML
[2020-05-26 06:49] LABS: Hematocrit 36.1 % (42-52); Mean Corpuscular HGB Conc 30.5 g/dl (31.0-36.0); Mean Corpuscular Hemoglobin 22.5 pg (27.0-33.0); Mean Platelet Volume 11.4 fL (9.4-12.4); Platelet Count 239 X10*3/uL (160-400); Red Blood Count 4.88 X10*6/uL (4.60-5.80); Red Cell Distribution Width 17.5 % (11.0-16.0); White Blood Count 8.3 X10*3/uL (4.8-10.8)
[2020-05-26 06:56] LABS: Anion Gap 14 (12-20); Blood Urea Nitrogen 21 mg/dL (9-16); C Reactive Protein 1.86 mg/dL (< or = 0.50); Calcium 8.8 mg/dL (8.4-10.2); Carbon Dioxide 24 mmol/L (22-29); Chloride 103 mmol/L (96-108); Creatinine Clr Calc Pharmacy 102.1; Estimated Glomerular Filt Rate > 60; Glucose Fasting 175 mg/dL (60-99); Potassium 4.5 mmol/L (3.3-5.1); Sodium 136 mmol/L (135-145)
[2020-05-26 07:01] LABS: Lactate Dehydrogenase 736 U/L (118-273)
[2020-05-26] MEDS: Fluticasone Propionate 100 MCG BLST.W.DEV 2 PUFF INHALE ×2 (07:22→20:20)
[2020-05-26 07:33] LABS: Glucose, Whole Blood 168 mg/dL (60-115)
[2020-05-26 07:36] LABS: Atypical Lymph Absolute Manual 0.2 x10*3/uL; Atypical Lymphs Percent Manual 3 % (0-6); Band Neutrophils Percent 3 % (3-5); Lymphocytes Absolute Manual 0.5 X10*3/uL (0.6-4.8); Lymphocytes Percent Manual 6 % (20-40); Metamyelocytes Absolute 0.2 X10*3/uL; Metamyelocytes Percent 2 %; Monocytes Absolute Manual 0.2 X10*3/uL (0.0-1.2); Monocytes Percent Manual 3 % (2-11); Neutrophils Absolute Manual 7.1 X10*3/uL (2.2-7.9); Neutrophils Percent Manual 83 % (45-73)
[2020-05-26 07:37] LABS: Burr Cells 1+ (0-2) /OIF; Ovalocytes 1+ (5-14) /OIF; Polychromasia 1+ (0-2) /OIF; RBC Morphology NOTED
[2020-05-26 07:38] LABS: Large Platelet PRESENT; Microcytosis 1+ (5-14) /OIF; Platelet Estimate NORMAL (NORMAL); Platelet Morphology Comment NOTE
[2020-05-26] MEDS: dexAMETHasone sod phosphate 4 MG/ML VIAL 6 MG IVPUSH (08:14)
[2020-05-26] MEDS: Insulin Glargine,Hum.rec.anlog 100 UNIT/ML 10 ML VIAL 10 UNIT SUBCUT (08:15)
[2020-05-26] MEDS: Magnesium Oxide 400 MG TABLET PO ×2 (08:15→20:20)
[2020-05-26] MEDS: carvediloL 3.125 MG TABLET PO ×2 (08:15→20:20)
[2020-05-26] MEDS: Aspirin Enteric Coated 81 MG TABLET.DR PO (08:15)
[2020-05-26] MEDS: Insulin Lispro 100 UNIT/ML 3 ML VIAL SUBCUT ×4 (08:15→20:25)
[2020-05-26] MEDS: Omeprazole 20 MG CAPSULE.DR PO (08:15)
[2020-05-26 12:09] LABS: Glucose, Whole Blood 190 mg/dL (60-115)
[2020-05-26] MEDS: FLUoxetine HCl 20 MG CAPSULE PO (12:34)
--- NOTE | 2020-05-26 13:05 | MHC.CM.PN ---
DP Male 65 DX Covid+ Discharge plan is to home with family transport. Pt is in the process of being weaned. CM will follow for a change in dischage needs.
--- NOTE | 2020-05-26 14:15 | HO.PM.IMPN ---
Subjective Subjective Date of Service: 05/26/20 Interval History: the patient was seen and evaluated this morning Laying in bed, feels tired overall Requiring high-flow oxygen supplement Denies any fever, chills but reports generalized shortness of breath No reported other overnight events. Systemic review: No fever, chills or weakness No chest pain, palpitation Reporting shortness of breath and coughing No abdominal pain, nausea or vomiting No urinary symptoms No any rash or wounds Physical Exam Vital Signs: Vital Signs: Last Vital Signs Temp 98.5 F 05/26/20 12:00 Pulse 65 05/26/20 12:00 Resp 24 H 05/26/20 12:00 BP 148/68 H 05/26/20 12:00 Pulse Ox 92 05/26/20 12:00 Body Mass Index 37.5 Const: Other: Constitutional : Alert, oriented, not in distress Neck : Normal inspection, Supple Cardiovascular : RRR, S1 S2, no lower extremity edema Respiratory : Decreased bilateral air entry, no crackles, wheezes or rhonchi, on high-flow oxygen supplement 90% Gastrointestinal: soft, lax, Normal bowel sounds, Non tender Skin : Warm/Dry, No rash Neurological : Alert & oriented x3, No focal deficit Objective Data Current Medications Generic Name Dose Route Start Last Admin Trade Name Freq PRN Reason Stop Dose Admin Acetaminophen 650 mg 05/21/20 20:40 05/23/20 21:08 Acetaminophen 325 Mg Tablet PO 650 mg Q6H PRN Administration Pain, Mild (Pain Scale 1-3) Aspirin 81 mg 05/22/20 09:00 05/26/20 08:15 Aspirin Enteric Coated 81 Mg Tablet. PO 81 mg DAILY PAMELA Administration Atorvastatin Calcium 80 mg 05/21/20 21:00 05/25/20 20:03 Atorvastatin Calcium 80 Mg Tablet PO 80 mg BEDTIME P[facility]ELA Administration Carvedilol 3.125 mg 05/21/20 21:00 05/26/20 08:15 Carvedilol 3.125 Mg Tablet PO 3.125 mg BID PAMELA Administration Protocol Dexamethasone Sodium Phosphate 6 mg 05/22/20 09:00 05/26/20 08:14 Dexamethasone Sod Phosphate 4 Mg/Ml Vial IVPUSH 6 mg DAILY P[facility]A Administration Enoxaparin Sodium 40 mg 05/21/20 20:40 05/25/20 20:03 Enoxaparin Sodium 40 Mg/0.4 Ml Syringe SUBCUT 40 mg Q24H P[facility]A Administration Fluoxetine HCl 20 mg 05/22/20 12:00 05/26/20 12:34 Fluoxetine Hcl 20 Mg Capsule PO 20 mg DAILY@1200 [facility] Administration Fluticasone Propionate 2 puff 05/21/20 20:51 05/26/20 07:22 Fluticasone Propionate 100 Mcg Blst.W.Dev INHALE 2 puff RBID PAMELA Administration Hydromorphone HCl 0.5 mg 05/24/20 17:58 05/24/20 18:05 Hydromorphone Hcl 0.5 Mg/0.5 Ml Syringe IVPUSH 0.5 mg Q4H PRN Administration pain, sob, anxiety Insulin Glargine 10 unit 05/22/20 09:00 05/26/20 08:15 Insulin Glargine,Hum.Rec.Anlog 100 Unit/Ml 10 Ml Vial SUBCUT 10 unit DAILY PAMELA Administration Insulin Human Lispro 0 unit 05/21/20 21:00 05/26/20 12:34 Insulin Lispro 100 Unit/Ml 3 Ml Vial SUBCUT 2 unit QIDACHS [facility] Administration Protocol Magnesium Oxide 400 mg 05/21/20 21:00 05/26/20 08:15 Magnesium Oxide 400 Mg Tablet PO 400 mg BID PAMELA Administration Omeprazole 20 mg 05/22/20 09:00 05/26/20 08:15 Omeprazole 20 Mg Capsule. PO 20 mg DAILY [facility] Administration Pharmacy Consult 1 each 05/21/20 12:51 Consult Rx Perform Med Rec MISCELLANE ONCE PRN Consult order Sodium Chloride 3 ml 05/22/20 00:00 05/26/20 08:16 0.9 % Sodium Chloride Flush 3 Ml Syringe IVFLUSH 3 ml QSHIFT [facility] Administration Trazodone HCl 50 mg 05/21/20 21:00 05/25/20 20:03 Trazodone Hcl 50 Mg Tablet PO 50 mg BEDTIME [facility] Administration Labs CBC & Chem 7: 05/26/20 05:48 05/26/20 05:48 Microbiology Microbiology Results: Microbiology 05/21/20 14:41 Blood - Venous Blood Culture - Preliminary No growth after 48 hours. 05/21/20 14:34 Blood - Venous Blood Culture - Preliminary No growth after 48 hours. Assessment and Plan (1) Acute respiratory failure with hypoxia: Status: Acute Assessment and Plan: 65M with known covid for about 2 weeks, presented with sob acute hypoxic respiratory failure due to covid pneumonia high risk of adverse outcome due to obesity, DM, colon cancer on chemo On high-flow oxygen supplement today decadron day 07/15 prognostic labs slightly increased, monitor wean as tolerated DM Diabetic diet SSI colon ca outpatient follow up HTN coreg hld statin
[2020-05-26 16:23] LABS: Glucose, Whole Blood 220 mg/dL (60-115)
[2020-05-26] MEDS: HYDROmorphone HCl 0.5 MG/0.5 ML SYRINGE IVPUSH (17:50)
[2020-05-26 20:01] LABS: Glucose, Whole Blood 238 mg/dL (60-115)
[2020-05-26] MEDS: Enoxaparin Sodium 40 MG/0.4 ML SYRINGE SUBCUT (20:20)
[2020-05-26] MEDS: Atorvastatin Calcium 80 MG TABLET PO (20:20)
[2020-05-26] MEDS: traZODone HCL 50 MG TABLET PO (20:20)
[2020-05-27] VITALS (16 sets, daily range): BP systolic 120–157; BP diastolic 58–72; PULSE 54–107; RESP 20–24; TEMP 36.1–36.7; O2SAT 03–96; BMI 37.9
[2020-05-27] MEDS: 0.9 % Sodium Chloride Flush 3 ML SYRINGE IVFLUSH ×3 (00:09→16:53)
[2020-05-27] MEDS: HYDROmorphone HCl 0.5 MG/0.5 ML SYRINGE IVPUSH ×2 (04:24→21:34)
[2020-05-27 06:06] LABS: Hematocrit 36.2 % (42-52); Hemoglobin 11.1 g/dl (14.0-18.0); Mean Corpuscular HGB Conc 30.7 g/dl (31.0-36.0); Mean Corpuscular Hemoglobin 22.7 pg (27.0-33.0); Mean Corpuscular Volume 74.2 fL (80-98); Mean Platelet Volume 11.2 fL (9.4-12.4); Platelet Count 281 X10*3/uL (160-400); Red Blood Count 4.88 X10*6/uL (4.60-5.80); Red Cell Distribution Width 17.5 % (11.0-16.0); White Blood Count 13.7 X10*3/uL (4.8-10.8)
[2020-05-27 06:33] LABS: Anion Gap 15 (12-20); Blood Urea Nitrogen 23 mg/dL (9-16); Calcium 8.8 mg/dL (8.4-10.2); Carbon Dioxide 23 mmol/L (22-29); Chloride 102 mmol/L (96-108); Estimated Glomerular Filt Rate > 60; Glucose Random 121 mg/dL (60-115); Potassium 4.4 mmol/L (3.3-5.1); Sodium 136 mmol/L (135-145)
[2020-05-27] MEDS: Fluticasone Propionate 100 MCG BLST.W.DEV 2 PUFF INHALE ×2 (07:18→20:34)
[2020-05-27 07:24] LABS: Glucose, Whole Blood 93 mg/dL (60-115)
[2020-05-27] MEDS: Insulin Glargine,Hum.rec.anlog 100 UNIT/ML 10 ML VIAL 10 UNIT SUBCUT (09:15)
[2020-05-27] MEDS: carvediloL 3.125 MG TABLET PO ×2 (09:15→20:46)
[2020-05-27] MEDS: Aspirin Enteric Coated 81 MG TABLET.DR PO (09:15)
[2020-05-27] MEDS: Magnesium Oxide 400 MG TABLET PO ×2 (09:15→20:46)
[2020-05-27] MEDS: dexAMETHasone sod phosphate 4 MG/ML VIAL 6 MG IVPUSH (09:15)
[2020-05-27] MEDS: Omeprazole 20 MG CAPSULE.DR PO (09:15)
[2020-05-27 11:43] LABS: Glucose, Whole Blood 109 mg/dL (60-115)
[2020-05-27] MEDS: FLUoxetine HCl 20 MG CAPSULE PO (14:33)
--- NOTE | 2020-05-27 15:22 | HO.PM.IMPN ---
Subjective Subjective Date of Service: 05/27/20 Interval History: the patient was seen and evaluated this morning Laying in bed, feels tired overall Requiring high-flow oxygen supplement Denies any fever, chills but reports generalized shortness of breath No reported other overnight events. Systemic review: No fever, chills or weakness No chest pain, palpitation Reporting shortness of breath and coughing No abdominal pain, nausea or vomiting No urinary symptoms No any rash or wounds Physical Exam Vital Signs: Vital Signs: Last Vital Signs Temp 97.0 F 05/27/20 15:18 Pulse 64 05/27/20 15:18 Resp 20 05/27/20 15:18 BP 120/58 L 05/27/20 15:18 Pulse Ox 96 05/27/20 15:18 Body Mass Index 37.5 Const: Other: Constitutional : Alert, oriented, not in distress Neck : Normal inspection, Supple Cardiovascular : RRR, S1 S2, no lower extremity edema Respiratory : Decreased bilateral air entry, no crackles, wheezes or rhonchi, on high-flow oxygen supplement 90% Gastrointestinal: soft, lax, Normal bowel sounds, Non tender Skin : Warm/Dry, No rash Neurological : Alert & oriented x3, No focal deficit Objective Data Current Medications Generic Name Dose Route Start Last Admin Trade Name Freq PRN Reason Stop Dose Admin Acetaminophen 650 mg 05/21/20 20:40 05/23/20 21:08 Acetaminophen 325 Mg Tablet PO 650 mg Q6H PRN Administration Pain, Mild (Pain Scale 1-3) Aspirin 81 mg 05/22/20 09:00 05/27/20 09:15 Aspirin Enteric Coated 81 Mg Tablet.Dr PO 81 mg DAILY PAMELA Administration Atorvastatin Calcium 80 mg 05/21/20 21:00 05/26/20 20:20 Atorvastatin Calcium 80 Mg Tablet PO 80 mg BEDTIME PAMELA Administration Carvedilol 3.125 mg 05/21/20 21:00 05/27/20 09:15 Carvedilol 3.125 Mg Tablet PO 3.125 mg BID PAMELA Administration Protocol Dexamethasone Sodium Phosphate 6 mg 05/22/20 09:00 05/27/20 09:15 Dexamethasone Sod Phosphate 4 Mg/Ml Vial IVPUSH 6 mg DAILY P[facility]ELA Administration Enoxaparin Sodium 40 mg 05/21/20 20:40 05/26/20 20:20 Enoxaparin Sodium 40 Mg/0.4 Ml Syringe SUBCUT 40 mg Q24H P[facility]A Administration Fluoxetine HCl 20 mg 05/22/20 12:00 05/27/20 14:33 Fluoxetine Hcl 20 Mg Capsule PO 20 mg DAILY@1200 [facility] Administration Fluticasone Propionate 2 puff 05/21/20 20:51 05/27/20 07:18 Fluticasone Propionate 100 Mcg Blst.W.Dev INHALE 2 puff RBID PAMELA Administration Hydromorphone HCl 0.5 mg 05/24/20 17:58 05/27/20 04:24 Hydromorphone Hcl 0.5 Mg/0.5 Ml Syringe IVPUSH 0.5 mg Q4H PRN Administration pain, sob, anxiety Insulin Glargine 10 unit 05/22/20 09:00 05/27/20 09:15 Insulin Glargine,Hum.Rec.Anlog 100 Unit/Ml 10 Ml Vial SUBCUT 10 unit DAILY [facility] Administration Insulin Human Lispro 0 unit 05/21/20 21:00 05/27/20 14:33 Insulin Lispro 100 Unit/Ml 3 Ml Vial SUBCUT Not Given QIDACHS [facility] Protocol Magnesium Oxide 400 mg 05/21/20 21:00 05/27/20 09:15 Magnesium Oxide 400 Mg Tablet PO 400 mg BID PAMELA Administration Omeprazole 20 mg 05/22/20 09:00 05/27/20 09:15 Omeprazole 20 Mg Capsule. PO 20 mg DAILY [facility] Administration Pharmacy Consult 1 each 05/21/20 12:51 Consult Rx Perform Med Rec MISCELLANE ONCE PRN Consult order Sodium Chloride 3 ml 05/22/20 00:00 05/27/20 09:16 0.9 % Sodium Chloride Flush 3 Ml Syringe IVFLUSH 3 ml QSHIFT [facility] Administration Trazodone HCl 50 mg 05/21/20 21:00 05/26/20 20:20 Trazodone Hcl 50 Mg Tablet PO 50 mg BEDTIME [facility] Administration Labs CBC & Chem 7: 05/27/20 05:25 05/27/20 05:25 Microbiology Microbiology Results: Microbiology 05/21/20 14:41 Blood - Venous Blood Culture - Final No growth after 5 days. 05/21/20 14:34 Blood - Venous Blood Culture - Final No growth after 5 days. Assessment and Plan (1) Acute respiratory failure with hypoxia: Status: Acute Assessment and Plan: 65M with known covid for about 2 weeks, presented with sob acute hypoxic respiratory failure due to covid pneumonia high risk of adverse outcome due to obesity, DM, colon cancer on chemo On high-flow oxygen supplement today decadron day 08/14 prognostic labs slightly increased, continue to monitor wean as tolerated DM Diabetic diet SSI colon ca outpatient follow up HTN coreg hld statin
[2020-05-27 16:10] LABS: Glucose, Whole Blood 214 mg/dL (60-115)
[2020-05-27] MEDS: Insulin Lispro 100 UNIT/ML 3 ML VIAL SUBCUT ×2 (16:53→20:46)
[2020-05-27 19:52] LABS: Glucose, Whole Blood 263 mg/dL (60-115)
[2020-05-27] MEDS: Atorvastatin Calcium 80 MG TABLET PO (20:45)
[2020-05-27] MEDS: Enoxaparin Sodium 40 MG/0.4 ML SYRINGE SUBCUT (20:45)
[2020-05-27] MEDS: traZODone HCL 50 MG TABLET PO (20:45)
[2020-05-28] VITALS (15 sets, daily range): BP systolic 129–166; BP diastolic 58–72; PULSE 63–91; RESP 19–26; TEMP 36.6–37.4; O2SAT 82–96
--- NOTE | 2020-05-28 06:44 | PC.NURSE ---
PATIENT OOB TO RECLINER WITH ASSIST OF ONE, VOIDED AND SETTLED IN CHAIR, HI FLOW O2 AT 55LITERS AND 90 5, HOWEVER, O2 SAT FLUCTUATING FROM 78 TO 84 % DESPITE PT SHOWING NO SIGNS OF ACUTE RESP DISTRESS. RESP THERAPIST CALLED TO FLOOR AND O2 NEEDS INCREASED TO JUST BELOW 60 LITERS AND 100 %. PT IMPROVED TO 91% AND WILL ALSO CHANGE FINGER PROBE. PT DENIES CHEST PAIN, PRESSURE, DISCOMFORT, COUGH, OR DISTRESS. WILL CONTINUE TO MONITOR.
[2020-05-28 07:20] LABS: Glucose, Whole Blood 56 mg/dL (60-115)
[2020-05-28 07:24] LABS: Hemoglobin 12.6 g/dl (14.0-18.0); Mean Corpuscular Hemoglobin 22.6 pg (27.0-33.0); Mean Corpuscular Volume 75.4 fL (80-98); PLT CLUMP 1; Red Blood Count 5.57 X10*6/uL (4.60-5.80); Red Cell Distribution Width 18.4 % (11.0-16.0)
[2020-05-28 07:48] LABS: Anion Gap 22 (12-20); Blood Urea Nitrogen 23 mg/dL (9-16); Carbon Dioxide 17 mmol/L (22-29); Chloride 104 mmol/L (96-108); Creatinine Clr Calc Pharmacy 98.6; Estimated Glomerular Filt Rate > 60; Glucose Random 70 mg/dL (60-115); Potassium 5.7 mmol/L (3.3-5.1); Sodium 137 mmol/L (135-145)
[2020-05-28 07:56] LABS: Glucose, Whole Blood 69 mg/dL (60-115)
[2020-05-28] MEDS: Fluticasone Propionate 100 MCG BLST.W.DEV 2 PUFF INHALE ×2 (08:13→20:56)
[2020-05-28 08:19] LABS: Platelet Count 201 X10*3/uL (160-400)
[2020-05-28] MEDS: 0.9 % Sodium Chloride Flush 3 ML SYRINGE IVFLUSH ×4 (09:39→20:22)
[2020-05-28] MEDS: Acetaminophen 325 MG TABLET 650 MG PO (09:39)
[2020-05-28] MEDS: Omeprazole 20 MG CAPSULE.DR PO (09:40)
[2020-05-28] MEDS: Aspirin Enteric Coated 81 MG TABLET.DR PO (09:40)
[2020-05-28] MEDS: carvediloL 3.125 MG TABLET PO ×2 (09:40→20:16)
[2020-05-28] MEDS: dexAMETHasone sod phosphate 4 MG/ML VIAL 6 MG IVPUSH (09:40)
[2020-05-28] MEDS: Magnesium Oxide 400 MG TABLET PO ×2 (09:40→20:15)
[2020-05-28 11:00] LABS: ABG HCO3 24 mmol/L (22-26); ABG pCO2 29 mmHg (32-45); ABG pCO2 TC 30 mmHg (32-45); ABG pH 7.53 (7.35-7.45); ABG pH TC 7.52 (7.35-7.45); ABG pO2 63 mmHg (83-108); ABG pO2 TC 65 (83-108)
--- NOTE | 2020-05-28 11:16 | MHC.CM.PN ---
Per ROUNDS discussion, Patient is not yet medically cleared for dc (IV Dilaudid/ s/s pain, IV Decadron, high flow O2, ? transfer to ICU). Home is the goal for dc and CM will follow for possible need to adjust the dc plan.
[2020-05-28 11:29] LABS: Glucose, Whole Blood 115 mg/dL (60-115)
[2020-05-28 12:09] LABS: ABG Refer to POC result
--- NOTE | 2020-05-28 15:05 | P.CONPL_ITS ---
History of Present Illness History of Present Illness Consult date: 05/28/20 Requesting physician: Angelita Calabrese Reason for consult: hypoxemia Chief complaint: Covid Narrative: 65-year-old gentleman with underlying history of asthma, hype rtension, diabetes mellitus, obesity, colon cancer COVID positive on 05/15/2020, admitted on 05/21/[address] chest negative for pulmonary embolism on 05/21/2020. Patient has been treated with dexamethasone. Hospital course significant for progressive hypoxemia now requiring high-flow supplemental oxygen. Review of Systems 2 Constitutional: Constitutional: Denies daytime sleepiness, Denies excessive sweating, Denies fatigue, Denies fever(s), Denies lethargy, Denies malaise, Denies night sweats, Denies snoring and Denies weight loss Eyes: Eyes: Denies blurry vision and Denies itchy eyes ENT: Denies nasal congestion, Denies post nasal drip, Denies sinus pain, Denies sinus pressure and Denies other ( Thrush) Cardiovascular: Cardiovascular: Denies chest pain, Denies pedal edema, Reports dyspnea, Denies orthopnea and Denies paroxysmal nocturnal dyspnea Respiratory: Respiratory: Reports cough, Denies hemoptysis, Denies excessive phlegm production, Reports dyspnea, Denies snoring and Denies wheezing Gastrointestinal: Gastrointestinal: Denies abdominal pain and Denies heartburn Musculoskeletal: Musculoskeletal: Denies myalgias, Denies arthralgias and Denies joint swelling Integumentary/Breasts: Skin/Breast: Denies rash Neurologic: Denies memory loss and Denies seizure-like activity Psychiatric: Psychiatric: Denies abnormal sleep pattern, Denies anxiety and Denies memory loss Endocrine: Endocrine: Denies excessive sweating, Denies fatigue and Denies heat intolerance Hematologic/Lymphatic: Hematologic/Lymphatic: Denies easy bruising Allergic/Immunologic: Allergic/Immunologic: Denies itchy eyes, Denies seasonal rhinorrhea and Denies wheezing PMFSH Past Medical History Medical History Asthma Colon cancer Diabetes mellitus, type 2 Hypercholesteremia Hypertension Palpitations Family History Family History Other Family history non-contributory Social History Social History Household Members: Family Household Members Other:: and dtr Housing: House Do you presently have visiting nurse or other home services: No Alcohol intake: current Alcohol intake frequency: does not drink Alcohol type: beer Smoking Status: Former smoker Smoked in Last 30 Days: No Use of substances other than those prescribed or required for medical reasons: No Currently Displaying Signs/Symptoms of Drug Intoxication Withdrawal: No Have you been hit, kicked, punched, or otherwise hurt by someone within the past year? If so, by whom?: No Do you feel safe in your current relationship?: Yes Is there a partner from a previous relationship who is making you feel unsafe now?: No Are you made to feel afraid or neglected: No Advance Directives: Yes Advance Directives on File: Yes Advance Directives Date on File: 04/12/20 Do you have thoughts of harming others: None Do you have a plan to hurt others: No Plan Recently lost weight without trying: No service: No Current occupational status: retired Meds Allergies Allergy/AdvReac Type Severity Reaction Status Date / Time nitroglycerin Allergy Severe AGITATION Verified 04/15/20 08:17 [From NITROSTAT] oxaliplatin [OXALIPLATIN] Allergy Severe anaphylaxis Verified 04/15/20 08:17 diphenhydramine Allergy Intermediate RASH Verified 04/15/20 08:17 [From MOTRIN PM] ibuprofen [From ADVIL] Allergy Unknown RASH Verified 04/15/20 08:17 morphine Allergy Unknown painful Verified 04/15/20 08:17 rash oxcarbazepine Allergy Unknown rash, Verified 04/15/20 08:17 [From TRILEPTAL] coughing penicillin V Allergy Unknown rash Verified 04/15/20 08:17 Penicillins [PENICILLINS] Allergy Unknown ITCHING, Verified 04/15/20 08:17 RASH Benadryl Allergy Unknown rash Uncoded 04/12/20 04:48 Active Medications: Current Medications Generic Name Dose Route Start Last Admin Trade Name Freq PRN Reason Stop Dose Admin Acetaminophen 650 mg 05/21/20 20:40 05/28/20 09:39 Acetaminophen 325 Mg Tablet PO 650 mg Q6H PRN Administration Pain, Mild (Pain Scale 1-3) Aspirin 81 mg 05/22/20 09:00 05/28/20 09:40 Aspirin Enteric Coated 81 Mg Tablet. PO 81 mg DAILY PAMELA Administration Atorvastatin Calcium 80 mg 05/21/20 21:00 05/27/20 20:45 Atorvastatin Calcium 80 Mg Tablet PO 80 mg BEDTIME [facility] Administration Carvedilol 3.125 mg 05/21/20 21:00 05/28/20 09:40 Carvedilol 3.125 Mg Tablet PO 3.125 mg BID [facility] Administration Protocol Dexamethasone Sodium Phosphate 6 mg 05/22/20 09:00 05/28/20 09:40 Dexamethasone Sod Phosphate 4 Mg/Ml Vial IVPUSH 6 mg DAILY PAMELA Administration Enoxaparin Sodium 40 mg 05/21/20 20:40 05/27/20 20:45 Enoxaparin Sodium 40 Mg/0.4 Ml Syringe SUBCUT 40 mg Q24H [facility] Administration Fluoxetine HCl 20 mg 05/22/20 12:00 05/28/20 13:12 Fluoxetine Hcl 20 Mg Capsule PO Not Given DAILY@1200 [facility] Fluticasone Propionate 2 puff 05/21/20 20:51 05/28/20 08:13 Fluticasone Propionate 100 Mcg Blst.W.Dev INHALE 2 puff RBID [facility] Administration Hydromorphone HCl 0.5 mg 05/24/20 17:58 05/27/20 21:34 Hydromorphone Hcl 0.5 Mg/0.5 Ml Syringe IVPUSH 0.5 mg Q4H PRN Administration pain, sob, anxiety Insulin Glargine 10 unit 05/22/20 09:00 05/28/20 10:09 Insulin Glargine,Hum.Rec.Anlog 100 Unit/Ml 10 Ml Vial SUBCUT Not Given DAILY [facility] Insulin Human Lispro 0 unit 05/21/20 21:00 05/28/20 12:33 Insulin Lispro 100 Unit/Ml 3 Ml Vial SUBCUT Not Given QIDACHS [facility] Protocol Magnesium Oxide 400 mg 05/21/20 21:00 05/28/20 09:40 Magnesium Oxide 400 Mg Tablet PO 400 mg BID [facility] Administration Omeprazole 20 mg 05/22/20 09:00 05/28/20 09:40 Omeprazole 20 Mg Capsule. PO 20 mg DAILY [facility] Administration Pharmacy Consult 1 each 05/21/20 12:51 Consult Rx Perform Med Rec MISCELLANE ONCE PRN Consult order Sodium Chloride 3 ml 05/22/20 00:00 05/28/20 09:39 0.9 % Sodium Chloride Flush 3 Ml Syringe IVFLUSH 3 ml QSHIFT PAMELA Administration Trazodone HCl 50 mg 05/21/20 21:00 05/27/20 20:45 Trazodone Hcl 50 Mg Tablet PO 50 mg BEDTIME [facility] Administration Home Medications Medication Instructions Recorded Confirmed Last Taken Type aspirin 81 mg PO DAILY 11/18/19 05/21/20 05/21/20 History atorvastatin 80 mg PO BEDTIME 11/18/19 05/21/20 05/20/20 History carvedilol 3.125 mg PO BID 11/18/19 05/21/20 05/21/20 History fluoxetine 20 mg PO DAILY@1200 11/18/19 05/21/20 05/20/20 History fluticasone propionate [Flovent 2 puff INHALATION BID 11/18/19 05/21/20 05/21/20 History HFA] magnesium oxide 400 mg PO BID 11/18/19 05/21/20 05/21/20 History metronidazole 1 applic TOPICAL DAILY 11/18/19 05/21/20 05/21/20 History omeprazole 20 mg PO DAILY 11/18/19 05/21/20 05/21/20 History trazodone 50 mg PO BEDTIME 11/18/19 05/21/20 05/20/20 History doxycycline hyclate 100 mg PO BID 05/04/20 05/21/20 05/21/20 History dexamethasone 6 mg PO DAILY 05/21/20 05/21/20 Unknown History insulin glargine [Lantus Solostar 10 unit SUBCUT DAILY 05/21/20 05/21/20 05/21/20 History U-100 Insulin] Physical Exam Vital Signs: Vital Signs: Last Vital Signs Temp 98.9 F 05/28/20 11:22 Pulse 81 05/28/20 11:22 Resp 26 H 05/28/20 12:59 BP 132/60 05/28/20 11:22 Pulse Ox 82 L 05/28/20 11:22 Body Mass Index 37.9 Const: General: no acute distress, alert and awake Nutritional Appearance: obese Eyes: Sclerae: sclerae normal EOM: EOMs intact bilaterally Neck: Neck: Yes no lymphadenopathy, Yes trachea midline and Yes supple Resp: Effort & Inspection: normal respiratory effort Auscultation: crackles (Diffuse bilateral) Cardio: Rate: regular rate Rhythm: regular rhythm Heart sounds: no gallops, no murmurs and no rubs GI: Palpation (GI): Soft to palpation and Other GI palpation findings present ( Nontender) Auscultation: normal bowel sounds Extrem: General: No clubbing, No cyanosis and Yes pedal edema (1+ bilateral) Results Laboratory Findings CBC and BMP: 05/28/20 06:09 05/28/20 06:09 ABG, PT/INR, D-dimer: PT/INR, D-dimer PT 15.2 SEC (10.8-13.0) H 05/21/20 14:33 INR 1.3 (0.9-1.1) H 05/21/20 14:33 D-Dimer 535 NG/ML 05/26/20 05:48 Abnormal lab findings: Abnormal Labs 05/21/20 05/21/20 05/21/20 14:33 14:33 14:33 WBC 13.1 H Hgb 11.3 L Hct 37.2 L MCV 74.7 L MCH 22.7 L MCHC 30.4 L RDW 17.7 H Immature Gran % (Auto) 1.0 H Neut % (Auto) 89.3 H Lymph % (Auto) 4.7 L Lymph # (Auto) 0.6 L Abs Immat Gran (auto) 0.13 H Absolute Neuts (auto) 11.7 H Absolute Nucleated RBC 0.020 H Neutrophils % (Manual) Lymphocytes % (Manual) Lymphocytes # (Manual) PT 15.2 H INR 1.3 H ABG pH at Pt Temp ABG pH (Temp Correct) ABG pCO2 at Pt Temp ABG pCO2 (Temp Corrct ABG pO2 at Pt Temp ABG pO2 (Temp Correct ABG HCO3 Sodium 134 L Potassium Carbon Dioxide Anion Gap BUN POC Glucose Random Glucose 185 H D Fasting Glucose Magnesium 1.4 L* AST ALT Lactate Dehydrogenase 303 H Troponin I High Sens C-Reactive Protein 5.29 H Albumin Ur Specific [place] Urine Protein Urine Blood 05/21/20 05/21/20 05/22/20 17:11 20:48 06:29 WBC 10.9 H Hgb 11.4 L Hct 37.2 L MCV 74.4 L MCH 22.8 L MCHC 30.6 L RDW 17.8 H Immature Gran % (Auto) 0.8 H Neut % (Auto) 88.9 H Lymph % (Auto) 6.2 L Lymph # (Auto) 0.7 L Abs Immat Gran (auto) 0.09 H Absolute Neuts (auto) 9.7 H Absolute Nucleated RBC Neutrophils % (Manual) Lymphocytes % (Manual) Lymphocytes # (Manual) PT INR ABG pH at Pt Temp ABG pH (Temp Correct) ABG pCO2 at Pt Temp ABG pCO2 (Temp Corrct ABG pO2 at Pt Temp ABG pO2 (Temp Correct ABG HCO3 Sodium Potassium Carbon Dioxide Anion Gap BUN POC Glucose 192 H Random Glucose Fasting Glucose Magnesium AST ALT Lactate Dehydrogenase Troponin I High Sens 36.9 H C-Reactive Protein Albumin Ur Specific [place] Urine Protein Urine Blood 05/22/20 05/22/20 05/22/20 06:29 07:42 13:51 WBC Hgb Hct MCV MCH MCHC RDW Immature Gran % (Auto) Neut % (Auto) Lymph % (Auto) Lymph # (Auto) Abs Immat Gran (auto) Absolute Neuts (auto) Absolute Nucleated RBC Neutrophils % (Manual) Lymphocytes % (Manual) Lymphocytes # (Manual) PT INR ABG pH at Pt Temp ABG pH (Temp Correct) ABG pCO2 at Pt Temp ABG pCO2 (Temp Corrct ABG pO2 at Pt Temp ABG pO2 (Temp Correct ABG HCO3 Sodium Potassium Carbon Dioxide Anion Gap BUN POC Glucose 135 H Random Glucose 140 H Fasting Glucose Magnesium AST ALT Lactate Dehydrogenase Troponin I High Sens C-Reactive Protein Albumin Ur Specific [place] >= 1.030 H Urine Protein 2+ H Urine Blood 1+ H 05/22/20 05/22/20 05/23/20 15:49 20:44 11:37 WBC Hgb Hct MCV MCH MCHC RDW Immature Gran % (Auto) Neut % (Auto) Lymph % (Auto) Lymph # (Auto) Abs Immat Gran (auto) Absolute Neuts (auto) Absolute Nucleated RBC Neutrophils % (Manual) Lymphocytes % (Manual) Lymphocytes # (Manual) PT INR ABG pH at Pt Temp ABG pH (Temp Correct) ABG pCO2 at Pt Temp ABG pCO2 (Temp Corrct ABG pO2 at Pt Temp ABG pO2 (Temp Correct ABG HCO3 Sodium Potassium Carbon Dioxide Anion Gap BUN POC Glucose 154 H 138 H 154 H Random Glucose Fasting Glucose Magnesium AST ALT Lactate Dehydrogenase Troponin I High Sens C-Reactive Protein Albumin Ur Specific [place] Urine Protein Urine Blood 05/23/20 05/23/20 05/24/20 16:00 20:22 06:08 WBC Hgb 10.9 L Hct 36.6 L MCV 74.7 L MCH 22.2 L MCHC 29.8 L RDW 17.9 H Immature Gran % (Auto) 0.9 H Neut % (Auto) 81.0 H Lymph % (Auto) 10.6 L Lymph # (Auto) 0.9 L Abs Immat Gran (auto) 0.08 H Absolute Neuts (auto) Absolute Nucleated RBC Neutrophils % (Manual) Lymphocytes % (Manual) Lymphocytes # (Manual) PT INR ABG pH at Pt Temp ABG pH (Temp Correct) ABG pCO2 at Pt Temp ABG pCO2 (Temp Corrct ABG pO2 at Pt Temp ABG pO2 (Temp Correct ABG HCO3 Sodium Potassium Carbon Dioxide Anion Gap BUN POC Glucose 146 H 172 H Random Glucose Fasting Glucose Magnesium AST ALT Lactate Dehydrogenase Troponin I High Sens C-Reactive Protein Albumin Ur Specific [place] Urine Protein Urine Blood 05/24/20 05/24/20 05/24/20 06:08 07:08 11:01 WBC Hgb Hct MCV MCH MCHC RDW Immature Gran % (Auto) Neut % (Auto) Lymph % (Auto) Lymph # (Auto) Abs Immat Gran (auto) Absolute Neuts (auto) Absolute Nucleated RBC Neutrophils % (Manual) Lymphocytes % (Manual) Lymphocytes # (Manual) PT INR ABG pH at Pt Temp ABG pH (Temp Correct) ABG pCO2 at Pt Temp ABG pCO2 (Temp Corrct ABG pO2 at Pt Temp ABG pO2 (Temp Correct ABG HCO3 Sodium Potassium Carbon Dioxide 21 L Anion Gap BUN 27 H D POC Glucose 145 H 126 H Random Glucose Fasting Glucose 160 H Magnesium AST 62 H ALT 54 H Lactate Dehydrogenase 600 H Troponin I High Sens C-Reactive Protein 6.55 H Albumin 3.3 L Ur Specific [place] Urine Protein Urine Blood 05/24/20 05/24/20 05/24/20 16:10 18:19 19:48 WBC Hgb Hct MCV MCH MCHC RDW Immature Gran % (Auto) Neut % (Auto) Lymph % (Auto) Lymph # (Auto) Abs Immat Gran (auto) Absolute Neuts (auto) Absolute Nucleated RBC Neutrophils % (Manual) Lymphocytes % (Manual) Lymphocytes # (Manual) PT INR ABG pH at Pt Temp ABG pH (Temp Correct) 7.47 H ABG pCO2 at Pt Temp 30 L ABG pCO2 (Temp Corrct 29 L ABG pO2 at Pt Temp 65 L ABG pO2 (Temp Correct 61 L ABG HCO3 21 L Sodium Potassium Carbon Dioxide Anion Gap BUN POC Glucose 235 H 248 H Random Glucose Fasting Glucose Magnesium AST ALT Lactate Dehydrogenase Troponin I High Sens C-Reactive Protein Albumin Ur Specific [place] Urine Protein Urine Blood 05/25/20 05/25/20 05/25/20 07:20 11:38 16:18 WBC Hgb Hct MCV MCH MCHC RDW Immature Gran % (Auto) Neut % (Auto) Lymph % (Auto) Lymph # (Auto) Abs Immat Gran (auto) Absolute Neuts (auto) Absolute Nucleated RBC Neutrophils % (Manual) Lymphocytes % (Manual) Lymphocytes # (Manual) PT INR ABG pH at Pt Temp ABG pH (Temp Correct) ABG pCO2 at Pt Temp ABG pCO2 (Temp Corrct ABG pO2 at Pt Temp ABG pO2 (Temp Correct ABG HCO3 Sodium Potassium Carbon Dioxide Anion Gap BUN POC Glucose 129 H 183 H 285 H Random Glucose Fasting Glucose Magnesium AST ALT Lactate Dehydrogenase Troponin I High Sens C-Reactive Protein Albumin Ur Specific [place] Urine Protein Urine Blood 05/25/20 05/26/20 05/26/20 19:57 05:48 05:48 WBC Hgb 11.0 L Hct 36.1 L MCV 74.0 L MCH 22.5 L MCHC 30.5 L RDW 17.5 H Immature Gran % (Auto) Neut % (Auto) Lymph % (Auto) Lymph # (Auto) Abs Immat Gran (auto) Absolute Neuts (auto) Absolute Nucleated RBC Neutrophils % (Manual) 83 H Lymphocytes % (Manual) 6 L Lymphocytes # (Manual) 0.5 L PT INR ABG pH at Pt Temp ABG pH (Temp Correct) ABG pCO2 at Pt Temp ABG pCO2 (Temp Corrct ABG pO2 at Pt Temp ABG pO2 (Temp Correct ABG HCO3 Sodium Potassium Carbon Dioxide Anion Gap BUN 21 H POC Glucose 252 H Random Glucose Fasting Glucose 175 H Magnesium AST ALT Lactate Dehydrogenase 736 H Troponin I High Sens C-Reactive Protein 1.86 H Albumin Ur Specific [place] Urine Protein Urine Blood 05/26/20 05/26/20 05/26/20 07:20 11:55 16:16 WBC Hgb Hct MCV MCH MCHC RDW Immature Gran % (Auto) Neut % (Auto) Lymph % (Auto) Lymph # (Auto) Abs Immat Gran (auto) Absolute Neuts (auto) Absolute Nucleated RBC Neutrophils % (Manual) Lymphocytes % (Manual) Lymphocytes # (Manual) PT INR ABG pH at Pt Temp ABG pH (Temp Correct) ABG pCO2 at Pt Temp ABG pCO2 (Temp Corrct ABG pO2 at Pt Temp ABG pO2 (Temp Correct ABG HCO3 Sodium Potassium Carbon Dioxide Anion Gap BUN POC Glucose 168 H 190 H 220 H Random Glucose Fasting Glucose Magnesium AST ALT Lactate Dehydrogenase Troponin I High Sens C-Reactive Protein Albumin Ur Specific [place] Urine Protein Urine Blood 05/26/20 05/27/20 05/27/20 19:54 05:25 05:25 WBC 13.7 H Hgb 11.1 L Hct 36.2 L MCV 74.2 L MCH 22.7 L MCHC 30.7 L RDW 17.5 H Immature Gran % (Auto) Neut % (Auto) Lymph % (Auto) Lymph # (Auto) Abs Immat Gran (auto) Absolute Neuts (auto) Absolute Nucleated RBC Neutrophils % (Manual) Lymphocytes % (Manual) Lymphocytes # (Manual) PT INR ABG pH at Pt Temp ABG pH (Temp Correct) ABG pCO2 at Pt Temp ABG pCO2 (Temp Corrct ABG pO2 at Pt Temp ABG pO2 (Temp Correct ABG HCO3 Sodium Potassium Carbon Dioxide Anion Gap BUN 23 H POC Glucose 238 H Random Glucose 121 H Fasting Glucose Magnesium AST ALT Lactate Dehydrogenase Troponin I High Sens C-Reactive Protein Albumin Ur Specific [place] Urine Protein Urine Blood 05/27/20 05/27/20 05/28/20 16:05 19:48 06:09 WBC 13.0 H Hgb 12.6 L Hct MCV 75.4 L MCH 22.6 L MCHC 30.0 L RDW 18.4 H Immature Gran % (Auto) Neut % (Auto) Lymph % (Auto) Lymph # (Auto) Abs Immat Gran (auto) Absolute Neuts (auto) Absolute Nucleated RBC Neutrophils % (Manual) Lymphocytes % (Manual) Lymphocytes # (Manual) PT INR ABG pH at Pt Temp ABG pH (Temp Correct) ABG pCO2 at Pt Temp ABG pCO2 (Temp Corrct ABG pO2 at Pt Temp ABG pO2 (Temp Correct ABG HCO3 Sodium Potassium Carbon Dioxide Anion Gap BUN POC Glucose 214 H 263 H Random Glucose Fasting Glucose Magnesium AST ALT Lactate Dehydrogenase Troponin I High Sens C-Reactive Protein Albumin Ur Specific [place] Urine Protein Urine Blood 05/28/20 05/28/20 05/28/20 06:09 07:16 10:53 WBC Hgb Hct MCV MCH MCHC RDW Immature Gran % (Auto) Neut % (Auto) Lymph % (Auto) Lymph # (Auto) Abs Immat Gran (auto) Absolute Neuts (auto) Absolute Nucleated RBC Neutrophils % (Manual) Lymphocytes % (Manual) Lymphocytes # (Manual) PT INR ABG pH at Pt Temp 7.53 H ABG pH (Temp Correct) 7.52 H ABG pCO2 at Pt Temp 29 L ABG pCO2 (Temp Corrct 30 L ABG pO2 at Pt Temp 63 L ABG pO2 (Temp Correct 65 L ABG HCO3 Sodium Potassium 5.7 H D Carbon Dioxide 17 L Anion Gap 22 H BUN 23 H POC Glucose 56 L* Random Glucose Fasting Glucose Magnesium AST ALT Lactate Dehydrogenase Troponin I High Sens C-Reactive Protein Albumin Ur Specific [place] Urine Protein Urine Blood Microbiology: Microbiology 05/21/20 14:41 Blood - Venous Blood Culture - Final No growth after 5 days. 05/21/20 14:34 Blood - Venous Blood Culture - Final No growth after 5 days. Assessment and Plan (1) Acute respiratory failure with hypoxia: Status: Acute Impression: Acute hypoxic respiratory failure secondary to COVID-19 ARDS now requiring high-flow nasal cannula. Recommendation: Agree with dexamethasone. Consider gentle diuresis. If cont inues to deteriorate will require CPAP support or intubation. (2) Acute respiratory distress syndrome (ARDS) due to COVID-19 virus: Status: Acute
--- NOTE | 2020-05-28 15:22 | PC.NURSE ---
0940 took meds with water, tyl given for back pain and temp 99.3 Feeling very SOB. has High Flow on, OOB in recliner and SAT's decreased to med 80's. Dr Calabrese notified. 1230 SAT'S decreased again to low to mid 80 s resp aware and non rebreather applied Seen by ICU MD. 1300 Assisted BTB, unable to roshan prone position, on right side with pillows. Roshan that position and SAT's 90-91% at this time. 1400 K levels 5.7 MD aware.
[2020-05-28 15:44] LABS: Glucose, Whole Blood 215 mg/dL (60-115)
--- NOTE | 2020-05-28 17:03 | P.PNIM_ITS ---
Subjective Subjective Date of Service: 05/28/20 Interval History: The patient was seen and evaluated this morning Laying in bed, feels tired overall, had an episode of aspiration this morning Requiring high-flow oxygen and non-rebreather mask Denies any fever, chills but reports generalized shortness of breath No reported other overnight events. Systemic review: No fever, chills or weakness No chest pain, palpitation Reporting shortness of breath and coughing No abdominal pain, nausea or vomiting No urinary symptoms No any rash or wounds Physical Exam Vital Signs: Vital Signs: Last Vital Signs Temp 98.2 F 05/28/20 15:32 Pulse 76 05/28/20 15:32 Resp 24 H 05/28/20 16:03 BP 134/61 05/28/20 15:32 Pulse Ox 94 05/28/20 15:32 Body Mass Index 37.9 Const: Other: Constitutional : Alert, oriented, in significant respiratory distress to Neck : Normal inspection, Supple Cardiovascular : RRR, S1 S2, trace bilateral lower extremity edema Respiratory : Decreased bilateral air entry, no crackles, wheezes or rhonchi, on high-flow oxygen and non-rebreather supplement 90%, respiratory distressed Gastrointestinal: soft, lax, Normal bowel sounds, Non tender Skin : Warm/Dry, No rash Neurological : Alert & oriented x3, No focal deficit Objective Data Current Medications Generic Name Dose Route Start Last Admin Trade Name Freq PRN Reason Stop Dose Admin Acetaminophen 650 mg 05/21/20 20:40 05/28/20 09:39 Acetaminophen 325 Mg Tablet PO 650 mg Q6H PRN Administration Pain, Mild (Pain Scale 1-3) Aspirin 81 mg 05/22/20 09:00 05/28/20 09:40 Aspirin Enteric Coated 81 Mg Tablet.Dr PO 81 mg DAILY PAMELA Administration Atorvastatin Calcium 80 mg 05/21/20 21:00 05/27/20 20:45 Atorvastatin Calcium 80 Mg Tablet PO 80 mg BEDTIME [facility] Administration Carvedilol 3.125 mg 05/21/20 21:00 05/28/20 09:40 Carvedilol 3.125 Mg Tablet PO 3.125 mg BID P[facility]ELA Administration Protocol Dexamethasone Sodium Phosphate 6 mg 05/22/20 09:00 05/28/20 09:40 Dexamethasone Sod Phosphate 4 Mg/Ml Vial IVPUSH 6 mg DAILY [facility] Administration Enoxaparin Sodium 40 mg 05/21/20 20:40 05/27/20 20:45 Enoxaparin Sodium 40 Mg/0.4 Ml Syringe SUBCUT 40 mg Q24H [facility] Administration Fluoxetine HCl 20 mg 05/22/20 12:00 05/28/20 13:12 Fluoxetine Hcl 20 Mg Capsule PO Not Given DAILY@1200 [facility] Fluticasone Propionate 2 puff 05/21/20 20:51 05/28/20 08:13 Fluticasone Propionate 100 Mcg Blst.W.Dev INHALE 2 puff RBID [facility] Administration Hydromorphone HCl 0.5 mg 05/24/20 17:58 05/27/20 21:34 Hydromorphone Hcl 0.5 Mg/0.5 Ml Syringe IVPUSH 0.5 mg Q4H PRN Administration pain, sob, anxiety Insulin Glargine 10 unit 05/22/20 09:00 05/28/20 10:09 Insulin Glargine,Hum.Rec.Anlog 100 Unit/Ml 10 Ml Vial SUBCUT Not Given DAILY [facility] Insulin Human Lispro 0 unit 05/21/20 21:00 05/28/20 16:58 Insulin Lispro 100 Unit/Ml 3 Ml Vial SUBCUT Not Given QIDACHS [facility] Protocol Magnesium Oxide 400 mg 05/21/20 21:00 05/28/20 09:40 Magnesium Oxide 400 Mg Tablet PO 400 mg BID [facility] Administration Omeprazole 20 mg 05/22/20 09:00 05/28/20 09:40 Omeprazole 20 Mg Capsule. PO 20 mg DAILY [facility] Administration Pharmacy Consult 1 each 05/21/20 12:51 Consult Rx Perform Med Rec MISCELLANE ONCE PRN Consult order Sodium Chloride 3 ml 05/22/20 00:00 05/28/20 15:59 0.9 % Sodium Chloride Flush 3 Ml Syringe IVFLUSH 3 ml QSHIFT [facility] Administration Trazodone HCl 50 mg 05/21/20 21:00 05/27/20 20:45 Trazodone Hcl 50 Mg Tablet PO 50 mg BEDTIME [facility] Administration Labs CBC & Chem 7: 05/28/20 06:09 05/28/20 06:09 Microbiology Microbiology Results: Microbiology 05/21/20 14:41 Blood - Venous Blood Culture - Final No growth after 5 days. 05/21/20 14:34 Blood - Venous Blood Culture - Final No growth after 5 days. Assessment and Plan (1) Acute respiratory failure with hypoxia: Status: Acute Assessment and Plan: 65M with known covid for about 2 weeks, presented with sob acute hypoxic respiratory failure due to covid pneumonia high risk of adverse outcome due to obesity, DM, colon cancer on chemo Continue to worsen today with possible aspiration Increased oxygen requirement to non-rebreather mask and high-flow oxygen supplement today decadron day / prognostic labs slightly increased, continue to monitor Evaluated by hinging machine operator who recommend Lasix and continue to monitor with plan to go to ICU if continue to deteriorate wean as tolerated Hyperkalemia Potassium of 5.7 this morning next [place] to give Kayexalate Follow BMP Hypoglycemia Diabetes on insulin Glucose of 56 this morning, recovered with oral glucose Decrease Lantus dose Diabetic diet SSI colon ca outpatient follow up HTN coreg hld statin
[2020-05-28] MEDS: Furosemide 20 MG/2 ML VIAL IVPUSH (18:06)
[2020-05-28] MEDS: Sodium Polystyrene Sulfon/Sorb 15 GM/60 ML ORAL.SUSP 30 GM PO (18:06)
[2020-05-28 19:36] LABS: Glucose, Whole Blood 240 mg/dL (60-115)
[2020-05-28] MEDS: Atorvastatin Calcium 80 MG TABLET PO (20:15)
[2020-05-28] MEDS: traZODone HCL 50 MG TABLET PO (20:16)
[2020-05-28] MEDS: Enoxaparin Sodium 40 MG/0.4 ML SYRINGE SUBCUT (20:16)
[2020-05-28] MEDS: Insulin Lispro 100 UNIT/ML 3 ML VIAL SUBCUT (20:17)
[2020-05-29] VITALS (31 sets, daily range): BP systolic 90–141; BP diastolic 45–77; PULSE 56–104; RESP 18–27; TEMP 36.6–38.5; O2SAT 83–100
[2020-05-29] MEDS: LORazepam 2 MG/ML VIAL 1 MG IVPUSH (02:01)
--- NOTE | 2020-05-29 04:14 | W.PM.CCHP ---
Procedures Intubation Intubation Comments: Patient with acute respiratory distress, refractory to highflow and CPAP, requiring emergent intubation for hypoxemia. Patient intubated with 7.5 cuffed ET tube under glide scope guidance with visualization of vocal cords, without immediate complications. ET tube position verified with Chest XRAY. Consent for Procedure: Emergent-no informed consent obtained Time out performed: Yes Sedative: propofol Mg given: 150 Laryngoscope: fiber optic video scope ET tube size: 7.5 ET tube uncuffed: No Tube secured depth (cm): 25 Tube secured location: lips Tube placement confirmation: visualized tube passing through cords, equal breath sounds bilaterally, no breath sounds over epigastrium and confirmation by capnometry Patient tolerated procedure: well Intubation complications: none
--- NOTE | 2020-05-29 04:26 | P.EN_ITS ---
Event Note Date of Service: 05/29/20 Event Note: 65-year-old man with underlying history of asthma, hypertension, d iabetes mellitus, obesity, colon cancer, COVID positive on 05/15/2020, admitted on 05/21/[address] chest negative for pulmonary embolism on 05/21/2020. Patient has been treated with dexamethasone. Overnight with significant hypoxemia despite being on max high-flow/non-rebreather. He was also agitated and anxious. Received ativan with no effect. When I assessed patient he was very anxious, tachypneic, and saturations on 70s. Quickly placed on CPAP for transfer to ICU, but continued to attempt to remove mask and being hypoxic. Required emergent intubation when arrived to unit. Hypotension related to sedation. Plan VBG Cont to diuretics wean of vent as tolerated Daughter Evelyn informed of plan of care and transfer to ICU
[2020-05-29] MEDS: Cisatracurium Besylate 20 MG/10 ML VIAL 10 MG IVPUSH ×4 (04:52→09:40)
[2020-05-29] MEDS: propofoL 1,000 MG/100 ML VIAL 29.13 MG IVCONT ×4 (04:53→15:14)
[2020-05-29] MEDS: fentaNYL citrate/NS 1,000 MCG/100 ML PLAST..BAG 20 MCG IVCONT ×3 (04:54→13:05)
--- NOTE | 2020-05-29 04:59 | PM.EVENT ---
Event Note Date of Service: 05/29/20 Event Note: Pt agitated, restless, constantly attempting to remove his NRB mask, and screaing at nurses, dropping his O2 to 70s. Received 1 dose of Ativan as pt allergic to morphine with no improvement in his agitation. ICU clled and pt is transferred to ICU
[2020-05-29] MEDS: propofoL 200 MG/20 ML VIAL 150 MG IVPUSH (05:00)
[2020-05-29 05:36] LABS: VBG Base Excess 4.7 mmol/L; VBG HCO3 27 mmol/L (22-26); VBG pCO2 34 mmHg; VBG pH 7.51 (7.32-7.43); VBG pO2 85 mmHg
[2020-05-29 05:45] LABS: Hematocrit 35.3 % (42-52); Hemoglobin 10.8 g/dl (14.0-18.0); Mean Corpuscular HGB Conc 30.6 g/dl (31.0-36.0); Mean Corpuscular Hemoglobin 22.6 pg (27.0-33.0); Platelet Count 344 X10*3/uL (160-400); Red Blood Count 4.77 X10*6/uL (4.60-5.80); Red Cell Distribution Width 17.8 % (11.0-16.0); White Blood Count 16.8 X10*3/uL (4.8-10.8)
[2020-05-29 05:55] LABS: INTERNATIONAL NORM RATIO 1.4 (0.9-1.1); Prothrombin Time 16.8 SEC (10.8-13.0)
--- NOTE | 2020-05-29 05:56 | PC.NURSE ---
TRANSFERRED TO ICU APPROX 3AM---BIPAP 16/10 AND 100% FIO2 ...RR 40'S---SAO2 86-87%---STATING I CAN'T BREATHE --ICU CONTACT CENTER REP PRESENT--INTUBATED 7.5 ETT @ 25CM..PROPOFOL TOTAL 150MG IV FOR INTUBATION,,,NIMBEX 10 MG IV X2 DOSES---VENT INITIALY PCV: AC 24/IP 18/FIO2 100%/PEEP 14...SAO2 94-95%...IP WEANED TO 15 AND PEEP TO 10CM....SAO2 DECREASED TO 85-86%--CONTACT CENTER REP STATED SAO2 GOAL 88% OR GREATER---PEEP TITRATED BACK TO 14cm---SAO2 90%---FENTANYL DRIP 200 MCG/HR AND PROPOFOL 50 MCG/KG/HR FOR VENT SYNCHRONY---LEVOPHED DRIP TITRATED TO 0.07 MCG/KG/MIN--DRIPS INFUSING VIA RIGHT CHEST PORT...FISCHER PLACED WITH MINIMAL OUTPUT--CONTACT CENTER REP AWARE---NSR---RARE PAC---
[2020-05-29 06:10] LABS: D Dimer 3438 NG/ML
[2020-05-29 06:13] LABS: Alanine Aminotransferase 75 U/L (0-40); Alkaline Phosphatase 165 U/L (39-117); Anion Gap 17 (12-20); Aspartate Amino Transferase 90 U/L (5-37); Bilirubin Direct 1.1 mg/dL (0.0-0.5); Bilirubin Total 1.7 mg/dL (0.0-1.0); Blood Urea Nitrogen 28 mg/dL (9-16); C Reactive Protein 23.17 mg/dL (< or = 0.50); Calcium 8.8 mg/dL (8.4-10.2); Carbon Dioxide 26 mmol/L (22-29); Chloride 100 mmol/L (96-108); Creatinine Clr Calc Pharmacy 92.6; Estimated Glomerular Filt Rate > 60; Glucose Random 110 mg/dL (60-115); Lactate Dehydrogenase 1267 U/L (118-273); Magnesium 2.1 mg/dL (1.6-2.6); Phosphorus 5.2 mg/dL (2.7-4.5); Sodium 139 mmol/L (135-145); Total Protein 6.8 g/dL (6.5-8.0)
[2020-05-29 06:14] LABS: B Type Natriuretic Peptide 55 pg/mL (<100)
[2020-05-29] MEDS: Pantoprazole Sodium 40 MG/10 ML VIAL IVPUSH (06:25)
[2020-05-29] MEDS: Albumin Human 25 % 100 ML IV (06:25)
[2020-05-29] MEDS: Chlorhexidine Gluc Oral Rinse 15 ML MOUTHWASH BUCCAL ×3 (06:25→22:21)
[2020-05-29] MEDS: dexAMETHasone sod phosphate 4 MG/ML VIAL 6 MG IVPUSH (07:36)
[2020-05-29] MEDS: Aspirin 81 MG TAB.CHEW PO (07:36)
[2020-05-29] MEDS: 0.9 % Sodium Chloride Flush 3 ML SYRINGE IVFLUSH ×3 (07:37→23:14)
[2020-05-29] MEDS: Magnesium Oxide 400 MG TABLET PO (07:37)
[2020-05-29 08:20] LABS: Venous Blood Gas Refer to POC result
[2020-05-29] MEDS: Insulin Glargine,Hum.rec.anlog 100 UNIT/ML 10 ML VIAL 6 UNIT SUBCUT (08:45)
[2020-05-29 09:21] LABS: Glucose, Whole Blood 129 mg/dL (60-115)
[2020-05-29 10:10] LABS: VBG Base Excess 3.8 mmol/L; VBG HCO3 28 mmol/L (22-26); VBG pCO2 43 mmHg; VBG pH 7.42 (7.32-7.43); VBG pO2 59 mmHg
[2020-05-29] MEDS: Insulin Lispro 100 UNIT/ML 3 ML VIAL SUBCUT ×2 (11:51→17:41)
--- NOTE | 2020-05-29 11:57 | PM.CCPN ---
Subjective Subjective Date of Service: 05/29/20 Interval History: 65-year-old gentleman with underlying history of asthma, hypertension, diabetes mellitus, obesity, colon cancer now on chemotherapy under oncology care COVID positive on 05/15/2020, admitted on 05/21/[address] chest negative for pulmonary embolism on 05/21/2020. Patient has been treated with dexamethasone. Hospital course significant for progressive hypoxemia requiring transfer to intensive care unit on 05/29/2020 for CPAP support. Patient intolerant of noninvasive positive pressure ventilation requiring intubation and ventilatory support. Patient not synchronous with the ventilator despite being heavily sedated requiring initiation of a paralytic drip. Physical Exam Vital Signs: Vital Signs: Last Vital Signs Temp 99.3 F 05/29/20 10:00 Pulse 80 05/29/20 10:00 Resp 24 H 05/29/20 10:00 BP 101/57 L 05/29/20 10:00 Pulse Ox 83 L 05/29/20 10:00 Body Mass Index 37.9 Const: General: no acute distress and other (Sedated on the vent) Nutritional Appearance: obese Eyes: Sclerae: sclerae normal EOM: EOMs intact bilaterally Neck: Neck: Yes no lymphadenopathy, Yes trachea midline and Yes supple Resp: Auscultation: crackles (Diffuse bilateral) Cardio: Rate: regular rate Rhythm: regular rhythm Heart sounds: no gallops, no murmurs and no rubs GI: Palpation (GI): Soft to palpation and Other GI palpation findings present ( Nontender, distended) Auscultation: normal bowel sounds Extrem: General: Yes no pedal edema, No clubbing and No cyanosis Objective Data Labs CBC & Chem 7: 05/29/20 05:32 05/29/20 05:32 Labs: Laboratory Results - last 24 hr 05/28/20 05/28/20 05/29/20 15:38 19:31 04:32 WBC RBC Hgb Hct MCV MCH MCHC RDW Plt Count MPV Absolute Nucleated RBC Nucleated RBC % (auto) PT INR D-Dimer VBG pH VBG pCO2 VBG pO2 VBG HCO3 VBG O2 Saturation VBG Base Excess Sodium Potassium Chloride Carbon Dioxide Anion Gap BUN Creatinine Estim Creat Clear Calc Estimated GFR POC Glucose 215 H 240 H Random Glucose Calcium Phosphorus Magnesium Total Bilirubin Direct Bilirubin AST ALT Alkaline Phosphatase Lactate Dehydrogenase Troponin I High Sens 32.0 C-Reactive Protein B-Natriuretic Peptide Total Protein Albumin 05/29/20 05/29/20 05/29/20 05:30 05:32 05:32 WBC 16.8 H RBC 4.77 Hgb 10.8 L Hct 35.3 L MCV 74.0 L MCH 22.6 L MCHC 30.6 L RDW 17.8 H Plt Count 344 D MPV 11.0 Absolute Nucleated RBC 0.000 Nucleated RBC % (auto) 0.0 PT 16.8 H INR 1.4 H D-Dimer 3438 VBG pH 7.51 H VBG pCO2 34 VBG pO2 85 VBG HCO3 27 H VBG O2 Saturation 94.0 VBG Base Excess 4.7 Sodium Potassium Chloride Carbon Dioxide Anion Gap BUN Creatinine Estim Creat Clear Calc Estimated GFR POC Glucose Random Glucose Calcium Phosphorus Magnesium Total Bilirubin Direct Bilirubin AST ALT Alkaline Phosphatase Lactate Dehydrogenase Troponin I High Sens C-Reactive Protein B-Natriuretic Peptide Total Protein Albumin 05/29/20 05/29/20 05/29/20 05:32 05:32 05:32 WBC RBC Hgb Hct MCV MCH MCHC RDW Plt Count MPV Absolute Nucleated RBC Nucleated RBC % (auto) PT INR D-Dimer VBG pH VBG pCO2 VBG pO2 VBG HCO3 VBG O2 Saturation VBG Base Excess Sodium 139 Potassium 4.0 D Chloride 100 Carbon Dioxide 26 Anion Gap 17 BUN 28 H Creatinine 0.81 Estim Creat Clear Calc 92.6 Estimated GFR > 60 POC Glucose Random Glucose 110 D Calcium 8.8 Phosphorus 5.2 H Cancelled Magnesium 2.1 Cancelled Total Bilirubin 1.7 H Direct Bilirubin 1.1 H AST 90 H ALT 75 H Alkaline Phosphatase 165 H D Lactate Dehydrogenase 1267 H Troponin I High Sens C-Reactive Protein 23.17 H B-Natriuretic Peptide 55 Total Protein 6.8 Albumin 3.0 L 05/29/20 05/29/20 07:41 10:04 WBC RBC Hgb Hct MCV MCH MCHC RDW Plt Count MPV Absolute Nucleated RBC Nucleated RBC % (auto) PT INR D-Dimer VBG pH 7.42 VBG pCO2 43 VBG pO2 59 VBG HCO3 28 H VBG O2 Saturation 85.0 VBG Base Excess 3.8 Sodium Potassium Chloride Carbon Dioxide Anion Gap BUN Creatinine Estim Creat Clear Calc Estimated GFR POC Glucose 129 H Random Glucose Calcium Phosphorus Magnesium Total Bilirubin Direct Bilirubin AST ALT Alkaline Phosphatase Lactate Dehydrogenase Troponin I High Sens C-Reactive Protein B-Natriuretic Peptide Total Protein Albumin Microbiology Microbiology Results: Microbiology 05/21/20 14:41 Blood - Venous Blood Culture - Final No growth after 5 days. 05/21/20 14:34 Blood - Venous Blood Culture - Final No growth after 5 days. Progress Note: A&P Assessment and plan (1) Acute respiratory distress syndrome (ARDS) due to COVID-19 virus: Status: Acute Assessment and Plan: Assessment: 65-year-old gentleman with underlying history of colon cancer on chemotherapy diabetes mellitus obesity admitted with acute hypoxic respiratory failure secondary to COVID-19 with hospital course significant for progressive hypoxemia now requiring ventilatory support Plan: Neuro: No acute issues. Cardiac: No acute issues. Pulmonary: Acute hypoxic respiratory failure secondary to COVID-19 ARDS requiring ventilatory support. Continue to titrate off ventilatory support as tolerated. Underlying history of asthma. Renal: No acute issues. Endo: No acute issues. Underlying diabetes mellitus. Continue on subcutaneous insulin protocol. GI: No acute issues. ID: COVID 19, continues on dexamethasone. Heme/Onc: No acute issues. Underlying colon cancer on chemotherapy. Psych: No acute issues. Miscellaneous: No acute issues. Prophylaxis: Lovenox, ppi Diet: Tube feeds Critical care time spent: 60 minutes (2) Acute respiratory failure with hypoxia: Status: Acute (3) Carcinoma of sigmoid colon: Status: Acute (4) Diabetes mellitus, type 2: Status: Acute (5) Hypertension: Status: Acute Critical Care Time Critical Care Time (minutes): 60
[2020-05-29 12:16] LABS: Glucose, Whole Blood 156 mg/dL (60-115)
[2020-05-29 13:00] LABS: Venous Blood Gas Refer to POC result
[2020-05-29 18:09] LABS: Glucose, Whole Blood 192 mg/dL (60-115)
[2020-05-29] MEDS: fentaNYL citrate/NS 1,000 MCG/100 ML PLAST..BAG 18 MCG IVCONT ×2 (18:15→22:21)
[2020-05-29] MEDS: propofoL 1,000 MG/100 ML VIAL 20.39 MG IVCONT ×2 (18:16→22:21)
--- NOTE | 2020-05-29 19:27 | PC.NURSE ---
Assumed care at 0700. Patient was sedated on propofol 50 and fentanyl 200. Patient was ventilating well initially. Family came in to visit with permission from nursing supervisor molding and AOD, observing precautions. After family left, patient was immediately fighting ventilator, accessory muscle use, high pressure alarms, tachypnia, nasal flaring, abdominal muscle use; MD notified, and 10 mg IV nimbex given with good effect; subsequently patient was again not ventilating well, with similar symptoms, and a second dose of IV nimbex 10 mg was ordered and given and a nimbex gtt was started at 2 mcg. Patient was subsequently ventilating well for the rest of the day. Patient Train of Fours about noon showed no twitches; discussed with MD, and gtt to be left at 2 continuous. Patient's pupils were also found to be fixed at 3 mm, no cough, no gag; propofol was gradually titrated down over course of the day to 35; fentanyl gradually titrated down over course of day to 180; pupils still unreactive, no gag/no cough, no movement. Patient on PC settings: #7.5 ett, 25 cm hunter; Pi 16; rate 24; Peep 14; fio2 100%; Te: about 9; Tv about 300-400; spo2 88-91. scant thin inline secretions, minimal oral thin secretions, LS diminished. Patient has accessed portacath to right chest, and 22 R hand, 20 RAC, sinus rhythm on monitor. Two brief episodes of bradycardia dipping into 40's today associated with two episodes of vent dysynchrony; MD aware, and no need for EKG at that time. Patient occasionally with rate 58-59. Hdez output improved over course of day, urine was initially milky, thick and cloudy with sediment, a dark yellow color, and over the course of the day the character improved to a clear to cloudy urine, and output improved from 20cc/hour to avg 50 /hour. Patient with no TF running while on paralytics. Patient with POC between 150-200 and got 2 units lispro twice. skin is intact, but rash to abdomen and legs, small scabs included in rash, scleritic icterus, abdomen is round and distended but not firm, and MD aware.
[2020-05-29] MEDS: Enoxaparin Sodium 40 MG/0.4 ML SYRINGE SUBCUT (22:21)
[2020-05-29 23:46] LABS: Glucose, Whole Blood 152 mg/dL (60-115)
[2020-05-30] VITALS (32 sets, daily range): BP systolic 93–143; BP diastolic 49–69; PULSE 60–106; RESP 18–24; TEMP 37–38.7; O2SAT 79–93; BMI 38.0
[2020-05-30] MEDS: propofoL 1,000 MG/100 ML VIAL 20.39 MG IVCONT ×6 (02:43→22:45)
[2020-05-30] MEDS: fentaNYL citrate/NS 1,000 MCG/100 ML PLAST..BAG 18 MCG IVCONT ×4 (02:43→20:48)
[2020-05-30] MEDS: Chlorhexidine Gluc Oral Rinse 15 ML MOUTHWASH BUCCAL ×3 (05:47→20:49)
[2020-05-30] MEDS: Pantoprazole Sodium 40 MG/10 ML VIAL IVPUSH (05:47)
[2020-05-30 06:16] LABS: Venous Blood Gas Refer to POC result
[2020-05-30 06:16] LABS: VBG Base Excess 8.2 mmol/L; VBG HCO3 34 mmol/L (22-26); VBG pCO2 54 mmHg; VBG pO2 73 mmHg
[2020-05-30 06:22] LABS: Basophils Percent Auto 0.1 % (0-2); Eosinophils Percent Auto 0.2 % (0-4); MANUAL DIFF FLAG SCAN; SCAN SMEAR FLAG 1
[2020-05-30 06:24] LABS: Hematocrit 32.9 % (42-52); Hemoglobin 9.5 g/dl (14.0-18.0); Imm Gran Abs Auto 0.07 X10*3/uL (0.00-0.03); Imm Gran Pct Auto 0.9 % (0.0-0.4); Lymphocytes Absolute Auto 0.2 X10*3/uL (1.2-4.9); Lymphocytes Percent Auto 2.6 % (20-40); Mean Corpuscular HGB Conc 28.9 g/dl (31.0-36.0); Mean Corpuscular Volume 76.3 fL (80-98); Mean Platelet Volume 11.4 fL (9.4-12.4); Monocytes Absolute Auto 0.1 X10*3/uL (0.1-1.2); Monocytes Percent Auto 1.1 % (2-11); Neutrophils Absolute Auto 7.8 X10*3/uL (2.0-8.3); Neutrophils Percent Auto 95.1 % (45-73); PLT CLUMP 1; Red Blood Count 4.31 X10*6/uL (4.60-5.80); Red Cell Distribution Width 17.7 % (11.0-16.0)
[2020-05-30 06:32] LABS: PLT ABN DIST 1
[2020-05-30 06:48] LABS: Anion Gap 11 (12-20); Blood Urea Nitrogen 31 mg/dL (9-16); Calcium 8.5 mg/dL (8.4-10.2); Carbon Dioxide 31 mmol/L (22-29); Chloride 99 mmol/L (96-108); Creatinine Clr Calc Pharmacy 81.5; Estimated Glomerular Filt Rate > 60; Glucose Random 122 mg/dL (60-115); Magnesium 2.8 mg/dL (1.6-2.6); Phosphorus 4.3 mg/dL (2.7-4.5); Potassium 4.2 mmol/L (3.3-5.1); Sodium 137 mmol/L (135-145)
[2020-05-30 07:01] LABS: White Blood Count 8.2 X10*3/uL (4.8-10.8)
[2020-05-30 07:03] LABS: SLIDE REVIEW VERIFIED
[2020-05-30 07:52] LABS: Glucose, Whole Blood 111 mg/dL (60-115)
[2020-05-30] MEDS: Insulin Glargine,Hum.rec.anlog 100 UNIT/ML 10 ML VIAL 6 UNIT SUBCUT (08:33)
[2020-05-30] MEDS: dexAMETHasone sod phosphate 4 MG/ML VIAL 6 MG IVPUSH (08:33)
[2020-05-30] MEDS: 0.9 % Sodium Chloride Flush 3 ML SYRINGE IVFLUSH ×2 (08:34→17:52)
[2020-05-30 09:36] LABS: Glucose Urine UA NEG (NEG); Leukocyte Esterase Urine NEG (NEG); Nitrite Urine NEG (NEG); PH 5.5 (5.0-8.0); Specific Gravity - Urine >= 1.030 (1.005-1.025); Urine Blood NEG (NEG); Urine Ketones NEG (NEG); Urine Protein 2+ MG/DL (NEG-TRACE)
[2020-05-30 09:37] LABS: Appearance Urine CLOUDY; Color Urine YELLOW
[2020-05-30] MEDS: Cisatracurium Besylate 20 MG/10 ML VIAL 10 MG IVPUSH (10:10)
[2020-05-30 10:28] LABS: Amorphous Sediment Urine 2+ /LPF; RBC Urine 0-2 /HPF (0)
--- NOTE | 2020-05-30 10:34 | PM.CCPN ---
Subjective Subjective Date of Service: 05/30/20 Interval History: ICU day 2. 65-year-old gentleman with underlying history of asthma, hypertension, diabetes mellitus, unspecified dermatitis, obesity, colon cancer now on chemotherapy under oncology care COVID positive on 05/15/2020, admitted on 05/21/[address] chest negative for pulmonary embolism on 05/21/2020. Patient has been treated with dexamethasone. Hospital course significant for progressive hypoxemia requiring transfer to intensive care unit on 05/29/2020 for CPAP support. Patient intolerant of noninvasive positive pressure ventilation requiring intubation and ventilatory support. Patient not synchronous with the ventilator despite being heavily sedated requiring initiation of a paralytic drip. Events overnight. On and off paralytic agent. Physical Exam Vital Signs: Vital Signs: Last Vital Signs Temp 101.7 F H 05/30/20 10:00 Pulse 82 05/30/20 10:00 Resp 24 H 05/30/20 10:00 BP 112/51 L 05/30/20 10:00 Pulse Ox 84 L 05/30/20 10:00 Body Mass Index 37.9 Const: General: no acute distress and other (Sedated on the vent, macular rash on chest and abdomen) Nutritional Appearance: obese Eyes: Sclerae: sclerae normal Neck: Neck: Yes no lymphadenopathy, Yes trachea midline and Yes supple Resp: Auscultation: crackles (Diffuse bilateral) Cardio: Rate: regular rate Rhythm: regular rhythm Heart sounds: no gallops, no murmurs and no rubs GI: Palpation (GI): Soft to palpation and Other GI palpation findings present ( Nontender, distended) Auscultation: normal bowel sounds Extrem: General: No clubbing, No cyanosis and Yes pedal edema (1+ bilateral) Objective Data Labs CBC & Chem 7: 05/30/20 06:04 05/30/20 06:04 Labs: Laboratory Results - last 24 hr 05/29/20 05/29/20 05/29/20 11:49 17:35 23:19 WBC RBC Hgb Hct MCV MCH MCHC RDW Plt Count MPV Immature Gran % (Auto) Neut % (Auto) Lymph % (Auto) [place] % (Auto) Eos % (Auto) Baso % (Auto) Lymph # (Auto) [place] # (Auto) Eos # (Auto) Baso # (Auto) Abs Immat Gran (auto) Absolute Neuts (auto) Absolute Nucleated RBC Nucleated RBC % (auto) Smear Tech's Comments VBG pH VBG pCO2 VBG pO2 VBG HCO3 VBG O2 Saturation VBG Base Excess Sodium Potassium Chloride Carbon Dioxide Anion Gap BUN Creatinine Estim Creat Clear Calc Estimated GFR POC Glucose 156 H 192 H 152 H Random Glucose Calcium Phosphorus Magnesium Albumin Urine Color Urine Appearance Urine pH Ur Specific [place] Urine Protein Urine Glucose (UA) Urine Ketones Urine Blood Urine Nitrite Ur Leukocyte Esterase Urine RBC Urine WBC Ur Squamous Epith Cells Amorphous Sediment Urine Bacteria Granular Casts 05/30/20 05/30/20 05/30/20 05:53 06:04 06:04 WBC 8.2 RBC 4.31 L Hgb 9.5 L Hct 32.9 L MCV 76.3 L MCH 22.0 L MCHC 28.9 L RDW 17.7 H Plt Count TNP MPV 11.4 Immature Gran % (Auto) 0.9 H Neut % (Auto) 95.1 H Lymph % (Auto) 2.6 L [place] % (Auto) 1.1 L Eos % (Auto) 0.2 Baso % (Auto) 0.1 Lymph # (Auto) 0.2 L [place] # (Auto) 0.1 Eos # (Auto) 0.0 Baso # (Auto) 0.0 Abs Immat Gran (auto) 0.07 H Absolute Neuts (auto) 7.8 Absolute Nucleated RBC 0.000 Nucleated RBC % (auto) 0.0 Smear Tech's Comments VERIFIED VBG pH VBG pCO2 VBG pO2 VBG HCO3 VBG O2 Saturation VBG Base Excess Sodium 137 Potassium 4.2 Chloride 99 Carbon Dioxide 31 H Anion Gap 11 L BUN 31 H Creatinine 0.92 Estim Creat Clear Calc 81.5 Estimated GFR > 60 POC Glucose 111 Random Glucose 122 H Calcium 8.5 Phosphorus 4.3 Magnesium 2.8 H Albumin 3.0 L Urine Color Urine Appearance Urine pH Ur Specific [place] Urine Protein Urine Glucose (UA) Urine Ketones Urine Blood Urine Nitrite Ur Leukocyte Esterase Urine RBC Urine WBC Ur Squamous Epith Cells Amorphous Sediment Urine Bacteria Granular Casts 05/30/20 05/30/20 06:09 09:26 WBC RBC Hgb Hct MCV MCH MCHC RDW Plt Count MPV Immature Gran % (Auto) Neut % (Auto) Lymph % (Auto) [place] % (Auto) Eos % (Auto) Baso % (Auto) Lymph # (Auto) [place] # (Auto) Eos # (Auto) Baso # (Auto) Abs Immat Gran (auto) Absolute Neuts (auto) Absolute Nucleated RBC Nucleated RBC % (auto) Smear Tech's Comments VBG pH 7.40 VBG pCO2 54 VBG pO2 73 VBG HCO3 34 H VBG O2 Saturation 90.0 VBG Base Excess 8.2 Sodium Potassium Chloride Carbon Dioxide Anion Gap BUN Creatinine Estim Creat Clear Calc Estimated GFR POC Glucose Random Glucose Calcium Phosphorus Magnesium Albumin Urine Color YELLOW Urine Appearance CLOUDY Urine pH 5.5 Ur Specific [place] >= 1.030 H Urine Protein 2+ H Urine Glucose (UA) NEG Urine Ketones NEG Urine Blood NEG Urine Nitrite NEG Ur Leukocyte Esterase NEG Urine RBC 0-2 Urine WBC 15-29 H Ur Squamous Epith Cells NONE Amorphous Sediment 2+ Urine Bacteria NONE Granular Casts 10-14 Microbiology Microbiology Results: Microbiology 05/21/20 14:41 Blood - Venous Blood Culture - Final No growth after 5 days. 05/21/20 14:34 Blood - Venous Blood Culture - Final No growth after 5 days. Progress Note: A&P Assessment and plan (1) Acute respiratory failure with hypoxia: Status: Acute Assessment and Plan: Assessment: 65-year-old gentleman with underlying history of colon cancer on chemotherapy diabetes mellitus obesity admitted with acute hypoxic respiratory failure secondary to COVID-19 with hospital course significant for progressive hypoxemia now requiring ventilatory support Plan: Neuro: No acute issues. Cardiac: No acute issues. Pulmonary: Acute hypoxic respiratory failure secondary to COVID-19 ARDS requiring ventilatory support and intermittent paralytic agent for ventilator dyssynchrony. Continue to titrate off ventilatory support as tolerated. Underlying history of asthma. Renal: No acute issues. Endo: No acute issues. Underlying diabetes mellitus. Continue on subcutaneous insulin protocol. GI: No acute issues. ID: COVID 19, continues on dexamethasone. Heme/Onc: No acute issues. Underlying colon cancer on chemotherapy. Psych: No acute issues. Miscellaneous: No acute issues. Prophylaxis: Lovenox, ppi Diet: Tube feeds Critical care time spent: 60 minutes (2) Acute respiratory distress syndrome (ARDS) due to COVID-19 virus: Status: Acute (3) Carcinoma of sigmoid colon: Status: Acute (4) Diabetes mellitus, type 2: Status: Acute Critical Care Time Critical Care Time (minutes): 60
[2020-05-30] MEDS: Insulin Lispro 100 UNIT/ML 3 ML VIAL SUBCUT ×2 (12:30→17:54)
[2020-05-30 12:35] LABS: Glucose, Whole Blood 166 mg/dL (60-115)
[2020-05-30 18:40] LABS: Glucose, Whole Blood 170 mg/dL (60-115)
--- NOTE | 2020-05-30 19:47 | PC.NURSE ---
Assumed care at 0700. Patient was sedated on propofol 35 and fentanyl 180 and paralyzed on 2 of nimbex. Patient with no purposeful movement, no cough, no gag, train of four is zero, pupils are fixed at 2 mm, no response to pain. Discussed plan for sedation with provider, and Nimbex was held from [id number] per MD and during which time patient's SpO2 dropped, initially to 85-86% range, then progressively to 81%, without a noticeable change in work of breathing, and MD was notified and new order for 10 mg IVP nimbex, followed by turning nimbex gtt on. Patient was subsequently ventilating well for the rest of the day, but SpO2 was staying aroung 85-86% most of day, with occasional rises to 88-90%.. Patient Train of Fours continue to be zero and pupils fixed at 2 mm, no gag/no cough, no movement. Patient on PC settings: #7.5 ett, 25 cm hunter; Pi 16; rate 24; Peep 14; fio2 100%; Te: about 9-10; Tv about 300-400. No inline secretions, minimal oral thin secretions with pink tinge at times, LS diminished throughout to auscultation. Patient has accessed portacath to right chest, and 22 R hand, 22 R forearm, sinus rhythm on monitor with T-wave elevation apparent in all upright leads; this has been ongoing since yesterday, EKG does show elevation in V2 and V3, discussed with MD, K was 4.2 today, MD aware. Hdez output low and dwindled over course of day 20 ccs / hour in the daytime, hazy at times with sediment, a dark yellow color and signs of hematuria at times, flushed with 10 ccs H2O and patency apparent. Patient with no TF running while on paralytics. Patient with POC between 150-200 and got 2 units lispro twice, as well as 6 units lantus. skin is intact, but rash to abdomen and legs, small scabs included in rash, scleritic icterus, abdomen is round and distended but not firm, and MD aware. Face noted to be reddened yesterday and redder today; discussed with MD and patient has hx nonspecific dermatitis; discussed with patient's HCP, Evelyn, and she remarks abdominal rash as well as facial redness are secondary to hx of chemotherapy, and patient uses topical metronidazole as per med list on his face, back of head, and abdomen to treat this rash and redness at home; CLOTH BALER is aware.
[2020-05-30] MEDS: Enoxaparin Sodium 40 MG/0.4 ML SYRINGE SUBCUT (20:49)
[2020-05-30] MEDS: Furosemide 40 MG/4 ML VIAL IVPUSH (21:36)
[2020-05-30] MEDS: Lactulose 20 GM/30 ML SOLUTION PO (22:45)
[2020-05-31] VITALS (30 sets, daily range): BP systolic 100–135; BP diastolic 50–70; PULSE 68–116; RESP 20–24; TEMP 37.7–38.6; O2SAT 83–92; BMI 38.0
[2020-05-31] MEDS: 0.9 % Sodium Chloride Flush 3 ML SYRINGE IVFLUSH ×3 (00:41→18:49)
[2020-05-31] MEDS: Insulin Lispro 100 UNIT/ML 3 ML VIAL SUBCUT ×4 (00:44→18:49)
[2020-05-31 01:07] LABS: Glucose, Whole Blood 180 mg/dL (60-115)
[2020-05-31] MEDS: fentaNYL citrate/NS 1,000 MCG/100 ML PLAST..BAG 20 MCG IVCONT ×4 (02:46→17:40)
[2020-05-31] MEDS: propofoL 1,000 MG/100 ML VIAL 20.39 MG IVCONT ×5 (03:35→20:01)
--- NOTE | 2020-05-31 04:57 | PC.NURSE ---
ASSUMED CARE OF PT AT 1900. PT ON PRESSURE CONTROL VENT SETTINGS. AFTER REPOSITIONING PT AT 2030. O2 SATS DECREASED TO 78%. HAD TO AMBU BAG PT TO IMPROVE SATS. VITO NICOLE AND RESP THERAPIST AT BEDSIDE. VENT CHANGES MADE: PC UP FROM 16 TO 18, PEEP UP FROM 14 TO 16. PCXR DONE AND READ BY VITO NICOLE WHO STATED THE PT WAS IN OVERLOAD AND SUBSEQUENTLY LASIX 40 MG IV GIVEN. U/O IMPROVED. SAME THING HAPPENED AFTER REPOSITIONING PT AT 0400 BUT THE RECOVERY TIME WAS SHORTER. NIMBEX DRIP INFUSING ORDERED. PROPOFOL AND FENTANYL FOR SEDATION. FENTANYL HAD TO BE INCREASED DURING ONE OF THE EPISODES OF DESATTING AND THUS, LEVOPHED WAS RESTARTED AND CURRENTLY INFUSING AT 0.02 MCG/KG/MIN. MONITOR SHOWS NSR, 70-90, RARE PVC NOTED.
[2020-05-31 05:30] LABS: Basophils Percent Auto 0.2 % (0-2); Eosinophils Absolute Auto 0.1 X10*3/uL (0.0-0.4); Eosinophils Percent Auto 0.6 % (0-4); Hematocrit 32.3 % (42-52); Hemoglobin 9.2 g/dl (14.0-18.0); Imm Gran Pct Auto 0.8 % (0.0-0.4); Lymphocytes Absolute Auto 0.2 X10*3/uL (1.2-4.9); Lymphocytes Percent Auto 1.4 % (20-40); MANUAL DIFF FLAG SCAN; Mean Corpuscular HGB Conc 28.5 g/dl (31.0-36.0); Mean Corpuscular Hemoglobin 21.9 pg (27.0-33.0); Mean Corpuscular Volume 76.9 fL (80-98); Mean Platelet Volume 11.1 fL (9.4-12.4); Monocytes Absolute Auto 0.1 X10*3/uL (0.1-1.2); Monocytes Percent Auto 0.8 % (2-11); Neutrophils Percent Auto 96.2 % (45-73); Platelet Count 217 X10*3/uL (160-400); Red Cell Distribution Width 17.7 % (11.0-16.0); SCAN SMEAR FLAG 1; White Blood Count 12.5 X10*3/uL (4.8-10.8)
[2020-05-31] MEDS: Pantoprazole Sodium 40 MG/10 ML VIAL IVPUSH (05:33)
[2020-05-31] MEDS: Chlorhexidine Gluc Oral Rinse 15 ML MOUTHWASH BUCCAL ×3 (05:34→21:45)
[2020-05-31 05:37] LABS: VBG Base Excess 1.9 mmol/L; VBG HCO3 27 mmol/L (22-26); VBG pCO2 46 mmHg; VBG pH 7.37 (7.32-7.43); VBG pO2 59 mmHg
[2020-05-31 05:46] LABS: Venous Blood Gas Refer to POC result
[2020-05-31 05:51] LABS: Glucose, Whole Blood 173 mg/dL (60-115)
[2020-05-31 05:56] LABS: SLIDE REVIEW VERIFIED
[2020-05-31 06:10] LABS: Alanine Aminotransferase 41 U/L (0-40); Albumin Level 2.7 g/dL (3.5-5.0); Alkaline Phosphatase 121 U/L (39-117); Anion Gap 15 (12-20); Aspartate Amino Transferase 49 U/L (5-37); Bilirubin Total 3.7 mg/dL (0.0-1.0); Blood Urea Nitrogen 55 mg/dL (9-16); Calcium 8.5 mg/dL (8.4-10.2); Carbon Dioxide 27 mmol/L (22-29); Chloride 100 mmol/L (96-108); Creatinine Clr Calc Pharmacy 36.6; Estimated Glomerular Filt Rate 33; Glucose Random 156 mg/dL (60-115); Magnesium 2.9 mg/dL (1.6-2.6); Phosphorus 5.3 mg/dL (2.7-4.5); Potassium 4.3 mmol/L (3.3-5.1); Sodium 138 mmol/L (135-145); Total Protein 6.5 g/dL (6.5-8.0)
[2020-05-31] MEDS: Insulin Glargine,Hum.rec.anlog 100 UNIT/ML 10 ML VIAL 6 UNIT SUBCUT (07:34)
[2020-05-31] MEDS: dexAMETHasone sod phosphate 4 MG/ML VIAL 6 MG IVPUSH (07:34)
--- NOTE | 2020-05-31 10:31 | MHC.CLN ---
PT IS CURRENTLY INTUBATED AND SEDATED WITH OGT IN PLACE IF TF NEEDED; RECOMMEND NEPRO AT MAX GOAL RATE 30CC/HR TOPROVIDE 1296KCALS (1834KCALS WITH SEDATION; 25KCALS/KG), 58G PROTEIN (.8G/KG), 523CC FREE WATER MONITOR TOLERANCE, RESIDUALS ADN MILLY SEE ALSO CLINICAL NUTRITION ASSESSMENT
--- NOTE | 2020-05-31 11:16 | CA_ITS ---
Transthoracic Echocardiogram Limited Patient (Last, First, Middle): Augie Miller Addy Arciniega Gender: Male Date of : 1955 Age: 65 Procedure Date: 05/31/2020 Procedure Type: Transthoracic Echocardiogram Limited Location: ICU Height: 160.02 cm Weight: 97.07 kg BSA: 1.99 m2 Heart Rate: bpm BP: 126 / 65 mmHg Materials Development Engineer: ARON Referring MD: Yvan Fulton Yarder Operator: Jigar Poole MD Symptoms: Acute resp failure w h/o LA; RV and LV size and fxn. Study Quality: Technically Difficult, scan on supine ECG Rhythm: Sinus Conclusions: - 1. Technically extremely limited study as study was performed in supine position with limited endocardial definition 2. Low normal LV systolic function and normal LV diastolic function Findings Left Ventricle The left ventricle was not well visualized. Diastolic function is normal for age. This is technically very limited study as patient was performed in supine position with limited endocardial definition. Left ventricle systolic function some views appears to be at low end of normal with LVEF of 50%. Regional wall motion abnormality cannot be assessed Right Ventricle There is normal right ventricular systolic function by TAPSE Prior Study Comparison No significant change compared to prior study. Measurements 2D Linear Measurements IVSd: 1.06 0.6-0.9/0.6-1.0 cm LVIDd: 3.43 3.9-5.3/4.2-5.9 cm LVIDd Index: 1.72 2.4-3.2/2.2-3.1 cm/m2 LVIDs: 2.23 2.0-3.6 cm LVPWd: 1.01 0.7-1.1 cm LV Mass: 131.06 67-162/88-224 g LV Mass Index: 65.86 43-95/49-115 g/m2 Mitral Valve MV Pk E: 0.72 MV PK A: 0.63 MV Decel Time: 95.00 E/A: 1.20 E'Lateral: 4.93 E'Medial: 6.48 E/E' Med: 11.20 E/E' Lat: 14.70 PHT: 28.00 MVA PHT: 7.86 Decel [place]: 7.60 Diastolic Function MV Pk E: 0.72 MV Pk A: 0.63 E/A: 1.20 E'Medial: 6.48 E/E' Med: 11.20 E' Laterial: 4.93 E/E' Lat: 14.70 Tricuspid Valve TR Pk Willie: 1.82 TR Pk Grad: 13.00 RA Press: 3.00 RVSP: 16.00 Updated in Other Vendor System with Status of Final Jigar Poole MD electronically signed on 05/31/2020 4:12:16 PM with status of Final
--- NOTE | 2020-05-31 11:54 | W.PM.CCHP ---
Procedures Abscess I/D Consent for Procedure: Emergent-no informed consent obtained Central Line Placement Left SC: Central Line Comments: PROCEDURE: Insertion left supraclavicular subclavian triple lumen central venous catheter. INDICATION: Acute respiratory failure. For IV access, and hemod and resp monitoring. ANESTHESIA: Local and propofol/fentanyl infusions. PROCEDURE: Vascular ultrasound was used to examine the left neck, left supraclavicular and left subclavian areas. A large compressible subclavian vein was noted in the very medial supraclavicular fossa. The left neck, supraclavicular, and subclavian areas were widely prepped and draped in full sterile fashion. Local anesthesia was applied to the left supraclavicular subclavian insertion site. The supraclavicular vein was located by ultrasound. The 18 gauge needle cannulated the left supraclavicular subclavian vein under direct ultrasound guidance on the first pass. There was easy aspiration of dark blood. The wire was threaded without incident. The 7Fr x 16cm triple lumen catheter was then inserted via Seldinger tech without incident. There was good blood return x3. The catheter was sutured x3 and a Biopatch and dry sterile dressing were applied. Postop chest x-ray showed the line in good position with no pneumothorax. The patient tolerated the procedure well w no complications. Consent for Procedure: Emergent-no informed consent obtained
[2020-05-31 12:01] LABS: Glucose, Whole Blood 162 mg/dL (60-115)
--- NOTE | 2020-05-31 12:05 | P.PNCC_ITS ---
Subjective Subjective Date of Service: 05/31/20 Interval History: Mr. Augie Miller was transferred to ICU on May 29 with acute respiratory failure secondary to COVID pneumonia. Patient is a 65-year-old male with past medical history of Asthma, Diabetes, Hypercholesteremia, Hypertension, and Palpitations. He was diagnosed with colon cancer in May of last year, and has been treated with chemotherapy by Dr. Burleson. Last CT on March 31, 2020 showed no recurrence and no metastatic disease. According to the ED note of 05/21, the patient tested positive for COVID last year on 03/31/19. Previous echo from last year was fairly normal, except for ejection fraction estimated at 45-50%; right heart was normal. The patient tested positive for COVID a 2nd time on 05/15/2020. CXR showed no acute dz. He was sent home with Decadron, Robitussin, and doxycycline, with little symptomatic relief. The patient presented to the ED on 05/21 with complaints of worsening shortness of breath, dyspnea on exertion, orthopnea chest discomfort, and fevers. SpO2 was low 90?s on room air. CTPA showed mild-moderate classic COVID infiltrates. There was no PE, and RV and PA size were normal. D-dimer, ferritin, and procalcitonin were low; the CRP was 5. The patient was admitted to medicine and treated with Decadron. By the next day, the patient was up to 50% FiO2. By 05/26, he was up to 100% FiO2 on HFNC. On May 29 he was emergently transferred to ICU and intubated. Subsequently required NMB to oxygenate and ventilate adequately. His FiO2 has been at 100% oxygen for the last 3 days. Has been having low-grade temps since May 29. White count has ranged from 8-16 since he?s been here. D-dimer was low until it hit 3400 on May 29. On exam today, we turned off the NMB and within an hour, he dropped his Sat into the 70?s, so the nimbex was restarted. Currently, he is on Nimbex at 2, Levophed at 0.02 mcg, propofol at 35 mcg, and fentanyl at 200 mcg. HR 92, BP 122/63. On ACPC f 24, , 100%, RR is 24, Vt 420cc, Ve 9.5L, PIP 34, ETC02 33, SpO2 86%. No JVD. Chest CTA w low pitched BS, exp phase normal. Regular rate and rhythm, normal-sounding S1 and S2, with no murmur or gallops. Abdomen benign. No edema. LABORATORY DATA: Below. Notably, central venous gas this morning showed 7.37/46/+1. BUN/creatinine this morning were 55/2.0 (up from 31/0.9 yesterday); the renal indices have been rising steadily since 05/28. Total bili is up to 3.7. ECHOCARDIOGRAM - Done by the [facility] and read by me: LV size and wall thickness were normal. Overall LV EF 40-50%, with possible lateral wall hypokinesis. RV cavities size absolutely normal, with RV:LV cavity ratio approximately 0.5. No tricuspid jet obtained. IVC was dilated at 2.3 cm and non collapsing. MICROBIOLOGY: Blood cultures obtained on 05/21 and 05/30 so far negative. IMAGING: Chest x-ray showed today shows bilateral airspace disease, noticeably worse than on May 21. IMPRESSION: 1. Highly significant underlying comorbidities including colon cancer undergoing treatment, DM, and obesity. 2. Bilateral COVID pneumonia with ARDS. I?ve upped his steroids to 80 mg bid, and added the EVMS protocol. 3. Acute hypoxemic respiratory failure. Secondary to above. No urgency to prone just yet. 4. COOPER. Very concerning. Based on prior experience, he may well go on to ARF requiring [employer]. Given the echo, and the poss of renal hypoperfusion 2? high CVP, I?ll give him a trial of diuresis. 5. DM. Insulin as needed. 6. Anticoagulation/DVT prophylaxis: Given his weight and COVID, I am going to up his Lovenox to 30 mg q12h. 7. Elevated DDimer. The echo rules out the poss of signif PE. I?ll get a DVT study. Critical care time (including chart review and hospital course summary, multiple discussions with Dr. Aguirre, and mult visits to the bedside; excluding procedures): 1:45+ hrs. Physical Exam Vital Signs: Vital Signs: Last Vital Signs Temp 100.8 F H 05/31/20 11:00 Pulse 87 05/31/20 11:00 Resp 24 H 05/31/20 11:00 BP 116/61 05/31/20 11:00 Pulse Ox 84 L 05/31/20 11:00 Body Mass Index 38.0 Objective Data Labs CBC & Chem 7: 05/31/20 05:23 05/31/20 05:23 Labs: Laboratory Results - last 24 hr 05/30/20 05/30/20 05/31/20 12:30 17:53 00:15 WBC RBC Hgb Hct MCV MCH MCHC RDW Plt Count MPV Immature Gran % (Auto) Neut % (Auto) Lymph % (Auto) [place] % (Auto) Eos % (Auto) Baso % (Auto) Lymph # (Auto) [place] # (Auto) Eos # (Auto) Baso # (Auto) Abs Immat Gran (auto) Absolute Neuts (auto) Absolute Nucleated RBC Nucleated RBC % (auto) Smear Tech's Comments VBG pH VBG pCO2 VBG pO2 VBG HCO3 VBG O2 Saturation VBG Base Excess Sodium Potassium Chloride Carbon Dioxide Anion Gap BUN Creatinine Estim Creat Clear Calc Estimated GFR POC Glucose 166 H 170 H 180 H Random Glucose Calcium Phosphorus Magnesium Total Bilirubin AST ALT Alkaline Phosphatase Total Protein Albumin 05/31/20 05/31/20 05/31/20 05:23 05:23 05:30 WBC 12.5 H RBC 4.20 L Hgb 9.2 L Hct 32.3 L MCV 76.9 L MCH 21.9 L MCHC 28.5 L RDW 17.7 H Plt Count 217 D MPV 11.1 Immature Gran % (Auto) 0.8 H Neut % (Auto) 96.2 H Lymph % (Auto) 1.4 L [place] % (Auto) 0.8 L Eos % (Auto) 0.6 Baso % (Auto) 0.2 Lymph # (Auto) 0.2 L [place] # (Auto) 0.1 Eos # (Auto) 0.1 Baso # (Auto) 0.0 Abs Immat Gran (auto) 0.10 H Absolute Neuts (auto) 12.0 H Absolute Nucleated RBC 0.000 Nucleated RBC % (auto) 0.0 Smear Tech's Comments VERIFIED VBG pH 7.37 VBG pCO2 46 VBG pO2 59 VBG HCO3 27 H VBG O2 Saturation 83.0 VBG Base Excess 1.9 Sodium 138 Potassium 4.3 Chloride 100 Carbon Dioxide 27 Anion Gap 15 BUN 55 H D Creatinine 2.05 H Estim Creat Clear Calc 36.6 Estimated GFR 33 POC Glucose Random Glucose 156 H Calcium 8.5 Phosphorus 5.3 H Magnesium 2.9 H Total Bilirubin 3.7 H AST 49 H D ALT 41 H Alkaline Phosphatase 121 H D Total Protein 6.5 Albumin 2.7 L 05/31/20 05/31/20 05:38 11:40 WBC RBC Hgb Hct MCV MCH MCHC RDW Plt Count MPV Immature Gran % (Auto) Neut % (Auto) Lymph % (Auto) [place] % (Auto) Eos % (Auto) Baso % (Auto) Lymph # (Auto) [place] # (Auto) Eos # (Auto) Baso # (Auto) Abs Immat Gran (auto) Absolute Neuts (auto) Absolute Nucleated RBC Nucleated RBC % (auto) Smear Tech's Comments VBG pH VBG pCO2 VBG pO2 VBG HCO3 VBG O2 Saturation VBG Base Excess Sodium Potassium Chloride Carbon Dioxide Anion Gap BUN Creatinine Estim Creat Clear Calc Estimated GFR POC Glucose 173 H 162 H Random Glucose Calcium Phosphorus Magnesium Total Bilirubin AST ALT Alkaline Phosphatase Total Protein Albumin Microbiology Microbiology Results: Microbiology 05/30/20 07:50 Blood - Venous Blood Culture - Preliminary No growth after 24 hours. 05/30/20 08:01 Blood - Venous Blood Culture - Preliminary No growth after 24 hours. 05/21/20 14:41 Blood - Venous Blood Culture - Final No growth after 5 days. 05/21/20 14:34 Blood - Venous Blood Culture - Final No growth after 5 days. Critical Care Time Critical Care Time (minutes): 120
--- NOTE | 2020-05-31 13:30 | P.CDIC_ITS ---
CDI Concurrent Query Service Date: 05/31/20 Documentation Clarification: Please clarify if you are treating a proba ble/suspected/likely or confirmed: COOPER No COOPER Provider Response: Other Other Diagnosis: COOPER PLEASE DO NOT DELETE/MODIFY EXISTING CONTENT Additional information is needed in order to code to the highest accuracy and appropriate Severity of Illness (SOI). Please clarify the information noted below in your progress notes and discharge summary. Risk Factors/Clinical Indicators/Treatments 65 year old male admitted with COVID Pneumonia, Acute Respiratory Failure with Hypoxia, Viral Sepsis, Carcinoma of sigmoid colon. Intubated and on ventilator BUN/Creatinine on admit: 16 / .74 BUN/Creatinine on 05/31/20: 55/2.05 CDS: Erin Simons RN Contact Number: [phone] Please Review the information above and exercise your independent professional judgment in responding to the query. If you concur, pleas document in the PROGRESS NOTES and DISCHARGE SUMMARY. If you do not agree with the query, please document in the query above. THIS QUERY IS PART OF THE PERMANENT MEDICAL RECORD
--- NOTE | 2020-05-31 14:15 | MHC.CM.PN ---
Pt remains intubated in ICU with COVID: 100% FiO2 requirements: no plans to wean at this time. MD to reapproach the family with goals of care discussion. Original d/c plan was for a return to home with family but this seems unlikely. Will await MD input on d/c planning options.
[2020-05-31] MEDS: Albumin Human 25 % 100 ML IV ×2 (15:26→18:47)
[2020-05-31] MEDS: Furosemide 40 MG/4 ML VIAL IVPUSH (15:27)
[2020-05-31] MEDS: Ascorbic Acid 500 MG TABLET 2000 MG G-TUBE (15:28)
[2020-05-31] MEDS: Cholecalciferol (Vitamin D3) 25 MCG TABLET 50 MCG OG-TUBE (15:28)
[2020-05-31] MEDS: Aspirin 81 MG TAB.CHEW OG-TUBE (15:28)
[2020-05-31] MEDS: Thiamine HCL 100 MG TABLET 200 MG OG-TUBE (15:28)
[2020-05-31] MEDS: Famotidine 20 MG TABLET OG-TUBE (15:29)
[2020-05-31 18:45] LABS: Glucose, Whole Blood 180 mg/dL (60-115)
[2020-05-31] MEDS: Enoxaparin Sodium 40 MG/0.4 ML SYRINGE 30 MG SUBCUT (19:45)
[2020-05-31] MEDS: methylPREDNISolone Sod Succ 125 MG/2 ML VIAL 80 MG IVPUSH (19:46)
[2020-05-31 19:49] LABS: Venous Blood Gas Refer to POC result
[2020-05-31 20:19] LABS: Lactic Acid 1.7 mmol/L (0.5-2.0)
--- NOTE | 2020-05-31 20:19 | PC.NURSE ---
Assumed care at 0700. Patient was sedated on propofol 35 and fentanyl 200 and paralyzed on 2 of nimbex. Patient with no purposeful movement, no cough, no gag, train of four of zero, pupils fixed at 2 mm, no response to pain. Discussed plan for sedation with provider, and Nimbex was held from [id number] per MD and during which time the train of fours was 4 at 5 miliamps; patient's SpO2 dropped to about 78-79%, without a noticeable change in work of breathing, and MD was at bedside, and nimbex gtt was turned on. Patient spo2 gradually came up to 83% and then stayed about 85-86% all day. Patient Train of Fours continue to be zero and pupils fixed at 2 mm, no gag/no cough, no movement. Patient on PC settings: #7.5 ett, 25 cm hunter; Pi 18; rate 24; Peep 16; fio2 100%; Te: about 9-11; Tv about 300-400's. No inline secretions, minimal oral thin secretions with pink tinge at times, LS diminished throughout to auscultation. Patient had accessed port to right chest, and this was de-accessed per MD, after placement of TLC to left subclavian yelitza. Sinus rhythm in 80's-90's all day with occasional PVCs, around `1800, patient developed more PACs and then went into A-fib right at 1845, and esmolol gtt was started as rate of 25. Patient rate down to low 100's. T-wave elevation appears resolved today. Hdez output low and MD ordered 40 mg IV lasix, urine output had been 20-35/hour before lasix, then 35-45 cc/hour afterward. Urine was less hazy today. 2x 100 ml of albumin today. Patient with no TF running while on paralytics; MD ordered meds via OGT, and discussed and ok to administer despite nimbex gtt. Patient with POC between 150-200 and got 2 units lispro twice, as well as 6 units lantus. skin is intact, but rash to abdomen and legs, small scabs included in rash, scleritic icterus, abdomen is round and distended but not firm, and MD aware. Face reddened but not as much as yesterday today; discussed with MD.
[2020-05-31 20:34] LABS: Anion Gap 17 (12-20); Blood Urea Nitrogen 75 mg/dL (9-16); Calcium 8.8 mg/dL (8.4-10.2); Carbon Dioxide 27 mmol/L (22-29); Chloride 100 mmol/L (96-108); Creatinine Clr Calc Pharmacy 25.8; Estimated Glomerular Filt Rate 22; Glucose Random 177 mg/dL (60-115); Magnesium 3.3 mg/dL (1.6-2.6); Sodium 139 mmol/L (135-145)
[2020-05-31] MEDS: Acetaminophen Oral Liquid 650 MG/20.3 ML SOLUTION 975 MG OG-TUBE (21:44)
[2020-05-31] MEDS: Melatonin 3 MG TABLET 9 MG OG-TUBE (21:45)
[2020-05-31] MEDS: Atorvastatin Calcium 80 MG TABLET OG-TUBE (21:45)
--- NOTE | 2020-05-31 23:05 | PC.NURSE ---
ASSUMED CARE OF PT AT 1900. PT CONTINUES ON PRESSURE CONTROL VENT SETTINGS. O2 SATS MID 80'S. DR CHANEL AND EUSEBIO HOLLAND AWARE OF LOW SATS. VBG'S DRAWN AND NOT CRITICAL. AWARE. CHEM PROFILE REVIEWED BY MD. NO CRITICAL VALUES. U/O LOW 0-35 ML/HR. MONITOR SHOWED A RHYTHM CHANGE FROM SINUS TO AFIB, RATE LOW 100-120'S. ESMOLOL STARTED BY PREVIOUS RN. RATE WAS CONTROLED BELOW 100 BUT THEN WAS SUSTAINED 120-130'S AND ESMOLOL WAS INCREASED TO 125 MCG/KG/MIN WITH GOOD EFFECT. PT CONVERTED BACK TO SR AROUND 2230. HEART RATE CURRENTLY 86-90'S.
[2020-06-01] VITALS (36 sets, daily range): BP systolic 102–130; BP diastolic 51–67; PULSE 73–133; RESP 24; TEMP 36.4–38; O2SAT 81–90
[2020-06-01] MEDS: propofoL 1,000 MG/100 ML VIAL 20.39 MG IVCONT ×6 (00:19→21:42)
[2020-06-01] MEDS: fentaNYL citrate/NS 1,000 MCG/100 ML PLAST..BAG 20 MCG IVCONT ×5 (00:19→20:53)
[2020-06-01] MEDS: Esmolol HCl/NaCl Iso 2,500 MG/250 ML IV.SOLN 58.38 MG IVCONT ×2 (00:24→14:40)
[2020-06-01] MEDS: Insulin Lispro 100 UNIT/ML 3 ML VIAL SUBCUT ×5 (00:32→23:29)
[2020-06-01 00:51] LABS: Glucose, Whole Blood 165 mg/dL (60-115)
[2020-06-01] MEDS: Esmolol HCl/NaCl Iso 2,500 MG/250 ML IV.SOLN 29.19 MG IVCONT ×2 (04:01→19:19)
[2020-06-01 05:30] LABS: VBG Base Excess 1.8 mmol/L; VBG HCO3 27 mmol/L (22-26); VBG pCO2 50 mmHg; VBG pH 7.35 (7.32-7.43); VBG pO2 61 mmHg
[2020-06-01 05:41] LABS: Basophils Percent Auto 0.2 % (0-2); Eosinophils Percent Auto 0.1 % (0-4); Hematocrit 27.4 % (42-52); Hemoglobin 8.1 g/dl (14.0-18.0); Imm Gran Abs Auto 0.13 X10*3/uL (0.00-0.03); Imm Gran Pct Auto 1.2 % (0.0-0.4); Lymphocytes Absolute Auto 0.2 X10*3/uL (1.2-4.9); Lymphocytes Percent Auto 1.9 % (20-40); MANUAL DIFF FLAG SCAN; Mean Corpuscular HGB Conc 29.6 g/dl (31.0-36.0); Mean Corpuscular Hemoglobin 22.6 pg (27.0-33.0); Mean Corpuscular Volume 76.5 fL (80-98); Mean Platelet Volume 11.4 fL (9.4-12.4); Monocytes Absolute Auto 0.1 X10*3/uL (0.1-1.2); Monocytes Percent Auto 1.3 % (2-11); NRBC Pct Auto 0.2 /100WBC (0.0-0.2); Neutrophils Absolute Auto 10.4 X10*3/uL (2.0-8.3); Neutrophils Percent Auto 95.3 % (45-73); Platelet Count 158 X10*3/uL (160-400); Red Blood Count 3.58 X10*6/uL (4.60-5.80); Red Cell Distribution Width 17.9 % (11.0-16.0); SCAN SMEAR FLAG 1; White Blood Count 10.9 X10*3/uL (4.8-10.8)
[2020-06-01] MEDS: Pantoprazole Sodium 40 MG/10 ML VIAL IVPUSH (05:59)
[2020-06-01] MEDS: Chlorhexidine Gluc Oral Rinse 15 ML MOUTHWASH BUCCAL ×3 (06:00→21:28)
[2020-06-01 06:01] LABS: Glucose, Whole Blood 168 mg/dL (60-115)
[2020-06-01 06:02] LABS: D Dimer 3492 NG/ML
[2020-06-01 06:16] LABS: B Type Natriuretic Peptide 81 pg/mL (<100); Troponin-I High Sensitivity 81.5 ng/L (<3.5-35.0)
[2020-06-01 06:22] LABS: SLIDE REVIEW VERIFIED
[2020-06-01 06:32] LABS: Procalcitonin 2.33 ng/mL
--- NOTE | 2020-06-01 06:36 | PC.NURSE ---
PT CONTINUES WITH O2 SATS MID 82-85%. SATS WILL DROP TO 80% WITH REPOSITIONING AND PT TAKES A LONG TIME TO RECOVER. CURRENTLY, O2 SAT IS 84%. DAUGHTER OSMAN CALLED AND SPOKE TO EUSEBIO HOLLAND WHO UPDATED HER ON PT'S CONDITION. MONITOR CONTINUES SINUS RHYTHM, HR 70'S-80'S. U/O POOR 0-40 ML/HR.
[2020-06-01 06:51] LABS: Alanine Aminotransferase 30 U/L (0-40); Alkaline Phosphatase 110 U/L (39-117); Anion Gap 18 (12-20); Aspartate Amino Transferase 47 U/L (5-37); Bilirubin Total 4.5 mg/dL (0.0-1.0); Calcium 8.5 mg/dL (8.4-10.2); Carbon Dioxide 24 mmol/L (22-29); Chloride 101 mmol/L (96-108); Creatinine Clr Calc Pharmacy 21.2; Estimated Glomerular Filt Rate 17; Glucose Random 189 mg/dL (60-115); Magnesium 3.4 mg/dL (1.6-2.6); Phosphorus 6.4 mg/dL (2.7-4.5); Potassium 4.9 mmol/L (3.3-5.1); Sodium 138 mmol/L (135-145); Total Protein 6.6 g/dL (6.5-8.0)
[2020-06-01 06:55] LABS: Blood Urea Nitrogen 90 mg/dL (9-16)
[2020-06-01 08:47] LABS: Venous Blood Gas Refer to POC result
[2020-06-01 08:55] LABS: C Reactive Protein 36.89 mg/dL (< or = 0.50)
[2020-06-01 09:17] LABS: Ferritin 419 ng/mL (20-250)
[2020-06-01] MEDS: Enoxaparin Sodium 40 MG/0.4 ML SYRINGE 30 MG SUBCUT ×2 (10:27→19:19)
[2020-06-01] MEDS: methylPREDNISolone Sod Succ 125 MG/2 ML VIAL 80 MG IVPUSH ×2 (10:29→19:20)
[2020-06-01] MEDS: Ascorbic Acid 500 MG TABLET 2000 MG G-TUBE (10:29)
[2020-06-01] MEDS: Aspirin 81 MG TAB.CHEW OG-TUBE (10:30)
[2020-06-01] MEDS: Cholecalciferol (Vitamin D3) 25 MCG TABLET 50 MCG OG-TUBE (10:30)
[2020-06-01] MEDS: 0.9 % Sodium Chloride Flush 3 ML SYRINGE IVFLUSH ×4 (10:30→23:29)
[2020-06-01] MEDS: Thiamine HCL 100 MG TABLET 200 MG OG-TUBE (10:31)
[2020-06-01] MEDS: Famotidine 20 MG TABLET OG-TUBE (10:31)
[2020-06-01] MEDS: Insulin Glargine,Hum.rec.anlog 100 UNIT/ML 10 ML VIAL 6 UNIT SUBCUT (10:32)
[2020-06-01 10:51] LABS: VBG pCO2 59 mmHg; VBG pH 7.35 (7.32-7.43)
[2020-06-01 10:52] LABS: VBG Base Excess 6.3 mmol/L; VBG HCO3 33 mmol/L (22-26)
[2020-06-01 10:53] LABS: VBG pO2 48 mmHg
[2020-06-01 11:12] LABS: VBG Base Excess -0.2 mmol/L; VBG HCO3 25 mmol/L (22-26); VBG pCO2 43 mmHg; VBG pH 7.36 (7.32-7.43); VBG pO2 75 mmHg
[2020-06-01 11:15] LABS: Venous Blood Gas Refer to POC result
[2020-06-01 12:03] LABS: Glucose, Whole Blood 183 mg/dL (60-115)
--- NOTE | 2020-06-01 12:55 | PC.NURSE ---
Addendum entered by Arturo Encarnacion RN 06/01/20 15:09: 1450 Esmolol increased to 100mcg/kg/min, at 1502 pt converted back into NSR. Original Note: Esmolol has been titrated down to 10mcg/kg/min as pt BP trending down, HR 76. Pt converted back to afib 113 at 1234, MD aware. Esmolol back up to 50mcg/kg/min, levophed up to 0.06.
--- NOTE | 2020-06-01 14:57 | P.PNNP_ITS ---
Subjective Subjective Date of Service: 06/01/20 Interval history: Patient seen and examined Physical Exam Vital Signs: Vital Signs: Last Vital Signs Temp 98.1 F 06/01/20 14:00 Pulse 98 06/01/20 14:00 Resp 24 H 06/01/20 14:00 BP 113/64 06/01/20 14:00 Pulse Ox 85 L 06/01/20 14:00 Body Mass Index 38.0 Objective Data Labs CBC & Chem 7: 06/01/20 05:22 06/01/20 05:22 Labs: Laboratory Results - last 24 hr 05/31/20 05/31/20 05/31/20 18:41 19:40 19:40 WBC RBC Hgb Hct MCV MCH MCHC RDW Plt Count MPV Immature Gran % (Auto) Neut % (Auto) Lymph % (Auto) [place] % (Auto) Eos % (Auto) Baso % (Auto) Lymph # (Auto) [place] # (Auto) Eos # (Auto) Baso # (Auto) Abs Immat Gran (auto) Absolute Neuts (auto) Absolute Nucleated RBC Nucleated RBC % (auto) Smear Tech's Comments D-Dimer VBG pH VBG pCO2 VBG pO2 VBG HCO3 VBG O2 Saturation VBG Base Excess Sodium 139 Potassium 5.0 Chloride 100 Carbon Dioxide 27 Anion Gap 17 BUN 75 H Creatinine 2.91 H Estim Creat Clear Calc 25.8 Estimated GFR 22 POC Glucose 180 H Random Glucose 177 H Lactic Acid 1.7 Calcium 8.8 Phosphorus 6.0 H Magnesium 3.3 H Ferritin Total Bilirubin AST ALT Alkaline Phosphatase Troponin I High Sens C-Reactive Protein B-Natriuretic Peptide Total Protein Albumin Procalcitonin 05/31/20 06/01/20 06/01/20 19:40 00:29 05:22 WBC 10.9 H RBC 3.58 L Hgb 8.1 L Hct 27.4 L MCV 76.5 L MCH 22.6 L MCHC 29.6 L RDW 17.9 H Plt Count 158 L D MPV 11.4 Immature Gran % (Auto) 1.2 H Neut % (Auto) 95.3 H Lymph % (Auto) 1.9 L [place] % (Auto) 1.3 L Eos % (Auto) 0.1 Baso % (Auto) 0.2 Lymph # (Auto) 0.2 L [place] # (Auto) 0.1 Eos # (Auto) 0.0 Baso # (Auto) 0.0 Abs Immat Gran (auto) 0.13 H Absolute Neuts (auto) 10.4 H Absolute Nucleated RBC 0.020 H Nucleated RBC % (auto) 0.2 Smear Tech's Comments VERIFIED D-Dimer VBG pH 7.35 VBG pCO2 59 VBG pO2 48 VBG HCO3 33 H VBG O2 Saturation 72.0 VBG Base Excess 6.3 Sodium Potassium Chloride Carbon Dioxide Anion Gap BUN Creatinine Estim Creat Clear Calc Estimated GFR POC Glucose 165 H Random Glucose Lactic Acid Calcium Phosphorus Magnesium Ferritin Total Bilirubin AST ALT Alkaline Phosphatase Troponin I High Sens C-Reactive Protein B-Natriuretic Peptide Total Protein Albumin Procalcitonin 06/01/20 06/01/20 06/01/20 05:22 05:22 05:22 WBC RBC Hgb Hct MCV MCH MCHC RDW Plt Count MPV Immature Gran % (Auto) Neut % (Auto) Lymph % (Auto) [place] % (Auto) Eos % (Auto) Baso % (Auto) Lymph # (Auto) [place] # (Auto) Eos # (Auto) Baso # (Auto) Abs Immat Gran (auto) Absolute Neuts (auto) Absolute Nucleated RBC Nucleated RBC % (auto) Smear Tech's Comments D-Dimer 3492 VBG pH VBG pCO2 VBG pO2 VBG HCO3 VBG O2 Saturation VBG Base Excess Sodium 138 Potassium 4.9 Chloride 101 Carbon Dioxide 24 Anion Gap 18 BUN 90 H* Creatinine 3.53 H Estim Creat Clear Calc 21.2 Estimated GFR 17 POC Glucose Random Glucose 189 H Lactic Acid Calcium 8.5 Phosphorus 6.4 H Magnesium 3.4 H Ferritin 419 H Total Bilirubin 4.5 H AST 47 H ALT 30 Alkaline Phosphatase 110 Troponin I High Sens 81.5 H D C-Reactive Protein 36.89 H B-Natriuretic Peptide 81 Total Protein 6.6 Albumin 3.0 L Procalcitonin 06/01/20 06/01/20 06/01/20 05:22 05:24 05:53 WBC RBC Hgb Hct MCV MCH MCHC RDW Plt Count MPV Immature Gran % (Auto) Neut % (Auto) Lymph % (Auto) [place] % (Auto) Eos % (Auto) Baso % (Auto) Lymph # (Auto) [place] # (Auto) Eos # (Auto) Baso # (Auto) Abs Immat Gran (auto) Absolute Neuts (auto) Absolute Nucleated RBC Nucleated RBC % (auto) Smear Tech's Comments D-Dimer VBG pH 7.35 VBG pCO2 50 VBG pO2 61 VBG HCO3 27 H VBG O2 Saturation 83.0 VBG Base Excess 1.8 Sodium Potassium Chloride Carbon Dioxide Anion Gap BUN Creatinine Estim Creat Clear Calc Estimated GFR POC Glucose 168 H Random Glucose Lactic Acid Calcium Phosphorus Magnesium Ferritin Total Bilirubin AST ALT Alkaline Phosphatase Troponin I High Sens C-Reactive Protein B-Natriuretic Peptide Total Protein Albumin Procalcitonin 2.33 06/01/20 06/01/20 11:05 12:00 WBC RBC Hgb Hct MCV MCH MCHC RDW Plt Count MPV Immature Gran % (Auto) Neut % (Auto) Lymph % (Auto) [place] % (Auto) Eos % (Auto) Baso % (Auto) Lymph # (Auto) [place] # (Auto) Eos # (Auto) Baso # (Auto) Abs Immat Gran (auto) Absolute Neuts (auto) Absolute Nucleated RBC Nucleated RBC % (auto) Smear Tech's Comments D-Dimer VBG pH 7.36 VBG pCO2 43 VBG pO2 75 VBG HCO3 25 VBG O2 Saturation 90.0 VBG Base Excess -0.2 Sodium Potassium Chloride Carbon Dioxide Anion Gap BUN Creatinine Estim Creat Clear Calc Estimated GFR POC Glucose 183 H Random Glucose Lactic Acid Calcium Phosphorus Magnesium Ferritin Total Bilirubin AST ALT Alkaline Phosphatase Troponin I High Sens C-Reactive Protein B-Natriuretic Peptide Total Protein Albumin Procalcitonin Microbiology Microbiology Results: Microbiology 05/30/20 08:01 Blood - Venous Blood Culture - Preliminary No growth after 48 hours. 05/30/20 07:50 Blood - Venous Blood Culture - Preliminary No growth after 48 hours. 05/21/20 14:41 Blood - Venous Blood Culture - Final No growth after 5 days. 05/21/20 14:34 Blood - Venous Blood Culture - Final No growth after 5 days. Assessment & Plan Assessment and plan (1) COOPER (acute kidney injury): Status: Acute (2) SARS-CoV-2 positive: Status: Acute (3) Anemia: Status: Acute (4) Respiratory failure: Status: Acute Assessment and Plan: COOPER in the setting of SARS COV 2 infection SARS COV 2 can cause acute tubular injury with microvascular thrombosis it can also cause podocyte disease normal baseline kidney function respiratory failure currently on 100% FiO2 echocardiogram with LVEF 40-50% close to dry weight REC random urine sodium no need for IVF monitor urine output follow kidney function and electrolytes Time Spent With Patient Time: Total time spent is greater than 50% in coordination of care (as documented) at patient's floor/unit and/or counseling patient:
[2020-06-01 18:06] LABS: Glucose, Whole Blood 208 mg/dL (60-115)
--- NOTE | 2020-06-01 19:02 | P.PNCC_ITS ---
Subjective Subjective Date of Service: 06/01/20 Interval History: Mr. Augie Miller was transferred to ICU on May 29 with acute respiratory failure secondary to COVID pneumonia. Patient is a 65-year-old male with past medical history of Asthma, Diabetes, Hypercholesteremia, Hypertension, and Palpitations. He was diagnosed with colon cancer in May of last year, and has been treated with chemotherapy by Dr. Burleson. Last CT on March 31, 2020 showed no recurrence and no metastatic disease. According to the ED note of 05/21, the patient tested positive for COVID last year on 03/31/19. Previous echo from last year was fairly normal, except for ejection fraction estimated at 45-50%; right heart was normal. The patient tested positive for COVID a 2nd time on 05/15/2020. CXR showed no acute dz. He was sent home with Decadron, Robitussin, and doxycycline, with little symptomatic relief. The patient presented to the ED on 05/21 with complaints of worsening shortness of breath, dyspnea on exertion, orthopnea chest discomfort, and fevers. SpO2 was low 90?s on room air. CTPA showed mild-moderate classic COVID infiltrates. There was no PE, and RV and PA size were normal. D-dimer, ferritin, and procalcitonin were low; the CRP was 5. The patient was admitted to medicine and treated with Decadron. By the next day, the patient was up to 50% FiO2. By 05/26, he was up to 100% FiO2 on HFNC. On May 29 he was emergently transferred to ICU and intubated. Subsequently required NMB to oxygenate and ventilate adequately. His FiO2 has been at 100% oxygen for the last 3 days. Has been having low-grade temps since May 29. White count has ranged from 8-16 since he?s been here. D-dimer was low until it hit 3400 on May 29. Yesterday, we were unable to turn the NMB off bec of oxygenation difficulty. Continued on the nimbex today. On exam, he?s on propofol at 35 ug, fentanyl at 200 ug, Nimbex at 2, Levophed at 0.08 mcg and esmolol at 100 mcg. HR 87, back in SR. He?s had two prolonged episodes of Afib, one last night and one today, both responded to esmolol and converted spontaneously. BP 113/58. On PC f 24, , 100%, RR is 24, Vt 430cc, Ve 10.3L, PIP 34, ETC02 29, SpO2 86%. Central venous blood gas this morning showed 7.36/43/0. No JVD. Chest CTA, exp phase normal. Regular rate and rhythm, normal-sounding S1 and S2, with no murmur or gallops. Abdomen protuberant and benign. Trivial edema. LABORATORY DATA: Below. Notably, BUN/creatinine this morning were up to 90/3.5 (from 55/2.0 yesterday); the renal indices have been rising steadily since 05/28. Phos 6.4. Total bili is up to 4.5, CRP is up to 36, and procalcitonin is 2.3. ECHOCARDIOGRAM - Done by the [facility] yesterday and read by me: LV size and wall thickness were normal. Overall LV EF 40-50%, with possible lateral wall hypokinesis. RV cavities size was absolutely normal, with RV:LV cavity ratio approximately 0.5. No tricuspid jet obtained. IVC was dilated at 2.3 cm and non-collapsing. MICROBIOLOGY: Blood cultures obtained on 05/21 and 05/30 so far negative. IMAGING: CXR yesterday showed bilateral airspace disease, noticeably worse than on May 21. Venous duplex last night negative. IMPRESSION: 1. Highly significant underlying comorbidities including colon cancer undergoing treatment, DM, and obesity. 2. Bilateral COVID pneumonia with ARDS. I?ve upped his steroids to 80 mg bid, and added the EVMS protocol. 3. Acute hypoxemic respiratory failure. Secondary to above. No urgency to prone just yet. 4. COOPER. 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 A trial of diuresis yesterday failed to accomplish anything. 5. DM. Insulin as needed. 6. Anticoagulation/DVT prophylaxis: Given his weight and COVID, we have him on Lovenox 30 mg q12h. 7. Elevated DDimer. The echo rules out the poss of signif PE. DVT study was negative. Prognosis is grim. Critical care time: 50 min. Physical Exam Vital Signs: Vital Signs: Last Vital Signs Temp 98.4 F 06/01/20 15:56 Pulse 86 06/01/20 18:00 Resp 24 H 06/01/20 18:00 BP 113/56 L 06/01/20 18:00 Pulse Ox 85 L 06/01/20 18:00 Body Mass Index 38.0 Objective Data Labs CBC & Chem 7: 06/01/20 05:22 06/01/20 05:22 Labs: Laboratory Results - last 24 hr 05/31/20 05/31/20 05/31/20 19:40 19:40 19:40 WBC RBC Hgb Hct MCV MCH MCHC RDW Plt Count MPV Immature Gran % (Auto) Neut % (Auto) Lymph % (Auto) [place] % (Auto) Eos % (Auto) Baso % (Auto) Lymph # (Auto) [place] # (Auto) Eos # (Auto) Baso # (Auto) Abs Immat Gran (auto) Absolute Neuts (auto) Absolute Nucleated RBC Nucleated RBC % (auto) Smear Tech's Comments D-Dimer VBG pH 7.35 VBG pCO2 59 VBG pO2 48 VBG HCO3 33 H VBG O2 Saturation 72.0 VBG Base Excess 6.3 Sodium 139 Potassium 5.0 Chloride 100 Carbon Dioxide 27 Anion Gap 17 BUN 75 H Creatinine 2.91 H Estim Creat Clear Calc 25.8 Estimated GFR 22 POC Glucose Random Glucose 177 H Lactic Acid 1.7 Calcium 8.8 Phosphorus 6.0 H Magnesium 3.3 H Ferritin Total Bilirubin AST ALT Alkaline Phosphatase Troponin I High Sens C-Reactive Protein B-Natriuretic Peptide Total Protein Albumin Procalcitonin 06/01/20 06/01/20 06/01/20 00:29 05:22 05:22 WBC 10.9 H RBC 3.58 L Hgb 8.1 L Hct 27.4 L MCV 76.5 L MCH 22.6 L MCHC 29.6 L RDW 17.9 H Plt Count 158 L D MPV 11.4 Immature Gran % (Auto) 1.2 H Neut % (Auto) 95.3 H Lymph % (Auto) 1.9 L [place] % (Auto) 1.3 L Eos % (Auto) 0.1 Baso % (Auto) 0.2 Lymph # (Auto) 0.2 L [place] # (Auto) 0.1 Eos # (Auto) 0.0 Baso # (Auto) 0.0 Abs Immat Gran (auto) 0.13 H Absolute Neuts (auto) 10.4 H Absolute Nucleated RBC 0.020 H Nucleated RBC % (auto) 0.2 Smear Tech's Comments VERIFIED D-Dimer 3492 VBG pH VBG pCO2 VBG pO2 VBG HCO3 VBG O2 Saturation VBG Base Excess Sodium Potassium Chloride Carbon Dioxide Anion Gap BUN Creatinine Estim Creat Clear Calc Estimated GFR POC Glucose 165 H Random Glucose Lactic Acid Calcium Phosphorus Magnesium Ferritin Total Bilirubin AST ALT Alkaline Phosphatase Troponin I High Sens C-Reactive Protein B-Natriuretic Peptide Total Protein Albumin Procalcitonin 06/01/20 06/01/20 06/01/20 05:22 05:22 05:22 WBC RBC Hgb Hct MCV MCH MCHC RDW Plt Count MPV Immature Gran % (Auto) Neut % (Auto) Lymph % (Auto) [place] % (Auto) Eos % (Auto) Baso % (Auto) Lymph # (Auto) [place] # (Auto) Eos # (Auto) Baso # (Auto) Abs Immat Gran (auto) Absolute Neuts (auto) Absolute Nucleated RBC Nucleated RBC % (auto) Smear Tech's Comments D-Dimer VBG pH VBG pCO2 VBG pO2 VBG HCO3 VBG O2 Saturation VBG Base Excess Sodium 138 Potassium 4.9 Chloride 101 Carbon Dioxide 24 Anion Gap 18 BUN 90 H* Creatinine 3.53 H Estim Creat Clear Calc 21.2 Estimated GFR 17 POC Glucose Random Glucose 189 H Lactic Acid Calcium 8.5 Phosphorus 6.4 H Magnesium 3.4 H Ferritin 419 H Total Bilirubin 4.5 H AST 47 H ALT 30 Alkaline Phosphatase 110 Troponin I High Sens 81.5 H D C-Reactive Protein 36.89 H B-Natriuretic Peptide 81 Total Protein 6.6 Albumin 3.0 L Procalcitonin 2.33 06/01/20 06/01/20 06/01/20 05:24 05:53 11:05 WBC RBC Hgb Hct MCV MCH MCHC RDW Plt Count MPV Immature Gran % (Auto) Neut % (Auto) Lymph % (Auto) [place] % (Auto) Eos % (Auto) Baso % (Auto) Lymph # (Auto) [place] # (Auto) Eos # (Auto) Baso # (Auto) Abs Immat Gran (auto) Absolute Neuts (auto) Absolute Nucleated RBC Nucleated RBC % (auto) Smear Tech's Comments D-Dimer VBG pH 7.35 7.36 VBG pCO2 50 43 VBG pO2 61 75 VBG HCO3 27 H 25 VBG O2 Saturation 83.0 90.0 VBG Base Excess 1.8 -0.2 Sodium Potassium Chloride Carbon Dioxide Anion Gap BUN Creatinine Estim Creat Clear Calc Estimated GFR POC Glucose 168 H Random Glucose Lactic Acid Calcium Phosphorus Magnesium Ferritin Total Bilirubin AST ALT Alkaline Phosphatase Troponin I High Sens C-Reactive Protein B-Natriuretic Peptide Total Protein Albumin Procalcitonin 06/01/20 06/01/20 12:00 18:03 WBC RBC Hgb Hct MCV MCH MCHC RDW Plt Count MPV Immature Gran % (Auto) Neut % (Auto) Lymph % (Auto) [place] % (Auto) Eos % (Auto) Baso % (Auto) Lymph # (Auto) [place] # (Auto) Eos # (Auto) Baso # (Auto) Abs Immat Gran (auto) Absolute Neuts (auto) Absolute Nucleated RBC Nucleated RBC % (auto) Smear Tech's Comments D-Dimer VBG pH VBG pCO2 VBG pO2 VBG HCO3 VBG O2 Saturation VBG Base Excess Sodium Potassium Chloride Carbon Dioxide Anion Gap BUN Creatinine Estim Creat Clear Calc Estimated GFR POC Glucose 183 H 208 H Random Glucose Lactic Acid Calcium Phosphorus Magnesium Ferritin Total Bilirubin AST ALT Alkaline Phosphatase Troponin I High Sens C-Reactive Protein B-Natriuretic Peptide Total Protein Albumin Procalcitonin Microbiology Microbiology Results: Microbiology 05/30/20 08:01 Blood - Venous Blood Culture - Preliminary No growth after 48 hours. 05/30/20 07:50 Blood - Venous Blood Culture - Preliminary No growth after 48 hours. 05/21/20 14:41 Blood - Venous Blood Culture - Final No growth after 5 days. 05/21/20 14:34 Blood - Venous Blood Culture - Final No growth after 5 days. Critical Care Time Critical Care Time (minutes): 60
[2020-06-01 20:36] LABS: Glucose Urine UA NEG (NEG); Leukocyte Esterase Urine NEG (NEG); Nitrite Urine NEG (NEG); Specific Gravity - Urine >= 1.030 (1.005-1.025); Urine Blood 2+ (NEG); Urine Ketones NEG (NEG); Urine Protein 1+ MG/DL (NEG-TRACE)
[2020-06-01 20:38] LABS: Appearance Urine CLEAR; Color Urine DARK YELLOW
[2020-06-01 20:42] LABS: Amorphous Sediment Urine 1+ /LPF; RBC Urine 30-49 /HPF (0); Squamous Epithelial Cell Urine 2+ /LPF; WBC Urine 0-2 /HPF (0-4)
[2020-06-01] MEDS: Melatonin 3 MG TABLET 9 MG OG-TUBE (21:28)
[2020-06-01] MEDS: Metoprolol Tartrate 25 MG TABLET PO (21:28)
[2020-06-01] MEDS: Atorvastatin Calcium 80 MG TABLET OG-TUBE (21:28)
[2020-06-01] MEDS: Cisatracurium Besylate 20 MG/10 ML VIAL 5 MG IVPUSH (21:29)
[2020-06-01 23:08] LABS: VBG Base Excess 0.3 mmol/L; VBG HCO3 28 mmol/L (22-26); VBG pCO2 63 mmHg; VBG pH 7.25 (7.32-7.43); VBG pO2 54 mmHg
[2020-06-01 23:29] LABS: Glucose, Whole Blood 215 mg/dL (60-115)
[2020-06-02] VITALS (27 sets, daily range): BP systolic 71–152; BP diastolic 33–84; PULSE 65–127; RESP 24–28; TEMP 36.9–37.3; O2SAT 58–81
--- NOTE | 2020-06-02 01:02 | P.PNCC_ITS ---
Critical Care Event Note Summary Date of Service: 06/02/20 <EUSEBIO Figueroa - Last Filed: 06/02/20 20:01> Code activated: No <EUSEBIO Figueroa - Last Filed: 06/02/20 20:01> Narrative: Patient started having desaturation about 11:00 a.m. last night on 06/02/2020, his sats dropped to as low as 78% from 86 with current vent settings of AC PC 20, 450, 16, FiO2 of 100, he also had a run of SVT in the 130s to 140s. Esmolol drip was increased to 150 mg. Eventually the SVT broke into an atrial fibrillation with rapid ventricular response and rate of 110-120 beats per minute. Subsequently these converted to sinus rhythm currently with a heart rate of 96, currently Esmolol drip is 125 mg at 1230 am. Subsequently and despite of multiple attempts, vent adjustments and other things, the patient continue to keep an O2 sat between 77 and 78%. At this point, I made the decision to prone the patient, this was discussed with Dr. Fulton. I spoke to Evelyn (patient's primary contact), with discussed the possibility of prone in the patient which she agreed to. With the ICU team, this was done successfully at 12:30 a.m. 02/09/2020, however the patient's sats did not improve in rather worsened significantly and dropped to the low 60s and mid 50s. We were hoping that this would compensate with time but after waiting a few minutes, a did not improved. At this point we made the decision to return the patient back to a supine position which was also done successfully and without any further complications. We did hyperventilate the patient with an Ambu bag to achieve O2 sat of 78% at which point he was switch back to the ventilator. The above-mentioned information was discussed with Evelyn once again and we also discussed goals of care, I invited her to review the full code status and to consider DNI/DNI, it seems that all of his labs are worsening and particularly his O2 sat as well as his renal function. I also explained to hair the fact ruthann t his chances of survival are getting to be lower and lower H time as his organs are starting to shut down. They will consider comfort care as well but she has to have a family meeting with his mother and other siblings were in [place]. Total critical care time 40 minutes. This case had a high probability of a clinically significant, sudden, or life threatening deterioration of this patient's condition which required my full and direct attention, intervention and personal management. <EUSEBIO Figueroa - Last Filed: 06/02/20 20:01> Critical Care Time (minutes): 40 <EUSEBIO Figueroa - Last Filed: 06/02/20 20:01>
[2020-06-02] MEDS: Esmolol HCl/NaCl Iso 2,500 MG/250 ML IV.SOLN 72.98 MG IVCONT ×5 (01:03→15:32)
[2020-06-02 01:23] LABS: Venous Blood Gas Refer to POC result
--- NOTE | 2020-06-02 01:40 | PC.NURSE ---
Patient went into SVT with a rate of 120-130 at 2320. Esmolol drip increased to 100 mcg/kg/min; heart rate sustained in the 120s increased esmolol to 150 mcg/kg/min. Patient's heart rate began to slow down with underlying AFib. Patient's oxygen saturation in the low 80's for most of shift; PA aware. Paralytics were increased and a bolus was administered (see MAR). The decision was made to prone the patient after midnight. Patient was proned at 0030 with the assistance of multiple RN's, clinical sintering plant supervisor, WELT CUTTER, and PA. Patient did not tolerate the prone position with oxygen saturation in the 50-60s, patient was repositioned to supine. At this time patient also converted back to sinus rhythm.
[2020-06-02] MEDS: fentaNYL citrate/NS 1,000 MCG/100 ML PLAST..BAG 20 MCG IVCONT ×4 (02:08→17:55)
[2020-06-02] MEDS: propofoL 1,000 MG/100 ML VIAL 20.39 MG IVCONT ×4 (02:08→15:32)
[2020-06-02] MEDS: Chlorhexidine Gluc Oral Rinse 15 ML MOUTHWASH BUCCAL ×2 (05:25→14:21)
[2020-06-02 05:35] LABS: VBG Base Excess -1.3 mmol/L; VBG HCO3 26 mmol/L (22-26); VBG pCO2 57 mmHg; VBG pH 7.26 (7.32-7.43); VBG pO2 43 mmHg
[2020-06-02 05:40] LABS: Basophils Percent Auto 0.2 % (0-2); Eosinophils Percent Auto 0.1 % (0-4); Hematocrit 28.3 % (42-52); Hemoglobin 8.3 g/dl (14.0-18.0); Imm Gran Abs Auto 0.43 X10*3/uL (0.00-0.03); Imm Gran Pct Auto 2.5 % (0.0-0.4); Lymphocytes Absolute Auto 0.4 X10*3/uL (1.2-4.9); Lymphocytes Percent Auto 2.5 % (20-40); MANUAL DIFF FLAG SCAN; Mean Corpuscular HGB Conc 29.3 g/dl (31.0-36.0); Mean Corpuscular Hemoglobin 22.6 pg (27.0-33.0); Mean Corpuscular Volume 76.9 fL (80-98); Mean Platelet Volume 10.8 fL (9.4-12.4); Monocytes Absolute Auto 0.3 X10*3/uL (0.1-1.2); Monocytes Percent Auto 1.9 % (2-11); NRBC Pct Auto 0.2 /100WBC (0.0-0.2); Neutrophils Absolute Auto 16.2 X10*3/uL (2.0-8.3); Neutrophils Percent Auto 92.8 % (45-73); Platelet Count 194 X10*3/uL (160-400); Red Blood Count 3.68 X10*6/uL (4.60-5.80); Red Cell Distribution Width 18.1 % (11.0-16.0); SCAN SMEAR FLAG 1; White Blood Count 17.5 X10*3/uL (4.8-10.8)
[2020-06-02 05:48] LABS: Glucose, Whole Blood 206 mg/dL (60-115)
[2020-06-02] MEDS: Insulin Lispro 100 UNIT/ML 3 ML VIAL SUBCUT (05:51)
[2020-06-02 06:04] LABS: SLIDE REVIEW VERIFIED
[2020-06-02 06:09] LABS: D Dimer 4255 NG/ML
[2020-06-02 06:21] LABS: Alanine Aminotransferase 32 U/L (0-40); Albumin Level 2.8 g/dL (3.5-5.0); Alkaline Phosphatase 122 U/L (39-117); Anion Gap 20 (12-20); Aspartate Amino Transferase 60 U/L (5-37); Bilirubin Total 4.7 mg/dL (0.0-1.0); Blood Urea Nitrogen 117 mg/dL (9-16); Calcium 7.6 mg/dL (8.4-10.2); Carbon Dioxide 22 mmol/L (22-29); Chloride 101 mmol/L (96-108); Creatinine Clr Calc Pharmacy 18.3; Estimated Glomerular Filt Rate 15; Glucose Random 237 mg/dL (60-115); Phosphorus 8.3 mg/dL (2.7-4.5); Potassium 5.6 mmol/L (3.3-5.1); Sodium 137 mmol/L (135-145); Total Protein 6.8 g/dL (6.5-8.0)
[2020-06-02 07:51] LABS: Venous Blood Gas Refer to POC result
[2020-06-02 08:02] LABS: C Reactive Protein 31.74 mg/dL (< or = 0.50)
[2020-06-02] MEDS: Enoxaparin Sodium 40 MG/0.4 ML SYRINGE 30 MG SUBCUT (08:13)
[2020-06-02] MEDS: Sodium Polystyrene Sulfon/Sorb 15 GM/60 ML ORAL.SUSP 30 GM PO (08:13)
[2020-06-02] MEDS: Insulin Regular, Human 100 UNIT/ML 3 ML VIAL 10 UNIT IVPUSH (08:14)
[2020-06-02] MEDS: methylPREDNISolone Sod Succ 125 MG/2 ML VIAL 80 MG IVPUSH (10:08)
[2020-06-02] MEDS: Insulin Glargine,Hum.rec.anlog 100 UNIT/ML 10 ML VIAL 6 UNIT SUBCUT (10:09)
[2020-06-02] MEDS: Metoprolol Tartrate 25 MG TABLET PO (10:10)
[2020-06-02] MEDS: Thiamine HCL 100 MG TABLET 200 MG OG-TUBE (10:10)
[2020-06-02] MEDS: Ascorbic Acid 500 MG TABLET 2000 MG G-TUBE (10:10)
[2020-06-02] MEDS: Cholecalciferol (Vitamin D3) 25 MCG TABLET 50 MCG OG-TUBE (10:11)
[2020-06-02] MEDS: Famotidine 20 MG TABLET OG-TUBE (10:11)
[2020-06-02] MEDS: 0.9 % Sodium Chloride Flush 3 ML SYRINGE IVFLUSH (10:11)
[2020-06-02] MEDS: Aspirin 81 MG TAB.CHEW OG-TUBE (10:11)
--- NOTE | 2020-06-02 10:26 | MHC.CLN ---
F/U PT IS NPO X3 DAYS; NIMBEX DRIP CONTINUES IF TF NEEDED; RECOMMEND NEPRO AT MAX GOAL RATE 30CC/HR TO PROVIDE 1296KCALS (1834KCALS WITH SEDATION; 25KCALS/KG), 58G PROTEIN (.8G/KG), 523CC FREE WATER MONITOR TOLERANCE, RESIDUALS AND LYTES
[2020-06-02] MEDS: Insulin Regular/NS 100 UNIT/100 ML PLAST..BAG IVCONT (10:32)
[2020-06-02] MEDS: Sodium Zirconium Cyclosilicate 10 GM POWD.PACK PO ×2 (10:37→14:21)
[2020-06-02 11:16] LABS: VBG Base Excess -2.9 mmol/L; VBG HCO3 24 mmol/L (22-26); VBG pCO2 56 mmHg; VBG pH 7.24 (7.32-7.43); VBG pO2 59 mmHg
--- NOTE | 2020-06-02 11:16 | CONS_ITS ---
DATE OF SERVICE: 06/01/2020 HISTORY OF PRESENT ILLNESS: I was asked to assist in management of this 65-year-old patient with normal baseline kidney function, who was recently diagnosed with COVID-19 pneumonia and discharged home and was readmitted with hypoxic respiratory failure requiring mechanical ventilation, currently with worsening kidney function. At the time of the consultation, the patient is unable to give any history. He has a history of colon cancer, which has been treated with chemotherapy and he had tested positive for COVID the second time in the beginning of May. He is still making urine on 100% FiO2 and his echocardiogram showed a left ventricular ejection fraction in the range of 40% to 50%. Apparently, his IVC was dilated at 2.3 cm and noncollapsing. PAST MEDICAL HISTORY: Remarkable for diabetes mellitus, hypertension, colon cancer, asthma, and dyslipidemia. MEDICATIONS: Medications as outpatient were reviewed and included insulin, dexamethasone, omeprazole, trazodone, metronidazole, fluoxetine, carvedilol, atorvastatin, and aspirin. ALLERGIES: HE IS ALLERGIC TO NITROGLYCERIN, DIPHENHYDRAMINE, IBUPROFEN, MORPHINE, OXCARBAZEPINE, PENICILLIN, AND BENADRYL. SOCIAL HISTORY: Ex-smoker. FAMILY HISTORY: Negative for kidney disease. REVIEW OF SYSTEMS: Ten-point review of systems unobtainable. PHYSICAL EXAMINATION: VITAL SIGNS: The blood pressure 130/64, heart rate 98, respiratory rate 24, temperature 98.1, and 100% FiO2. CONSTITUTIONAL: Looks ill. NEUROLOGIC: Sedated. HEAD: Atraumatic and normocephalic. NECK: Supple. LUNGS: Decreased breath sounds. CARDIOVASCULAR: S1 and S2. No rub. ABDOMEN: Soft. Nontender. EXTREMITIES: With no peripheral edema. LABORATORY DATA: Showed a sodium 138, potassium 4.1, chloride 101, CO2 24, BUN 90, creatinine 3.53, phosphorus 6.4, magnesium 3.4, ferritin 419, and albumin 3. White count 10.9, hemoglobin 8.1, and platelet count is 158. IMPRESSION: 1. Acute kidney injury. 2. COVID-19 pneumonia. 3. Anemia. 4. Respiratory failure. PLAN: This is a patient with acute kidney injury in the setting of COVID-19 infection. COVID-19 can cause acute tubular injury with microvascular thrombosis. Can also cause podocyte disease. He has low platelet and low hemoglobin and we would consider underlying TTP, although less likely. The patient's kidney function is essentially normal. He has respiratory failure and currently on 100% FiO2. His echocardiogram showed a left ventricular ejection fraction in the range of 40% to 50% and his volume status appears to be close to dry weight. My recommendation would be, 1. Random urine sodium. 2. No need for IV fluids. 3. Monitor urine output. 4. The patient will likely need renal replacement therapy. 5. Follow kidney function, electrolytes. Thank you for allowing me to participate in the care of this patient. Lizzeth Trujillo MD GF/MODL / [phone]
--- NOTE | 2020-06-02 11:28 | P.PNNP_ITS ---
Subjective Subjective Date of Service: 06/02/20 Interval history: seen and examined vented discussed with ICU team Physical Exam Vital Signs: Vital Signs: Last Vital Signs Temp 98.4 F 06/02/20 11:00 Pulse 93 06/02/20 11:00 Resp 28 H 06/02/20 11:00 BP 95/44 L 06/02/20 11:00 Pulse Ox 75 L 06/02/20 11:00 Body Mass Index 38.0 Const: Orientation/consciousness: Other orientation findings (ill looking) HENMT: Head: Yes normocephalic and Yes atraumatic Neck: Neck: Yes supple Resp: Auscultation: diminished lung sounds Cardio: Heart sounds: S1 normal heart sound present and S2 normal heart sound present GI: Palpation (GI): Soft to palpation and nontender Extrem: Right upper extremity: no edema Objective Data Labs CBC & Chem 7: 06/02/20 05:25 06/02/20 05:25 Labs: Laboratory Results - last 24 hr 06/01/20 06/01/20 06/01/20 12:00 18:03 19:25 WBC RBC Hgb Hct MCV MCH MCHC RDW Plt Count MPV Immature Gran % (Auto) Neut % (Auto) Lymph % (Auto) [place] % (Auto) Eos % (Auto) Baso % (Auto) Lymph # (Auto) [place] # (Auto) Eos # (Auto) Baso # (Auto) Abs Immat Gran (auto) Absolute Neuts (auto) Absolute Nucleated RBC Nucleated RBC % (auto) Smear Tech's Comments D-Dimer VBG pH VBG pCO2 VBG pO2 VBG HCO3 VBG O2 Saturation VBG Base Excess Sodium Potassium Chloride Carbon Dioxide Anion Gap BUN Creatinine Estim Creat Clear Calc Estimated GFR POC Glucose 183 H 208 H Random Glucose Calcium Phosphorus Total Bilirubin AST ALT Alkaline Phosphatase C-Reactive Protein Total Protein Albumin Urine Color DARK YELLOW Urine Appearance CLEAR Urine pH 5.0 Ur Specific [place] >= 1.030 H Urine Protein 1+ H Urine Glucose (UA) NEG Urine Ketones NEG Urine Blood 2+ H Urine Nitrite NEG Ur Leukocyte Esterase NEG Urine RBC 30-49 H Urine WBC 0-2 Ur Squamous Epith Cells 2+ Amorphous Sediment 1+ Urine Bacteria NONE 06/01/20 06/01/20 06/02/20 23:01 23:24 05:25 WBC RBC Hgb Hct MCV MCH MCHC RDW Plt Count MPV Immature Gran % (Auto) Neut % (Auto) Lymph % (Auto) [place] % (Auto) Eos % (Auto) Baso % (Auto) Lymph # (Auto) [place] # (Auto) Eos # (Auto) Baso # (Auto) Abs Immat Gran (auto) Absolute Neuts (auto) Absolute Nucleated RBC Nucleated RBC % (auto) Smear Tech's Comments D-Dimer VBG pH 7.25 L VBG pCO2 63 VBG pO2 54 VBG HCO3 28 H VBG O2 Saturation 74.0 VBG Base Excess 0.3 Sodium 137 Potassium 5.6 H Chloride 101 Carbon Dioxide 22 Anion Gap 20 BUN 117 H* D Creatinine 4.10 H* Estim Creat Clear Calc 18.3 Estimated GFR 15 POC Glucose 215 H Random Glucose 237 H Calcium 7.6 L D Phosphorus 8.3 H Total Bilirubin 4.7 H AST 60 H ALT 32 Alkaline Phosphatase 122 H C-Reactive Protein Total Protein 6.8 Albumin 2.8 L Urine Color Urine Appearance Urine pH Ur Specific [place] Urine Protein Urine Glucose (UA) Urine Ketones Urine Blood Urine Nitrite Ur Leukocyte Esterase Urine RBC Urine WBC Ur Squamous Epith Cells Amorphous Sediment Urine Bacteria 06/02/20 06/02/20 06/02/20 05:25 05:25 05:25 WBC 17.5 H RBC 3.68 L Hgb 8.3 L Hct 28.3 L MCV 76.9 L MCH 22.6 L MCHC 29.3 L RDW 18.1 H Plt Count 194 MPV 10.8 Immature Gran % (Auto) 2.5 H Neut % (Auto) 92.8 H Lymph % (Auto) 2.5 L [place] % (Auto) 1.9 L Eos % (Auto) 0.1 Baso % (Auto) 0.2 Lymph # (Auto) 0.4 L [place] # (Auto) 0.3 Eos # (Auto) 0.0 Baso # (Auto) 0.0 Abs Immat Gran (auto) 0.43 H Absolute Neuts (auto) 16.2 H Absolute Nucleated RBC 0.040 H Nucleated RBC % (auto) 0.2 Smear Tech's Comments VERIFIED D-Dimer 4255 VBG pH VBG pCO2 VBG pO2 VBG HCO3 VBG O2 Saturation VBG Base Excess Sodium Potassium Chloride Carbon Dioxide Anion Gap BUN Creatinine Estim Creat Clear Calc Estimated GFR POC Glucose Random Glucose Calcium Phosphorus Total Bilirubin AST ALT Alkaline Phosphatase C-Reactive Protein 31.74 H Total Protein Albumin Urine Color Urine Appearance Urine pH Ur Specific [place] Urine Protein Urine Glucose (UA) Urine Ketones Urine Blood Urine Nitrite Ur Leukocyte Esterase Urine RBC Urine WBC Ur Squamous Epith Cells Amorphous Sediment Urine Bacteria 06/02/20 06/02/20 06/02/20 05:29 05:31 11:09 WBC RBC Hgb Hct MCV MCH MCHC RDW Plt Count MPV Immature Gran % (Auto) Neut % (Auto) Lymph % (Auto) [place] % (Auto) Eos % (Auto) Baso % (Auto) Lymph # (Auto) [place] # (Auto) Eos # (Auto) Baso # (Auto) Abs Immat Gran (auto) Absolute Neuts (auto) Absolute Nucleated RBC Nucleated RBC % (auto) Smear Tech's Comments D-Dimer VBG pH 7.26 L 7.24 L VBG pCO2 57 56 VBG pO2 43 59 VBG HCO3 26 24 VBG O2 Saturation 60.0 78.0 VBG Base Excess -1.3 -2.9 Sodium Potassium Chloride Carbon Dioxide Anion Gap BUN Creatinine Estim Creat Clear Calc Estimated GFR POC Glucose 206 H Random Glucose Calcium Phosphorus Total Bilirubin AST ALT Alkaline Phosphatase C-Reactive Protein Total Protein Albumin Urine Color Urine Appearance Urine pH Ur Specific [place] Urine Protein Urine Glucose (UA) Urine Ketones Urine Blood Urine Nitrite Ur Leukocyte Esterase Urine RBC Urine WBC Ur Squamous Epith Cells Amorphous Sediment Urine Bacteria Microbiology Microbiology Results: Microbiology 05/30/20 08:01 Blood - Venous Blood Culture - Preliminary No growth after 48 hours. 05/30/20 07:50 Blood - Venous Blood Culture - Preliminary No growth after 48 hours. 05/21/20 14:41 Blood - Venous Blood Culture - Final No growth after 5 days. 05/21/20 14:34 Blood - Venous Blood Culture - Final No growth after 5 days. Assessment & Plan Assessment and plan (1) COOPER (acute kidney injury): Status: Acute (2) SARS-CoV-2 positive: Status: Acute (3) Anemia: Status: Acute (4) Respiratory failure: Status: Acute Assessment and Plan: worsening kidney function elevated serum potassium FiO2 100% failed proning COOPER in the setting of SARS COV 2 infection SARS COV 2 can cause acute tubular injury with microvascular thrombosis it can also cause podocyte disease normal baseline kidney function respiratory failure currently on 100% FiO2 echocardiogram with LVEF 40-50% overall poor prognosis REC goal of care discussion with family if agreeable will need renal replacement therapy follow kidney function and electrolytes Time Spent With Patient Time: Total time spent is greater than 50% in coordination of care (as documented) at patient's floor/unit and/or counseling patient:
[2020-06-02 11:45] LABS: Lactic Acid 1.2 mmol/L (0.5-2.0)
[2020-06-02 11:57] LABS: Glucose, Whole Blood 290 mg/dL (60-115)
[2020-06-02 12:00] LABS: Anion Gap 18 (12-20); Blood Urea Nitrogen 122 mg/dL (9-16); Calcium 7.3 mg/dL (8.4-10.2); Carbon Dioxide 22 mmol/L (22-29); Chloride 102 mmol/L (96-108); Creatinine Clr Calc Pharmacy 17.2; Estimated Glomerular Filt Rate 14; Glucose Random 325 mg/dL (60-115); Potassium 5.4 mmol/L (3.3-5.1); Sodium 137 mmol/L (135-145)
--- NOTE | 2020-06-02 13:11 | P.PNCC_ITS ---
Subjective Subjective Date of Service: 06/02/20 Interval History: Mr. Augie Miller was transferred to ICU on May 29 with acute respiratory failure secondary to COVID pneumonia. Patient is a 65-year-old male with past medical history of Asthma, diabetes, hypercholesteremia, hypertension, and palpitations. He was diagnosed with colon cancer in May of last year, and has been treated with chemotherapy by Dr. Burleson. Last CT on March 31, 2020 showed no recurrence and no metastatic disease. According to the ED note of 05/21, the patient tested positive for COVID last year on 03/31/19. Previous echo from last year was fairly normal, except for ejection fraction estimated at 45-50%; right heart was normal. The patient tested positive for COVID a 2nd time on 05/15/2020. CXR showed no acute dz. He was sent home with Decadron, Robitussin, and doxycycline, with little symptomatic relief. The patient presented to the ED on 05/21 with complaints of worsening shortness of breath, dyspnea on exertion, orthopnea chest discomfort, and fevers. SpO2 was low 90?s on room air. CTPA showed mild-moderate classic COVID infiltrates. There was no PE, and RV and PA size were normal. D-dimer, ferritin, and procalcitonin were low; the CRP was 5. The patient was admitted to medicine and treated with Decadron. By the next day, the patient was up to 50% FiO2. By 05/26, he was up to 100% FiO2 on HFNC. On May 29 he was emergently transferred to ICU and intubated. Subsequently required NMB to oxygenate and ventilate adequately. His FiO2 has been at 100% oxygen for the last 3 days. Has been having low-grade temps since May 29. White count has ranged from 8-16 since he?s been here. D-dimer was low until it hit 3400 on May 29. We have been unable to turn the NMB off without severe hypoxemia. Yesterday, I turned the Nimbex down from 2ug/kg/min to 1, and he desaturated into the 70?s. The Sat was unable to be recovered. He was proned, which caused worse h ypoxemia, so he was replaced supine. He also had another episode of Afib, which again responded to esmolol. This morning, he was on Nimbex at 2ug, with no twitches. SpO2 was 77% on PC 26, , 100%. We turned the Nimbex off and after about two hours, he had four twitches, but sat was down to high 69%. We reparalyzed. I dropped his ventilator rate to 24 and raised the Pi to 22. Sat is now back up to 73%. On exam, he?s currently on propofol at 35 ug, fentanyl at 200 ug, Nimbex at 1, Levophed at 0.14 mcg and esmolol at 125 mcg. He has been afebrile for 36 hours. HR 92, back in SR. BP 108/60. On PC f 24, , 100%, I:E ratio increased to 1:1. RR is 24, Vt up to 490cc, Ve 11.9L, PIP 39, ETC02 25, SpO2 73%. Central venous blood gas at 11am showed 7.24/56/-2. No JVD. Chest CTA, exp phase normal. Regular rate and rhythm, normal-sounding S1 and S2, with no murmur or gallops. Abdomen protuberant and benign. Trivial edema. LABORATORY DATA: Below. Notably, WBC spiked to 17. BUN/creatinine this morning were up to 122/4.3 (from 90/3.5 yesterday); the renal indices have been rising steadily since 05/28. Phos up to 8.3. Total bili up to 4.7. DDimer up to 4200, CRP down slightly. ECHOCARDIOGRAM - Done by the tech 05/31 and read by me: LV size and wall thickness were normal. Overall LV EF 40-50%, with possible lateral wall hypokinesis. RV cavities size was absolutely normal, with RV:LV cavity ratio approximately 0.5. No tricuspid jet obtained. IVC was dilated at 2.3 cm and non-collapsing. MICROBIOLOGY: Blood cultures obtained on 05/21 and 05/30 so far negative. IMAGING: Last CXR 05/31 showed bilateral airspace disease, noticeably worse than on May 21. Venous duplex negative. IMPRESSION: 1. Highly significant underlying comorbidities including colon cancer undergoing treatment, DM, and obesity. 2. Bilateral COVID pneumonia with ARDS. We upped his steroids to 80 mg bid, and added the EVMS protocol. 3. Acute hypoxemic respiratory failure. Secondary to above. Refractory hypoxemia, failed proning. Not a candidate for ECMO. 4. COOPER. He?s heading into full on ARF. A trial of diuresis yesterday failed to accomplish anything. Discussed dialysis with Dr. Trujillo and with Dr. Aguirre. It is the opinion of all of us that dialysis would be futile and would not change the outcome. 5. DM. Insulin as needed. 6. Anticoagulation/DVT prophylaxis: Given his weight and COVID, we have him on Lovenox 30 mg q12h. 7. Elevated DDimer. The echo rules out the poss of signif PE. DVT study was negative. 8. Viral sepsis (by definition). No prognosis for survival. I wrote no CPR orders. Spoke with daughter Evelyn this morning by telephone ([phone]). I told her that the outcome was certain, that he was going to , and that nobody had any decision-making role in that outcome, and the only decision was whether to stop what we?re doing now, or to continue and let nature take its course. I told her we would not do CPR. She said that she was unable to agree to stop now bec that would kill her mother and then she would be responsible for both their deaths. She ?accepted? that nature would take its course and he would on the machines. (I will not offer dialysis, did not discuss that with her.) Critical care time: 80+ min. Physical Exam Vital Signs: Vital Signs: Last Vital Signs Temp 98.6 F 06/02/20 13:00 Pulse 92 06/02/20 13:00 Resp 24 H 06/02/20 13:00 BP 108/60 06/02/20 13:00 Pulse Ox 73 L 06/02/20 13:00 Body Mass Index 38.0 Objective Data Labs CBC & Chem 7: 06/02/20 05:25 06/02/20 11:02 Labs: Laboratory Results - last 24 hr 06/01/20 06/01/20 06/01/20 18:03 19:25 23:01 WBC RBC Hgb Hct MCV MCH MCHC RDW Plt Count MPV Immature Gran % (Auto) Neut % (Auto) Lymph % (Auto) [place] % (Auto) Eos % (Auto) Baso % (Auto) Lymph # (Auto) [place] # (Auto) Eos # (Auto) Baso # (Auto) Abs Immat Gran (auto) Absolute Neuts (auto) Absolute Nucleated RBC Nucleated RBC % (auto) Smear Tech's Comments D-Dimer VBG pH 7.25 L VBG pCO2 63 VBG pO2 54 VBG HCO3 28 H VBG O2 Saturation 74.0 VBG Base Excess 0.3 Sodium Potassium Chloride Carbon Dioxide Anion Gap BUN Creatinine Estim Creat Clear Calc Estimated GFR POC Glucose 208 H Random Glucose Lactic Acid Calcium Phosphorus Total Bilirubin AST ALT Alkaline Phosphatase C-Reactive Protein Total Protein Albumin Urine Color DARK YELLOW Urine Appearance CLEAR Urine pH 5.0 Ur Specific [place] >= 1.030 H Urine Protein 1+ H Urine Glucose (UA) NEG Urine Ketones NEG Urine Blood 2+ H Urine Nitrite NEG Ur Leukocyte Esterase NEG Urine RBC 30-49 H Urine WBC 0-2 Ur Squamous Epith Cells 2+ Amorphous Sediment 1+ Urine Bacteria NONE 06/01/20 06/02/20 06/02/20 23:24 05:25 05:25 WBC 17.5 H RBC 3.68 L Hgb 8.3 L Hct 28.3 L MCV 76.9 L MCH 22.6 L MCHC 29.3 L RDW 18.1 H Plt Count 194 MPV 10.8 Immature Gran % (Auto) 2.5 H Neut % (Auto) 92.8 H Lymph % (Auto) 2.5 L [place] % (Auto) 1.9 L Eos % (Auto) 0.1 Baso % (Auto) 0.2 Lymph # (Auto) 0.4 L [place] # (Auto) 0.3 Eos # (Auto) 0.0 Baso # (Auto) 0.0 Abs Immat Gran (auto) 0.43 H Absolute Neuts (auto) 16.2 H Absolute Nucleated RBC 0.040 H Nucleated RBC % (auto) 0.2 Smear Tech's Comments VERIFIED D-Dimer VBG pH VBG pCO2 VBG pO2 VBG HCO3 VBG O2 Saturation VBG Base Excess Sodium 137 Potassium 5.6 H Chloride 101 Carbon Dioxide 22 Anion Gap 20 BUN 117 H* D Creatinine 4.10 H* Estim Creat Clear Calc 18.3 Estimated GFR 15 POC Glucose 215 H Random Glucose 237 H Lactic Acid Calcium 7.6 L D Phosphorus 8.3 H Total Bilirubin 4.7 H AST 60 H ALT 32 Alkaline Phosphatase 122 H C-Reactive Protein Total Protein 6.8 Albumin 2.8 L Urine Color Urine Appearance Urine pH Ur Specific [place] Urine Protein Urine Glucose (UA) Urine Ketones Urine Blood Urine Nitrite Ur Leukocyte Esterase Urine RBC Urine WBC Ur Squamous Epith Cells Amorphous Sediment Urine Bacteria 06/02/20 06/02/20 06/02/20 05:25 05:25 05:29 WBC RBC Hgb Hct MCV MCH MCHC RDW Plt Count MPV Immature Gran % (Auto) Neut % (Auto) Lymph % (Auto) [place] % (Auto) Eos % (Auto) Baso % (Auto) Lymph # (Auto) [place] # (Auto) Eos # (Auto) Baso # (Auto) Abs Immat Gran (auto) Absolute Neuts (auto) Absolute Nucleated RBC Nucleated RBC % (auto) Smear Tech's Comments D-Dimer 4255 VBG pH 7.26 L VBG pCO2 57 VBG pO2 43 VBG HCO3 26 VBG O2 Saturation 60.0 VBG Base Excess -1.3 Sodium Potassium Chloride Carbon Dioxide Anion Gap BUN Creatinine Estim Creat Clear Calc Estimated GFR POC Glucose Random Glucose Lactic Acid Calcium Phosphorus Total Bilirubin AST ALT Alkaline Phosphatase C-Reactive Protein 31.74 H Total Protein Albumin Urine Color Urine Appearance Urine pH Ur Specific [place] Urine Protein Urine Glucose (UA) Urine Ketones Urine Blood Urine Nitrite Ur Leukocyte Esterase Urine RBC Urine WBC Ur Squamous Epith Cells Amorphous Sediment Urine Bacteria 06/02/20 06/02/20 06/02/20 05:31 11:02 11:05 WBC RBC Hgb Hct MCV MCH MCHC RDW Plt Count MPV Immature Gran % (Auto) Neut % (Auto) Lymph % (Auto) [place] % (Auto) Eos % (Auto) Baso % (Auto) Lymph # (Auto) [place] # (Auto) Eos # (Auto) Baso # (Auto) Abs Immat Gran (auto) Absolute Neuts (auto) Absolute Nucleated RBC Nucleated RBC % (auto) Smear Tech's Comments D-Dimer VBG pH VBG pCO2 VBG pO2 VBG HCO3 VBG O2 Saturation VBG Base Excess Sodium 137 Potassium 5.4 H Chloride 102 Carbon Dioxide 22 Anion Gap 18 BUN 122 H* Creatinine 4.35 H* Estim Creat Clear Calc 17.2 Estimated GFR 14 POC Glucose 206 H Random Glucose 325 H D Lactic Acid 1.2 Calcium 7.3 L Phosphorus Total Bilirubin AST ALT Alkaline Phosphatase C-Reactive Protein Total Protein Albumin Urine Color Urine Appearance Urine pH Ur Specific [place] Urine Protein Urine Glucose (UA) Urine Ketones Urine Blood Urine Nitrite Ur Leukocyte Esterase Urine RBC Urine WBC Ur Squamous Epith Cells Amorphous Sediment Urine Bacteria 06/02/20 06/02/20 11:09 11:49 WBC RBC Hgb Hct MCV MCH MCHC RDW Plt Count MPV Immature Gran % (Auto) Neut % (Auto) Lymph % (Auto) [place] % (Auto) Eos % (Auto) Baso % (Auto) Lymph # (Auto) [place] # (Auto) Eos # (Auto) Baso # (Auto) Abs Immat Gran (auto) Absolute Neuts (auto) Absolute Nucleated RBC Nucleated RBC % (auto) Smear Tech's Comments D-Dimer VBG pH 7.24 L VBG pCO2 56 VBG pO2 59 VBG HCO3 24 VBG O2 Saturation 78.0 VBG Base Excess -2.9 Sodium Potassium Chloride Carbon Dioxide Anion Gap BUN Creatinine Estim Creat Clear Calc Estimated GFR POC Glucose 290 H Random Glucose Lactic Acid Calcium Phosphorus Total Bilirubin AST ALT Alkaline Phosphatase C-Reactive Protein Total Protein Albumin Urine Color Urine Appearance Urine pH Ur Specific [place] Urine Protein Urine Glucose (UA) Urine Ketones Urine Blood Urine Nitrite Ur Leukocyte Esterase Urine RBC Urine WBC Ur Squamous Epith Cells Amorphous Sediment Urine Bacteria Microbiology Microbiology Results: Microbiology 05/30/20 08:01 Blood - Venous Blood Culture - Preliminary No growth after 48 hours. 05/30/20 07:50 Blood - Venous Blood Culture - Preliminary No growth after 48 hours. 05/21/20 14:41 Blood - Venous Blood Culture - Final No growth after 5 days. 05/21/20 14:34 Blood - Venous Blood Culture - Final No growth after 5 days. Critical Care Time Critical Care Time (minutes): 90
[2020-06-02 13:53] LABS: Venous Blood Gas Refer to POC result
[2020-06-02 14:24] LABS: Glucose, Whole Blood 214 mg/dL (60-115)
--- NOTE | 2020-06-02 16:26 | PM.CCPN ---
Subjective Subjective Date of Service: 06/02/20 Interval History: SpO2 is dropping below 60% and staying there on the vent settings in my prev note. Currently 58-59%. Stat CXR just shows severe ARDS, no pneumothorax or SQ air. There is nothing more that can be done. If the decline in his SpO2 continues, bradycardic arrest will ensue. I called his daughter Evelyn and let her know, and that he may well not make the night. She will try to visit. Physical Exam Vital Signs: Vital Signs: Last Vital Signs Temp 99.0 F 06/02/20 15:57 Pulse 98 06/02/20 15:57 Resp 24 H 06/02/20 15:57 BP 152/84 H 06/02/20 15:57 Pulse Ox 58 L 06/02/20 15:57 Body Mass Index 38.0 Objective Data Labs CBC & Chem 7: 06/02/20 05:25 06/02/20 11:02 Labs: Laboratory Results - last 24 hr 06/01/20 06/01/20 06/01/20 18:03 19:25 23:01 WBC RBC Hgb Hct MCV MCH MCHC RDW Plt Count MPV Immature Gran % (Auto) Neut % (Auto) Lymph % (Auto) [place] % (Auto) Eos % (Auto) Baso % (Auto) Lymph # (Auto) [place] # (Auto) Eos # (Auto) Baso # (Auto) Abs Immat Gran (auto) Absolute Neuts (auto) Absolute Nucleated RBC Nucleated RBC % (auto) Smear Tech's Comments D-Dimer VBG pH 7.25 L VBG pCO2 63 VBG pO2 54 VBG HCO3 28 H VBG O2 Saturation 74.0 VBG Base Excess 0.3 Sodium Potassium Chloride Carbon Dioxide Anion Gap BUN Creatinine Estim Creat Clear Calc Estimated GFR POC Glucose 208 H Random Glucose Lactic Acid Calcium Phosphorus Total Bilirubin AST ALT Alkaline Phosphatase C-Reactive Protein Total Protein Albumin Urine Color DARK YELLOW Urine Appearance CLEAR Urine pH 5.0 Ur Specific [place] >= 1.030 H Urine Protein 1+ H Urine Glucose (UA) NEG Urine Ketones NEG Urine Blood 2+ H Urine Nitrite NEG Ur Leukocyte Esterase NEG Urine RBC 30-49 H Urine WBC 0-2 Ur Squamous Epith Cells 2+ Amorphous Sediment 1+ Urine Bacteria NONE 06/01/20 06/02/20 06/02/20 23:24 05:25 05:25 WBC 17.5 H RBC 3.68 L Hgb 8.3 L Hct 28.3 L MCV 76.9 L MCH 22.6 L MCHC 29.3 L RDW 18.1 H Plt Count 194 MPV 10.8 Immature Gran % (Auto) 2.5 H Neut % (Auto) 92.8 H Lymph % (Auto) 2.5 L [place] % (Auto) 1.9 L Eos % (Auto) 0.1 Baso % (Auto) 0.2 Lymph # (Auto) 0.4 L [place] # (Auto) 0.3 Eos # (Auto) 0.0 Baso # (Auto) 0.0 Abs Immat Gran (auto) 0.43 H Absolute Neuts (auto) 16.2 H Absolute Nucleated RBC 0.040 H Nucleated RBC % (auto) 0.2 Smear Tech's Comments VERIFIED D-Dimer VBG pH VBG pCO2 VBG pO2 VBG HCO3 VBG O2 Saturation VBG Base Excess Sodium 137 Potassium 5.6 H Chloride 101 Carbon Dioxide 22 Anion Gap 20 BUN 117 H* D Creatinine 4.10 H* Estim Creat Clear Calc 18.3 Estimated GFR 15 POC Glucose 215 H Random Glucose 237 H Lactic Acid Calcium 7.6 L D Phosphorus 8.3 H Total Bilirubin 4.7 H AST 60 H ALT 32 Alkaline Phosphatase 122 H C-Reactive Protein Total Protein 6.8 Albumin 2.8 L Urine Color Urine Appearance Urine pH Ur Specific [place] Urine Protein Urine Glucose (UA) Urine Ketones Urine Blood Urine Nitrite Ur Leukocyte Esterase Urine RBC Urine WBC Ur Squamous Epith Cells Amorphous Sediment Urine Bacteria 06/02/20 06/02/20 06/02/20 05:25 05:25 05:29 WBC RBC Hgb Hct MCV MCH MCHC RDW Plt Count MPV Immature Gran % (Auto) Neut % (Auto) Lymph % (Auto) [place] % (Auto) Eos % (Auto) Baso % (Auto) Lymph # (Auto) [place] # (Auto) Eos # (Auto) Baso # (Auto) Abs Immat Gran (auto) Absolute Neuts (auto) Absolute Nucleated RBC Nucleated RBC % (auto) Smear Tech's Comments D-Dimer 4255 VBG pH 7.26 L VBG pCO2 57 VBG pO2 43 VBG HCO3 26 VBG O2 Saturation 60.0 VBG Base Excess -1.3 Sodium Potassium Chloride Carbon Dioxide Anion Gap BUN Creatinine Estim Creat Clear Calc Estimated GFR POC Glucose Random Glucose Lactic Acid Calcium Phosphorus Total Bilirubin AST ALT Alkaline Phosphatase C-Reactive Protein 31.74 H Total Protein Albumin Urine Color Urine Appearance Urine pH Ur Specific [place] Urine Protein Urine Glucose (UA) Urine Ketones Urine Blood Urine Nitrite Ur Leukocyte Esterase Urine RBC Urine WBC Ur Squamous Epith Cells Amorphous Sediment Urine Bacteria 06/02/20 06/02/20 06/02/20 05:31 11:02 11:05 WBC RBC Hgb Hct MCV MCH MCHC RDW Plt Count MPV Immature Gran % (Auto) Neut % (Auto) Lymph % (Auto) [place] % (Auto) Eos % (Auto) Baso % (Auto) Lymph # (Auto) [place] # (Auto) Eos # (Auto) Baso # (Auto) Abs Immat Gran (auto) Absolute Neuts (auto) Absolute Nucleated RBC Nucleated RBC % (auto) Smear Tech's Comments D-Dimer VBG pH VBG pCO2 VBG pO2 VBG HCO3 VBG O2 Saturation VBG Base Excess Sodium 137 Potassium 5.4 H Chloride 102 Carbon Dioxide 22 Anion Gap 18 BUN 122 H* Creatinine 4.35 H* Estim Creat Clear Calc 17.2 Estimated GFR 14 POC Glucose 206 H Random Glucose 325 H D Lactic Acid 1.2 Calcium 7.3 L Phosphorus Total Bilirubin AST ALT Alkaline Phosphatase C-Reactive Protein Total Protein Albumin Urine Color Urine Appearance Urine pH Ur Specific [place] Urine Protein Urine Glucose (UA) Urine Ketones Urine Blood Urine Nitrite Ur Leukocyte Esterase Urine RBC Urine WBC Ur Squamous Epith Cells Amorphous Sediment Urine Bacteria 06/02/20 06/02/20 06/02/20 11:09 11:49 14:21 WBC RBC Hgb Hct MCV MCH MCHC RDW Plt Count MPV Immature Gran % (Auto) Neut % (Auto) Lymph % (Auto) [place] % (Auto) Eos % (Auto) Baso % (Auto) Lymph # (Auto) [place] # (Auto) Eos # (Auto) Baso # (Auto) Abs Immat Gran (auto) Absolute Neuts (auto) Absolute Nucleated RBC Nucleated RBC % (auto) Smear Tech's Comments D-Dimer VBG pH 7.24 L VBG pCO2 56 VBG pO2 59 VBG HCO3 24 VBG O2 Saturation 78.0 VBG Base Excess -2.9 Sodium Potassium Chloride Carbon Dioxide Anion Gap BUN Creatinine Estim Creat Clear Calc Estimated GFR POC Glucose 290 H 214 H Random Glucose Lactic Acid Calcium Phosphorus Total Bilirubin AST ALT Alkaline Phosphatase C-Reactive Protein Total Protein Albumin Urine Color Urine Appearance Urine pH Ur Specific [place] Urine Protein Urine Glucose (UA) Urine Ketones Urine Blood Urine Nitrite Ur Leukocyte Esterase Urine RBC Urine WBC Ur Squamous Epith Cells Amorphous Sediment Urine Bacteria Microbiology Microbiology Results: Microbiology 05/30/20 08:01 Blood - Venous Blood Culture - Preliminary No growth after 48 hours. 05/30/20 07:50 Blood - Venous Blood Culture - Preliminary No growth after 48 hours. 05/21/20 14:41 Blood - Venous Blood Culture - Final No growth after 5 days. 05/21/20 14:34 Blood - Venous Blood Culture - Final No growth after 5 days. Critical Care Time Critical care time: 15 min
[2020-06-02 17:15] LABS: Appearance Urine HAZY; Color Urine YELLOW; Glucose Urine UA NEG (NEG); Leukocyte Esterase Urine NEG (NEG); Nitrite Urine NEG (NEG); Specific Gravity - Urine >= 1.030 (1.005-1.025); Urine Blood NEG (NEG); Urine Ketones NEG (NEG); Urine Protein TRACE MG/DL (NEG-TRACE)
--- NOTE | 2020-06-02 18:39 | P.PNCC_ITS ---
Subjective Subjective Date of Service: 06/02/20 Interval History: At about 6pm, with the sat in the high 50's, the patient franco'd down suddently into the 50's, as we were expecting. We rescued him transiently with a bolus of epinephrine, but the bradycardia recurred. The cycle repeated, and we gave him a full mg of epi. He then franco'd down into the 20s and became agonal. He became asystolic at 1834. The family was at the bedside. Physical Exam Vital Signs: Vital Signs: Last Vital Signs Temp 99.1 F 06/02/20 17:00 Pulse 69 06/02/20 18:17 Resp 24 H 06/02/20 18:00 BP 71/33 L 06/02/20 18:17 Pulse Ox 75 L 06/02/20 18:00 Body Mass Index 38.0 Objective Data Labs CBC & Chem 7: 06/02/20 05:25 06/02/20 11:02 Labs: Laboratory Results - last 24 hr 06/01/20 06/01/20 06/01/20 19:25 23:01 23:24 WBC RBC Hgb Hct MCV MCH MCHC RDW Plt Count MPV Immature Gran % (Auto) Neut % (Auto) Lymph % (Auto) [place] % (Auto) Eos % (Auto) Baso % (Auto) Lymph # (Auto) [place] # (Auto) Eos # (Auto) Baso # (Auto) Abs Immat Gran (auto) Absolute Neuts (auto) Absolute Nucleated RBC Nucleated RBC % (auto) Smear Tech's Comments D-Dimer VBG pH 7.25 L VBG pCO2 63 VBG pO2 54 VBG HCO3 28 H VBG O2 Saturation 74.0 VBG Base Excess 0.3 Sodium Potassium Chloride Carbon Dioxide Anion Gap BUN Creatinine Estim Creat Clear Calc Estimated GFR POC Glucose 215 H Random Glucose Lactic Acid Calcium Phosphorus Total Bilirubin AST ALT Alkaline Phosphatase C-Reactive Protein Total Protein Albumin Urine Color DARK YELLOW Urine Appearance CLEAR Urine pH 5.0 Ur Specific [place] >= 1.030 H Urine Protein 1+ H Urine Glucose (UA) NEG Urine Ketones NEG Urine Blood 2+ H Urine Nitrite NEG Ur Leukocyte Esterase NEG Urine RBC 30-49 H Urine WBC 0-2 Ur Squamous Epith Cells 2+ Amorphous Sediment 1+ Urine Bacteria NONE 06/02/20 06/02/20 06/02/20 05:25 05:25 05:25 WBC 17.5 H RBC 3.68 L Hgb 8.3 L Hct 28.3 L MCV 76.9 L MCH 22.6 L MCHC 29.3 L RDW 18.1 H Plt Count 194 MPV 10.8 Immature Gran % (Auto) 2.5 H Neut % (Auto) 92.8 H Lymph % (Auto) 2.5 L [place] % (Auto) 1.9 L Eos % (Auto) 0.1 Baso % (Auto) 0.2 Lymph # (Auto) 0.4 L [place] # (Auto) 0.3 Eos # (Auto) 0.0 Baso # (Auto) 0.0 Abs Immat Gran (auto) 0.43 H Absolute Neuts (auto) 16.2 H Absolute Nucleated RBC 0.040 H Nucleated RBC % (auto) 0.2 Smear Tech's Comments VERIFIED D-Dimer 4255 VBG pH VBG pCO2 VBG pO2 VBG HCO3 VBG O2 Saturation VBG Base Excess Sodium 137 Potassium 5.6 H Chloride 101 Carbon Dioxide 22 Anion Gap 20 BUN 117 H* D Creatinine 4.10 H* Estim Creat Clear Calc 18.3 Estimated GFR 15 POC Glucose Random Glucose 237 H Lactic Acid Calcium 7.6 L D Phosphorus 8.3 H Total Bilirubin 4.7 H AST 60 H ALT 32 Alkaline Phosphatase 122 H C-Reactive Protein Total Protein 6.8 Albumin 2.8 L Urine Color Urine Appearance Urine pH Ur Specific [place] Urine Protein Urine Glucose (UA) Urine Ketones Urine Blood Urine Nitrite Ur Leukocyte Esterase Urine RBC Urine WBC Ur Squamous Epith Cells Amorphous Sediment Urine Bacteria 06/02/20 06/02/20 06/02/20 05:25 05:29 05:31 WBC RBC Hgb Hct MCV MCH MCHC RDW Plt Count MPV Immature Gran % (Auto) Neut % (Auto) Lymph % (Auto) [place] % (Auto) Eos % (Auto) Baso % (Auto) Lymph # (Auto) [place] # (Auto) Eos # (Auto) Baso # (Auto) Abs Immat Gran (auto) Absolute Neuts (auto) Absolute Nucleated RBC Nucleated RBC % (auto) Smear Tech's Comments D-Dimer VBG pH 7.26 L VBG pCO2 57 VBG pO2 43 VBG HCO3 26 VBG O2 Saturation 60.0 VBG Base Excess -1.3 Sodium Potassium Chloride Carbon Dioxide Anion Gap BUN Creatinine Estim Creat Clear Calc Estimated GFR POC Glucose 206 H Random Glucose Lactic Acid Calcium Phosphorus Total Bilirubin AST ALT Alkaline Phosphatase C-Reactive Protein 31.74 H Total Protein Albumin Urine Color Urine Appearance Urine pH Ur Specific [place] Urine Protein Urine Glucose (UA) Urine Ketones Urine Blood Urine Nitrite Ur Leukocyte Esterase Urine RBC Urine WBC Ur Squamous Epith Cells Amorphous Sediment Urine Bacteria 06/02/20 06/02/20 06/02/20 11:02 11:05 11:09 WBC RBC Hgb Hct MCV MCH MCHC RDW Plt Count MPV Immature Gran % (Auto) Neut % (Auto) Lymph % (Auto) [place] % (Auto) Eos % (Auto) Baso % (Auto) Lymph # (Auto) [place] # (Auto) Eos # (Auto) Baso # (Auto) Abs Immat Gran (auto) Absolute Neuts (auto) Absolute Nucleated RBC Nucleated RBC % (auto) Smear Tech's Comments D-Dimer VBG pH 7.24 L VBG pCO2 56 VBG pO2 59 VBG HCO3 24 VBG O2 Saturation 78.0 VBG Base Excess -2.9 Sodium 137 Potassium 5.4 H Chloride 102 Carbon Dioxide 22 Anion Gap 18 BUN 122 H* Creatinine 4.35 H* Estim Creat Clear Calc 17.2 Estimated GFR 14 POC Glucose Random Glucose 325 H D Lactic Acid 1.2 Calcium 7.3 L Phosphorus Total Bilirubin AST ALT Alkaline Phosphatase C-Reactive Protein Total Protein Albumin Urine Color Urine Appearance Urine pH Ur Specific [place] Urine Protein Urine Glucose (UA) Urine Ketones Urine Blood Urine Nitrite Ur Leukocyte Esterase Urine RBC Urine WBC Ur Squamous Epith Cells Amorphous Sediment Urine Bacteria 06/02/20 06/02/20 06/02/20 11:49 14:21 16:52 WBC RBC Hgb Hct MCV MCH MCHC RDW Plt Count MPV Immature Gran % (Auto) Neut % (Auto) Lymph % (Auto) [place] % (Auto) Eos % (Auto) Baso % (Auto) Lymph # (Auto) [place] # (Auto) Eos # (Auto) Baso # (Auto) Abs Immat Gran (auto) Absolute Neuts (auto) Absolute Nucleated RBC Nucleated RBC % (auto) Smear Tech's Comments D-Dimer VBG pH VBG pCO2 VBG pO2 VBG HCO3 VBG O2 Saturation VBG Base Excess Sodium Potassium Chloride Carbon Dioxide Anion Gap BUN Creatinine Estim Creat Clear Calc Estimated GFR POC Glucose 290 H 214 H Random Glucose Lactic Acid Calcium Phosphorus Total Bilirubin AST ALT Alkaline Phosphatase C-Reactive Protein Total Protein Albumin Urine Color YELLOW Urine Appearance HAZY Urine pH 5.0 Ur Specific [place] >= 1.030 H Urine Protein TRACE Urine Glucose (UA) NEG Urine Ketones NEG Urine Blood NEG Urine Nitrite NEG Ur Leukocyte Esterase NEG Urine RBC Urine WBC Ur Squamous Epith Cells Amorphous Sediment Urine Bacteria Microbiology Microbiology Results: Microbiology 05/30/20 08:01 Blood - Venous Blood Culture - Preliminary No growth after 48 hours. 05/30/20 07:50 Blood - Venous Blood Culture - Preliminary No growth after 48 hours. 05/21/20 14:41 Blood - Venous Blood Culture - Final No growth after 5 days. 05/21/20 14:34 Blood - Venous Blood Culture - Final No growth after 5 days. Critical Care Time 30+ min.
--- NOTE | 2020-06-02 18:42 | PC.NURSE ---
Addendum entered by Arturo Encarnacion RN 06/02/20 18:46: sAo2 WAS 43%. [employer] called, denied case, rep name Sanjay, case denied. Reference number [id number]. Original Note: 1730 Pt began to franco down to 48 bpm, SBP down to 70s, levophed maxed out at 0.3mcg/kg/min, esmolol drip d/c, 1ml epi given x10 (ended up being 1AMP or 1mg), for HR 60-70s, pt bradyd down to 20s, eventually becoming asystolic at 1834 and time of was called per MD Donaldo. All drips turned off.
--- NOTE | 2020-08-17 12:35 | PM.DDS ---
Discharge Sum: Prov Provider Primary care physician: Mansoor Millan MD Consults: 05/28/20 08:49 Consult to Pulmonology Routine Consulting Provider: Angelo Aguirre Reason for consultation: Evaluation of hypoxic resp failure 2\2 covid Discharge Sum: Diag Contributing Factors (1) COOPER (acute kidney injury): (2) SARS-CoV-2 positive: (3) Anemia: (4) Respiratory failure: Discharge Sum: Summary Date and Time Date of admission: 05/21/20 18:51 Summary Details: NOTE DISCHARGE DIAGNOSES: 1. Colon cancer undergoing treatment 2. DM 3. Obesity. 4. Bilateral COVID pneumonia 5. ARDS 6. Acute hypoxemic respiratory failure 7. Acute renal failure 8. Viral sepsis 9. Paroxysmal Afib Mr. Augie Miller was a 65-year-old male with past medical history of Asthma, diabetes, hypercholesteremia, hypertension, and palpitations. He was diagnosed with colon cancer in May,, and had been treated with chemotherapy by Dr. Burleson. Last CT on March 31, 2020 showed no recurrence and no metastatic disease. The patient initially tested positive for COVID on 03/31/19. The patient tested positive for COVID a second time on 05/15/2020. CXR showed no acute dz. He was sent home with Decadron, Robitussin, and doxycycline, with little symptomatic relief. The patient presented to the [facility] on 05/21/20 with complaints of worsening shortness of breath, dyspnea on exertion, orthopnea chest discomfort, and fevers. SpO2 was low 90?s on room air. CTPA showed mild-moderate classic COVID infiltrates. There was no PE, and RV and PA size were normal. D-dimer, ferritin, and procalcitonin were low; the CRP was 5. The patient was admitted to medicine and treated with Decadron. By the next day, the patient was up to 50% FiO2. By 05/26, he was up to 100% FiO2 on HFNC. On 05/29/20 he was emergently transferred to ICU and intubated. Subsequently required NMB to oxygenate and ventilate adequately. The NMB was unable to be weaned without precipitating severe hypoxemia. The patient was proned, which caused worse hypoxemia, so he was replaced supine. He had episodes of Afib, which responded to esmolol. His renal indices mag steadily, up to 122/4.3 on June 02. Echo showed normal LV size and wall thickness. Overall LV EF 40-50%, with possible lateral wall hypokinesis. RV cavity size was normal, with RV:LV cavity ratio 0.5. No tricuspid jet. IVC was dilated and non-collapsing. All cultures were negative. F/u CXRs showed bilateral airspace disease, noticeably worse than on admission. Venous duplex scan was negative. It became clear that there was no prognosis for survival. That was discussed with the patient?s daughter Evelyn. She ?accepted? that nature would take its course and he would in the ICU. At about 6pm on June 02, with the sat in the high 50's, the patient franco'd down suddenly into the 50's, as we were expecting. We rescued him transiently with a bolus of epinephrine, but the bradycardia recurred. The cycle repeated, and we gave him a full mg of epi. He then franco'd down into the 20s and became agonal. He became asystolic at 1834. The family was at the bedside. Additional Data Attending physician: Yvan Fulton MD
== END 2020-06-02 23:15 | disposition expired | DRG 870 ==
LOC: HO.ED 18:19 → HO.IMC 19:03 → HO.ICU 05-29 03:00
PROVIDERS: Internal Medicine Pulmonary Disease; Physician Assistant Medical; Registered Nurse Community Health; Student in an Organized Health Care Education/Training Program; Admitting Provider Internal Medicine; Emergency Provider Emergency Medicine Emergency Medical Services; PCP Internal Medicine; Visit Provider Anesthesiology
DX: A41.89 Other specified sepsis (principal); U07.1 COVID-19; J12.82 Pneumonia due to coronavirus disease 2019; J80 Acute respiratory distress syndrome; C18.7 Malignant neoplasm of sigmoid colon; N17.9 Acute kidney failure, unspecified; I10 Essential (primary) hypertension; E66.9 Obesity, unspecified; Z68.38 Body mass index [BMI] 38.0-38.9, adult; E78.5 Hyperlipidemia, unspecified; E11.649 Type 2 diabetes mellitus with hypoglycemia without coma; D64.9 Anemia, unspecified; R00.1 Bradycardia, unspecified; Z87.891 Personal history of nicotine dependence; Z88.0 Allergy status to penicillin; Z88.6 Allergy status to analgesic agent; Z79.4 Long term (current) use of insulin; Z79.51 Long term (current) use of inhaled steroids; Z79.82 Long term (current) use of aspirin; Z79.899 Other long term (current) drug therapy
CPT/HCPCS: 36415; 36600; 71045; 71275; 80048; 80053; 80076; 80320; 81001; 81003; 82040; 82728; 82947; 83605; 83615; 83735; 83880; 84100; 84145; 84484; 85007; 85025; 85027; 85379; 85610; 85730; 86140; 87040; 87086; 87088; 87186; 93005; 93308; 93970; 94002; 94003; 94640; 94644; 94799; 96365; 96366; 96367; 96375; 99285; 99291; J1100; J1170; J1642; J1650; J1940; J1956; J2060; J2930; J3010; P9047; Q9967